=== PATIENT | female | born 1940 | race African-American/Black ===

== ENCOUNTER 2017-02-21 12:04 | Observation (INO) | payer MEDICARE ==
[2017-02-21] MEDS ORDERED: Ondansetron HCl/PF 4 MG/2 ML Vial ONE (12:48)
[2017-02-21 13:13] LABS: #Basophils 0.1 thou/uL (0.0-0.2); #Eosinphils 0.2 thou/uL (0.0-0.7); #Lymphocytes 1.2 thou/uL (1.20-3.40); #Monocytes 0.7 thou/uL (0.11-0.59); #Neutrophils 8.1 thou/uL (1.40-6.50); %Basophils 0.6 % (0.0-1.0); %Eosinophils 1.5 % (0.0-10.0); %Lymphocytes 11.7 % (21.0-51.0); %Monocytes 6.3 % (0.0-10.0); Hematocrit 31.7 % (36.0-47.0); Red Blood Cell (RBC) Count 3.39 mill/uL (4.20-5.40); White Blood Cell (WBC) Count 10.2 thou/uL (4.8-10.8)
--- NOTE | 2017-02-21 13:22 | RAD ---
PORTABLE CHEST 1 VIEW: Date: 02/21/17 Time: 1230 hours HISTORY: Nausea, vomiting, hypertension. FINDINGS/IMPRESSION: Comparison made with exam of 12/05/16. The heart size is enlarged. The aorta is tortuous. There is mild prominence of the pulmonary vascula rity. No lobar consolidation, pneumothorax, or pleural effusions are seen. POS: [facility]
[2017-02-21 13:55] LABS: ALT (SGPT) 9 U/L (8-55); AST (SGOT) 16 U/L (5-34); Alkaline Phosphatase 83 U/L (40-150); Anion Gap 12 mmol/L (10-20); BUN (Urea Nitrogen) 52 mg/dL (9.8-20.1); Bilirubin, Total 0.3 mg/dL (0.2-1.2); CK (CPK) 86 U/L (29-168); Calc. Creatinine Clearance 0 mL/min (70-130); Calcium 9.8 mg/dL (7.8-10.44); Carbon Dioxide 26 mmol/L (23-31); Chloride 105 mmol/L (98-107); Estimated GFR-MDRD 27; Globulin 3.8 g/dL (2.4-3.5); Lipase 18 U/L (8-78); Protein, Total 7.7 g/dL (6.0-8.3)
[2017-02-21 13:56] LABS: Troponin I 0.026 ng/mL (< 0.028)
[2017-02-21] MEDS ORDERED: Acetaminophen 500 MG TAB ONE (14:13)
[2017-02-21 14:18] LABS: Bilirubin Negative (Negative); Blood, Urine Negative (Negative); Glucose, Urine (Dipstick) Negative (Negative); Ketone, Urine Negative (Negative); Nitrite Negative (Negative); Protein, Urine (Dipstick) Trace mg/dL (Neg-Trace); Urobilinogen 0.2 mg/dL (0.2-1.0)
[2017-02-21] MEDS ORDERED: Promethazine HCl 25 MG/ML VIAL ONE (14:37)
--- NOTE | 2017-02-21 15:22 | CT ---
CT OF THE ABDOMEN AND PELVIS WITHOUT IV CONTRAST: Date: 02/21/17 INDICATION: History of abdominal pain. COMPARISON: Noncontrast CT of the abdomen and pelvis dated 10/14/16 and 04/17/14. FINDINGS: ABDOMEN: There are prominent mitral annular calcifications. There are prominent coronary artery calcification s. There are calcified lymph nodes within the right hilar region. There are calcified granulomas wit hin the liver and spleen. No focal hepatic lesion is evident. The spleen is normal in size. Unopacified adrenal glands are unr emarkable. The right kidney is surgically absent. There is a lobulated contour to the left kidney. T here are renovascular calcifications seen within the sinus. There is a 3.7 cm hypodensity seen withi n the left mid kidney which is stable. There are some eccentric calcifications seen along the superi or margin of the hypodense lesion which is stable to the comparison of 2016, but new to the comparis on of 2013. No definite obstructive urolith is present. The bladder is unremarkable. There are prominent vascular calcifications involving the abdominopelvic vasculature. PELVIS: There is a mild amount of retained stool within the colon. There are scattered diverticula involving the colon. The appendix is not definitely visualized. There is no free fluid evident. There is scattered degenerative and osteoarthritic change. There is severe osteoarthrosis involving the right hip. There is diffuse osteopenia. IMPRESSION: 1. No definite CT explanation for patient's abdominal pain. 2. Complex hypodense lesion involving the left kidney is similar to the prior examination. There is eccentric nodular calcification seen along the superior margin of the lesion. A follow-up renal ult rasound may be helpful to further evaluate this abnormality. This lesion is relatively stable to the comparison dated 10/24/16; however, the calcifications are new from the comparison in 2013. 3. Other chronic findings as above. POS: [facility]
--- NOTE | 2017-02-21 16:23 | CT ---
CT HEAD WITHOUT CONTRAST: 02/21/17 COMPARISON: 03/17/16 HISTORY: Left lower quadrant pain with nausea and vomiting, head pain. TECHNIQUE: Serial axial CT imaging at 5 mm intervals from vertex through skull base without contrast. FINDINGS: There is stable expansion of the sella turcica. Imaged paranasal sinuses and mastoid air cells appea r well aerated. No displaced calvarial fracture. There is no intracranial hemorrhage, midline shift or mass effect. There is mild diffuse cerebral volume loss. There is periventricular hypodensity sug gesting a stable degree of small vessel disease. IMPRESSION: Stable head CT as detailed above. No intracranial hemorrhage seen. POS: [facility]
[2017-02-21] MEDS ORDERED: Dextrose 5% in Water 1,000 ML IV PRN (16:33)
[2017-02-21] MEDS ORDERED: Dextrose 50% Abboject 50 ML SYRINGE SLOW IVP PRN (16:33)
[2017-02-21] MEDS ORDERED: Ondansetron HCl/PF 4 MG/2 ML Vial IVP PRN (16:33)
[2017-02-21] MEDS ORDERED: Ondansetron ODT 4 MG TAB PO PRN (16:33)
[2017-02-21] MEDS ORDERED: HumaLOG 300 UNITS/3 ML VIAL SC PRN (16:40)
[2017-02-21] MEDS ORDERED: Acetaminophen 325 MG TAB PO SCH (16:45)
[2017-02-21 16:54] VITALS: BMI 30.4
[2017-02-21] MEDS ORDERED: hydrALAZINE 20 MG/ML VIAL SLOW IVP SCH (17:00)
[2017-02-21] MEDS ORDERED: Metoclopramide HCl 10 MG/2 ML VIAL IVP SCH (17:00)
[2017-02-21] MEDS ORDERED: hydrALAZINE 20 MG/ML VIAL SLOW IVP PRN (17:01)
[2017-02-21] MEDS ORDERED: Labetalol HCl 100 MG/20 ML VIAL SLOW IVP PRN (17:02)
[2017-02-21] MEDS ORDERED: Acetaminophen 325 MG TAB PO PRN (17:02)
[2017-02-21] MEDS: hydrALAZINE 25 MG TAB PO SCH (20:51)
[2017-02-21] MEDS: Gabapentin 100 MG CAP PO SCH (20:52)
[2017-02-21] MEDS: cloNIDine 0.1 MG TAB PO SCH (20:52)
[2017-02-21] MEDS: Heparin 5,000 UNITS/ML VIAL SC SCH (20:55)
[2017-02-21] MEDS ORDERED: ADMIXTURE FEE SC SCH (21:00)
[2017-02-21] MEDS ORDERED: Escitalopram Oxalate 20 mg Tablet PO SCH (21:00)
[2017-02-21] MEDS ORDERED: Ezetimibe 10 MG TAB PO SCH (21:00)
[2017-02-21] MEDS ORDERED: Heparin 5,000 UNITS/ML VIAL SC SCH (21:00)
[2017-02-21] MEDS ORDERED: cloNIDine 0.1 MG TAB PO SCH (21:00)
[2017-02-21] MEDS ORDERED: INSULIN DETEMIR SC SCH (21:00)
--- NOTE | 2017-02-22 00:43 | HP-2 ---
DATE OF ADMISSION: 02/21/2017 CODE STATUS: FULL. PRIMARY CARE PHYSICIAN: Dr. Salazar in [place]. ATTENDING: Monalisa Lyman M.D. RESIDENT: Marilynn Sexton MD CHIEF COMPLAINT: Headache and abdominal pain. HISTORY OF PRESENT ILLNESS: This is a 76-year-old female with past medical history of diabetes, hyp ertension, chronic kidney disease stage 4, anemia of chronic disease, coronary artery disease, conge stive heart failure with preserved ejection fraction, who presents with lower abdominal pain started this morning. She has associated nausea and vomiting x2 episodes. The pain is constant, not relie neris by anything. She also reports a simultaneous headache in the front part of her head, she descri bes as throbbing. She did not feel very well this morning, so she did not take any of her medicatio ns. She has checked her blood pressure and it was her around 200 systolic. She called her son and he ended up calling EMS to come pick her up. She denies any fevers, chills, chest pain, shortness o f breath, palpitations, or vision changes. In the ER, she was given Zofran, Phenergan, and Tylenol. PAST MEDICAL HISTORY: Diabetes, hypertension, chronic kidney disease stage 4, anemia of chronic dis ease, coronary artery disease, congestive heart failure with preserved ejection fraction, right-side d renal cell carcinoma in 1994. PAST SURGICAL HISTORY: Right nephrectomy in 1994. ALLERGIES: No known drug allergies. MEDICATIONS: 1. Aspirin 81 mg. 2. Bumex 1 mg daily. 3. Coreg 25 mg b.i.d. 4. Lexapro 20 mg p.o. at bedtime. 5. Zetia 10 mg p.o. daily. 6. Ferrous sulfate 325 mg daily. 7. Gabapentin 100 mg t.i.d. 8. Lantus 13 units subcu b.i.d. 9. MiraLax 17 grams p.o. daily. 10. Potassium chloride 20 mEq p.o. daily. 11. Clonidine 0.1 mg p.o. b.i.d. 12. Hydralazine 100 mg p.o. t.i.d. 13. Ultram p.r.n. FAMILY HISTORY: None. SOCIAL HISTORY: Denies tobacco, alcohol, or drug use. Lives alone, has home health assistance. REVIEW OF SYSTEMS: A twelve point review of systems was conducted and was negative except what was mentioned in the HPI. PHYSICAL EXAMINATION: VITAL SIGNS: Blood pressure 213/85, pulse 77, respiratory rate 16, temperature 98.2, pulse ox 98% o n room air. GENERAL: Alert, oriented x3, no acute distress, obese, appropriately interactive. EYES: Pupils equal, round, reactive to light. Extraocular muscles are intact. Conjunctivae are wi thin normal limits. Left eye exotropia. ENT: Nasal mucosa and oropharynx within normal limits. NECK: Supple, no lymphadenopathy, no thyromegaly. CARDIOVASCULAR: Regular rate and rhythm, 3/6 systolic ejection murmur. Radial pulses 2+, pedal pul ses 2+. RESPIRATORY: Normal effort, no retractions, clear to auscultation bilaterally. SKIN: Warm, dry, no cyanosis. ABDOMEN: Soft, tender to palpation in the lower quadrants, some lower abdominal bruising. Normoact gilbert bowel sounds. EXTREMITIES: Trace edema in the bilateral ankles. No cyanosis. MUSCULOSKELETAL: Structure and tone within normal limits, 5/5 muscle strength. Full range of motio n. NEUROLOGIC: No focal deficits. Sensation is within normal limits. PSYCHIATRIC: Appropriate. LABORATORY DATA: WBC 10.2, hemoglobin 10.2, hematocrit 31.7, platelets 178. Sodium 139, potassium 4.4, chloride 105, CO2 26, BUN 52, creatinine 2.17, GFR 27, glucose 145, calcium 9.8, total protein 7.7, albumin 3.9, total bilirubin 0.3, AST 16, ALT 9, alkaline phosphatase 83. FOBT negative. CK 8 6, CK-MB 2.2, troponin 0.026. Lipase 18. Urinalysis negative. EKG showed old or anterior infarct. Chest x-ray showed mild prominence of pulmonary vascularity. No lobar consolidation, pneumothorax , or pleural effusion is seen. OTHER IMAGING: Abdominal pelvis CT showed complex hypodense lesion involving the left kidney that i s stable from prior CT. ASSESSMENT AND PLAN: This 76-year-old female who presents with: 1. Hypertensive urgency. We will give IV hydralazine. We will restart home medications. We will a lso give labetalol and hydralazine as needed to keep systolic blood pressure below 180. The patient has associated headache. We will give Tylenol and Reglan. We will monitor on telemetry. 2. Nausea and vomiting secondary to pain. We will give Zofran and Reglan p.r.n. 3. Chronic kidney disease, stage 4, stable. Monitor with monico GROVES. 4. Diabetes type 2, on insulin. We will give Levemir 13 units b.i.d., sliding scale insulin, consi stent carbohydrate diet, Accu-Cheks a.c. and at bedtime. 5. Anemia of chronic disease, stable. We will monitor. 6. History of coronary artery disease. Continue aspirin. 7. Heart failure with preserved ejection fraction. No signs of exacerbation. We will continue vikki e medications. 8. Aortic stenosis. Consider repeat echo versus outpatient echo. The patient is asymptomatic. 9. Venous thromboembolism prophylaxis, heparin b.i.d. DISPOSITION: Observation on telemetry. Symptomatic medications will be provided. History and physical exam, as well as management, discussed with Dr. Lyman.
[2017-02-22 05:44] LABS: #Eosinphils 0.1 thou/uL (0.0-0.7); #Lymphocytes 1.6 thou/uL (1.20-3.40); #Monocytes 0.9 thou/uL (0.11-0.59); #Neutrophils 4.7 thou/uL (1.40-6.50); %Basophils 0.5 % (0.0-1.0); %Eosinophils 1.6 % (0.0-10.0); %Lymphocytes 21.1 % (21.0-51.0); %Monocytes 12.7 % (0.0-10.0); Hematocrit 25.9 % (36.0-47.0); Mean Platelet Volume 8.1 fL (7.4-10.4); Red Blood Cell (RBC) Count 2.77 mill/uL (4.20-5.40); White Blood Cell (WBC) Count 7.4 thou/uL (4.8-10.8)
[2017-02-22 06:03] LABS: Anion Gap 11 mmol/L (10-20); BUN (Urea Nitrogen) 55 mg/dL (9.8-20.1); Calc. Creatinine Clearance 26 mL/min (70-130); Calcium 9.3 mg/dL (7.8-10.44); Carbon Dioxide 28 mmol/L (23-31); Chloride 108 mmol/L (98-107); Estimated GFR-MDRD 24
--- NOTE | 2017-02-22 07:23 | PDOC.FM ---
- Subjective Subjective: The patient reports that her headache has resolved after her blood pressure came down. She has not had any further episodes of nausea and vomiting. She also reports that she has not tried to eat anything all day yesterday. She will try to eat breakfast this AM. She denies any CP, SOB, headache. - Objective MAR Reviewed: Yes Vital Signs & Weight: Vital Signs (12 hours) Temp Pulse Resp BP Pulse Ox 02/22/17 04:30 99.0 F 68 16 148/65 H 93 L 02/21/17 23:16 99.2 F 74 18 138/65 94 L 02/21/17 20:51 71 02/21/17 20:00 98.6 F 71 18 Weight Weight 83.552 kg I&O: 02/21/17 02/22/17 02/23/17 06:59 06:59 06:59 Intake Total 20 Output Total 700 Balance -680 Result Diagrams: 02/22/17 04:53 02/22/17 04:53 <Marilynn Sexton - Last Filed: 02/22/17 07:52> - Objective Vital Signs & Weight: Vital Signs (12 hours) Temp Pulse Resp BP Pulse Ox 02/22/17 08:38 99.1 F 68 16 02/22/17 07:28 99.1 F 68 16 155/66 H 94 L 02/22/17 04:30 99.0 F 68 16 148/65 H 93 L 02/21/17 23:16 99.2 F 74 18 138/65 94 L Weight Weight 83.552 kg I&O: 02/21/17 02/22/17 02/23/17 06:59 06:59 06:59 Intake Total 20 Output Total 700 Balance -680 Result Diagrams: 02/22/17 04:53 02/22/17 04:53 <Nani Pastor - Last Filed: 02/22/17 10:48> Phys Exam - Physical Examination Constitutional: NAD HEENT: moist MMs, oral pharynx no lesions Left eye exotropia Respiratory: no wheezing, no rales, no rhonchi, clear to auscultation bilateral Cardiovascular: RRR, no rub 3/6 systolic murmur loudest over right 2nd intercostal space Gastrointestinal: soft, non-tender, no distention, positive bowel sounds bruising in lower abdomen with subcutaneous nodules Musculoskeletal: no edema, pulses present Neurological: non-focal, moves all 4 limbs Psychiatric: normal affect, A&O x 3 Skin: no rash, cap refill <2 seconds <Marilynn Sexton - Last Filed: 02/22/17 07:52> Dx/Plan (1) Hypertensive urgency Code(s): I16.0 - HYPERTENSIVE URGENCY Status: Acute Plan: Presented in hypertensive urgency with SBP>200 on presentation. She did not take her blood pressure medication yesterday AM as a result of her nausea and vomiting and she ended up developing hypertensive urgency. She received 10mg IV hydralazine along with her home medications, which brought her BP down to SBP 130s-140s. This also resolved her headache. She showed no signs of end-organ damage. -continue home medications -Hydralazine and labetalol prn for SBP > 180 -Tylenol prn headache -Likely d/c today if pt can tolerate PO (2) DM2 (diabetes mellitus, type 2) Status: Chronic Qualifiers: Diabetes mellitus complication status: with unspecified complications Diabetes mellitus terminal clerk insulin use: with jail use Qualified Code(s) : E11.8 - Type 2 diabetes mellitus with unspecified complications; Z79.4 - long term care administrator (current) use of insulin Plan: Pt is controlled on lantus at home. -Levemir 13U BID -CC diet -Accuchecks ACHS -Will monitor (3) CKD (chronic kidney disease), stage IV Code(s): N18.4 - CHRONIC KIDNEY DISEASE, STAGE 4 (SEVERE) Status: Chronic Plan: Pt has stage 4 CKD and has a h/o renal cell ca s/o R nephrectomy in 1994 -Cr and GFR at baseline -Will continue to monitor (4) Anemia in chronic kidney disease Code(s): N18.9 - CHRONIC KIDNEY DISEASE, UNSPECIFIED; D63.1 - ANEMIA IN CHRONIC KIDNEY DISEASE Status: Chronic Qualifiers: Chronic kidney disease stage: stage 4 (severe) Qualified Code(s): N18.4 - Chronic kidney disease, stage 4 (severe); D63.1 - Anemia in chronic kidney disease Plan: Pt has anemia 2/2 chronic kidney disease The drop in hemoglobin today is likely dilutional 2/2 fluids in the ED -continue home iron -She will likely benefit from EPO supplementation in the future (5) Heart failure with preserved ejection fraction Code(s): I50.30 - UNSPECIFIED DIASTOLIC (CONGESTIVE) HEART FAILURE Status: Acute Plan: Last EF 65-70% with diastolic dysfunction Patient showing no signs of an exacerbation. -Continue home meds (6) Moderate aortic stenosis Code(s): I35.0 - NONRHEUMATIC AORTIC (VALVE) STENOSIS Status: Chronic Plan: Patient has aortic stenosis that has been monitored with an echo -Will recommend outpatient follow-up <Marilynn Sexton - Last Filed: 02/22/17 07:52> Attending Addendum - Attending Addendum I personally evaluated the patient and discussed the management with Dr. Sexton. I agree with the History, Examination, Assessment and Plan documented above with any addition or exceptions noted below. The patient notes that she is feeling better. She was able to eat breakfast and keep food down. Pt with CKD4. Discussed starting a clonidine patch instead of bid clonidine as it seems that the medication is not lasting through the night and she wakes with a severe headache and elevated bp each morning. Likely discharge this afternoon. <Nani Pastor - Last Filed: 02/22/17 10:48>
[2017-02-22] MEDS ORDERED: Ferrous Sulfate 325 MG TAB PO SCH (08:00)
[2017-02-22] MEDS ORDERED: Carvedilol 25 MG TAB PO SCH (08:00)
[2017-02-22] MEDS: Gabapentin 100 MG CAP PO SCH (08:37)
[2017-02-22] MEDS: hydrALAZINE 25 MG TAB PO SCH (08:37)
[2017-02-22] MEDS: cloNIDine 0.1 MG TAB PO SCH (08:37)
[2017-02-22] MEDS: Heparin 5,000 UNITS/ML VIAL SC SCH (08:38)
[2017-02-22] MEDS ORDERED: INSULIN DETEMIR SC SCH (09:00)
[2017-02-22] MEDS ORDERED: Aspirin 81 mg Enteric Coated Tablet PO SCH (09:00)
[2017-02-22] MEDS ORDERED: Polyethylene Glycol 3350 17 GM Packet PO SCH (09:00)
[2017-02-22] MEDS ORDERED: Bumetanide 1 MG TAB PO SCH (09:00)
[2017-02-22] MEDS ORDERED: ADMIXTURE FEE SC SCH (09:00)
[2017-02-22] MEDS ORDERED: FLU VACC TS2017-18 (>65YR) 0.5 ML SYRINGE IM ONE (09:00)
[2017-02-22] MEDS ORDERED: Potassium Chloride 20 MEQ TAB PO SCH (09:00)
[2017-02-22] MEDS ORDERED: cloNIDine 0.1mg/24 Hour PATCH TD SCH (11:15)
[2017-02-22 11:35] VITALS: BP 134/63; TEMP 98
--- NOTE | 2017-02-22 15:49 | DIS-2 ---
DATE OF ADMISSION: 02/21/2017 DATE OF DISCHARGE: 02/22/2017 RESIDENT: Marilynn Sexton MD ADMITTING ATTENDING: Monalisa Lyman M.D. DISCHARGE ATTENDING: Nani Pastor M.D. CONSULTATIONS: None. PROCEDURES: None. PRIMARY DIAGNOSES: 1. Hypertensive urgency. 2. Headaches. 3. Nausea and vomiting. SECONDARY DIAGNOSES: 1. Chronic kidney disease stage 4. 2. Anemia of chronic disease. 3. Coronary artery disease. 4. Heart failure with preserved ejection fraction. 5. Aortic stenosis. 6. Diabetes type 2. DISCHARGE MEDICATIONS: 1. Aspirin 81 mg p.o. daily. 2. Bumex 1 mg p.o. daily. 3. Carvedilol 25 mg p.o. b.i.d. with meals. 4. Lexapro 20 mg p.o. at bedtime. 5. Zetia 10 mg p.o. at bedtime. 6. Ferrous sulfate 325 mg p.o. q.a.m. with meals. 7. Gabapentin 100 mg p.o. t.i.d. 8. MiraLax 17 grams p.o. daily. 9. Potassium chloride 20 mEq p.o. daily. 10. Clonidine 0.1 mg patch transdermal every 7 days. 11. Hydralazine 100 mg p.o. t.i.d. 12. Lantus 13 units subcu b.i.d. 13. Tramadol 50 mg p.o. q.6 h. p.r.n. pain. DISCONTINUED MEDICATIONS: Clonidine 0.1 mg p.o. b.i.d. Please discontinue this medication at the e nd of the day on 02/24/2017. HISTORY OF PRESENT ILLNESS/HOSPITAL COURSE: This is a 76-year-old female who presented to the [facility] complaining of headache, nausea, and vomiting, was found to have systolic blood pressures in the 210s. She reported that she woke up with a headache and did not feel well, so she did not take her blood pressure medicine that morning. She also did not eat at all on that day. She received 2 mg IV hydralazine and her blood pressure came down to the 150s systolic and she reports at that time, h er headache resolved. She also received all of her normal daily blood pressure medicines which help ed her blood pressures remain within a more reasonable range. The patient reports that her nausea a nd vomiting improved as well at this point. The patient had a chest x-ray that was done that showed no acute cardiopulmonary process. She had an abdominal pelvis CT done that showed a complex hypode nse lesion involving the left kidney similar to previous examination, but no CT of explanation for h er abdominal pain. She also had a brain CT done that showed a stable head CT, no intracranial hemor rhage seen. On the morning of 02/22/2017, the patient was able to eat breakfast without difficulty and had no abdominal pain. Her headache had completely resolved. Her blood pressures were within r easonable range in the 130s to 150s systolic and that was before the patient received her morning bl ood pressure medicine. The patient was on further questioning reported that she often woke up with headaches in the morning and when home health will come check her blood pressure that it would often be high in the mornings. On review of her medication list, most of her blood pressure medicines ar e more short acting and therefore did not last her through the night, so I switched her to the cloni dine patch instead of tablets so that it would last her throughout the night as well in hopes that t his would decrease her elevated blood pressures in the morning and headaches as well. The patient d id have anemia while she was here, her hemoglobin initially was 10.2 and then her second level was 8 .2. These were both within her normal range that she has been on previous admissions. 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 The patient was asymptomatic f rom an anemia standpoint. Therefore, this was recommended to be followed up from an outpatient [facility]. DISPOSITION: Stable. DISCHARGE INSTRUCTIONS: 1. Location: Home. 2. Activity: No restrictions. Diet: Diabetic and heart healthy. Follow up with Dr. Salazar in [place] within 1-2 weeks to discuss a change in blood pressure gray johnson
[2017-03-01] MEDS ORDERED: cloNIDine 0.1mg/24 Hour PATCH TD SCH (09:00)
== END 2017-02-22 13:37 | disposition home or self-care (01) ==
LOC: ERS 12:04 → 2SW 16:29
PROVIDERS: ADMIT Student in an Organized Health Care Education/Training Program; ATTEND Student in an Organized Health Care Education/Training Program
DX: I16.0 Hypertensive urgency (principal); I13.0 Hypertensive heart and chronic kidney disease with heart failure and stage 1 through stage 4 chronic kidney disease, or unspecified chronic kidney disease; E11.22 Type 2 diabetes mellitus with diabetic chronic kidney disease; N18.4 Chronic kidney disease, stage 4 (severe); I50.30 Unspecified diastolic (congestive) heart failure; D63.1 Anemia in chronic kidney disease; I25.10 Atherosclerotic heart disease of native coronary artery without angina pectoris; I35.0 Nonrheumatic aortic (valve) stenosis; N28.89 Other specified disorders of kidney and ureter; R11.2 Nausea with vomiting, unspecified; Z79.4 Long term (current) use of insulin; Z79.82 Long term (current) use of aspirin; Z79.899 Other long term (current) drug therapy; Z85.528 Personal history of other malignant neoplasm of kidney
CPT/HCPCS: 51701; 70450; 71010; 74176; 80048; 80053; 81003; 82271; 82550; 82553; 82962 ×2; 83690; 84484; 85025 ×2; 93005; 96361; 96365; 96375 ×2; 99285; G0008; G0378; Q2036; 36415; 36416; 90471; 90682; A4353; J0360; J1644; J1815; J2405; J2550; J2765

== ENCOUNTER 2017-04-10 08:20 | Observation (INO) | payer MEDICARE ==
[2017-04-10 09:33] LABS: #Eosinphils 0.1 thou/uL (0.0-0.7); #Neutrophils 7.5 thou/uL (1.40-6.50); %Basophils 0.4 % (0.0-1.0); %Eosinophils 0.9 % (0.0-10.0); %Lymphocytes 10.5 % (21.0-51.0); %Monocytes 10.4 % (0.0-10.0); Hematocrit 25.5 % (36.0-47.0); Mean Platelet Volume 8.1 fL (7.4-10.4); Red Blood Cell (RBC) Count 2.63 mill/uL (4.20-5.40); White Blood Cell (WBC) Count 9.6 thou/uL (4.8-10.8)
--- NOTE | 2017-04-10 09:51 | RAD ---
PORTABLE CHEST: Date: 04/10/17 HISTORY: Dyspnea. COMPARISON: 02/21/17. FINDINGS: Cardiomegaly. Mild vascular engorgement. Some hazy infiltrate or edema in the right mid lung is noted . Evidence of tiny effusions. IMPRESSION: Cardiomegaly with mild vascular congestion. Hazy alveolar infiltrate or edema in the right mid lung i s noted. Evidence of small effusions. POS: [facility]
[2017-04-10 09:57] LABS: ALT (SGPT) 7 U/L (8-55); AST (SGOT) 16 U/L (5-34); Alkaline Phosphatase 54 U/L (40-150); Anion Gap 11 mmol/L (10-20); BUN (Urea Nitrogen) 48 mg/dL (9.8-20.1); Bilirubin, Total 0.4 mg/dL (0.2-1.2); Calc. Creatinine Clearance 0 mL/min (70-130); Calcium 9.3 mg/dL (7.8-10.44); Carbon Dioxide 27 mmol/L (23-31); Chloride 106 mmol/L (98-107); Estimated GFR-MDRD 26; Globulin 3.6 g/dL (2.4-3.5); Lipase 8 U/L (8-78); Magnesium 2.1 mg/dL (1.6-2.6)
[2017-04-10] MEDS ORDERED: Acetaminophen 500 MG TAB ONE (11:34)
[2017-04-10 12:30] VITALS: BMI 24.5
[2017-04-10 12:35] LABS: Bilirubin Negative (Negative); Blood, Urine Negative (Negative); Glucose, Urine (Dipstick) Negative (Negative); Ketone, Urine Negative (Negative); Nitrite Negative (Negative); Protein, Urine (Dipstick) 30 mg/dL (Neg-Trace)
[2017-04-10 12:38] LABS: Hyaline Casts/LPF 0-3 HYALINE CAST LPF (0-3 Hyaline); Squamous Epithelial 0-3 HPF (0-3); WBC/HPF 0-3 HPF (0-3)
[2017-04-10 12:51] LABS: Bacteria/HPF Rare-Few HPF (None Seen)
[2017-04-10 13:19] LABS: Troponin I 0.035 ng/mL (< 0.028)
[2017-04-10 16:30] LABS: Troponin I 0.036 ng/mL (< 0.028)
[2017-04-10] MEDS ORDERED: Ondansetron HCl/PF 4 MG/2 ML Vial IVP PRN ×2 (17:29→18:07)
[2017-04-10] MEDS ORDERED: Acetaminophen 500 MG TAB PO PRN (18:07)
[2017-04-10] MEDS ORDERED: Benzonatate 100 MG CAP PO PRN (18:07)
[2017-04-10] MEDS ORDERED: cloNIDine 0.1 MG TAB PO PRN (18:07)
[2017-04-10] MEDS ORDERED: Dextrose 5% in Water 1,000 ML IV PRN (18:07)
[2017-04-10] MEDS ORDERED: HumaLOG 300 UNITS/3 ML VIAL SC PRN ×2 (18:07)
[2017-04-10] MEDS ORDERED: Dextrose 50% Abboject 50 ML SYRINGE SLOW IVP PRN (18:07)
[2017-04-10] MEDS ORDERED: hydrALAZINE 20 MG/ML VIAL SLOW IVP PRN (18:07)
[2017-04-10] MEDS ORDERED: Ondansetron ODT 4 MG TAB PO PRN (18:07)
[2017-04-10] MEDS ORDERED: Furosemide 40 MG/4 ML VIAL SLOW IVP SCH (18:45)
[2017-04-10] MEDS ORDERED: Carvedilol 25 MG TAB PO SCH (19:30)
[2017-04-10] MEDS: hydrALAZINE 25 MG TAB PO SCH (20:38)
[2017-04-10] MEDS: cloNIDine 0.3 MG TAB PO SCH (20:39)
[2017-04-10] MEDS: Gabapentin 100 MG CAP PO SCH (20:39)
[2017-04-10] MEDS: Methocarbamol 500 MG TAB PO SCH (20:40)
[2017-04-10] MEDS: Insulin Detemir 100 UNITS/ML 13 UNITS in Pre-Filled Syringe 1 EACH SC SCH (20:42)
[2017-04-10] MEDS ORDERED: Famotidine 20 MG TAB PO SCH (21:00)
[2017-04-10] MEDS ORDERED: INSULIN GLARGINE HUM REC ANLOG 13 UNIT SQ SCH (21:00)
[2017-04-10] MEDS ORDERED: Ezetimibe 10 MG TAB PO SCH (21:00)
--- NOTE | 2017-04-11 00:56 | HP ---
DATE OF ADMISSION: 04/10/2017 PRIMARY CARE PHYSICIAN: Dr. Dheeraj Salazar. CHIEF COMPLAINT: Headache and abdominal pain. HISTORY OF PRESENT ILLNESS: This is a 76-year-old -[place] female who presents to [facility] complaining of headache with associated abdominal pain and nausea. The patie nt admits to some general malaise, mild sore throat and cough. 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 The patient denied any specific trauma, injury or rece nt dental procedures. The patient states she is slated for an upcoming dental exam with probable too th filling on 04/12/2017. The patient denied any specific diarrhea, but does state that she takes Mi raLax on a regular basis. The patient denied any dysuria, hematuria, melena or recent travel history . The patient denied any prominent chest pain, recent trauma, injury or recent vaccinations. The pa guillaume initially rated her abdominal pain, 7/10 in the emergency room, relieved with rest and Zofran. The patient denies any change to her chronic medication regimen and states she has been compliant wi th her prescriptions. In the emergency room, the patient underwent general evaluation including ches t imaging showing mild edema. The patient received aspirin 324 mg and 1 gram of Tylenol and transfer red to the observation unit for evaluation. PAST MEDICAL HISTORY: 1. Diabetes mellitus, type 2. 2. Hypertension. 3. Chronic kidney disease, stage 4. 4. Anemia of chronic kidney disease. 5. Coronary artery disease. 6. Diastolic congestive heart failure with ejection fraction of 60%. Aortic valve sclerosis. 7. History of right-sided renal cell carcinoma in . 8. Depression. PAST SURGICAL HISTORY: 1. Status post right nephrectomy. 2. Status post appendectomy. CURRENT MEDICATIONS: 1. Enteric coated aspirin 81 mg 1 tab p.o. daily. 2. Bumex 1 mg p.o. daily. 3. Coreg 25 mg p.o. b.i.d. 4. Clonidine 0.3 mg p.o. b.i.d. 5. Zetia 10 mg p.o. at bedtime. 6. Feosol 325 mg daily. 7. Gabapentin 100 mg p.o. t.i.d. 8. Hydralazine 100 mg p.o. t.i.d. 9. Glargine insulin 13 units subcutaneously b.i.d. 10. Robaxin 500 mg p.o. b.i.d. 11. MiraLax 17 grams p.o. daily. 12. Potassium chloride 20 mEq p.o. daily. ALLERGIES: No known drug allergies. FAMILY HISTORY: Positive for coronary artery disease in her brothers. SOCIAL HISTORY: The patient lives independently in [place], [place]. No current alcohol, tobacco or illicit drug use. 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 REVIEW OF SYSTEMS: The following complete review of systems was negative, unless otherwise mentioned in the HPI or below: Constitutional: Weight loss or gain, ability to conduct usual activities. Skin: Rash, itching. Eyes: Double vision, pain. ENT/Mouth: Nose bleeding, neck stiffness, pain, tenderness. Cardiovascular: Palpitations, dyspnea on exertion, orthopnea. Respiratory: Shortness of breath, wheezing, cough, hemoptysis, fever or night sweats. Gastrointestinal: Poor appetite, abdominal pain, heartburn, nausea, vomiting, constipation, or diarr hea. Genitourinary: Urgency, frequency, dysuria, nocturia. Musculoskeletal: Pain, swelling. Neurologic/Psychiatric: Anxiety, depression. Allergy/Immunologic: Skin rash, bleeding tendency. PHYSICAL EXAMINATION: VITAL SIGNS: On admission, blood pressure 172/74, pulse 64, respiratory rate 20, temperature 98.5 de grees Fahrenheit, O2 saturation 96% on room air. GENERAL APPEARANCE: This is a 76-year-old -[place] female, alert and oriented x3, pleasant, conversant, in no acute distress. HEENT: Pupils are equal, round, and reactive to light and accommodation. Left eye with disconjugate gaze laterally. No conjunctival injection. Nares patent. OP is clear. Teeth in fair repair. NECK: Supple, no cervical adenopathy, no thyromegaly, no carotid bruits, no JVD appreciated. Cervic al spine with full active and passive range of motion. No meningeal signs appreciated on neck exam. CHEST: Diminished breath sounds in the bases bilaterally. CARDIOVASCULAR: S1, S2 with a 2/6 systolic ejection murmur, loudest in the left upper sternal border . ABDOMEN: Obese, soft, nontender, nondistended. Bowel sounds are positive in all four quadrants. Th ere is no hepatosplenomegaly, no abdominal bruits, no rebound or guarding appreciated. EXTREMITIES: Warm and dry with fair turgor. Minimal edema to the lower extremities bilaterally. No asymmetric edema appreciated. Pulses palpable distally at the dorsalis pedis, posterior tibial, and popliteal arteries bilaterally. Capillary refill less than 2 seconds. NEUROLOGIC: Cranial nerves II-XII are grossly intact. No focal or lateralizing signs appreciated. PERTINENT LABORATORY AND X-RAY FINDINGS: Sodium 139, potassium 4.8, chloride is 106, CO2 of 27, BUN 48, creatinine 2.18, estimated GFR 26, glucose 153, calcium 9.3, magnesium 2.1. LFTs within normal l imits. Troponin I ranged between 0.035-0.040. BNP 1918, previously noted 566 on 12/06/2016, lipase 8. CBC showed a white blood cell count of 9.6, hemoglobin 7.8, hematocrit 26, platelet count 200 wit h 78% neutrophils. Urinalysis positive for protein. Portable chest x-ray dated 04/10/2017 showed ca rdiomegaly with mild vascular prominence. EKG dated 04/10/2017 by my interpretation shows sinus mech anism with heart rates in the 60s. Attenuated R waves noted in the precordial leads. Normal axis. No acute ST-T wave changes appreciated. ASSESSMENT AND PLAN: 1. Abdominal pain, etiology unclear. No current evidence to suggest an acute surgical condition. L ikely related to history of constipation. We will continue serial assessments and supportive measure s. 2. Headache. Suspect tension headache. Tylenol 1000 mg p.o. q.6 hours p.r.n. Also suspect compone nt of labile blood pressure. 3. Diastolic dysfunction with ejection fraction of 65%. Appears compensated. We will treat with on e dose of Lasix 40 mg IV. Resume Bumex 1 mg p.o. daily. Continue to monitor daily weight and I's an d O's. 4. Aortic valve stenosis, moderate. We will continue symptomatic and supportive measures. Resume h ome regimen to include Coreg 25 mg p.o. b.i.d. 5. Diabetes mellitus, type 2, insulin requiring. Resume glargine 13 units subcutaneously b.i.d. In sulin sliding scale for reflexive coverage. ADA diet. 6. Prophylaxis. Sequential compression devices while in bed. Pepcid 20 mg p.o. b.i.d. 7. Code status is FULL. Surrogate medical decision maker is patient's son.
[2017-04-11] MEDS ORDERED: Furosemide 40 MG/4 ML VIAL SLOW IVP SCH (06:00)
[2017-04-11 06:23] LABS: Anion Gap 11 mmol/L (10-20); BUN (Urea Nitrogen) 49 mg/dL (9.8-20.1); Calc. Creatinine Clearance 27 mL/min (70-130); Calcium 9.1 mg/dL (7.8-10.44); Carbon Dioxide 27 mmol/L (23-31); Chloride 108 mmol/L (98-107); Estimated GFR-MDRD 24
[2017-04-11 06:24] LABS: Band 5 % (5-11); Hematocrit 23.1 % (36.0-47.0); Mean Platelet Volume 7.9 fL (7.4-10.4); Neutrophil 78 % (42-75); Red Blood Cell (RBC) Count 2.42 mill/uL (4.20-5.40); White Blood Cell (WBC) Count 7.3 thou/uL (4.8-10.8)
[2017-04-11] MEDS: Methocarbamol 500 MG TAB PO SCH (07:53)
[2017-04-11] MEDS: hydrALAZINE 25 MG TAB PO SCH (07:53)
[2017-04-11] MEDS: cloNIDine 0.3 MG TAB PO SCH (07:54)
[2017-04-11] MEDS: Gabapentin 100 MG CAP PO SCH (07:54)
[2017-04-11] MEDS ORDERED: Ferrous Sulfate 325 MG TAB PO SCH (08:00)
[2017-04-11] MEDS ORDERED: Potassium Chloride 20 MEQ TAB PO SCH (08:00)
[2017-04-11] MEDS ORDERED: Carvedilol 25 MG TAB PO SCH (08:00)
[2017-04-11] MEDS ORDERED: Aspirin 81 mg Enteric Coated Tablet PO SCH (09:00)
[2017-04-11] MEDS ORDERED: Polyethylene Glycol 3350 17 GM Packet PO SCH (09:00)
[2017-04-11] MEDS ORDERED: Bumetanide 1 MG TAB PO SCH (09:00)
[2017-04-11] MEDS: Insulin Detemir 100 UNITS/ML 13 UNITS in Pre-Filled Syringe 1 EACH SC SCH (10:18)
[2017-04-11 11:15] VITALS: BP 135/61; TEMP 98.9
--- NOTE | 2017-04-11 12:26 | DIS ---
DATE OF ADMISSION: 04/10/2017 DATE OF DISCHARGE: 04/11/2017 DISCHARGE DIAGNOSES: 1. Abdominal pain, etiology unclear, resolved. 2. Headache, suspect tension versus cervical spine osteoarthritis. 3. Diastolic dysfunction with ejection fraction of 65%, stable. 4. Question of viral syndrome. 5. Aortic valve stenosis, moderate. 6. Diabetes mellitus type 2, insulin requiring. 7. Chronic kidney disease stage 4. 8. Elevated troponin I, chronic, no evidence of acute coronary syndrome. HOSPITAL COURSE: The patient was placed in observation status after initially presenting with conste llation of symptoms including abdominal pain, headache and mild cough. The patient was treated sympt omatically and supportively, given one dose of IV Lasix as well as Tylenol. Metabolic survey was ess entially unrevealing with stable renal function showing chronic kidney disease stage 4. The patient with chronically elevated troponin I dating back to 2013 without evidence of acute coronary syndrome. The patient also with longstanding diastolic dysfunction with overall preserved ejection fraction o f 65%. Overall, the patient remained clinically stable for the hospital course with telemetry monito ring showing sinus mechanism without evidence of acute arrhythmia or dysrhythmia. The patient is sta ble and ready for discharge on 04/11/2017. DISCHARGE MEDICATIONS: 1. Enteric-coated aspirin 81 mg 1 tab p.o. daily. 2. Bumex 1 mg 1 tab p.o. daily. 3. Coreg 25 mg p.o. b.i.d. 4. Clonidine 0.3 mg p.o. b.i.d. 5. Zetia 10 mg p.o. at bedtime. 6. Ferrous sulfate 325 mg p.o. daily. 7. Gabapentin 100 mg p.o. t.i.d. 8. Hydralazine 100 mg p.o. t.i.d. 9. Glargine insulin 13 units subcutaneously b.i.d. 10. Robaxin 500 mg p.o. b.i.d. p.r.n. 11. MiraLax 17 grams p.o. daily. 12. Potassium chloride 20 mEq one tab p.o. daily. FOLLOWUP: Patient will follow up with her primary care provider, Dr. Dheeraj Salazar within 7 days of di juan josé. CONDITION ON DISCHARGE: Stable. ACTIVITY: Ad jordan. DIET: Heart healthy and ADA. CODE STATUS: FULL. DISPOSITION: Home, 04/11/2017.
--- NOTE | 2017-04-11 13:27 | EKG ---
Test Reason : SOB Blood Pressure : / mmHG Vent. Rate : 060 BPM Atrial Rate : 060 BPM P-R Int : 198 ms QRS Dur : 108 ms QT Int : 474 ms P-R-T Axes : 042 000 070 degrees QTc Int : 474 ms Normal sinus rhythm Possible Left atrial enlargement Septal infarct , age undetermined Abnormal ECG Confirmed by BE REYES ([id number]), editor & co founder CAILIN BEAR ([id number]) on 04/11/2017 1:26:57 PM Referred By: Confirmed By:BE REYES
== END 2017-04-11 12:32 | disposition home or self-care (01) ==
LOC: ERS 08:20 → 2SW 10:45
PROVIDERS: ADMIT Family Medicine; ATTEND Family Medicine
DX: R10.9 Unspecified abdominal pain (principal); R51 Headache; I35.0 Nonrheumatic aortic (valve) stenosis; E11.22 Type 2 diabetes mellitus with diabetic chronic kidney disease; I13.0 Hypertensive heart and chronic kidney disease with heart failure and stage 1 through stage 4 chronic kidney disease, or unspecified chronic kidney disease; N18.4 Chronic kidney disease, stage 4 (severe); I50.30 Unspecified diastolic (congestive) heart failure; R79.89 Other specified abnormal findings of blood chemistry; D63.1 Anemia in chronic kidney disease; I25.10 Atherosclerotic heart disease of native coronary artery without angina pectoris; F32.9 Major depressive disorder, single episode, unspecified; Z79.4 Long term (current) use of insulin; Z79.82 Long term (current) use of aspirin; Z79.899 Other long term (current) drug therapy; Z90.5 Acquired absence of kidney; Z90.49 Acquired absence of other specified parts of digestive tract; Z85.528 Personal history of other malignant neoplasm of kidney
CPT/HCPCS: 71010; 80048; 80053; 82553; 82962 ×2; 83690; 83735; 83880; 84484 ×2; 85007; 85025; 85027; 93005; 94760; 96374; 96375; 99285; G0378; 36415; 36416; 81003; 81015; J1815; J1940; J2405; Q0162

== ENCOUNTER 2017-07-08 13:46 | Inpatient (IN) | payer MEDICARE ==
[2017-07-08 14:28] LABS: #Eosinphils 0.1 thou/uL (0.0-0.7); #Lymphocytes 1.4 thou/uL (1.20-3.40); #Monocytes 0.6 thou/uL (0.11-0.59); #Neutrophils 8.1 thou/uL (1.40-6.50); %Basophils 0.2 % (0.0-1.0); %Eosinophils 1.2 % (0.0-10.0); %Lymphocytes 13.4 % (21.0-51.0); %Monocytes 6.3 % (0.0-10.0); Hemoglobin 7.8 g/dL (12.0-16.0); Mean Corpuscular HGB CONC 30.9 g/dL (32.0-36.0); Mean Corpuscular Hemoglobin 28.6 pg (27.0-31.0); Mean Corpuscular Volume 92.4 fl (81.0-99.0); Mean Platelet Volume 7.7 fL (7.4-10.4); Platelet Count 222 thou/uL (130-400); RBC Distribution Width 14.6 % (11.5-14.5); Red Blood Cell (RBC) Count 2.74 mill/uL (4.20-5.40); White Blood Cell (WBC) Count 10.3 thou/uL (4.8-10.8)
[2017-07-08 14:36] LABS: INR-International Normal Ratio 1.2; PTT 34.7 SEC (22.9-36.1); Prothrombin Time 15.2 SEC (12.0-14.7)
[2017-07-08] MEDS ORDERED: Nitroglycerin 2% Ointment 1 INCH/1 GM Packet ONE (14:44)
[2017-07-08 14:52] LABS: ALT (SGPT) Less than 7 U/L (8-55); AST (SGOT) 17 U/L (5-34); Albumin 3.6 g/dL (3.4-4.8); Alkaline Phosphatase 73 U/L (40-150); Anion Gap 15 mmol/L (10-20); BUN (Urea Nitrogen) 61 mg/dL (9.8-20.1); Bilirubin, Total 0.2 mg/dL (0.2-1.2); CK (CPK) 80 U/L (29-168); Calc. Creatinine Clearance 0 mL/min (70-130); Calcium 9.4 mg/dL (7.8-10.44); Carbon Dioxide 23 mmol/L (23-31); Chloride 107 mmol/L (98-107); Estimated GFR-MDRD 27; Globulin 3.6 g/dL (2.4-3.5); Glucose 118 mg/dL (83-110); Lipase 21 U/L (8-78); Potassium 4.7 mmol/L (3.5-5.1); Protein, Total 7.2 g/dL (6.0-8.3); Sodium 140 mmol/L (136-145)
[2017-07-08 14:56] LABS: CKMB 3.1 ng/mL (0-6.6); Troponin I 0.051 ng/mL (< 0.028)
[2017-07-08] MEDS ORDERED: Morphine 4 MG/ML VIAL ONE (15:07)
--- NOTE | 2017-07-08 15:41 | RAD ---
PORTABLE CHEST: Date: 07/08/17 PROVIDED CLINICAL HISTORY: Chest pain. FINDINGS: Comparison with 04/10/17. Cardiac silhouette appears enlarged. Pulmonary vasculature appears prominent. No focal consolidation, pleural fluid, or pneumothorax evident. Vascular calcification involves the aortic arch. IMPRESSION: Cardiomegaly and findings suggesting congestive failure. POS: [facility]
[2017-07-08] MEDS ORDERED: Furosemide 40 MG/4 ML VIAL ONE (16:09)
[2017-07-08] MEDS ORDERED: Nitroglycerin 0.4 MG TAB (25 Tab Bottle) ONE (16:09)
[2017-07-08] MEDS ORDERED: hydrALAZINE 20 MG/ML VIAL ONE (17:07)
[2017-07-08 17:30] LABS: Bilirubin Negative (Negative); Blood, Urine Negative (Negative); Clarity CLEAR (Clear); Glucose, Urine (Dipstick) Negative (Negative); Leukocyte Negative (Negative); Nitrite Negative (Negative); Protein, Urine (Dipstick) Trace mg/dL (Neg-Trace); Specific Gravity, Urine 1.014 (1.002-1.036); Urobilinogen 0.2 mg/dL (0.2-1.0); pH, Urine 5.5 (5.0-9.0)
[2017-07-08 18:08] LABS: Troponin I 0.063 ng/mL (< 0.028)
[2017-07-08 18:39] VITALS: BMI 29.9
[2017-07-08] MEDS ORDERED: Dextrose 5% in Water 1,000 ML IV PRN (18:40)
[2017-07-08] MEDS ORDERED: Dextrose 50% Abboject 50 ML SYRINGE SLOW IVP PRN ×2 (18:40)
[2017-07-08 20:39] LABS: Troponin I 0.065 ng/mL (< 0.028)
[2017-07-08] MEDS: Pantoprazole 40 MG VIAL IVP SCH (21:51)
[2017-07-08] MEDS: Gabapentin 100 MG CAP PO SCH (21:51)
[2017-07-08] MEDS: Sodium Chloride 0.9% 1,000 ML IV SCH (21:52)
--- NOTE | 2017-07-08 21:56 | HP ---
PRIMARY CARE PHYSICIAN: KEISHA Cr HISTORY OF PRESENT ILLNESS: The patient is a very pleasant 76-year-old female who was transferred fr om an outside hospital for nausea and anemia. The patient is unable to provide an accurate history; however, the patient states that she has been doing well for the past few days; however, this morning when she woke up, she got very, very nauseated; however, she did not throw up. The patient also sta shakira that she has been having dark stools for the past few days. The patient states that she normally does not take ibuprofen or Advil; however, this morning because she was just not feeling well, she t ook 2 Advil. The patient denies any chest discomfort or chest pain or any shortness of breath on exe rtion. 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 The patient denies any fevers or chills, denies any diarrhea. The patient did go to the outside hospital and was found to have a hemoglobin of 4. Upon repeating i t and it was about 7. Hemoglobin here was about 7.8. The patient was hemodynamically stable. PAST MEDICAL HISTORY: 1. Diabetes, type 2. 2. Hypertension. 3. Chronic kidney disease, stage 4. 4. Anemia of chronic disease. 5. Coronary artery disease. 6. Diastolic heart failure with EF of 60% with aortic valve sclerosis. 7. History of right-sided renal cell carcinoma in . 8. Depression. PAST SURGICAL HISTORY: Status post right nephrectomy, status post appendectomy. CURRENT MEDICATIONS: The patient currently does not have medications. This is from the previous rec ords. She normally takes an aspirin a day. She takes Bumex 1 mg daily, Coreg 25 mg b.i.d., clonidin e 0.3 mg p.o. b.i.d., Zetia 10 mg p.o. at bedtime, Feosol 325 daily, gabapentin 100 mg p.o. t.i.d., h ydralazine 100 mg p.o. t.i.d., insulin Lantus 13 units b.i.d., MiraLax 17 grams daily, potassium chlo ride 20 mEq daily, and Robaxin 500 mg p.o. b.i.d. ALLERGIES: She has no known drug allergies. FAMILY HISTORY: Positive for coronary artery disease in her brothers. SOCIAL HISTORY: The patient denies any alcohol use, drugs or smoking history. 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 REVIEW OF SYSTEMS: The following complete review of systems was negative, unless otherwise mentioned in the HPI or below: Constitutional: Weight loss or gain, sense of well-being, ability to conduct usual activities, exerc ise tolerance. Skin/Breast: Rash, itching, changes in hair growth or loss, nail changes, breast lumps, tenderness, swelling, nipple discharge. Eyes: Vision, double vision, tearing, blind spots, pain. ENT/Mouth: Headaches (location, time of onset, duration, precipitating factors), vertigo, lightheade dness, injury. Vision, double vision, tearing, blind spots, pain, nose bleeding, colds, obstruction, discharge, dental difficulties, gingival bleeding, dentures, neck stiffness, pain, tenderness, masses in thyroid or other areas. Cardiovascular: Precordial pain, substernal distress, palpitations, syncope, dyspnea on exertion, or thopnea, nocturnal paroxysmal dyspnea, edema, cyanosis, hypertension, heart murmurs, varicosities, ph lebitis, claudication. Respiratory: Pain, shortness of breath, wheezing, stridor, cough, hemoptysis, fever or night sweats. Gastrointestinal: Poor appetite, dysphagia, indigestion, abdominal pain, heartburn, eructation, naus ea, vomiting, hematemesis, jaundice, constipation, or diarrhea, abnormal stools (shaunna-colored, tarry, bloody, greasy, foul smelling), flatulence, hemorrhoids, recent changes in bowel habits. Genitourinary: Urgency, frequency, dysuria, nocturia, hematuria, polyuria, oliguria, unusual (or manjinder nge in) color of urine, stones, hesitancy, change in size of stream, dribbling, acute retention or in continence, libido, potency. Musculoskeletal: Pain, swelling, redness or heat of muscles or joints, limitation, of motion, muscul ar weakness, atrophy, cramps. Neurologic/Psychiatric: Convulsions, paralyses, tremor, incoordination, paresthesias, difficulties w ith memory of speech, sensory or motor disturbances, or muscular coordination (ataxia, tremor), emoti onal problems, anxiety, depression, previous psychiatric care, unusual perceptions, hallucinations. Allergy/Immunologic: Skin rash, anemia, bleeding tendency, polydipsia, polyuria, intolerance to heat or cold. Currently everything is negative except for the ones mentioned in the HPI. PHYSICAL EXAMINATION: VITAL SIGNS: The patient was afebrile at 98.6, heart rate of 80 with blood pressure of 190/95. GENERAL: She is awake, alert, oriented x3, does not appear to be in any distress. HEENT: She does have some deviation of her left eye, which according to her is not new. It is chron ic. NECK: Supple. No lymphadenopathy noted. CHEST: Breath sounds are clear bilaterally. No rhonchi or wheezes noted. CARDIOVASCULAR: S1, S2 present. She does have a 2/6 systolic ejection murmur, loudest in the left u pper sternal border. ABDOMEN: Obese. Bowel sounds are present x2. She does have some tenderness in her epigastric area and right upper and left upper quadrant on deep palpation. EXTREMITIES: Warm. No edema noted. LABORATORY DATA: As following: The patient's WBC is 10.3, hemoglobin of 7.8, hematocrit 25.3, her p latelets are 222. Chemistry: BUN of 61, creatinine of 2.12, which is at her baseline, glucose of 11 8. She does have mild elevated troponins, which are around the same baseline at 0.051-0.063. ProBNP is elevated at 1057.9. ASSESSMENT AND PLAN: The patient is a very pleasant 76-year-old female, who was transferred from the outside hospital for anemia. 1. Acute on chronic anemia. Upon reviewing the patient's records, it seems that she was 10.2 in Jan of last year and in March she was 7.8 and currently she is 7.8 also. We did check a fecal oc cult stool in the ER, which was positive for blood. The patient also does have epigastric and right upper quadrant and left upper quadrant tenderness upon palpation. We will start the patient on Cece nix b.i.d. We will consult Gastroenterology. Currently, at this moment, she does not require blood transfusions. She is not tachycardic and she is hemodynamically stable as for now. 2. Diastolic heart failure. Currently, she is very hypertensive. We will continue her home medicat ions and give p.r.n. 3. Hypertensive urgency. The patient's blood pressure has systolic in the 180s to 190s. We will st art the patient on home medications and also give p.r.n. 4. Chronic kidney disease at baseline. 5. Deep venous thrombosis prophylaxis. We will put the patient on sequential compression devices si nce she does have anemia and possible upper gastrointestinal bleed.
[2017-07-08] MEDS: Acetaminophen 325 MG TAB PO PRN (22:20)
[2017-07-09] MEDS: hydrALAZINE 20 MG/ML VIAL SLOW IVP PRN ×4 (01:49→23:22)
[2017-07-09 05:43] LABS: #Eosinphils 0.2 thou/uL (0.0-0.7); #Lymphocytes 1.4 thou/uL (1.20-3.40); #Monocytes 0.9 thou/uL (0.11-0.59); #Neutrophils 5.1 thou/uL (1.40-6.50); %Basophils 0.2 % (0.0-1.0); %Eosinophils 2.3 % (0.0-10.0); %Monocytes 12.5 % (0.0-10.0); %Neutrophils 67.1 % (42.0-75.0); Hemoglobin 7.6 g/dL (12.0-16.0); Mean Corpuscular HGB CONC 31.8 g/dL (32.0-36.0); Mean Corpuscular Hemoglobin 29.5 pg (27.0-31.0); Mean Corpuscular Volume 92.7 fl (81.0-99.0); Mean Platelet Volume 8.3 fL (7.4-10.4); Platelet Count 214 thou/uL (130-400); RBC Distribution Width 14.7 % (11.5-14.5); Red Blood Cell (RBC) Count 2.58 mill/uL (4.20-5.40); White Blood Cell (WBC) Count 7.5 thou/uL (4.8-10.8)
[2017-07-09 05:52] LABS: ALT (SGPT) Less than 7 U/L (8-55); AST (SGOT) 16 U/L (5-34); Albumin 3.4 g/dL (3.4-4.8); Alkaline Phosphatase 69 U/L (40-150); Anion Gap 16 mmol/L (10-20); BUN (Urea Nitrogen) 54 mg/dL (9.8-20.1); Bilirubin, Total 0.2 mg/dL (0.2-1.2); Calc. Creatinine Clearance 26 mL/min (70-130); Calcium 9.1 mg/dL (7.8-10.44); Carbon Dioxide 22 mmol/L (23-31); Chloride 107 mmol/L (98-107); Estimated GFR-MDRD 25; Globulin 3.3 g/dL (2.4-3.5); Glucose 284 mg/dL (83-110); Potassium 4.7 mmol/L (3.5-5.1); Protein, Total 6.7 g/dL (6.0-8.3); Sodium 140 mmol/L (136-145)
[2017-07-09] MEDS: Gabapentin 100 MG CAP PO SCH ×3 (09:56→20:49)
[2017-07-09] MEDS: Pantoprazole 40 MG VIAL IVP SCH ×2 (09:56→20:49)
[2017-07-09] MEDS: Carvedilol 25 MG TAB PO SCH ×2 (09:56→16:40)
[2017-07-09] MEDS ORDERED: Labetalol HCl 100 MG/20 ML VIAL ONE (14:24)
--- NOTE | 2017-07-09 15:09 | PDOC.PN ---
- Subjective Encounter Start Date: 07/09/17 Encounter Start Time: 15:00 Subjective: f/u for GI bleed and acute/chronic anemia. No PRBC's given. -: GI consulted and awaiting recommendations. Tx with Protonix 40mg BID -: No recurrent hematemesis or melena. - Objective Resuscitation Status: Resuscitation Status FULL:Full Resuscitation MAR Reviewed: Yes Vital Signs & Weight: Vital Signs (12 hours) Temp Pulse Resp BP BP Pulse Ox 07/09/17 12:30 88 185/81 H 07/09/17 11:50 94 212/98 H 07/09/17 07:35 98.7 F 94 18 177/79 H 93 L 07/09/17 03:59 97.7 F 88 16 144/82 H 94 L Weight Weight 180 lb 4.8 oz I&O: 07/08/17 07/09/17 07/10/17 05:59 06:59 06:59 Intake Total Balance Result Diagrams: 07/09/17 04:31 07/09/17 04:31 Additional Labs: Accuchecks 07/09/17 07/09/17 07/08/17 10:53 05:45 20:13 POC Glucose 225 H 281 H 192 H Radiology Reviewed by me: Yes (EGD - pending) EKG Reviewed by me: Yes Phys Exam - Physical Examination Constitutional: NAD HEENT: PERRLA, oral pharynx no lesions Neck: no JVD, supple Respiratory: no wheezing, clear to auscultation bilateral Cardiovascular: RRR Gastrointestinal: soft, non-tender, no distention, positive bowel sounds Musculoskeletal: no edema, pulses present Neurological: normal sensation, moves all 4 limbs Psychiatric: A&O x 3 Skin: normal turgor, cap refill <2 seconds Dx/Plan (1) GI bleed Code(s): K92.2 - GASTROINTESTINAL HEMORRHAGE, UNSPECIFIED Status: Suspected Comment: EGD pending 07/09/17, Protonix 40mg IV q12h (2) Acute blood loss anemia Code(s): D62 - ACUTE POSTHEMORRHAGIC ANEMIA Status: Acute Comment: Acute/ subacute anemia, serial H/H, see #1 (3) Normocytic anemia Code(s): D64.9 - ANEMIA, UNSPECIFIED Status: Chronic Comment: see above (4) CKD (chronic kidney disease), stage IV Code(s): N18.4 - CHRONIC KIDNEY DISEASE, STAGE 4 (SEVERE) Status: Chronic Comment: Avoid nephrotoxic meds and contrast media (5) DM2 (diabetes mellitus, type 2) Status: Chronic Qualifiers: Diabetes mellitus complication status: with unspecified complications 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 - Plan Stable overall -: Serial H/H monitoring -: EGD pending -: Continue Protonix 40mg IV q12h -: Continue IVF 50ml/h * Hold ASA * AM lab: BMP, CBC
[2017-07-09] MEDS ORDERED: Propofol 200 MG/20 ML VIAL ONE (17:08)
--- NOTE | 2017-07-09 17:22 | CON ---
DATE OF CONSULTATION: 07/09/2017 REFERRING PHYSICIAN: Charley Butterfield MD REASON FOR CONSULTATION: Anemia, nausea, and also history of some passing tarry stool. HISTORY OF PRESENT ILLNESS: Nazia Funes is a very pleasant 76-year-old female mike sferred from . The patient denies any abdominal pain. However, she was feeling sick to her sto mach couple of days ago and she also had some dark stool. The patient had no abdominal pain. The calos galaviz was hospitalized here sometime in summer when she had an episode of coffee-ground vomit ing. She was seen by Dr. Randall Zhang at that time. EGD was negative as per Dr. Zhang's operative report. She supposed to go back and see him in the office, and she is really not sure if she returne d to his office. The patient denies any chronic dyspepsia. She has had no positive peptic ulcer. D enies abdominal pain, nausea, dyspepsia, and indigestion. No history of odynophagia or dysphagia. S he did take some couple of Advil yesterday because she was not feeling well and she felt sick to her stomach. The patient was in the ER and was found to have anemia. The hemoglobin was [address] [facility], but today here it galina to 7.8. The patient denies any dizziness or syncope. Denies any chest pain or any exertional dyspnea, etc. The patient does have constipation off and on and her son tells me she takes MiraLax every now and then and also takes some Dulcolax off and on. She denies a ny taking Pepto-Bismol recently. She tells me the stool was dark and almost tarry recently. No rele vant history. ALLERGIES: None. MEDICAL ILLNESSES: 1. Type 2 diabetes mellitus. 2. Hypertension. 3. Chronic kidney disease. 4. Anemia of chronic diseases. 5. Coronary artery disease. 6. Diastolic heart failure, nonischemic. 7. Aortic stenosis. 8. Depression. 9. History of right nephrectomy for kidney cancer in 1989. SURGERIES: 1. Appendectomy. 2. Right nephrectomy. SOCIAL HISTORY: The patient also does not smoke or drink alcohol. FAMILY HISTORY: Heart disease in her brothers. No family history of cancer or stroke, etc. MEDICATIONS: Reviewed. This includes Bumex, Coreg, clonidine. She is also on Feosol, gabapentin, h ydralazine, insulin, Lantus, MiraLax, potassium chloride, and Robaxin. REVIEW OF SYSTEMS: Constitutional: No fever, no night sweats. Her energy level is good. No histor y of weight loss. Respiratory: No history of chronic cough, hemoptysis, dyspnea. Cardiovascular: Denies any history of exertional dyspnea. No orthopnea or PND. No chest pain. No palpitation. Gas trointestinal: She has had had nausea, but today she actually feels better although she has seen rena e tarry stool. She has constipation off and on and takes laxatives. Genitourinary: No dysuria, hem aturia or frequency of urination. Musculoskeletal: She has some back pain, arthralgias. Neuropsych iatric: History of depression. PHYSICAL EXAMINATION: GENERAL: Patient is heavyset, appears very comfortable. She is awake, alert, oriented to time and p lace and person. VITAL SIGNS: Stable, afebrile. Pulse is 94, blood pressure 177/79. HEENT: Conjunctivae clear. NECK: Supple. No adenitis or thyromegaly noted. CARDIOVASCULAR: First and second heart sounds. She has a loud systolic murmur over aortic area and sternal border. LUNGS: Clear to auscultation. ABDOMEN: Soft to palpate. Abdomen is nondistended. Abdomen is nontender. There is no organomegaly or masses. EXTREMITIES: Reveal no edema. CENTRAL NERVOUS SYSTEM: Grossly within normal limits. LABORATORY DATA: CBC: WBC 7500, hemoglobin 7.6, hematocrit 23.9, MCV 92.7, platelet count 214,000, polymorphs 67, lymphocytes 18, monocytes 12. Serum chemistries show sodium 140, potassium 4.7, chlor ashly 107, bicarbonate 22, BUN is 54, creatinine 2.31, glucose 284, calcium 9.1, bilirubin 0.2, AST 16, ALT 7, alkaline phosphatase 69, albumin 3.4. CLINICAL IMPRESSION: 1. A 76-year-old female with anemia, which appears more chronic in nature. She giv es history of some tarry stools off and on. She had an EGD by Dr. Randall Zhang in 09/2016 with an e pisode of coffee-ground emesis. As per the operative report, there was no pathology seen. She did h ave a colonoscopy, but she really does not remember where it was done on how long ago it was done. 2. Chronic kidney disease with elevation of BUN and creatinine. 3. Hypertension. 4. Coronary artery disease. 5. Nonischemic cardiomyopathy with low ejection fraction. 6. Diabetes mellitus. Recommendation EGD later on today. I will make further recommendation for EG D.
[2017-07-09] MEDS: Sodium Chloride 0.9% 1,000 ML IV SCH (18:36)
[2017-07-09] MEDS: Acetaminophen 325 MG TAB PO PRN (20:48)
[2017-07-09] MEDS: Ondansetron HCl/PF 4 MG/2 ML Vial SLOW IVP PRN (20:49)
[2017-07-09] MEDS: cloNIDine 0.3 MG TAB PO SCH (20:49)
[2017-07-09] MEDS: Methocarbamol 500 MG TAB PO SCH (20:49)
[2017-07-09] MEDS: hydrALAZINE 25 MG TAB PO SCH (20:51)
[2017-07-09] MEDS ORDERED: INSULIN GLARGINE HUM REC ANLOG 13 UNIT SQ SCH (21:00)
--- NOTE | 2017-07-09 22:00 | OP ---
DATE OF PROCEDURE: 07/09/2017 PROCEDURE: Esophagogastroduodenoscopy and biopsy. PREOPERATIVE DIAGNOSES: Abdominal pain, history of tarry stool and also nausea. POSTOPERATIVE DIAGNOSES: 1. Small hiatus hernia. 2. Gastric ulcer x2 over the gastric antrum, nonbleeding. 3. Duodenitis with melanotic appearing bulb on the descending duodenum. PROCEDURE IN DETAIL: The patient was placed on her left lateral position and was given sedation by A nesthesia Department. A Pentax video gastroscope under direct vision was passed down the oropharynx, passed the GE junction, into the stomach and subsequently the descending duodenum. The esophageal m ucosa appeared normal. The GE junction, no pathology seen. She has a small hiatus hernia. Retrofle xion failed to show any lesion in the fundus or cardia. The gastric body, no pathology seen. The ga stric antrum shows 2 ulcerations. The ulcers measured approximately maybe about 8-9 mm. They are no nbleeding. The duodenal bulb showed duodenitis and also pigmented mucosa suggestive of . The d escending duodenum, same findings are seen. Biopsy of the gastric antrum and gastric body. The stom ach was decompressed and the scope removed. RECOMMENDATIONS: 1. Protonix 40 once a day. 2. Avoid NSAID medications. 3. Await gastric biopsy. When the biopsy comes back, will treat accordingly.
[2017-07-09] MEDS: Insulin Detemir 100 UNITS/ML 13 UNITS in Pre-Filled Syringe 1 EACH SC SCH (22:21)
[2017-07-09] MEDS ORDERED: HYDROcodone/Acetaminophen 5/325 mg Tablet PO SCH (23:15)
[2017-07-09] MEDS: HumaLOG 300 UNITS/3 ML VIAL SC PRN (23:19)
[2017-07-10 05:48] LABS: #Eosinphils 0.1 thou/uL (0.0-0.7); #Monocytes 0.9 thou/uL (0.11-0.59); #Neutrophils 6.1 thou/uL (1.40-6.50); %Basophils 0.2 % (0.0-1.0); %Eosinophils 1.4 % (0.0-10.0); %Lymphocytes 12.1 % (21.0-51.0); %Monocytes 11.1 % (0.0-10.0); %Neutrophils 75.3 % (42.0-75.0); Hemoglobin 7.1 g/dL (12.0-16.0); Mean Corpuscular HGB CONC 31.3 g/dL (32.0-36.0); Mean Corpuscular Hemoglobin 29.2 pg (27.0-31.0); Mean Corpuscular Volume 93.2 fl (81.0-99.0); Mean Platelet Volume 7.8 fL (7.4-10.4); Platelet Count 200 thou/uL (130-400); RBC Distribution Width 14.9 % (11.5-14.5); Red Blood Cell (RBC) Count 2.43 mill/uL (4.20-5.40); White Blood Cell (WBC) Count 8.1 thou/uL (4.8-10.8)
[2017-07-10 06:05] LABS: Anion Gap 11 mmol/L (10-20); BUN (Urea Nitrogen) 42 mg/dL (9.8-20.1); Calc. Creatinine Clearance 30 mL/min (70-130); Calcium 8.9 mg/dL (7.8-10.44); Carbon Dioxide 25 mmol/L (23-31); Chloride 111 mmol/L (98-107); Estimated GFR-MDRD 28; Glucose 244 mg/dL (83-110); Potassium 4.4 mmol/L (3.5-5.1); Sodium 143 mmol/L (136-145)
[2017-07-10] MEDS: Insulin Detemir 100 UNITS/ML 13 UNITS in Pre-Filled Syringe 1 EACH SC SCH ×2 (08:50→21:03)
[2017-07-10] MEDS: HumaLOG 300 UNITS/3 ML VIAL SC PRN ×4 (08:51→21:05)
[2017-07-10] MEDS: Carvedilol 25 MG TAB PO SCH ×2 (08:57→17:09)
[2017-07-10] MEDS: Methocarbamol 500 MG TAB PO SCH ×2 (08:58→21:03)
[2017-07-10] MEDS: Ferrous Sulfate 325 MG TAB PO SCH (08:58)
[2017-07-10] MEDS: hydrALAZINE 25 MG TAB PO SCH ×3 (08:58→21:00)
[2017-07-10] MEDS: cloNIDine 0.3 MG TAB PO SCH ×2 (08:58→21:04)
[2017-07-10] MEDS: Gabapentin 100 MG CAP PO SCH ×3 (08:58→21:00)
[2017-07-10] MEDS: Pantoprazole 40 MG VIAL IVP SCH (08:59)
--- NOTE | 2017-07-10 09:28 | PDOC.PN ---
- Subjective Encounter Start Date: 07/10/17 Encounter Start Time: 09:27 Subjective: no pain, nausea - Objective Resuscitation Status: Resuscitation Status FULL:Full Resuscitation MAR Reviewed: Yes Vital Signs & Weight: Vital Signs (12 hours) Temp Pulse Resp BP BP Pulse Ox 07/10/17 08:58 78 07/10/17 08:54 98.7 F 78 16 146/66 H 97 07/10/17 04:25 98.6 F 90 18 135/59 L 98 07/09/17 23:45 98.7 F 88 22 H 168/70 H 95 07/09/17 23:22 90 190/82 H 07/09/17 22:05 178/82 H Weight Weight 180 lb 4.8 oz I&O: 07/09/17 07/10/17 07/11/17 06:59 06:59 06:59 Intake Total 1182 Balance 1182 Result Diagrams: 07/10/17 04:47 07/10/17 04:47 Additional Labs: Accuchecks 07/10/17 07/09/17 07/09/17 06:06 22:22 16:16 POC Glucose 253 H 233 H 191 H 07/09/17 10:53 POC Glucose 225 H Phys Exam - Physical Examination Neck: no JVD Respiratory: clear to auscultation bilateral Cardiovascular: RRR 2/6 sys murmur Gastrointestinal: soft, non-tender, no distention, positive bowel sounds Musculoskeletal: no edema, pulses present Dx/Plan (1) Gastric ulcer Code(s): K25.9 - GASTRIC ULCER, UNSP ACUTE OR CHRONIC, W/O HEMOR OR PERF Status: Acute Qualifiers: Gastric ulcer chronicity: acute Gastric ulcer complication status: with hemorrhage Qualified Code(s): K25.0 - Acute gastric ulcer with hemorrhage (2) Acute blood loss anemia Code(s): D62 - ACUTE POSTHEMORRHAGIC ANEMIA Status: Acute Comment: Acute/ subacute anemia, serial H/H, see #1 (3) GI bleed Code(s): K92.2 - GASTROINTESTINAL HEMORRHAGE, UNSPECIFIED Status: Suspected Qualifiers: GI bleed type/associated pathology: gastric ulcer Qualified Code(s): K25.4 - Chronic or unspecified gastric ulcer with hemorrhage Comment: EGD pending 07/09/17, Protonix 40mg IV q12h (4) CKD (chronic kidney disease), stage IV Code(s): N18.4 - CHRONIC KIDNEY DISEASE, STAGE 4 (SEVERE) Status: Chronic Comment: Avoid nephrotoxic meds and contrast media (5) DM2 (diabetes mellitus, type 2) Status: Chronic Qualifiers: Diabetes mellitus complication status: with kidney complications Diabetes mellitus complication detail: with chronic kidney disease 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 use Chronic kidney disease stage: stage 4 (severe) Qualified Code(s): E11.22 - Type 2 diabetes mellitus with diabetic chronic kidney disease; N18.4 - Chronic kidney disease, stage 4 (severe); N18.4 - Chronic kidney disease, stage 4 (severe); N18.4 - Chronic kidney disease, stage 4 (severe); N18.4 - Chronic kidney disease, stage 4 (severe); Z79.4 - skilled nursing (current) use of insulin; Z79.4 - skilled nursing (current) use of insulin; Z79.4 - skilled nursing (current) use of insulin; Z79.4 - skilled nursing (current) use of insulin Comment: Resume Levemir 13u sc q12h, ISS, ADA (6) Hypertension Code(s): I10 - ESSENTIAL (PRIMARY) HYPERTENSION Status: Chronic Qualifiers: Hypertension type: essential hypertension Qualified Code(s): I10 - Essential (primary) hypertension Comment: Continue Coreg, Clonidine, Hydralazine, hold Bumex and Lisinopril. (7) Moderate aortic stenosis Code(s): I35.0 - NONRHEUMATIC AORTIC (VALVE) STENOSIS Status: Chronic - Plan cont protonix 40 bid, path pending -: avoid NSAIDS -: monitor H&H, Hg 7.1 this AM -: cont accu/ss/ etc -: cont antihypertensives * .
[2017-07-10] MEDS: Sodium Chloride 0.9% 1,000 ML IV SCH (10:30)
[2017-07-10] MEDS ORDERED: Sodium Chloride 0.9% 10 ML ONE (13:00)
--- NOTE | 2017-07-10 17:56 | PRG ---
DATE OF SERVICE: 07/10/2017 SUBJECTIVE: The patient is feeling well. She is having no nausea or vomiting. She has not had a paige wel movement today. OBJECTIVE: VITAL SIGNS: Temperature is 97.9, pulse 74, respiratory rate 18, blood pressure 178/81. CHEST: Clear. CARDIOVASCULAR: Regular rate and rhythm. ABDOMEN: Soft, nontender, without organomegaly or masses. LABORATORY DATA: Shows hemoglobin 7.1, hematocrit 22.6, platelet count of 200. Chemistries signific ant for chloride 111, BUN 42, creatinine 2.06. Pathology pending. ASSESSMENT: 1. Gastric ulcers. 2. Anemia - acute blood loss plus anemia of chronic disease. 3. Diabetes mellitus. RECOMMENDATIONS: 1. Continue Protonix 40 mg daily. 2. Monitor H&H as an outpatient. 3. Stable from GI standpoint for discharge in a.m. if hemoglobin remains stable.
[2017-07-10] MEDS ORDERED: Polyethylene Glycol 3350 17 GM Packet PO PRN (20:40)
[2017-07-10] MEDS ORDERED: Polyethylene Glycol 3350 17 GM Packet PO SCH (20:45)
[2017-07-11 05:45] LABS: #Eosinphils 0.3 thou/uL (0.0-0.7); #Lymphocytes 1.2 thou/uL (1.20-3.40); #Monocytes 0.8 thou/uL (0.11-0.59); #Neutrophils 4.1 thou/uL (1.40-6.50); %Basophils 0.2 % (0.0-1.0); %Eosinophils 4.1 % (0.0-10.0); %Monocytes 13.1 % (0.0-10.0); %Neutrophils 63.6 % (42.0-75.0); Hemoglobin 6.6 g/dL (12.0-16.0); Mean Corpuscular HGB CONC 30.2 g/dL (32.0-36.0); Mean Corpuscular Hemoglobin 28.6 pg (27.0-31.0); Mean Corpuscular Volume 94.6 fl (81.0-99.0); Mean Platelet Volume 7.6 fL (7.4-10.4); Platelet Count 171 thou/uL (130-400); RBC Distribution Width 14.7 % (11.5-14.5); Red Blood Cell (RBC) Count 2.32 mill/uL (4.20-5.40); White Blood Cell (WBC) Count 6.4 thou/uL (4.8-10.8)
[2017-07-11 05:54] LABS: Anion Gap 11 mmol/L (10-20); BUN (Urea Nitrogen) 46 mg/dL (9.8-20.1); Calc. Creatinine Clearance 25 mL/min (70-130); Calcium 8.6 mg/dL (7.8-10.44); Carbon Dioxide 26 mmol/L (23-31); Chloride 110 mmol/L (98-107); Estimated GFR-MDRD 24; Glucose 177 mg/dL (83-110); Potassium 4.5 mmol/L (3.5-5.1); Sodium 142 mmol/L (136-145)
[2017-07-11] MEDS: Sodium Chloride 0.9% 1,000 ML IV SCH (06:12)
--- NOTE | 2017-07-11 08:09 | PDOC.PN ---
- Subjective Encounter Start Date: 07/11/17 Encounter Start Time: 08:07 Subjective: no melena - Objective Resuscitation Status: Resuscitation Status FULL:Full Resuscitation MAR Reviewed: Yes Vital Signs & Weight: Vital Signs (12 hours) Temp Pulse Resp BP BP Pulse Ox 07/11/17 06:09 97.9 F 66 16 150/68 H 97 07/11/17 04:10 98.0 F 66 18 124/60 96 07/11/17 00:11 98.0 F 65 18 120/58 L 96 07/10/17 21:04 150/68 H 07/10/17 21:00 74 150/68 H Weight Weight 180 lb 4.8 oz I&O: 07/10/17 07/11/17 07/12/17 06:59 06:59 06:59 Intake Total 1182 2302 Balance 1182 2302 Result Diagrams: 07/11/17 05:01 07/11/17 05:01 Additional Labs: Accuchecks 07/11/17 07/10/17 07/10/17 06:13 20:57 16:45 POC Glucose 149 H 276 H 161 H 07/10/17 11:10 POC Glucose 188 H Phys Exam - Physical Examination Neck: no JVD Respiratory: clear to auscultation bilateral Cardiovascular: RRR 3/6 sys murmur Gastrointestinal: soft, non-tender, positive bowel sounds Musculoskeletal: edema present Dx/Plan (1) Gastric ulcer Code(s): K25.9 - GASTRIC ULCER, UNSP ACUTE OR CHRONIC, W/O HEMOR OR PERF Status: Acute Qualifiers: Gastric ulcer chronicity: acute Gastric ulcer complication status: with hemorrhage Qualified Code(s): K25.0 - Acute gastric ulcer with hemorrhage (2) Acute blood loss anemia Code(s): D62 - ACUTE POSTHEMORRHAGIC ANEMIA Status: Acute Comment: Acute/ subacute anemia, serial H/H, see #1 (3) GI bleed Code(s): K92.2 - GASTROINTESTINAL HEMORRHAGE, UNSPECIFIED Status: Suspected Qualifiers: GI bleed type/associated pathology: gastric ulcer Qualified Code(s): K25.4 - Chronic or unspecified gastric ulcer with hemorrhage Comment: EGD pending 07/09/17, Protonix 40mg IV q12h (4) CKD (chronic kidney disease), stage IV Code(s): N18.4 - CHRONIC KIDNEY DISEASE, STAGE 4 (SEVERE) Status: Chronic Comment: Avoid nephrotoxic meds and contrast media (5) DM2 (diabetes mellitus, type 2) Status: Chronic Qualifiers: Diabetes mellitus complication status: with kidney complications Diabetes mellitus complication detail: with chronic kidney disease Diabetes mellitus mcc insulin 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: 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 Chronic kidney disease stage: stage 4 (severe) Qualified Code(s): E11.22 - Type 2 diabetes mellitus with diabetic chronic kidney disease; N18.4 - Chronic kidney disease, stage 4 (severe); N18.4 - Chronic kidney disease, stage 4 (severe); N18.4 - Chronic kidney disease, stage 4 (severe); N18.4 - Chronic kidney disease, stage 4 (severe); Z79.4 - [facility] (current) use of insulin; Z79.4 - [facility] (current) use of insulin; Z79.4 - [facility] (current) use of insulin; Z79.4 - [facility] (current) use of insulin Comment: Resume Levemir 13u sc q12h, ISS, ADA (6) Hypertension Code(s): I10 - ESSENTIAL (PRIMARY) HYPERTENSION Status: Chronic Qualifiers: Hypertension type: essential hypertension Qualified Code(s): I10 - Essential (primary) hypertension Comment: Continue Coreg, Clonidine, Hydralazine, hold Bumex and Lisinopril. (7) Moderate aortic stenosis Code(s): I35.0 - NONRHEUMATIC AORTIC (VALVE) STENOSIS Status: Chronic - Plan transfuse 1 unit prbc. cont qam cbc -: cont protonix q12h -: cont accu/ss/etc -: cont coreg, hydralazine * .
[2017-07-11] MEDS: Methocarbamol 500 MG TAB PO SCH ×2 (09:32→20:40)
[2017-07-11] MEDS: Ferrous Sulfate 325 MG TAB PO SCH (09:32)
[2017-07-11] MEDS: Insulin Detemir 100 UNITS/ML 13 UNITS in Pre-Filled Syringe 1 EACH SC SCH ×2 (09:32→20:42)
[2017-07-11] MEDS: cloNIDine 0.3 MG TAB PO SCH ×2 (09:32→20:39)
[2017-07-11] MEDS: Carvedilol 25 MG TAB PO SCH ×2 (09:32→17:36)
[2017-07-11] MEDS: Gabapentin 100 MG CAP PO SCH ×3 (09:32→20:42)
[2017-07-11] MEDS: hydrALAZINE 25 MG TAB PO SCH ×3 (09:40→20:40)
[2017-07-11] MEDS: HumaLOG 300 UNITS/3 ML VIAL SC PRN ×2 (12:31→20:47)
[2017-07-11] MEDS: Acetaminophen 325 MG TAB PO PRN (20:53)
[2017-07-12] MEDS: Acetaminophen 325 MG TAB PO PRN ×4 (03:20→20:38)
[2017-07-12 05:53] LABS: #Eosinphils 0.3 thou/uL (0.0-0.7); #Lymphocytes 1.1 thou/uL (1.20-3.40); #Monocytes 0.7 thou/uL (0.11-0.59); #Neutrophils 4.2 thou/uL (1.40-6.50); %Basophils 0.4 % (0.0-1.0); %Eosinophils 4.9 % (0.0-10.0); %Lymphocytes 17.3 % (21.0-51.0); %Monocytes 11.5 % (0.0-10.0); %Neutrophils 65.9 % (42.0-75.0); Hemoglobin 7.7 g/dL (12.0-16.0); Mean Corpuscular HGB CONC 31.3 g/dL (32.0-36.0); Mean Corpuscular Hemoglobin 29.7 pg (27.0-31.0); Mean Platelet Volume 8.3 fL (7.4-10.4); Platelet Count 177 thou/uL (130-400); RBC Distribution Width 14.7 % (11.5-14.5); Red Blood Cell (RBC) Count 2.58 mill/uL (4.20-5.40); White Blood Cell (WBC) Count 6.4 thou/uL (4.8-10.8)
[2017-07-12] MEDS: Ondansetron HCl/PF 4 MG/2 ML Vial SLOW IVP PRN (08:08)
[2017-07-12] MEDS: Gabapentin 100 MG CAP PO SCH ×3 (09:11→20:34)
[2017-07-12] MEDS: hydrALAZINE 25 MG TAB PO SCH ×3 (09:11→20:32)
[2017-07-12] MEDS: cloNIDine 0.3 MG TAB PO SCH ×2 (09:11→20:32)
[2017-07-12] MEDS: Carvedilol 25 MG TAB PO SCH ×2 (09:11→16:20)
[2017-07-12] MEDS: Ferrous Sulfate 325 MG TAB PO SCH (09:11)
[2017-07-12] MEDS: Methocarbamol 500 MG TAB PO SCH ×2 (09:11→20:34)
[2017-07-12] MEDS: Insulin Detemir 100 UNITS/ML 13 UNITS in Pre-Filled Syringe 1 EACH SC SCH ×2 (09:12→20:39)
--- NOTE | 2017-07-12 10:10 | PDOC.PN ---
- Subjective Encounter Start Date: 07/12/17 Encounter Start Time: 10:08 Subjective: minimal nausea - Objective Resuscitation Status: Resuscitation Status FULL:Full Resuscitation MAR Reviewed: Yes Vital Signs & Weight: Vital Signs (12 hours) Temp Pulse Resp BP BP Pulse Ox 07/12/17 09:11 66 150/68 H 07/12/17 07:47 97.8 F 66 20 07/12/17 07:17 97.8 F 66 20 137/63 97 07/12/17 03:22 98.2 F 61 18 145/65 H 07/12/17 00:05 18 Weight Weight 180 lb 4.8 oz I&O: 07/11/17 07/12/17 07/13/17 06:59 06:59 06:59 Intake Total 2 2044 Balance 2301 2044 Result Diagrams: 07/12/17 05:33 07/11/17 05:01 Additional Labs: Accuchecks 07/12/17 07/12/17 07/12/17 06:43 06:25 06:05 POC Glucose 61 L 58 L* 49 L* 07/11/17 07/11/17 07/11/17 20:48 17:31 12:18 POC Glucose 191 H 121 H 185 H Phys Exam - Physical Examination Neck: no JVD Respiratory: clear to auscultation bilateral Cardiovascular: RRR, no significant murmur Gastrointestinal: soft, non-tender, positive bowel sounds Musculoskeletal: edema present Dx/Plan (1) Gastric ulcer Code(s): K25.9 - GASTRIC ULCER, UNSP ACUTE OR CHRONIC, W/O HEMOR OR PERF Status: Acute Qualifiers: Gastric ulcer chronicity: acute Gastric ulcer complication status: with hemorrhage Qualified Code(s): K25.0 - Acute gastric ulcer with hemorrhage (2) Acute blood loss anemia Code(s): D62 - ACUTE POSTHEMORRHAGIC ANEMIA Status: Acute Comment: Acute/ subacute anemia, serial H/H, see #1 (3) GI bleed Code(s): K92.2 - GASTROINTESTINAL HEMORRHAGE, UNSPECIFIED Status: Suspected Qualifiers: GI bleed type/associated pathology: gastric ulcer Qualified Code(s): K25.4 - Chronic or unspecified gastric ulcer with hemorrhage Comment: EGD pending 07/09/17, Protonix 40mg IV q12h (4) CKD (chronic kidney disease), stage IV Code(s): N18.4 - CHRONIC KIDNEY DISEASE, STAGE 4 (SEVERE) Status: Chronic Comment: Avoid nephrotoxic meds and contrast media (5) DM2 (diabetes mellitus, type 2) Status: Chronic Qualifiers: 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 use: with correction use Diabetes mellitus complication status: with kidney complications Diabetes mellitus complication detail: with chronic kidney disease Chronic kidney disease stage : stage 4 (severe) Qualified Code(s): E11.22 - Type 2 diabetes mellitus with diabetic chronic kidney disease; N18.4 - Chronic kidney disease, stage 4 (severe ); N18.4 - Chronic kidney disease, stage 4 (severe); N18.4 - Chronic kidney disease, stage 4 (severe); N18.4 - Chronic kidney disease, stage 4 (severe); Z79.4 - custodial (current) use of insulin; Z79.4 - bed bug exterminator (current) use of insulin; Z79.4 - bed bug exterminator (current) use of insulin; Z79.4 - custodial (current ) use of insulin Comment: Resume Levemir 13u sc q12h, ISS, ADA (6) Hypertension Code(s): I10 - ESSENTIAL (PRIMARY) HYPERTENSION Status: Chronic Qualifiers: Hypertension type: essential hypertension Qualified Code(s): I10 - Essential (primary) hypertension Comment: Continue Coreg, Clonidine, Hydralazine, hold Bumex and Lisinopril. (7) Moderate aortic stenosis Code(s): I35.0 - NONRHEUMATIC AORTIC (VALVE) STENOSIS Status: Chronic - Plan cont po protonix, monitor H&H, -: cont accu/ss/ home meds -: NO NSAIDS * .
--- NOTE | 2017-07-12 13:13 | PRG ---
DATE OF SERVICE: 07/12/2017 SUBJECTIVE: The patient is doing well. She is having no bleeding, no bowel movements. She did have an episode of nausea this morning, but no vomiting. OBJECTIVE: VITAL SIGNS: Temperature 97.8, pulse 66, respiratory rate 20, and blood pressure 150/68. CHEST: Clear. CARDIOVASCULAR: Regular rate and rhythm. ABDOMEN: Soft, nontender. No organomegaly or masses. LABORATORY DATA: Shows hemoglobin yesterday of 6.6 after 1 unit of blood and increased to 7.7. ASSESSMENT: 1. Gastric ulcer - stable. 2. Anemia secondary to gastrointestinal blood loss - patient probably drifted down from original ble eding episode. 3. Diabetes mellitus. 4. Hypertension. RECOMMENDATIONS: 1. Begin iron. 2. Continue p.o. Protonix. 3. No NSAIDs. 4. Stable from GI standpoint. 5. We will sign off.
[2017-07-13] MEDS: Acetaminophen 325 MG TAB PO PRN ×2 (00:49→08:26)
[2017-07-13 05:51] LABS: #Eosinphils 0.2 thou/uL (0.0-0.7); #Lymphocytes 0.9 thou/uL (1.20-3.40); #Monocytes 0.8 thou/uL (0.11-0.59); #Neutrophils 4.7 thou/uL (1.40-6.50); %Basophils 0.3 % (0.0-1.0); %Eosinophils 3.2 % (0.0-10.0); %Monocytes 12.2 % (0.0-10.0); %Neutrophils 71.2 % (42.0-75.0); Hemoglobin 7.5 g/dL (12.0-16.0); Mean Corpuscular HGB CONC 30.3 g/dL (32.0-36.0); Mean Corpuscular Hemoglobin 28.2 pg (27.0-31.0); Mean Corpuscular Volume 93.3 fl (81.0-99.0); Mean Platelet Volume 7.9 fL (7.4-10.4); Platelet Count 178 thou/uL (130-400); RBC Distribution Width 14.7 % (11.5-14.5); Red Blood Cell (RBC) Count 2.64 mill/uL (4.20-5.40); White Blood Cell (WBC) Count 6.6 thou/uL (4.8-10.8)
[2017-07-13 08:05] VITALS: BP 159/70; TEMP 98.5
[2017-07-13] MEDS: Ferrous Sulfate 325 MG TAB PO SCH (08:27)
[2017-07-13] MEDS: Carvedilol 25 MG TAB PO SCH (08:27)
[2017-07-13] MEDS: Gabapentin 100 MG CAP PO SCH (08:28)
[2017-07-13] MEDS: cloNIDine 0.3 MG TAB PO SCH (08:30)
[2017-07-13] MEDS: Insulin Detemir 100 UNITS/ML 13 UNITS in Pre-Filled Syringe 1 EACH SC SCH (08:31)
[2017-07-13] MEDS: hydrALAZINE 25 MG TAB PO SCH (08:31)
[2017-07-13] MEDS: Methocarbamol 500 MG TAB PO SCH (08:31)
--- NOTE | 2017-07-13 09:51 | DIS ---
TRANSFER OF CARE NOTE DATE OF ADMISSION: 07/08/2017 DATE OF DISCHARGE: 07/13/2017 DISPOSITION: Discharged home. PRIMARY CARE PROVIDER: KEISHA Cr ICT HELP DESK OFFICER: Dr. Des Salazar FINAL DIAGNOSES: 1. Gastrointestinal hemorrhage. 2. Gastric ulcers. 3. Coronary artery disease. 4. Aortic stenosis. 5. Hypertension. 6. Chronic kidney disease stage 4. DISCHARGE MEDICATIONS: Protonix 40 mg p.o. b.i.d., ferrous sulfate 325 mg p.o. b.i.d., Coreg 25 mg p .o. b.i.d., Neurontin 100 mg p.o. t.i.d., Lantus 13 units subcu twice a day, potassium chloride 20 mE q a day, clonidine 0.3 mg twice a day, hydralazine 100 mg t.i.d., aspirin 81 mg a day, Bumex 1 mg a d ay, Zetia 10 mg a day. ALLERGIES: No known drug allergies. PENDING AT THE TIME OF DISCHARGE: Nothing. CODE STATUS: Full. HOSPITAL COURSE: The patient admitted to the [facility] through [facility] with nausea, history of dark stools. She has chronic kidney disease was using Advil. She was found to have a hemoglobin of 4 at an outside hospital, repeated was 7. She was transferred her e. She was seen in consultation by Dr. Alex Hirsch on 07/09/2017. She underwent esophagogas troduodenoscopy with biopsy. She had 2 gastric ulcers and duodenitis, was placed on IV Protonix, pires bsequently transitioned to oral Protonix. Biopsy revealed no evidence of H. pylori. She has been mo nitored. She received 1 unit of packed cells during her hospital stay, her hemoglobin is stable curr ently 7.7 yesterday, 7.5 today. She has been ruled stable for discharge per GI. She is being discharged on her usual home medicines plus D, Protonix twice a day, iron sulfate twice a day. She has been advised to not take any NSAIDs, Motrin, Advil, etc. Creatinine at the time of d ischarge was 2.41, BUN 46. FOLLOW-UP: She is to follow up with Jessie Bowers in 7 days. Follow up with Dr. Salazar per his recomme ndations. CONSULTATIONS: GI, Dr. Alex Hirsch. PROCEDURES: Esophagogastroduodenoscopy with biopsy. At the time of discharge I have examined the patient. She is hemodynamically stable. Her abdomen is soft. Cardiorespiratory exam is unremarkable.
--- NOTE | 2017-07-15 12:36 | EKG ---
Test Reason : CP, ANEMIA Blood Pressure : / mmHG Vent. Rate : 081 BPM Atrial Rate : 081 BPM P-R Int : 214 ms QRS Dur : 100 ms QT Int : 406 ms P-R-T Axes : 048 -27 094 degrees QTc Int : 471 ms Poor data quality, interpretation may be adversely affected Sinus rhythm with 1st degree A-V block Possible Left atrial enlargement Septal infarct , age undetermined Abnormal ECG Confirmed by OSBALDO SHAY, YAZ ([id number]), photo editor CAILIN BEAR ([id number]) on 07/15/2017 12:36:03 PM Referred By: Confirmed By:YAZ ROBLERO MD
== END 2017-07-13 11:44 | disposition home or self-care (01) | DRG 378 ==
LOC: ERS 13:46 → 2NO 18:15 → 3SE 07-10 12:05
PROVIDERS: ADMIT Internal Medicine; ATTEND Internal Medicine
PROC: 0DB68ZX Excision of Stomach, Via Natural or Artificial Opening Endoscopic, Diagnostic (ICD-10-PCS; 2017-07-09)
PROC: 30233N1 Transfusion of Nonautologous Red Blood Cells into Peripheral Vein, Percutaneous Approach (ICD-10-PCS; principal; 2017-07-11)
DX: K25.0 Acute gastric ulcer with hemorrhage (principal); D62 Acute posthemorrhagic anemia; N18.4 Chronic kidney disease, stage 4 (severe); I42.9 Cardiomyopathy, unspecified; E11.22 Type 2 diabetes mellitus with diabetic chronic kidney disease; I13.0 Hypertensive heart and chronic kidney disease with heart failure and stage 1 through stage 4 chronic kidney disease, or unspecified chronic kidney disease; I50.32 Chronic diastolic (congestive) heart failure; D63.1 Anemia in chronic kidney disease; I35.0 Nonrheumatic aortic (valve) stenosis; R01.1 Cardiac murmur, unspecified; Z85.528 Personal history of other malignant neoplasm of kidney; I16.0 Hypertensive urgency; I25.10 Atherosclerotic heart disease of native coronary artery without angina pectoris; K44.9 Diaphragmatic hernia without obstruction or gangrene; K29.80 Duodenitis without bleeding; K59.00 Constipation, unspecified; Z79.4 Long term (current) use of insulin
CPT/HCPCS: 36415; 36416; 36430; 71045; 80048; 80053; 81003; 82274; 82553; 83690; 83880; 84484; 85025; 85610; 85730; 86850; 86900; 86901; 88305; 88312; 93005; 96374; 96375; A4216; C9113; G8978-GP-CJ; G8979-GP-CJ; G8980-GP-CJ; J0360; J1815; J1940; J2270; J2405; J2704; P9016

== ENCOUNTER 2017-12-22 19:47 | Inpatient (IN) | payer MEDICARE ==
[2017-12-22] MEDS ORDERED: Sodium Chloride 0.9% 1,000 ML IV SCH (22:32)
[2017-12-22 22:39] VITALS: BMI 30.9
[2017-12-23] MEDS ORDERED: Ondansetron HCl/PF 4 MG/2 ML Vial IVP PRN (02:42)
[2017-12-23] MEDS ORDERED: Sodium Chloride 0.9% 1,000 ML IV SCH (02:45)
[2017-12-23] MEDS ORDERED: Polyethylene Glycol 3350 17 GM Packet PO PRN (02:47)
[2017-12-23] MEDS ORDERED: Dextrose 5% in Water 1,000 ML IV PRN (02:48)
[2017-12-23] MEDS ORDERED: Dextrose 50% Abboject 50 ML SYRINGE SLOW IVP PRN (02:48)
--- NOTE | 2017-12-23 03:34 | PDOC.EVN ---
Event Note - Event Note Event Note: h&p [id number]
--- NOTE | 2017-12-23 04:42 | HP ---
PRIMARY CARE PHYSICIAN: KEISHA Cr CHIEF COMPLAINT: Left lower quadrant abdominal pain. HISTORY OF PRESENT ILLNESS: A 77-year-old female with a known history of renal cell carcinoma, status post right-sided nephrectomy and subsequent chronic kidney disease, stage 4; chronic anemia; coronary artery disease; hypertension; diabetes who presents with an 8-day history of left lower quadrant abdominal pain. She describes it as a crampy episodic pain that has been progressing over the last week. She presented today because it was suddenly worse, was initially seen in an outside hospital and subsequently transferred to our facility from [place]. Patient also notes that she has been experiencing new intermittent constipation over the last 2 weeks and has required use of laxative twice each week to have a bowel movement that is typically black when she does have a bowel movement with the laxative. REVIEW OF SYSTEMS: As per HPI. Constitutional: Denies any significant weight loss or gain. Denies any fevers, endorses occasional feeling of chills. HEENT : No new headaches, lightheadedness, dizziness, or vision change. Cardiovascular: Denies any chest pain, chest pressure, left-sided arm numbness or tingling. Denies palpitations. Respiratory: Denies any shortness of breath , dyspnea with exertion, cough, congestion, or recent upper respiratory infection. Gastrointestinal: Denies any change in her appetite. Denies nausea or vomiting. Abdominal pain and constipation issues as above. Musculoskeletal: Denies any new myalgias or arthralgias. Genitourinary: Denies any change in her urinary frequency, color or quantity, odor or output volume. Remainder of the review of systems otherwise negative. PAST MEDICAL HISTORY: As per the HPI, includes: 1. Renal cell carcinoma, status post right-sided nephrectomy in the . 2. Type 2 diabetes. 3. Hypertension. 4. Anemia of chronic disease. 5. Coronary artery disease. 6. Prior history of diastolic heart failure with an EF of 60%. 7. Moderate aortic stenosis with a valvular area of 1.2 in 2016. PAST SURGICAL HISTORY: Status post appendectomy. HOME MEDICATIONS: Per the EMR, the patient's home list includes hydralazine 100 mg p.o. t.i.d., clonidine 0.3 mg p.o. b.i.d., potassium chloride 20 mEq p.o. daily, polyethylene glycol 3350 17 grams p.o. daily p.r.n., pantoprazole 40 mg p.o. b.i.d., methocarbamol 500 mg p.o. b.i.d., insulin glargine 10 units subcutaneously b.i.d., gabapentin 100 mg p.o. t.i.d., ferrous sulfate 325 mg p.o. daily, Zetia 10 mg p.o. at bedtime, carvedilol 25 mg p.o. b.i.d., bumetanide 2 mg p.o. daily, aspirin 81 mg p.o. daily. ALLERGIES: No known drug allergies. FAMILY HISTORY: Significant for coronary artery disease in her brothers. SOCIAL HISTORY: Patient is currently retired and lives with her nephew. No tobacco, alcohol, or illicit drug use. Indicates she wishes to be a FULL CODE at this point in time. PHYSICAL EXAMINATION: VITAL SIGNS: Temperature of 97.8, pulse of 64, respirations 16, satting 96% on room air, blood pressure 138/63. GENERAL: The patient is awake, alert, appropriate, in no acute distress, lying in the hospital bed, appears to be a reasonable historian. HEENT: She has a chronically adducted left eye, which is unchanged for the patient. Normocephalic, atraumatic, slightly dry mucous membranes. CARDIOVASCULAR: S1, S2. Prominent systolic ejection murmur heard best over the left precordium, radiates up to the carotids. EXTREMITIES: Pulses 2+ bilateral upper extremities. No pitting pedal edema. RESPIRATORY: Reasonable air movement. No conversational dyspnea. No wheezes, rales, or rhonchi. Grossly clear to auscultation bilaterally. ABDOMEN: Positive bowel sounds, soft, slightly tender to palpation over the left lower quadrant. Of note, there are also areas of ecchymoses of bilateral lower quadrants, which patient indicates the area on the left, which is tender to palpation. The area of ecchymoses on the right lower quadrant when palpated , it is nontender. MUSCULOSKELETAL: Moving all 4 extremities. Able to self-reposition in the bed independently. LABORATORY DATA AND IMAGING: None are available from our facility at this point in time. Abnormalities notable for creatinine of 3.1 at the outside facility in [place] includes WBC of 11.0, hemoglobin 7.2, hematocrit 23.6, platelets 203,000. Sodium 133, potassium 3.3, chloride 99, bicarbonate 26, BUN 80, creatinine 3.1, glucose 156, amylase of 107. UA significant for small leukoesterase. CK of 109. ASSESSMENT AND PLAN: This is a 77-year-old female presenting with left lower quadrant pain and acute kidney injury. 1. Left lower quadrant pain for the last 8 days, unclear etiology. The patient does have an area of ecchymoses in this area. CT of the abdomen obtained at an outside facility, was grossly unrevealing. We will go ahead and obtain ultrasound of the kidneys as well. Question of why the patient has ecchymoses specifically in that area, it is not completely clear. We will continue to monitor. 2. Acute kidney injury on chronic renal disease. Appreciate nephrology consultation. Ultrasound of the kidney. Urinalysis including urine electrolytes as well. The patient will be cautiously hydrated with repeat BMP in the morning. 3. Anemia with black stools. Concern for the possibility of occult gastrointestinal bleed. We will check fecal occult. Appreciate gastroenterology consultation 4. History of diastolic heart failure and cardiovascular disease along with valvular disease. Cautious hydration, IV fluids, normal saline of 100 mL an hour for only a liter. Close monitoring of the patient's respiratory status. Also, hold the patient's home Bumex and potassium. Close monitoring of the patient's renal function. Ultimately, we will likely need resumption of this regimen prior to discharge. 5. Hypertension. Continue the patient's home regimen otherwise. 6. Diabetes. Continue the patient's home Lantus. The patient will be placed on a diabetic diet with close Accu-Cheks to monitor the patient's glucose levels. Sliding scale insulin if needed. Could have variation from the patient 's usual Accu-Chek values due to the acute kidney injury as noted above. 7. Diet: Cardiac, diabetic, renal. 8. Activity: As tolerated. 9. Deep vein thrombosis prophylaxis with sequentials. While there is concern for occult gastrointestinal bleed, we will hold on any pharmacological deep venous thrombosis prophylaxis. MTDD
[2017-12-23 05:09] LABS: #Eosinphils 0.2 thou/uL (0.0-0.7); #Monocytes 0.7 thou/uL (0.11-0.59); #Neutrophils 5.1 thou/uL (1.40-6.50); %Basophils 0.1 % (0.0-1.0); %Eosinophils 2.5 % (0.0-10.0); %Lymphocytes 14.8 % (21.0-51.0); %Monocytes 9.7 % (0.0-10.0); Hemoglobin 7.3 g/dL (12.0-16.0); Mean Corpuscular HGB CONC 33.1 g/dL (32.0-36.0); Mean Corpuscular Hemoglobin 29.1 pg (27.0-31.0); Mean Corpuscular Volume 87.9 fL (78.0-98.0); Mean Platelet Volume 8.2 fL (7.4-10.4); Platelet Count 175 thou/uL (130-400); RBC Distribution Width 13.3 % (11.5-14.5); Red Blood Cell (RBC) Count 2.49 mill/uL (4.20-5.40); White Blood Cell (WBC) Count 6.9 thou/uL (4.8-10.8)
[2017-12-23 05:21] LABS: Albumin 3.1 g/dL (3.4-4.8); Anion Gap 16 mmol/L (10-20); BUN (Urea Nitrogen) 78 mg/dL (9.8-20.1); BUN/Creatinine Ratio 26.26; Calc. Creatinine Clearance 21 mL/min (70-130); Calcium 8.7 mg/dL (7.8-10.44); Carbon Dioxide 22 mmol/L (23-31); Chloride 106 mmol/L (98-107); Estimated GFR-MDRD 18; Glucose 289 mg/dL (83-110); Phosphorus 3.6 mg/dL (2.3-4.7); Potassium 3.6 mmol/L (3.5-5.1); Sodium 140 mmol/L (136-145)
[2017-12-23 06:08] LABS: Creatinine, Urine 46.94 mg/dL (47-110)
[2017-12-23] MEDS: cloNIDine 0.3 MG TAB PO SCH ×2 (08:00→21:02)
[2017-12-23] MEDS: Methocarbamol 500 MG TAB PO SCH ×2 (08:00→20:59)
[2017-12-23] MEDS: hydrALAZINE 25 MG TAB PO SCH ×3 (08:00→20:59)
[2017-12-23] MEDS: Aspirin 81 mg Enteric Coated Tablet PO SCH (08:01)
[2017-12-23] MEDS: Carvedilol 25 MG TAB PO SCH ×2 (08:01→17:16)
[2017-12-23] MEDS: Gabapentin 100 MG CAP PO SCH ×3 (08:01→20:59)
[2017-12-23] MEDS ORDERED: Non-Formulary Item 1 EACH (Insulin Glargine,Hum.Rec.Anlog [Lantus Solostar] 10 UNIT) SQ SCH (09:00)
[2017-12-23] MEDS ORDERED: Insulin Glargine 10 UNITS in Pre-Filled Syringe 1 EACH SC SCH (09:00)
[2017-12-23] MEDS ORDERED: Famotidine 20 MG TAB PO SCH (09:00)
[2017-12-23] MEDS ORDERED: Ferrous Sulfate 325 MG TAB PO SCH (09:00)
--- NOTE | 2017-12-23 10:13 | ULT ---
RENAL ULTRASOUND: HISTORY: Concern for left renal mass. FINDINGS: The patient has a solitary left kidney. She had a right nephrectomy several years. The left kidney measures 12.1 cm. No hydronephrosis was seen. There is a 3.6 cm cyst arising from t he left kidney. The urinary bladder is unremarkable with a volume of 336 cc. IMPRESSION: Left renal cyst. POS: NADIYA
[2017-12-23] MEDS ORDERED: Pantoprazole 40 MG VIAL IVP SCH (10:15)
[2017-12-23 10:56] LABS: #Eosinphils 0.2 thou/uL (0.0-0.7); #Lymphocytes 0.9 thou/uL (1.20-3.40); #Monocytes 0.6 thou/uL (0.11-0.59); #Neutrophils 4.7 thou/uL (1.40-6.50); %Basophils 0.4 % (0.0-1.0); %Eosinophils 2.5 % (0.0-10.0); %Monocytes 9.5 % (0.0-10.0); %Neutrophils 73.5 % (42.0-75.0); Hemoglobin 7.4 g/dL (12.0-16.0); Mean Corpuscular HGB CONC 33.2 g/dL (32.0-36.0); Mean Corpuscular Hemoglobin 29.3 pg (27.0-31.0); Mean Corpuscular Volume 88.1 fL (78.0-98.0); Mean Platelet Volume 7.3 fL (7.4-10.4); Platelet Count 173 thou/uL (130-400); RBC Distribution Width 13.3 % (11.5-14.5); Red Blood Cell (RBC) Count 2.53 mill/uL (4.20-5.40); White Blood Cell (WBC) Count 6.4 thou/uL (4.8-10.8)
[2017-12-23] MEDS: Dextrose 5 % And 0.9 % NaCl 1,000 ML IV SCH ×2 (11:35→21:23)
--- NOTE | 2017-12-23 11:51 | PDOC.EVN ---
Event Note - Event Note Event Note: Record reviewed. Patient examined. She reports she is feeling better with the pain medications. Scheduled for EDG/Colonscopy tomorrow. Has a small ecchymosis in the LLQ, but TTP above that area. She doesn't know where the bruise came from. Hgb stable.
--- NOTE | 2017-12-23 17:14 | CON ---
DATE OF CONSULTATION: 12/23/2017 GI CONSULT HISTORY OF PRESENT ILLNESS: I have been asked to see Ms. Funes with regard to black stools and anemia . Ms. Funes reportedly went to an outside facility in [place] for left lower quadrant abdominal pa in. The hospitalist note reports that her CAT scan was normal. Apparently, this pain has been cramp y at times and worse over the last week. The CAT scan report or films are not available to me. She has intermittently had some constipation and has had to take some laxatives. She also complains of b lack stools, but it has been this way for 3 months. She has no epigastric pain, nausea, vomiting, we ight loss, fever or chills. She has no diarrhea or hematochezia. Here, her hemoglobin was 7.3 on ad mission, it was 7.5 on discharge on 07/13/2017. Her white count was 6.9 and platelet count was 175,0 00. INR is 1.2. BUN and creatinine are 78 and 2.97. Baseline BUNs have been about 40-50 in the pas t, but as high as 70. Her creatinine is about at baseline. She has no complaints presently, but wan ts to eat. She was here in 06/2017 and had an EGD with some bland ulcers. Biopsy showed no malignancy or H. pyl rama. These were over the gastric antrum and nonbleeding, about 8-9 mm in size. The patient is uncle ar if she is taking PPI. She denies taking NSAIDs. PAST MEDICAL HISTORY: Renal cell carcinoma with right-sided nephrectomy in the , type 2 diabete s, hypertension, anemia of chronic disease, coronary artery disease, prior history of diastolic heart failure with ejection fraction of 60%, moderate aortic stenosis 2015. PAST SURGICAL HISTORY: Previous appendectomy, previous right nephrectomy, previous EGD as noted anaid howard. HOME MEDICATIONS: Hydralazine, clonidine, potassium, polyethylene glycol, Protonix 40 mg p.o. b.i.d. , methocarbamol, insulin, gabapentin, iron daily, Zetia, carvedilol, bumetanide and aspirin 81 mg. ALLERGIES: None known. FAMILY HISTORY: Coronary artery disease in brother. SOCIAL HISTORY: The patient is retired, lives with her nephew. She has a primary physician, Dr. Chris johnston in [place]. HOSPITAL MEDICATIONS: Ecotrin, Coreg, Catapres, Zetia, Neurontin, glucagon, Apresoline, insulin 10 u nits b.i.d. sliding scale, Zofran, Pepcid, MiraLax and iron. PHYSICAL EXAMINATION: GENERAL: She is resting. She is sitting up on the side of the bed putting some bands in her hair. She is in no distress. She has got a wandering left eye. She is alert and oriented to person, place and time. Very pleasant. She denies pain. States she has had some cramps in her left lower belly. VITAL SIGNS: Temperature is 97.9, pulse is 80, blood pressure is 150/65. NECK: Supple. LUNGS: Clear. HEART: Regular rate and rhythm without clicks or murmurs. ABDOMEN: Soft and nontender. She has some vague ecchymosis in the skin on the left side. She has n o masses here. No rebound or guarding. EXTREMITIES: Revealed no clubbing, cyanosis or edema. LABORATORY STUDIES: Albumin is 3.1. Liver tests were not checked. IMAGING: Here, renal ultrasound showed a left renal cyst. Echo on 07/15 had an EF of 60%-65%, mild MR, mild AI, moderate aortic stenosis, valve area 1.15, mild TR. Microbiology, stool Hemoccult posit gilbert. ASSESSMENT: Black stools, heme positive. Hemoglobin of 7.3 with an MCV of 87. Her hemoglobin is al ways around 7 at this hospital. It is unclear if it had increased since the visit in the spring with her primary physician and the patient is not aware of that. She shows no signs of acute gastrointes tinal hemorrhage. She reports she has been on b.i.d. PPIs, which would make upper her gastrointestin al hemorrhage unlikely. Her stool is likely dark secondary to iron supplementation. Her anemia is l ikely related to her chronic renal insufficiency. She is Hemoccult positive and note she had a colon oscopy a long time ago. CAT scan apparently shows no signs or causes for her left lower quadrant elidia n. RECOMMENDATIONS: 1. Iron studies. 2. Stop iron. 3. Protonix IV q.12 and stop H2 ryan. 4. Transfuse per primary service if necessary. We will let them decide. 5. EGD and colonoscopy tomorrow.
[2017-12-23] MEDS ORDERED: GoLYTELY 4,000 ml Bottle PO SCH (18:00)
[2017-12-23] MEDS: HumaLOG 300 UNITS/3 ML VIAL SC PRN (18:07)
[2017-12-23 19:08] LABS: #Eosinphils 0.2 thou/uL (0.0-0.7); #Lymphocytes 1.1 thou/uL (1.20-3.40); #Monocytes 0.6 thou/uL (0.11-0.59); #Neutrophils 3.8 thou/uL (1.40-6.50); %Basophils 0.6 % (0.0-1.0); %Eosinophils 3.4 % (0.0-10.0); %Lymphocytes 19.1 % (21.0-51.0); %Monocytes 9.9 % (0.0-10.0); %Neutrophils 66.9 % (42.0-75.0); Mean Corpuscular HGB CONC 32.3 g/dL (32.0-36.0); Mean Corpuscular Hemoglobin 28.7 pg (27.0-31.0); Mean Corpuscular Volume 88.9 fL (78.0-98.0); Mean Platelet Volume 7.7 fL (7.4-10.4); Platelet Count 189 thou/uL (130-400); RBC Distribution Width 13.4 % (11.5-14.5); White Blood Cell (WBC) Count 5.6 thou/uL (4.8-10.8)
--- NOTE | 2017-12-23 19:32 | CON ---
DATE OF CONSULTATION: 12/23/2017 CONSULTING PHYSICIAN: Dr. Duggan. REASON FOR CONSULTATION: Acute kidney injury. REASON FOR ADMISSION: Left lower quadrant abdominal pain. HISTORY OF PRESENT ILLNESS: This is a 77-year-old -[place] female with history of renal cell carcinoma, CKD, anemia, came to the hospital with lower abdominal pain, no fevers or chills. No nausea, vomiting, diarrhea reported. The patient is having a rash in the lower abdomen and c/o constipation. She was found to have elevated Creatinine and nephrology consulted for further evaluation. She has a h/o of solitary kidney. PAST MEDICAL HISTORY: Positive for renal cell carcinoma, type 2 diabetes, hypertension, anemia, coronary artery disease stage 3, heart failure, and aortic stenosis. PAST SURGICAL HISTORY: Appendectomy and right nephrectomy. HOME MEDICATIONS: Hydralazine, clonidine, potassium, polyethylene glycol, pantoprazole, metoprolol, Lantus, gabapentin, ferrous sulfate. ALLERGIES: No known drug allergies. SOCIAL HISTORY: No smoking, alcohol or illicit drug abuse. FAMILY HISTORY: No history of kidney disease. REVIEW OF SYSTEMS: The following complete review of systems was negative, unless otherwise mentioned in the HPI or below: Constitutional: Weight loss or gain, ability to conduct usual activities. Skin: Rash, itching. Eyes: Double vision, pain. ENT/Mouth: Nose bleeding, neck stiffness, pain, tenderness. Cardiovascular: Palpitations, dyspnea on exertion, orthopnea. Respiratory: Shortness of breath, wheezing, cough, hemoptysis, fever or night sweats. Gastrointestinal: Poor appetite, abdominal pain, heartburn, nausea, vomiting, constipation, or diarrhea. Genitourinary: Urgency, frequency, dysuria, nocturia. Musculoskeletal: Pain, swelling. Neurologic/Psychiatric: Anxiety, depression. Allergy/Immunologic: Skin rash, bleeding tendency. PHYSICAL EXAMINATION: GENERAL: This is a well-built female in no apparent distress. VITAL SIGNS: Temperature 97.8, pulse 80, respiratory rate 18, and blood pressure 150/65. HEENT: Head is atraumatic, normocephalic. Oral mucosa is moist. NECK: Supple, no masses. CARDIOVASCULAR: S1 and S2 heard. Rate and rhythm regular. RESPIRATORY: Clear. GASTROINTESTINAL: Abdomen is soft. MUSCULOSKELETAL: 1+ edema. DERMATOLOGIC: No skin rash. NEUROLOGIC: Alert and awake. PSYCHIATRIC: Mood and affect normal. LABORATORY AND X-RAY FINDINGS: Renal ultrasound to rule out left renal cyst and a solitary left kidney. Hemoglobin 7.3, potassium 3.6, BUN is 70, creatinine is 2.9. ASSESSMENT AND PLAN: 1. Acute kidney injury on chronic kidney stage IV. Renal function is close to her baseline. Her baseline is around 2.3 to 2.1. 2. No acute indication for dialysis. Agree with hydration and monitor renal function. 3. Anemia. We would recommend transfusions since the patient with symptomatic complaints of fatigue and tiredness and shortness of breath. 4. Edema, controlled. 5. Hypertension, stable. 6. Mild proteinuria. 7. Hypertension. Titrate medication. 8. Continue hydration, avoid nephrotoxins. We will follow. Thank you for the consult. EZEKIEL
[2017-12-23] MEDS: Pantoprazole 40 MG VIAL IVP SCH (20:58)
[2017-12-23] MEDS: Ezetimibe 10 MG TAB PO SCH (20:59)
[2017-12-24 04:47] LABS: Anion Gap 13 mmol/L (10-20); BUN (Urea Nitrogen) 50 mg/dL (9.8-20.1); BUN/Creatinine Ratio 23.26; Calc. Creatinine Clearance 29 mL/min (70-130); Calcium 8.4 mg/dL (7.8-10.44); Carbon Dioxide 24 mmol/L (23-31); Chloride 109 mmol/L (98-107); Estimated GFR-MDRD 27; Glucose 184 mg/dL (83-110); Phosphorus 1.9 mg/dL (2.3-4.7); Potassium 3.4 mmol/L (3.5-5.1); Sodium 143 mmol/L (136-145)
[2017-12-24] MEDS ORDERED: Ondansetron HCl/PF 4 MG/2 ML Vial IVP PRN (08:10)
[2017-12-24] MEDS ORDERED: Promethazine HCl 25 MG/ML VIAL IM PRN (08:10)
[2017-12-24] MEDS ORDERED: Promethazine HCl 25 MG/ML VIAL SLOW IVP PRN (08:10)
[2017-12-24] MEDS: Carvedilol 25 MG TAB PO SCH ×2 (10:59→17:06)
[2017-12-24] MEDS: Methocarbamol 500 MG TAB PO SCH (11:04)
[2017-12-24] MEDS: Aspirin 81 mg Enteric Coated Tablet PO SCH (11:04)
[2017-12-24] MEDS: cloNIDine 0.3 MG TAB PO SCH ×2 (11:04→22:01)
[2017-12-24] MEDS: hydrALAZINE 25 MG TAB PO SCH ×3 (11:04→22:00)
[2017-12-24] MEDS: Dextrose 5 % And 0.9 % NaCl 1,000 ML IV SCH ×2 (11:05→22:14)
[2017-12-24] MEDS: Gabapentin 100 MG CAP PO SCH ×3 (11:05→22:00)
[2017-12-24] MEDS: Pantoprazole 40 MG VIAL IVP SCH (11:17)
--- NOTE | 2017-12-24 11:56 | PDOC.PN ---
- Subjective Encounter Start Date: 12/24/17 Encounter Start Time: 11:54 Still reporting sharp left-sided abdominal pain. Denies nausea. Ok with getting blood. - Objective Resuscitation Status: Resuscitation Status FULL:Full Resuscitation Vital Signs & Weight: Vital Signs (12 hours) Temp Pulse Resp BP Pulse Ox 12/24/17 07:58 99.0 F 74 18 154/65 H 96 12/24/17 07:20 98.3 F 71 18 12/24/17 04:00 98.3 F 71 18 140/65 97 Weight Weight 187 lb 4.8 oz I&O: 12/23/17 12/24/17 12/25/17 06:59 06:59 06:59 Intake Total 734 4680 Output Total 1200 Balance 734 3480 Result Diagrams: 12/23/17 19:02 12/24/17 03:57 Additional Labs: Accuchecks 12/23/17 12/23/17 12/23/17 21:00 16:43 11:06 POC Glucose 118 H 232 H 162 H 12/23/17 05:53 POC Glucose 250 H Phys Exam - Physical Examination Constitutional: NAD Respiratory: no wheezing, no rales, no rhonchi, clear to auscultation bilateral Cardiovascular: RRR, no significant murmur, no rub Gastrointestinal: soft, no distention, positive bowel sounds Minimal if any TTP Musculoskeletal: no edema Minimal TTP over the thoracic spine. No apparent anatomic malalignment. Psychiatric: normal affect Dx/Plan (1) Abdominal pain Code(s): R10.9 - UNSPECIFIED ABDOMINAL PAIN Status: Acute Comment: Unclear etiology. Negative CT abdomen. Colonoscopy with polyps, but no source of pain. US of kidneys with cyst. No skin lesions and no evidence of radiculopathy. (2) Colon polyp Code(s): K63.5 - POLYP OF COLON Status: Acute Comment: Removed on colonoscopy. (3) CKD (chronic kidney disease), stage IV Code(s): N18.4 - CHRONIC KIDNEY DISEASE, STAGE 4 (SEVERE) Status: Chronic Comment: Avoid nephrotoxic meds and contrast media (4) DM2 (diabetes mellitus, type 2) Status: Chronic Qualifiers: Diabetes mellitus superintendent marine oil terminal insulin use: 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 Diabetes mellitus complication status: with kidney complications Diabetes mellitus complication detail: with chronic kidney disease Chronic kidney disease stage : stage 4 (severe) Qualified Code(s): E11.22 - Type 2 diabetes mellitus with diabetic chronic kidney disease; N18.4 - Chronic kidney disease, stage 4 (severe ); N18.4 - Chronic kidney disease, stage 4 (severe); N18.4 - Chronic kidney disease, stage 4 (severe); N18.4 - Chronic kidney disease, stage 4 (severe); Z79.4 - terminal carman (current) use of insulin; Z79.4 - terminal carman (current) use of insulin; Z79.4 - terminal carman (current) use of insulin; Z79.4 - terminal carman (current ) use of insulin Comment: ISS, ADA. Fair control (5) Hypertension Code(s): I10 - ESSENTIAL (PRIMARY) HYPERTENSION Status: Chronic Qualifiers: Hypertension type: essential hypertension Qualified Code(s): I10 - Essential (primary) hypertension Comment: Continue Coreg, Clonidine, Hydralazine (6) Normocytic anemia Code(s): D64.9 - ANEMIA, UNSPECIFIED Status: Chronic Comment: Transfusion recommended by Neprhology. She is ok with getting blood. Will order the transfusion. - Plan * Transfuse. Continue PPI. L-spine x-rays to look for radicular source. If negative, treat symptomatically.
--- NOTE | 2017-12-24 12:31 | PRG ---
DATE OF SERVICE: 12/24/2017 SUBJECTIVE: Patient was seen and examined at bedside and overnight events noted. Patient denies any shortness of breath or chest pain or palpitation. No history of nausea or vomitin g or diarrhea or fever or chills or cramps. OBJECTIVE: GENERAL: This is a well-built female, in no apparent distress. VITAL SIGNS: Temperature 99.0, pulse 74, respiratory rate 18, blood pressure 154/65. HEENT: Atraumatic, normocephalic. Oral mucosa is moist. NECK: Supple. CARDIOVASCULAR: S1 and S2 heard. Rate and rhythm regular. RESPIRATORY: Clear to auscultation. GASTROINTESTINAL: Abdomen is soft. MUSCULOSKELETAL: No tenderness. No edema. DERMATOLOGIC: No skin rash. NEUROLOGIC: Alert and awake and oriented x3. No focal neurologic deficits. Moving all the extremit ies. PSYCHIATRIC: Mood and affect normal. LABORATORY DATA: Potassium is 3.4, BUN 50, creatinine is 2.1. ASSESSMENT AND PLAN: 1. Acute kidney injury on chronic kidney stage IV. Renal function getting better. 2. Solitary kidney 3. Hypertension, stable. 4. Edema, controlled. 5. We will continue to monitor. Continue hydration as tolerated.
[2017-12-24] MEDS: HumaLOG 300 UNITS/3 ML VIAL SC PRN (13:05)
--- NOTE | 2017-12-24 14:05 | RAD ---
THORACIC SPINE 3 VIEWS: HISTORY: Abdominal pain. Radicular pain and back pain. FINDINGS: Thoracic vertebrae maintain height and alignment. No lytic or blastic process. No compression defor mity seen. Mild to moderate degenerative changes are noted with osteophytes present. IMPRESSION: No acute abnormality identified. POS: NADIYA
[2017-12-24] MEDS: Acetaminophen 325 MG TAB PO PRN ×2 (15:16→22:11)
[2017-12-24] MEDS ORDERED: PROPOFOL 200 MG/20 ML VIAL ONE (15:27)
--- NOTE | 2017-12-24 16:23 | PDOC.EVN ---
Event Note - Event Note Event Note: Re-examined patient twice this afternoon. She is still fairly sleepy from the endoscopy this morning. She is still receiving the blood now. Still complains of pain in the Left abdomen. She is not sure why she is on the gabapentin or the robaxin. Thinks it was because she had a headache. I will hold the Robaxin and increase the gabapentin.
--- NOTE | 2017-12-24 17:01 | OP ---
PREPROCEDURE DIAGNOSES: Anemia with heme positive stool, likely component of chronic disease and iron deficiency. POSTPROCEDURE DIAGNOSES: 1. Normal esophagogastroduodenoscopy with no stigmata of bleeding. 2. Colonoscopy notable for large internal hemorrhoids, which could account for heme positive stool, but were not actively bleeding nor shows signs of stigmata of acute bleeding. 3. Diverticulosis coli. 4. A 1 cm polyp at 50 cm removed by snare polypectomy. RECOMMENDATIONS: 1. Change PPI to p.o. 2. Advance diet. 3. Iron supplementation. ANESTHESIA: TIVA. PROCEDURE IN DETAIL: After the patient was informed of the risks, benefits, possible complications of endoscopy including perforation, bleeding, reaction to medication and aspiration, informed consent was obtained. The patient brought to the endoscopy suite where she was sedated in a gradual fashion. Once she was comfortable, a bite block was placed in the incisor orifice. The endoscope was then advanced through the esophagus, stomach, and second and third portion of duodenum and slowly removed. There was good visualization of mucosa. The esophagus, stomach, and duodenum were normal with no signs of AV malformations, ulcers, erosions or gastritis, duodenum, bulb, first and second portions appeared normal. The scope was retroflexed and there were no lesions seen. The scope was then removed. The patient tolerated the procedure well with no complications. The patient was turned in the room and rectal exam was performed. The endoscope was advanced in the anal canal through the colon to the cecum which was identified by the ileocecal valve and appendiceal orifice. There was no active bleeding. There were some diverticula scattered throughout the colon. No large internal hemorrhoids. There were nonbleeding, but could account for heme positive stool at times. There was a polyp seen in the way and it was difficult to locate. We have to relook at the colon 3 times, the procedure time was about an hour and a half to find this polyp was 1 cm and about 50 cm proximal descending colon junction, descending and sigmoid colon. This was removed by snare polypectomy and submitted to Pathology. The scope was removed. The patient tolerated the procedure well with no complications. EZEKIEL
[2017-12-24] MEDS: Ezetimibe 10 MG TAB PO SCH (22:00)
[2017-12-25 05:22] LABS: Anion Gap 12 mmol/L (10-20); BUN (Urea Nitrogen) 32 mg/dL (9.8-20.1); BUN/Creatinine Ratio 16.49; Calc. Creatinine Clearance 32 mL/min (70-130); Calcium 8.7 mg/dL (7.8-10.44); Carbon Dioxide 24 mmol/L (23-31); Chloride 113 mmol/L (98-107); Estimated GFR-MDRD 30; Glucose 338 mg/dL (83-110); Phosphorus 2.3 mg/dL (2.3-4.7); Potassium 3.6 mmol/L (3.5-5.1); Sodium 145 mmol/L (136-145)
[2017-12-25] MEDS: HumaLOG 300 UNITS/3 ML VIAL SC PRN ×2 (06:08→11:43)
[2017-12-25] MEDS: Gabapentin 100 MG CAP PO SCH ×4 (08:24→20:49)
[2017-12-25] MEDS: hydrALAZINE 25 MG TAB PO SCH ×3 (08:24→20:51)
[2017-12-25] MEDS: Carvedilol 25 MG TAB PO SCH ×2 (08:24→16:36)
[2017-12-25] MEDS: cloNIDine 0.3 MG TAB PO SCH ×2 (08:24→20:49)
[2017-12-25] MEDS: Aspirin 81 mg Enteric Coated Tablet PO SCH (08:25)
[2017-12-25 09:26] LABS: #Eosinphils 0.2 thou/uL (0.0-0.7); #Lymphocytes 0.9 thou/uL (1.20-3.40); #Monocytes 0.7 thou/uL (0.11-0.59); #Neutrophils 7.2 thou/uL (1.40-6.50); %Basophils 0.2 % (0.0-1.0); %Eosinophils 2.8 % (0.0-10.0); %Lymphocytes 9.9 % (21.0-51.0); %Monocytes 7.6 % (0.0-10.0); %Neutrophils 79.5 % (42.0-75.0); Hemoglobin 7.8 g/dL (12.0-16.0); Mean Corpuscular HGB CONC 31.5 g/dL (32.0-36.0); Mean Corpuscular Hemoglobin 28.7 pg (27.0-31.0); Mean Corpuscular Volume 91.1 fL (78.0-98.0); Mean Platelet Volume 8.8 fL (7.4-10.4); Platelet Count 174 thou/uL (130-400); RBC Distribution Width 13.8 % (11.5-14.5); White Blood Cell (WBC) Count 9.1 thou/uL (4.8-10.8)
--- NOTE | 2017-12-25 10:36 | PDOC.PN ---
- Subjective Encounter Start Date: 12/25/17 Encounter Start Time: 10:35 Feeling better. Left abdominal pain is better. She now indicates that the reason she is on the Robaxin and Neurontin is the abdominal pain. The same pain that she has had at the time of this admission. - Objective Resuscitation Status: Resuscitation Status FULL:Full Resuscitation Vital Signs & Weight: Vital Signs (12 hours) Temp Pulse Resp BP BP Pulse Ox 12/25/17 08:24 77 169/66 H 12/25/17 08:00 98.4 F 77 16 12/25/17 07:18 98.4 F 77 18 169/66 H 94 L 12/25/17 04:00 98.3 F 76 20 175/75 H 95 Weight Weight 187 lb 4.8 oz Most Recent Monitor Data Heart Rate from ECG 80 I&O: 12/24/17 12/25/17 12/26/17 06:59 06:59 06:59 Intake Total 4680 150 Output Total 1200 Balance 3480 150 Result Diagrams: 12/25/17 04:06 12/25/17 04:06 Additional Labs: Accuchecks 12/25/17 12/24/17 12/24/17 05:55 22:07 15:44 POC Glucose 306 H 260 H 126 H 12/24/17 11:50 POC Glucose 192 H Phys Exam - Physical Examination Constitutional: NAD Much more awake and alert today. Respiratory: no wheezing, no rales, no rhonchi Cardiovascular: RRR II/ murmur over entire precordium. More on left sternal border. Gastrointestinal: soft, non-tender, no distention, positive bowel sounds Musculoskeletal: no edema Dx/Plan (1) Abdominal pain Code(s): R10.9 - UNSPECIFIED ABDOMINAL PAIN Status: Acute Comment: Resolved. It is apparently chronic and not acute as she had initially indicated. It is better now. May be from the blood or the increased dose of neurontin this morning. (2) Colon polyp Code(s): K63.5 - POLYP OF COLON Status: Acute Comment: Removed on colonoscopy. (3) CKD (chronic kidney disease), stage IV Code(s): N18.4 - CHRONIC KIDNEY DISEASE, STAGE 4 (SEVERE) Status: Chronic Comment: Avoid nephrotoxic meds and contrast media (4) DM2 (diabetes mellitus, type 2) Status: Chronic Qualifiers: Diabetes mellitus computer terminal operator insulin use: with computer terminal operator use Diabetes mellitus complication status: with kidney complications Diabetes mellitus complication detail: with chronic kidney disease Chronic kidney disease stage : stage 4 (severe) Qualified Code(s): E11.22 - Type 2 diabetes mellitus with diabetic chronic kidney disease; N18.4 - Chronic kidney disease, stage 4 (severe ); N18.4 - Chronic kidney disease, stage 4 (severe); N18.4 - Chronic kidney disease, stage 4 (severe); N18.4 - Chronic kidney disease, stage 4 (severe); Z79.4 - USP (current) use of insulin; Z79.4 - joint terminal attack controller (current) use of insulin; Z79.4 - joint terminal attack controller (current) use of insulin; Z79.4 - USP (current ) use of insulin Comment: ISS, ADA. Fair control (5) Hypertension Code(s): I10 - ESSENTIAL (PRIMARY) HYPERTENSION Status: Chronic Qualifiers: Hypertension type: essential hypertension Qualified Code(s): I10 - Essential (primary) hypertension Comment: Continue Coreg, Clonidine, Hydralazine (6) Normocytic anemia Code(s): D64.9 - ANEMIA, UNSPECIFIED Status: Chronic Comment: Transfusion recommended by Neprhology. Had transfusion and Hgb actually dropped. Will give an additional unit today. Had endoscopy with only non-bleeding polyps found. (7) Acute on chronic renal failure Code(s): N17.9 - ACUTE KIDNEY FAILURE, UNSPECIFIED; N18.9 - CHRONIC KIDNEY DISEASE, UNSPECIFIED Status: Acute Comment: Creatinine continues to improve. - Plan * Give an additional unit today. Anticipate discharge in am if hgb responds appropriately..
--- NOTE | 2017-12-25 12:30 | PRG ---
DATE OF SERVICE: 12/25/2017 SUBJECTIVE: A 77-year-old female being seen for acute kidney injury. The patient denies any nausea, vomiting, or chest pain. PHYSICAL EXAMINATION: GENERAL: Patient is awake, alert. VITAL SIGNS: Afebrile, pulse 77, breathing 16, blood pressure 157/77. OBJECTIVE: See above. Awake, alert, in no acute distress. GENERAL APPEARANCE AND MENTAL STATUS: Fair. HEAD/NECK: Normocephalic. Atraumatic. EYES: EOMI. No deformity. EARS: Clear. No ulcers. NOSE: Intact. No lesions. MOUTH: Clear. No discharge. THROAT: Clear. No exudate. LUNGS: Clear. No crackles. CARDIAC: S1, S2. No rub. ABDOMEN: Benign. BS+. GENITALIA/RECTUM: Lewis absent. BACK/EXTREMITIES: Edema 0+ Ulcer- NEUROLOGICAL: Alert and motor intact. SKIN: Rash- Bruise- LYMPHATICS: Edema- Ulcer- LABORATORY: Hemoglobin 10.8, creatinine 1.9. ASSESSMENT AND RECOMMENDATIONS: 1. Acute kidney injury with chronic kidney disease stage 3, stable. 2. Hypertension, stable. 3. Anemia, stable. 4. Medication based on glomerular filtration rate are appropriate. No indication for dialysis.
[2017-12-25] MEDS: Dextrose 5 % And 0.9 % NaCl 1,000 ML IV SCH (14:02)
--- NOTE | 2017-12-25 18:39 | PRG ---
DATE OF SERVICE: 12/25/2017 SUBJECTIVE: Ms. Funes has had no overt bleeding. She has some chronic left lower quadrant abdominal pain. She ate well today. OBJECTIVE: VITAL SIGNS: Pulse 77, blood pressure 176/74, temperature 98.5. GENERAL: She is in no acute distress. She is awake and alert. LUNGS: Clear to auscultation bilaterally. HEART: Regular rate and rhythm without murmur. ABDOMEN: Soft, nontender, nondistended. Bowel sounds are present. EXTREMITIES: No lower extremity edema. LABORATORY DATA: Hemoglobin is stable at 7.8. Creatinine 1.94. IMPRESSION: Anemia related to iron deficiency and also likely a combination of chronic disease and c hronic kidney disease. She has a low TIBC consistent with this. Upper and lower endoscopy yesterday did reveal a colon polyp which was removed. RECOMMENDATIONS: 1. Follow up in GI clinic in a month to recheck hemoglobin evaluate for the evidence of gastrointest inal bleeding. 2. Await histopathology. 3. Anticipate discharge home tomorrow. I will sign off for now. Please call if GI can be of assist marysol.
[2017-12-25] MEDS: Ezetimibe 10 MG TAB PO SCH (20:50)
[2017-12-25] MEDS: Acetaminophen 325 MG TAB PO PRN (20:51)
[2017-12-26 05:15] LABS: #Eosinphils 0.2 thou/uL (0.0-0.7); #Lymphocytes 1.1 thou/uL (1.20-3.40); #Monocytes 0.9 thou/uL (0.11-0.59); #Neutrophils 7.3 thou/uL (1.40-6.50); %Basophils 0.2 % (0.0-1.0); %Eosinophils 2.3 % (0.0-10.0); %Lymphocytes 11.8 % (21.0-51.0); %Neutrophils 76.6 % (42.0-75.0); Hemoglobin 8.6 g/dL (12.0-16.0); Mean Corpuscular HGB CONC 32.4 g/dL (32.0-36.0); Mean Corpuscular Hemoglobin 29.4 pg (27.0-31.0); Mean Corpuscular Volume 90.7 fL (78.0-98.0); Mean Platelet Volume 8.1 fL (7.4-10.4); Platelet Count 160 thou/uL (130-400); RBC Distribution Width 13.7 % (11.5-14.5); Red Blood Cell (RBC) Count 2.92 mill/uL (4.20-5.40); White Blood Cell (WBC) Count 9.5 thou/uL (4.8-10.8)
[2017-12-26 05:37] LABS: Anion Gap 9 mmol/L (10-20); BUN (Urea Nitrogen) 24 mg/dL (9.8-20.1); BUN/Creatinine Ratio 12.63; Calc. Creatinine Clearance 33 mL/min (70-130); Calcium 8.6 mg/dL (7.8-10.44); Carbon Dioxide 26 mmol/L (23-31); Chloride 113 mmol/L (98-107); Estimated GFR-MDRD 31; Glucose 239 mg/dL (83-110); Phosphorus 1.8 mg/dL (2.3-4.7); Potassium 3.3 mmol/L (3.5-5.1); Sodium 145 mmol/L (136-145)
[2017-12-26] MEDS ORDERED: Sodium Chloride 0.9% 1,000 ML IV SCH (06:15)
[2017-12-26] MEDS: Dextrose 5 % And 0.9 % NaCl 1,000 ML IV SCH (06:17)
[2017-12-26 07:51] VITALS: TEMP 98.8
[2017-12-26] MEDS: hydrALAZINE 25 MG TAB PO SCH (07:53)
[2017-12-26] MEDS: Aspirin 81 mg Enteric Coated Tablet PO SCH (07:53)
[2017-12-26] MEDS: cloNIDine 0.3 MG TAB PO SCH (07:53)
[2017-12-26] MEDS: Gabapentin 100 MG CAP PO SCH ×2 (07:53)
[2017-12-26] MEDS: Acetaminophen 325 MG TAB PO PRN (08:21)
[2017-12-26] MEDS: Carvedilol 25 MG TAB PO SCH (08:22)
[2017-12-26 10:19] VITALS: BP 148/75
--- NOTE | 2017-12-26 10:40 | PRG ---
DATE OF SERVICE: 12/26/2017 SUBJECTIVE: This is a 77-year-old female being seen for acute kidney injury. The patient denies any nausea, vomiting, or chest pain. PHYSICAL EXAMINATION: GENERAL: Patient is awake, alert. VITAL SIGNS: Afebrile, pulse 72, breathing 16, blood pressure 148/75. HEAD/NECK: Normocephalic. Atraumatic. EYES: EOMI. No deformity. EARS: Clear. No ulcers. NOSE: Intact. No lesions. MOUTH: Clear. No discharge. THROAT: Clear. No exudate. LUNGS: Clear. No crackles. CARDIAC: S1, S2. No rub. ABDOMEN: Benign. BS+. GENITALIA/RECTUM: Lewis absent. BACK/EXTREMITIES: Edema 0+ Ulcer- NEUROLOGICAL: Alert and motor intact. SKIN: Rash- Bruise- LYMPHATICS: Edema- Ulcer- LABORATORY DATA: Show hemoglobin 8.6 and creatinine 1.9. ASSESSMENT AND RECOMMENDATIONS: 1. Acute kidney injury, stable. 2. Hypertension, stable. 3. Anemia, stable. 4. Hypokalemia. Recommend high potassium diet. No indication for dialysis at this time.
--- NOTE | 2017-12-26 23:27 | DIS ---
DATE OF ADMISSION: 12/23/2017 DATE OF DISCHARGE: 12/26/2017 DISCHARGE DIAGNOSES: 1. Left lower quadrant abdominal pain. 2. Colon polyps. 3. Chronic kidney disease, stage 4. 4. Anemia. 5. Diabetes mellitus. 6. Hypertension. 7. Acute on chronic renal failure. HISTORY: This patient is a 77-year-old female, who initially presented to the emergency department in [place]. The patient was subsequently transferred to this facility. The patient initially presented reporting left-sided abdominal pain. She had a CT scan performed in [place] that was unremarkable. She described it as episodic in nature and crampy in character and progressing over about a week. It had gotten suddenly worse on the day she presented. The patient also reported that she did experience some constipation and had been requiring some laxatives. Her creatinine at that time was 3.1. White count was 11 and hemoglobin was 7.2. HOSPITAL COURSE: The patient was admitted with left lower abdominal pain, acute on chronic renal insufficiency, hypertension, diabetes. The patient had some history of diastolic dysfunction and had been on diuresis previously. That was held and the patient was somewhat hydrated. She was seen in consultation by GI, as the patient had subsequently reported some dark stools, and in light of her anemia, there was concern for the possibility of gastrointestinal bleed. GI did take the patient for endoscopy. She had 2 colonic polyps that were noted and were removed and sent for pathologic evaluation. Those results were pending at the time of discharge. Nephrology saw the patient and recommended the patient receive transfusion given they felt that she was likely symptomatic. She did receive a unit of blood without a substantial increase in her hemoglobin, therefore a second unit was administered. A renal ultrasound was also obtained. The patient's solitary left kidney was unremarkable with the exception of a small renal cyst. The patient's pain persisted and she had x-rays of her thoracic spine to rule out a compression or a potential source of radiculopathy; this was unremarkable. Following the patient's colonoscopy, the patient was continuing to have her discomfort, but remained a little bit lethargic. She had Robaxin listed as a regular medication for her, and she likely had received it that morning as well. This was held and she received an extra dose of 100 mg of Neurontin the following morning. At that time, the patient reported that her pain was substantially better, though it was unclear as to what might have improved her pain, but she reported that it was essentially gone. She received her second unit of blood that day, and then on the day of discharge, the patient reported that she did not feel well, but it was primarily related to the fact that she had not slept well overnight. She stated that her room was too cold and she was miserable as a result of that. Ultimately, however, she reported that her abdominal pain was improved and her vital signs were stable. Her hemoglobin was 8.6 and her creatinine had improved to 1.9. She was felt to be stable for discharge. Day of discharge: T 98.8 P 72 R 16 SaO2 98% RA, BP 148/75 Gen: Awake and alert, no distress Heart: II/ holosystolic murmur over upper precordium Lungs: CTAB Abd: Soft, NT/ND, NABS Ext: No edema. BUN 24, Creat 1.9. Hgb 8.6 DISPOSITION: The patient is discharged to home. She is to continue with a diabetic diet. She is strongly encouraged to follow up with Dr. Dheeraj Salazar within the next week. She understands that her pathology is still pending from the colon polyps and that Dr. Salazar should pursue getting these reports. The patient's son was here at the time of the patient's discharge and all this was explained to him in detail as well. The patient is to be on a renal, diabetic diet. Her activity level is as tolerated. She will be on Neurontin 100 mg t.i.d., Zetia 10 mg at bedtime, hydralazine 100 mg t.i.d., Coreg 25 mg b.i.d., aspirin 81 mg every day, Bumex 2 mg every day, potassium 20 mEq p.o. daily, clonidine 0.3 mg b.i.d., Protonix 40 mg every day, ferrous sulfate 325 every day , polyethylene glycol 17 grams p.o. daily, Lantus SoloSTAR 10 units subcutaneously b.i.d. She is not to take the Robaxin. I should note that it was clarified with the patient's home caregiver that she was not taking the Robaxin regularly prior to the time of her admission. The patient should return to the emergency department should she have any problems prior to her followup with Dr. Salazar. EZEKIEL
== END 2017-12-26 10:57 | disposition home or self-care (01) | DRG 683 ==
LOC: ERS 19:47 → 2SW 22:11 → OBSVTOIN 12-24 18:24 → T4-A 12-24 20:21
PROVIDERS: ADMIT Internal Medicine; ATTEND Internal Medicine
PROC: 0DJ08ZZ Inspection of Upper Intestinal Tract, Via Natural or Artificial Opening Endoscopic (ICD-10-PCS; principal; 2017-12-24)
PROC: 0DBM8ZZ Excision of Descending Colon, Via Natural or Artificial Opening Endoscopic (ICD-10-PCS; 2017-12-24)
PROC: 0DBN8ZZ Excision of Sigmoid Colon, Via Natural or Artificial Opening Endoscopic (ICD-10-PCS; 2017-12-24)
DX: N17.9 Acute kidney failure, unspecified (principal); I13.0 Hypertensive heart and chronic kidney disease with heart failure and stage 1 through stage 4 chronic kidney disease, or unspecified chronic kidney disease; I50.30 Unspecified diastolic (congestive) heart failure; N18.4 Chronic kidney disease, stage 4 (severe); E11.22 Type 2 diabetes mellitus with diabetic chronic kidney disease; D63.1 Anemia in chronic kidney disease; D50.9 Iron deficiency anemia, unspecified; K63.5 Polyp of colon; E87.6 Hypokalemia; K64.8 Other hemorrhoids
CPT/HCPCS: 36415; 36416; 36430; 72072; 76770; 80069; 82274; 82570; 82607; 82728; 82746; 83550; 84300; 85025; 86850; 86900; 86901; 88305; 99285; A4216; C9113; J2704; P9016

== ENCOUNTER 2018-01-01 15:53 | Emergency (ER) | payer MEDICARE ==
[2018-01-01] MEDS ORDERED: diphenhydrAMINE 50 MG/ML VIAL ONE (16:47)
[2018-01-01] MEDS ORDERED: Metoclopramide HCl 10 MG/2 ML VIAL ONE (16:47)
[2018-01-01 17:24] LABS: Bilirubin Negative (Negative); Blood, Urine Negative (Negative); Clarity CLEAR (Clear); Glucose, Urine (Dipstick) Negative (Negative); Leukocyte Negative (Negative); Nitrite Negative (Negative); Protein, Urine (Dipstick) Negative (Neg-Trace); Specific Gravity, Urine 1.006 (1.002-1.036)
--- NOTE | 2018-01-01 17:24 | RAD ---
RADIOGRAPH CHEST 1 VIEW: HISTORY: A 77-year-old female with altered mental status. FINDINGS: There is cardiomegaly. There is no evidence of air space density, pulmonary edema, or pneumothorax. T he lateral costophrenic angles are sharp. IMPRESSION: 1) No acute pulmonary findings. 2) Cardiomegaly without congestive heart failure. jaspreet [] POS: [facility]
[2018-01-01 17:38] LABS: #Eosinphils 0.1 thou/uL (0.0-0.7); #Lymphocytes 1.2 thou/uL (1.20-3.40); #Neutrophils 8.3 thou/uL (1.40-6.50); %Basophils 0.1 % (0.0-1.0); %Eosinophils 0.6 % (0.0-10.0); %Lymphocytes 11.6 % (21.0-51.0); %Monocytes 9.1 % (0.0-10.0); %Neutrophils 78.5 % (42.0-75.0); Hemoglobin 10.1 g/dL (12.0-16.0); Mean Corpuscular HGB CONC 31.7 g/dL (32.0-36.0); Mean Corpuscular Volume 91.6 fL (78.0-98.0); Mean Platelet Volume 8.2 fL (7.4-10.4); Platelet Count 213 thou/uL (130-400); RBC Distribution Width 13.7 % (11.5-14.5); Red Blood Cell (RBC) Count 3.48 mill/uL (4.20-5.40); White Blood Cell (WBC) Count 10.6 thou/uL (4.8-10.8)
[2018-01-01 17:58] LABS: ALT (SGPT) 11 U/L (8-55); AST (SGOT) 23 U/L (5-34); Albumin 3.7 g/dL (3.4-4.8); Alkaline Phosphatase 90 U/L (40-150); Anion Gap 20 mmol/L (10-20); BUN (Urea Nitrogen) 40 mg/dL (9.8-20.1); Bilirubin, Total 0.4 mg/dL (0.2-1.2); CK (CPK) 126 U/L (29-168); Calc. Creatinine Clearance 0 mL/min (70-130); Calcium 9.1 mg/dL (7.8-10.44); Carbon Dioxide 24 mmol/L (23-31); Chloride 101 mmol/L (98-107); Estimated GFR-MDRD 24; Globulin 4.3 g/dL (2.4-3.5); Glucose 102 mg/dL (83-110); Lipase 15 U/L (8-78); Potassium 3.2 mmol/L (3.5-5.1); Sodium 142 mmol/L (136-145)
[2018-01-01 18:03] LABS: CKMB 4.4 ng/mL (0-6.6); Troponin I 0.086 ng/mL (< 0.028)
--- NOTE | 2018-01-01 18:22 | CT ---
CT BRAIN NONCONTRAST: 01/01/2018 5:54 p.m. HISTORY: A 77-year-old female with headache. FINDINGS: There is no midline shift or any other mass effect. There is no evidence of acute intracranial hemor rhage, large cortical infarct, obstructive hydrocephalus, or extraaxial fluid collection. The calvar ium is intact. There is diffuse parenchymal volume loss. There are low attenuation areas in the whi te matter. These are nonspecific, but in a patient of this age, they are probably chronic ischemic w lor matter changes due to microvascular atherosclerosis. Incidentally, there is a partially empty s chris turcica. There is no interval change overall, compared to 02/21/2017. IMPRESSION: 1) No acute intracranial findings. 2) Involutional changes and chronic ischemic white matter changes. jn [] POS: [facility]
== END 2018-01-01 18:53 | disposition home or self-care (01) ==
LOC: ERS 15:53
DX: R51 Headache (principal); I13.0 Hypertensive heart and chronic kidney disease with heart failure and stage 1 through stage 4 chronic kidney disease, or unspecified chronic kidney disease; E11.22 Type 2 diabetes mellitus with diabetic chronic kidney disease; N18.9 Chronic kidney disease, unspecified; Z79.4 Long term (current) use of insulin; Z79.899 Other long term (current) drug therapy; Z79.82 Long term (current) use of aspirin
CPT/HCPCS: 36415; 51701; 70450; 71045; 80053; 81003; 82553; 83605; 83690; 83880; 84484; 85025; 87040; 93005; 96374; 96375; A4353; J1200; J2765

== ENCOUNTER 2018-03-30 20:35 | Inpatient (IN) | payer MEDICARE ==
[2018-03-30 21:12] LABS: #Eosinphils 0.1 thou/uL (0.0-0.7); #Monocytes 0.7 thou/uL (0.11-0.59); %Basophils 0.1 % (0.0-1.0); %Eosinophils 0.8 % (0.0-10.0); %Lymphocytes 7.4 % (21.0-51.0); %Monocytes 4.7 % (0.0-10.0); %Neutrophils 87.1 % (42.0-75.0); Hemoglobin 8.6 g/dL (12.0-16.0); Mean Corpuscular HGB CONC 32.5 g/dL (32.0-36.0); Mean Corpuscular Hemoglobin 29.6 pg (27.0-31.0); Mean Corpuscular Volume 90.9 fL (78.0-98.0); Mean Platelet Volume 8.9 fL (7.4-10.4); Platelet Count 249 thou/uL (130-400); RBC Distribution Width 12.9 % (11.5-14.5); Red Blood Cell (RBC) Count 2.91 mill/uL (4.20-5.40); White Blood Cell (WBC) Count 13.7 thou/uL (4.8-10.8)
[2018-03-30 21:17] LABS: INR-International Normal Ratio 1.1; Prothrombin Time 13.9 SEC (12.0-14.7)
[2018-03-30 21:18] LABS: PTT 37.1 SEC (22.9-36.1)
[2018-03-30 21:40] LABS: ALT (SGPT) Less than 7 U/L (8-55); AST (SGOT) 17 U/L (5-34); Albumin 3.7 g/dL (3.4-4.8); Alkaline Phosphatase 76 U/L (40-150); Anion Gap 19 mmol/L (10-20); BUN (Urea Nitrogen) 113 mg/dL (9.8-20.1); Bilirubin, Total 0.3 mg/dL (0.2-1.2); CK (CPK) 118 U/L (29-168); Calc. Creatinine Clearance 0 mL/min (70-130); Calcium 9.1 mg/dL (7.8-10.44); Carbon Dioxide 23 mmol/L (23-31); Chloride 102 mmol/L (98-107); Estimated GFR-MDRD 13; Globulin 4.4 g/dL (2.4-3.5); Glucose 177 mg/dL (83-110); Protein, Total 8.1 g/dL (6.0-8.3); Sodium 139 mmol/L (136-145)
[2018-03-30 21:43] LABS: CKMB 2.9 ng/mL (0-6.6); Troponin I 0.026 ng/mL (< 0.028)
--- NOTE | 2018-03-30 22:05 | RAD ---
SINGLE VIEW OF THE CHEST: 03/30/18 COMPARISON: 01/01/18 HISTORY: Nausea and vomiting. Weakness. FINDINGS: Single view of the chest shows an enlarged but stable cardiomediastinal silhouette with atherosclerot ic calcifications in the aorta. There is no evidence of normal sized cardiomediastinal silhouette. T here is no evidence of consolidation, mass, or pleural effusion. IMPRESSION: Cardiomegaly without evidence of acute cardiopulmonary disease. POS: [facility]
[2018-03-30] MEDS ORDERED: Ondansetron PF 4 MG/2 ML Vial ONE (22:14)
[2018-03-31] MEDS ORDERED: Senokot S 8.6-50 MG TAB PO PRN (00:23)
[2018-03-31] MEDS ORDERED: Bisacodyl 5 MG TAB PO PRN (00:23)
[2018-03-31] MEDS ORDERED: Ondansetron ODT 4 MG TAB PO PRN (00:23)
[2018-03-31] MEDS ORDERED: Acetaminophen 650 MG Suppository PR PRN (00:23)
[2018-03-31] MEDS ORDERED: Guaifenesin DM 100-10/5 ML UDCUP PO PRN (00:23)
[2018-03-31] MEDS ORDERED: Calcium Carbonate 500 MG ChewTAB PO PRN (00:23)
[2018-03-31] MEDS ORDERED: Ondansetron PF 4 MG/2 ML Vial IVP PRN (00:23)
[2018-03-31] MEDS ORDERED: HumaLOG 300 UNITS/3 ML VIAL SC PRN (00:23)
[2018-03-31] MEDS ORDERED: Dextrose 5% in Water 1,000 ML IV PRN (00:23)
[2018-03-31] MEDS ORDERED: Dextrose 50% Abboject 50 ML SYRINGE SLOW IVP PRN (00:23)
[2018-03-31 02:17] LABS: #Lymphocytes 0.9 thou/uL (1.20-3.40); #Monocytes 0.5 thou/uL (0.11-0.59); #Neutrophils 11.3 thou/uL (1.40-6.50); %Basophils 0.3 % (0.0-1.0); %Eosinophils 0.2 % (0.0-10.0); %Lymphocytes 6.6 % (21.0-51.0); %Monocytes 4.2 % (0.0-10.0); %Neutrophils 88.7 % (42.0-75.0); Hemoglobin 7.9 g/dL (12.0-16.0); Mean Corpuscular HGB CONC 32.2 g/dL (32.0-36.0); Mean Corpuscular Hemoglobin 29.6 pg (27.0-31.0); Mean Platelet Volume 8.8 fL (7.4-10.4); Platelet Count 239 thou/uL (130-400); Red Blood Cell (RBC) Count 2.65 mill/uL (4.20-5.40); White Blood Cell (WBC) Count 12.8 thou/uL (4.8-10.8)
[2018-03-31 02:30] VITALS: BMI 28.7
[2018-03-31 02:30] LABS: Iron 17 ug/dL (50-170); Iron Binding Capacity, Total 200 mcg/dL (265-497)
[2018-03-31 02:35] LABS: Albumin 3.4 g/dL (3.4-4.8); Anion Gap 16 mmol/L (10-20); BUN (Urea Nitrogen) 111 mg/dL (9.8-20.1); BUN/Creatinine Ratio 31.18; Calc. Creatinine Clearance 16 mL/min (70-130); Calcium 8.9 mg/dL (7.8-10.44); Carbon Dioxide 25 mmol/L (23-31); Chloride 105 mmol/L (98-107); Estimated GFR-MDRD 15; Glucose 185 mg/dL (83-110); Potassium 4.8 mmol/L (3.5-5.1); Sodium 141 mmol/L (136-145)
[2018-03-31 03:10] LABS: #Lymphocytes 1.1 thou/uL (1.20-3.40); #Monocytes 0.6 thou/uL (0.11-0.59); #Neutrophils 10.6 thou/uL (1.40-6.50); %Basophils 0.4 % (0.0-1.0); %Eosinophils 0.2 % (0.0-10.0); %Lymphocytes 8.7 % (21.0-51.0); %Monocytes 4.5 % (0.0-10.0); %Neutrophils 86.3 % (42.0-75.0); Hemoglobin 7.4 g/dL (12.0-16.0); Mean Corpuscular HGB CONC 33.3 g/dL (32.0-36.0); Mean Corpuscular Hemoglobin 29.7 pg (27.0-31.0); Mean Platelet Volume 8.4 fL (7.4-10.4); Platelet Count 221 thou/uL (130-400); RBC Distribution Width 12.7 % (11.5-14.5); White Blood Cell (WBC) Count 12.3 thou/uL (4.8-10.8)
[2018-03-31 03:33] LABS: Troponin I 0.042 ng/mL (< 0.028)
[2018-03-31] MEDS: Sodium Chloride 0.9% 1,000 ML IV SCH ×3 (03:41→21:54)
[2018-03-31 05:08] LABS: Folate (Folic Acid) 9.9 ng/mL (7.0-31.4)
[2018-03-31] MEDS: Gabapentin 100 MG CAP PO SCH ×3 (08:23→21:24)
[2018-03-31] MEDS: Ferrous Sulfate 325 MG TAB PO SCH (08:23)
[2018-03-31] MEDS: hydrALAZINE 25 MG TAB PO SCH ×3 (08:23→21:23)
[2018-03-31] MEDS: cloNIDine 0.3 MG TAB PO SCH ×2 (08:23→21:24)
[2018-03-31] MEDS: Carvedilol 25 MG TAB PO SCH ×2 (08:23→17:39)
[2018-03-31] MEDS: Aspirin 81 mg Enteric Coated Tablet PO SCH ×2 (08:23→08:46)
[2018-03-31] MEDS: Famotidine/PF 20 mg/2ml Vial SLOW IVP SCH (08:24)
[2018-03-31] MEDS: Famotidine 20 MG TAB PO SCH (08:24)
[2018-03-31] MEDS: Heparin 5,000 UNITS/ML VIAL SC SCH ×2 (08:24→21:28)
--- NOTE | 2018-03-31 08:35 | HP ---
CHIEF COMPLAINT: Nausea and vomiting. HISTORY OF PRESENT ILLNESS: This is a 77-year-old female with past medical history of renal cell carcinoma, status post right-sided nephrectomy in the ; type 2 diabetes; hypertension; anemia of chronic disease; coronary artery disease; diastolic heart failure with ejection fraction of 60%; moderate aortic stenosis with valvular area of 1.2, presenting with nausea and vomiting, which occurred on the day of admission. Per the patient, she was not feeling too well, and she made some greens and some cornbread and she ate some of it. The patient stated that she did not eat as much, but she started feeling very nauseous and then she became very sick and she started to vomit. The patient stated that she vomited x3, nonbilious, nonbloody, and she called EMS for help. Per EMS report, the patient was found in her bed vomiting, not responding as well. The patient looked very fatigued and tired. The patient was having intermittent syncope and was bradycardic, and the patient had generalized weakness. At this point, the patient admits to nausea and vomiting, but denies fever, chills, headaches, dizziness, chest pain, palpitation, abdominal pain, hematuria, dysuria, melena, hematochezia. Of note, the patient was recently seen in the hospital facility for a chief complaint of left lower quadrant abdominal pain. During that time, the patient reported that she had subsequent dark stools and was worried for GI bleed. During that visit, the patient underwent endoscopy and was found to have 2 colonic polyps that were noted and were removed and sent for pathologic evaluation. REVIEW OF SYSTEMS: Positive for nausea and vomiting. Otherwise as documented in the HPI, all systems were reviewed and are negative. PAST MEDICAL HISTORY: 1. Renal cell carcinoma, status post right-sided nephrectomy in the . 2. Type 2 diabetes. 3. Hypertension. 4. Anemia of chronic disease. 5. Coronary artery disease. 6. Diastolic heart failure. 7. Moderate aortic stenosis with valvular area of 1.2. PAST SURGICAL HISTORY: Appendectomy. FAMILY HISTORY: Significant for coronary artery disease. SOCIAL HISTORY: The patient lives at home with nephew. No tobacco use. No illicit drug use. No alcohol use. The patient is full code. ALLERGIES: NO KNOWN DRUG ALLERGIES. HOME MEDICATIONS: The patient takes; 1. Hydroxyzine 100 mg. 2. Clonidine 0.3 mg. 3. Potassium chloride 20 mEq. 4. Polyethylene glycol 17 g. 5. Pantoprazole 40 mg. 6. Methocarbamol 500 mg. 7. Insuline glargine 10 units. 8. Gabapentin 100 mg p.o. t.i.d. 9. Ferrous sulfate 325 mg. 10. Zetia 10 mg. 11. Carvedilol 25 mg. 12. Bumetanide 2 mg. 13. Aspirin 81 mg. PHYSICAL EXAMINATION: VITAL SIGNS: The patient's blood pressure was 170/89, pulse of 77, respiratory rate of 16, O2 saturation of 100. GENERAL: The patient is lying in bed, does not appear to be in any acute distress. The patient is able to speak in full sentences. HEENT: Normocephalic and atraumatic. The patient has bilateral cataracts. Left eye lateral gaze abnormality. NECK: Trachea is midline. No JVD. Full range of motion. Supple. LUNGS: Clear to auscultation bilaterally. No wheezing, no rhonchi appreciated. CARDIAC: Positive S1 and S2. Regular rate and rhythm. No murmurs, no gallops, no rubs appreciated. ABDOMEN: Soft, nontender, and nondistended. Obese abdomen. Positive bowel sounds in all quadrants. No palpable masses appreciated. EXTREMITIES: The patient has 5/5 upper extremity strength and 5/5 lower extremity strength. Good pulses in upper and lower extremities bilaterally. NEUROLOGIC: Cranial nerves 2 through 12 grossly intact. No neurologic deficits noted. PSYCHIATRIC: The patient is alert, oriented x3. Not in acute distress. The patient has normal affect. SKIN: Warm, dry, and intact. LABORATORY DATA: WBC is 13.7, hemoglobin is 8.6, hematocrit is 26.4, platelet count is 249, neutrophils are 87.1%. PT is 13.9. INR is 1.1. PTT is 37.1. Sodium is 139, potassium is 5.0, chloride is 102, carbon dioxide of 23, anion gap of 19, BUN is 113, creatinine is 3.90, glucose is 117, AST is 17, ALT is less than 7. Creatine kinase is 118. IMAGING: Chest x-ray showed no acute cardiopulmonary process. ASSESSMENT AND PLAN: This is a 77-year-old female, being admitted for: 1. Nausea and vomiting, likely due to gastritis. At this point, the patient stated that she had some greens and some cornbread, and after eating the food, she started having this nausea and vomiting. At this point, we are going to treat the patient supportively. We will give the patient IV hydration, and we will monitor the patient closely. We will continue to give the patient p.r.n. medication for pain and fevers, and we will also give the patient empiric antibiotics, and we will continue to monitor the patient closely. 2. Acute on chronic kidney disease, most likely due to dehydration. At this point, we have consulted Nephology. We will follow up with Nephology's recommendation. We will give the patient gentle hydration. We will follow up on morning labs. We will discontinue all nephrotoxic drugs, and we will renally dose every medication. 3. Diabetes mellitus, type 2, uncontrolled at this time. We are going to start the patient on insulin sliding scale. We will follow up on insulin sliding scale, and we will try and control the patient's blood glucose between 140 and 180. We will adjust the patient's insulin scale and eventually start the patient on Lantus and NovoLog in the hospital. 4. Hypertension. We will continue to monitor the patient's blood pressure closely, and we will give the patient blood pressure medications accordingly. 5. Deep venous thrombosis and gastrointestinal prophylaxis. Job ID: [id number]
[2018-03-31] MEDS ORDERED: Polyethylene Glycol 3350 17 GM Packet PO PRN (09:18)
--- NOTE | 2018-03-31 09:18 | PDOC.PN ---
- Subjective Encounter Start Date: 03/31/18 Encounter Start Time: 07:10 -: old records requested/rev Patient seen and examined. No new complaints. No overnight events - Objective Resuscitation Status - Order Detail: 03/31/18 00:23 Resuscitation Status Routine Resuscitation Status: FULL: Full Resuscitation MAR Reviewed: Yes Vital Signs & Weight: Vital Signs (12 hours) Temp Pulse Resp BP Pulse Ox 03/31/18 08:43 98.9 F 83 18 131/60 94 L 03/31/18 04:52 98.5 F 83 20 169/70 H 95 03/31/18 03:07 82 150/67 H 03/31/18 02:43 95 03/31/18 02:32 95 03/31/18 02:21 98.9 F 80 20 203/83 H 95 Weight Weight 172 lb 11.2 oz I&O: 03/30/18 03/31/18 04/01/18 06:59 06:59 06:59 Intake Total 209 Output Total 800 Balance -591 Result Diagrams: 03/31/18 03:01 03/31/18 01:39 Additional Labs: Accuchecks 03/31/18 03/30/18 05:39 21:31 POC Glucose 189 H 186 H EKG Reviewed by me: Yes (nsr) Phys Exam - Physical Examination Constitutional: NAD HEENT: PERRLA, moist MMs, sclera anicteric Neck: no JVD, supple Respiratory: no wheezing, no rales, no rhonchi Cardiovascular: RRR, no rub SM+ Gastrointestinal: soft, non-tender, no distention, positive bowel sounds Musculoskeletal: no edema, pulses present Neurological: non-focal, normal sensation, moves all 4 limbs Lymphatic: no nodes Psychiatric: normal affect, A&O x 3 Skin: no rash, normal turgor Dx/Plan (1) Acute worsening of stage 3 chronic kidney disease Code(s): N18.3 - CHRONIC KIDNEY DISEASE, STAGE 3 (MODERATE) Status: Acute (2) Nausea & vomiting Code(s): R11.2 - NAUSEA WITH VOMITING, UNSPECIFIED Status: Acute (3) Anemia in chronic kidney disease Code(s): N18.9 - CHRONIC KIDNEY DISEASE, UNSPECIFIED; D63.1 - ANEMIA IN CHRONIC KIDNEY DISEASE Status: Chronic Qualifiers: (4) Chronic stage c diastolic heart failure Code(s): I50.32 - CHRONIC DIASTOLIC (CONGESTIVE) HEART FAILURE Status: Chronic (5) DM2 (diabetes mellitus, type 2) Status: Chronic Qualifiers: Comment: (6) Dyslipidemia Code(s): E78.5 - HYPERLIPIDEMIA, UNSPECIFIED Status: Chronic (7) Hypertension Code(s): I10 - ESSENTIAL (PRIMARY) HYPERTENSION Status: Chronic Qualifiers: Comment: (8) Moderate aortic stenosis Code(s): I35.0 - NONRHEUMATIC AORTIC (VALVE) STENOSIS Status: Chronic - Plan cont current plan of care, plan discussed w/ family, PT/OT * medication reviewed as below * symptomatic treatment * continue gentle IVF * start PT * monitor renal function * repeat labs tomorrow * discussed with son. * home medication reconciled * cardiology and nephrology has been consulted Review of Systems - Review of Systems Constitutional: negative: fever, chills, sweats, weakness, malaise, other Eyes: negative: Pain, Vision Change, Conjunctivae Inflammation, Eyelid Inflammation, Redness, Other ENT: negative: Ear Pain, Ear Discharge, Nose Pain, Nose Discharge, Nose Congestion, Mouth Pain, Mouth Swelling, Throat Pain, Throat Swelling, Other Respiratory: negative: Cough, Dry, Shortness of Breath, Hemoptysis, SOB with Excertion, Pleuritic Pain, Sputum, Wheezing Cardiovascular: negative: chest pain, palpitations, orthopnea, paroxysmal nocturnal dyspnea, edema, light headedness, other Gastrointestinal: Nausea, Vomiting. negative: Abdominal Pain, Diarrhea, Constipation, Melena, Hematochezia, Other Genitourinary: negative: Dysuria, Frequency, Incontinence, Hematuria, Retention , Other Musculoskeletal: negative: Neck Pain, Shoulder Pain, Arm Pain, Back Pain, Hand Pain, Leg Pain, Foot Pain, Other Skin: negative: Rash, Lesions, Anselmo, Bruising, Other - Medications/Allergies Allergies/Adverse Reactions: Allergies Allergy/AdvReac Type Severity Reaction Status Date / Time No Known Allergies Allergy Verified 07/09/17 00:35 Medications: Current Medications Acetaminophen (Tylenol) 650 mg PO Q4H PRN PRN Reason: Headache/Fever/Mild Pain (1-3) Acetaminophen (Tylenol) 650 mg TN Q4H PRN PRN Reason: Headache/Fever/Mild Pain (1-3) Aspirin (Ecotrin) 81 mg PO DAILY [facility] Last Admin: 03/31/18 08:46 Dose: Not Given Bisacodyl (Dulcolax) 10 mg PO DAILYPRN PRN PRN Reason: Constipation Calcium Carbonate (Tums) 1,000 mg PO Q4H PRN PRN Reason: Heartburn or Indigestion Carvedilol (Coreg) 25 mg PO BID-[facility] Last Admin: 03/31/18 08:23 Dose: 25 mg Clonidine (Catapres) 0.3 mg PO BID [facility] Last Admin: 03/31/18 08:23 Dose: 0.3 mg Dextrose/Water (Dextrose 50%) 25 gm SLOW IVP PRN PRN PRN Reason: Hypoglycemia Ezetimibe (Zetia) 10 mg PO [facility] Famotidine (Pepcid) 20 mg SLOW IVP QAM [facility] Last Admin: 03/31/18 08:24 Dose: Not Given Famotidine (Pepcid) 20 mg PO QAM [facility] Last Admin: 03/31/18 08:24 Dose: 20 mg Ferrous Sulfate (Feosol) 325 mg PO DAILY [facility] Last Admin: 03/31/18 08:23 Dose: 325 mg Gabapentin (Neurontin) 100 mg PO TID [facility] Last Admin: 03/31/18 08:23 Dose: 100 mg Glucagon (Glucagon) 1 mg IM PRN PRN PRN Reason: Hypoglycemia Guaifenesin/Dextromethorphan (Robitussin Dm) 15 ml PO Q4H PRN PRN Reason: Cough Heparin Sodium (Porcine) (Heparin) 5,000 units SC BID [facility] Last Admin: 03/31/18 08:24 Dose: 5,000 units Hydralazine HCl (Apresoline) 100 mg PO TID [facility] Last Admin: 03/31/18 08:23 Dose: 100 mg Sodium Chloride (Normal Saline 0.9%) 1,000 mls @ 80 mls/hr IV .[id number] [facility] Last Admin: 03/31/18 03:41 Dose: 1,000 mls Dextrose/Water (D5w) 1,000 mls @ 0 mls/hr IV .Q0M PRN PRN Reason: Hypoglycemia Insulin Human Lispro (Humalog) 0 units SC .MILD SLIDING SCALE PRN PRN Reason: Mild Correctional Scale Insulin Human Lispro (Humalog) 0 units SC .BEDTIME SLIDING SC PRN PRN Reason: Bedtime Correctional Scale Ondansetron HCl (Zofran Odt) 4 mg PO Q6H PRN PRN Reason: Nausea/Vomiting Ondansetron HCl (Zofran) 4 mg IVP Q6H PRN PRN Reason: Nausea/Vomiting Senna/Docusate Sodium (Senokot S) 2 tab PO BIDPRN PRN PRN Reason: Constipation Sodium Chloride (Flush - Normal Saline) 10 ml IVF Q12HR PRN PRN Reason: Saline Flush Sodium Chloride (Flush - Normal Saline) 10 ml IVF PRN PRN PRN Reason: Saline Flush Zolpidem Tartrate (Ambien) 5 mg PO HSPRN PRN PRN Reason: Insomnia
[2018-03-31] MEDS ORDERED: Folic Acid 1 MG TAB PO SCH (11:30)
[2018-03-31] MEDS ORDERED: Cyanocobalamin (Vitamin B-12) 1,000 MCG TAB PO SCH (11:30)
[2018-03-31] MEDS: HumaLOG 300 UNITS/3 ML VIAL SC PRN ×2 (12:14→17:39)
[2018-03-31] MEDS: Nystatin 500,000 UNITS/5 ML UDCUP SSP SCH (21:23)
[2018-03-31] MEDS: Ezetimibe 10 MG TAB PO SCH (21:23)
[2018-03-31] MEDS: Acetaminophen 325 MG TAB PO PRN (21:25)
[2018-04-01] MEDS: Acetaminophen 325 MG TAB PO PRN (06:11)
[2018-04-01 07:28] LABS: Iron Binding Capacity, Total 166 mcg/dL (265-497)
[2018-04-01 07:29] LABS: Iron 25 ug/dL (50-170)
[2018-04-01 07:41] LABS: #Basophils 0.1 thou/uL (0.0-0.2); #Eosinphils 0.2 thou/uL (0.0-0.7); #Lymphocytes 1.1 thou/uL (1.20-3.40); #Monocytes 0.8 thou/uL (0.11-0.59); #Neutrophils 4.2 thou/uL (1.40-6.50); %Basophils 0.8 % (0.0-1.0); %Eosinophils 3.4 % (0.0-10.0); %Lymphocytes 17.8 % (21.0-51.0); %Monocytes 12.3 % (0.0-10.0); %Neutrophils 65.7 % (42.0-75.0); Hemoglobin 6.9 g/dL (12.0-16.0); Mean Corpuscular HGB CONC 32.3 g/dL (32.0-36.0); Mean Corpuscular Hemoglobin 29.7 pg (27.0-31.0); Mean Platelet Volume 8.6 fL (7.4-10.4); Platelet Count 212 thou/uL (130-400); RBC Distribution Width 12.9 % (11.5-14.5); Red Blood Cell (RBC) Count 2.33 mill/uL (4.20-5.40); White Blood Cell (WBC) Count 6.4 thou/uL (4.8-10.8)
[2018-04-01 08:46] LABS: Anion Gap 14 mmol/L (10-20); BUN (Urea Nitrogen) 95 mg/dL (9.8-20.1); BUN/Creatinine Ratio 30.94; Calc. Creatinine Clearance 19 mL/min (70-130); Calcium 8.4 mg/dL (7.8-10.44); Carbon Dioxide 24 mmol/L (23-31); Chloride 110 mmol/L (98-107); Estimated GFR-MDRD 18; Glucose 164 mg/dL (83-110); Iron 24 ug/dL (50-170); Iron Binding Capacity, Total 173 mcg/dL (265-497); Phosphorus 3.7 mg/dL (2.3-4.7); Phosphorus 3.9 mg/dL (2.3-4.7); Potassium 4.6 mmol/L (3.5-5.1); Sodium 143 mmol/L (136-145)
--- NOTE | 2018-04-01 09:17 | PDOC.PN ---
- Subjective Encounter Start Date: 04/01/18 Encounter Start Time: 07:20 Patient seen and examined. No new complaints. No overnight events - Objective Resuscitation Status - Order Detail: 03/31/18 00:23 Resuscitation Status Routine Resuscitation Status: FULL: Full Resuscitation MAR Reviewed: Yes Vital Signs & Weight: Vital Signs (12 hours) Temp Pulse Resp BP BP Pulse Ox 04/01/18 07:51 98.4 F 77 16 134/63 92 L 04/01/18 04:00 98.5 F 69 14 130/60 93 L 03/31/18 21:23 77 123/57 L 03/31/18 21:21 99.7 F H 77 16 123/57 L 96 Weight Weight 176 lb 3 oz I&O: 03/31/18 04/01/18 04/02/18 06:59 06:59 06:59 Intake Total 209 1000 Output Total 800 1605 Balance -591 -475 Result Diagrams: 04/01/18 05:56 04/01/18 05:56 Additional Labs: Accuchecks 03/31/18 03/31/18 03/31/18 20:30 16:41 10:50 POC Glucose 160 H 216 H 287 H EKG Reviewed by me: Yes (nsr) Phys Exam - Physical Examination Constitutional: NAD HEENT: PERRLA, moist MMs, sclera anicteric puffiness of eyelid Neck: no JVD, supple Respiratory: no wheezing, no rales, no rhonchi Cardiovascular: RRR, no significant murmur, no rub Gastrointestinal: soft, non-tender, no distention, positive bowel sounds Musculoskeletal: no edema, pulses present Neurological: non-focal, normal sensation Lymphatic: no nodes Psychiatric: normal affect, A&O x 3 Skin: no rash, normal turgor Dx/Plan (1) Acute worsening of stage 3 chronic kidney disease Code(s): N18.3 - CHRONIC KIDNEY DISEASE, STAGE 3 (MODERATE) Status: Acute (2) Nausea & vomiting Code(s): R11.2 - NAUSEA WITH VOMITING, UNSPECIFIED Status: Resolved (3) Chronic stage c diastolic heart failure Code(s): I50.32 - CHRONIC DIASTOLIC (CONGESTIVE) HEART FAILURE Status: Chronic (4) DM2 (diabetes mellitus, type 2) Status: Chronic Qualifiers: Comment: (5) Dyslipidemia Code(s): E78.5 - HYPERLIPIDEMIA, UNSPECIFIED Status: Chronic (6) Hypertension Code(s): I10 - ESSENTIAL (PRIMARY) HYPERTENSION Status: Chronic Qualifiers: Comment: (7) Moderate aortic stenosis Code(s): I35.0 - NONRHEUMATIC AORTIC (VALVE) STENOSIS Status: Chronic (8) Anemia of renal disease Code(s): N18.9 - CHRONIC KIDNEY DISEASE, UNSPECIFIED; D63.1 - ANEMIA IN CHRONIC KIDNEY DISEASE Status: Chronic - Plan cont current plan of care, PT/OT * today transfuse 1 unit prbc for her low Hb * medication reviewed as below * symptomatic treatment * continue PT * repeat labs tomorrow * dc IVF * pt does not want rehab or snu on discharge. Review of Systems - Review of Systems Eyes: negative: Pain, Vision Change, Conjunctivae Inflammation, Eyelid Inflammation, Redness, Other ENT: negative: Ear Pain, Ear Discharge, Nose Pain, Nose Discharge, Nose Congestion, Mouth Pain, Mouth Swelling, Throat Pain, Throat Swelling, Other Respiratory: negative: Cough, Dry, Shortness of Breath, Hemoptysis, SOB with Excertion, Pleuritic Pain, Sputum, Wheezing Cardiovascular: negative: chest pain, palpitations, orthopnea, paroxysmal nocturnal dyspnea, edema, light headedness, other Gastrointestinal: negative: Nausea, Vomiting, Abdominal Pain, Diarrhea, Constipation, Melena, Hematochezia, Other Genitourinary: negative: Dysuria, Frequency, Incontinence, Hematuria, Retention , Other Musculoskeletal: negative: Neck Pain, Shoulder Pain, Arm Pain, Back Pain, Hand Pain, Leg Pain, Foot Pain, Other Skin: negative: Rash, Lesions, Anselmo, Bruising, Other - Medications/Allergies Allergies/Adverse Reactions: Allergies Allergy/AdvReac Type Severity Reaction Status Date / Time No Known Allergies Allergy Verified 07/09/17 00:35 Medications: Current Medications Acetaminophen (Tylenol) 650 mg PO Q4H PRN PRN Reason: Headache/Fever/Mild Pain (1-3) Last Admin: 04/01/18 06:11 Dose: 650 mg Acetaminophen (Tylenol) 650 mg DE Q4H PRN PRN Reason: Headache/Fever/Mild Pain (1-3) Aspirin (Ecotrin) 81 mg PO DAILY [facility] Last Admin: 03/31/18 08:46 Dose: Not Given Bisacodyl (Dulcolax) 10 mg PO DAILYPRN PRN PRN Reason: Constipation Calcium Carbonate (Tums) 1,000 mg PO Q4H PRN PRN Reason: Heartburn or Indigestion Carvedilol (Coreg) 25 mg PO BID[facility] Last Admin: 03/31/18 17:39 Dose: 25 mg Clonidine (Catapres) 0.3 mg PO BID [facility] Last Admin: 03/31/18 21:24 Dose: 0.3 mg Cyanocobalamin (Vitamin B-12) 1,000 mcg PO DAILY [facility] Dextrose/Water (Dextrose 50%) 25 gm SLOW IVP PRN PRN PRN Reason: Hypoglycemia Ezetimibe (Zetia) 10 mg PO HS [facility] Last Admin: 03/31/18 21:23 Dose: 10 mg Famotidine (Pepcid) 20 [facility]OW [facility] [place] Admin: 03/31/18 08:24 Dose: Not Given Famotidine (Pepcid) 20 mg PO QAM [facility] Last Admin: 03/31/18 08:24 Dose: 20 mg Ferrous Sulfate (Feosol) 325 mg PO DAILY [facility] Last Admin: 03/31/18 08:23 Dose: 325 mg Folic Acid (Folvite) 1 mg PO DAILY [facility] Gabapentin (Neurontin) 100 mg PO TID [facility] Last Admin: 03/31/18 21:24 Dose: 100 mg Glucagon (Glucagon) 1 mg IM PRN PRN PRN Reason: Hypoglycemia Guaifenesin/Dextromethorphan (Robitussin Dm) 15 ml PO Q4H PRN PRN Reason: Cough Heparin Sodium (Porcine) (Heparin) 5,000 units SC BID [facility] Last Admin: 03/31/18 21:28 Dose: 5,000 units Hydralazine HCl (Apresoline) 100 mg PO TID [facility] Last Admin: 03/31/18 21:23 Dose: 100 mg Dextrose/Water (D5w) 1,000 mls @ 0 mls/hr IV .Q0M PRN PRN Reason: Hypoglycemia Insulin Human Lispro (Humalog) 0 units SC .MILD SLIDING SCALE PRN PRN Reason: Mild Correctional Scale Last Admin: 03/31/18 17:39 Dose: 3 units Insulin Human Lispro (Humalog) 0 units SC .BEDTIME SLIDING SC PRN PRN Reason: Bedtime Correctional Scale Nystatin (Mycostatin) 500,000 units SSP QID [facility] Last Admin: 03/31/18 21:23 Dose: 500,000 units Ondansetron HCl (Zofran Odt) 4 mg PO Q6H PRN PRN Reason: Nausea/Vomiting Ondansetron HCl (Zofran) 4 mg IVP Q6H PRN PRN Reason: Nausea/Vomiting Pantoprazole Sodium (Protonix) 40 mg PO BID [facility] Last Admin: 03/31/18 21:25 Dose: 40 mg Polyethylene Glycol (Miralax) 17 gm PO DAILY PRN PRN Reason: Constipation Senna/Docusate Sodium (Senokot S) 2 tab PO BIDPRN PRN PRN Reason: Constipation Sodium Chloride (Flush - Normal Saline) 10 ml IVF Q12HR PRN PRN Reason: Saline Flush Sodium Chloride (Flush - Normal Saline) 10 ml IVF PRN PRN PRN Reason: Saline Flush Zolpidem Tartrate (Ambien) 5 mg PO HSPRN PRN PRN Reason: Insomnia
[2018-04-01] MEDS: Famotidine 20 MG TAB PO SCH (09:33)
[2018-04-01] MEDS: hydrALAZINE 25 MG TAB PO SCH ×3 (09:33→20:47)
[2018-04-01] MEDS: Cyanocobalamin (Vitamin B-12) 1,000 MCG TAB PO SCH (09:33)
[2018-04-01] MEDS: cloNIDine 0.3 MG TAB PO SCH ×2 (09:33→20:48)
[2018-04-01] MEDS: Carvedilol 25 MG TAB PO SCH ×2 (09:33→17:05)
[2018-04-01] MEDS: Gabapentin 100 MG CAP PO SCH ×3 (09:33→20:48)
[2018-04-01] MEDS: Ferrous Sulfate 325 MG TAB PO SCH (09:33)
[2018-04-01] MEDS: Folic Acid 1 MG TAB PO SCH (09:34)
[2018-04-01] MEDS: Aspirin 81 mg Enteric Coated Tablet PO SCH (09:34)
[2018-04-01] MEDS: Heparin 5,000 UNITS/ML VIAL SC SCH ×2 (09:34→20:50)
[2018-04-01] MEDS: Famotidine/PF 20 mg/2ml Vial SLOW IVP SCH (09:34)
[2018-04-01] MEDS: Nystatin 500,000 UNITS/5 ML UDCUP SSP SCH ×4 (09:35→20:48)
[2018-04-01] MEDS: HumaLOG 300 UNITS/3 ML VIAL SC PRN (11:24)
[2018-04-01] MEDS: Zolpidem Tartrate 5 MG TAB PO PRN (20:47)
[2018-04-01] MEDS: Ezetimibe 10 MG TAB PO SCH (20:48)
--- NOTE | 2018-04-02 07:48 | CON ---
DATE OF CONSULTATION: 03/31/2018 TYPE OF CONSULTATION: Nephrology CONSULTING PHYSICIAN: Dr. Ngo. REASON FOR CONSULTATION: Acute kidney injury. REASON FOR ADMISSION: Nausea and vomiting. HISTORY OF PRESENT ILLNESS: This is a 77-year-old female with a history of solitary kidney, chronic kidney disease, nephrectomy, hypertension, and diabetes, who came to the hospital with nausea and vomiting, was found to have elevated creatinine. Nephrology was consulted. The patient is feeling better. Creatinine was getting better after hydration. PAST MEDICAL HISTORY: Positive for solitary kidney, renal cell carcinoma, CKD stage 4, type 2 diabetes, hypertension, anemia, coronary artery disease, and CHF. PAST SURGICAL HISTORY: Appendectomy and nephrectomy. HOME MEDICATIONS: 1. Hydroxyzine. 2. Clonidine. 3. Potassium. 4. Pantoprazole. 5. Methocarbamol. 6. Glargine. 7. Gabapentin. 8. Ferrous sulfate. 9. Zetia. 10. Carvedilol. 11. Bumetanide. 12. Aspirin. ALLERGIES: NO KNOWN DRUG ALLERGIES. SOCIAL HISTORY: No smoking, alcohol, or illicit drug use. FAMILY HISTORY: No history of any kidney disease. REVIEW OF SYSTEMS: CONSTITUTIONAL: Negative for weight loss or gain, ability to conduct usual activities. SKIN: Negative for rash, itching. EYES: Negative for double vision, pain. ENT/MOUTH: Negative for nose bleeding, neck stiffness, pain, tenderness. CARDIOVASCULAR: Negative for palpitations, dyspnea on exertion, orthopnea. RESPIRATORY: Negative for shortness of breath, wheezing, cough, hemoptysis, fever or night sweats. GASTROINTESTINAL: Negative for poor appetite, abdominal pain, heartburn, nausea, vomiting, constipation, or diarrhea. GENITOURINARY: Negative for urgency, frequency, dysuria, nocturia. MUSCULOSKELETAL: Negative for pain, swelling. NEUROLOGIC/PSYCHIATRIC: Negative for anxiety, depression. ALLERGY/IMMUNOLOGIC: Negative for skin rash, bleeding tendency. PHYSICAL EXAMINATION: GENERAL: Reveals a well-built female, in no apparent distress. VITAL SIGNS: Temperature 98.3, pulse 85, respirations , and blood pressure 122/89. HEENT: Atraumatic and normocephalic. Oral mucosa is moist. NECK: Supple. CARDIOVASCULAR: S1 and S2. Heart rate and rhythm are regular. RESPIRATORY: Clear. GASTROINTESTINAL: Abdomen is soft. MUSCULOSKELETAL: 1+ edema. DERMATOLOGIC: No skin rash. NEUROLOGIC: Alert and awake. PSYCHIATRIC: Mood and affect normal. LABORATORY DATA: Hemoglobin is 7.4, potassium is 4.8, BUN is 111, and creatinine is 3.5. ASSESSMENT AND PLAN: 1. Acute kidney injury on chronic kidney disease, stage 4. Renal function is better. No acute indication for dialysis. 2. Edema, controlled. 3. Hypertension. 4. Anemia, we will monitor. 5. Transfuse. 6. Check iron studies consider Epogen. We will follow. The patient was advised to have outpatient followup. Job ID: [id number]
--- NOTE | 2018-04-02 07:49 | PRG ---
DATE OF SERVICE: 04/01/2018 SUBJECTIVE: Patient was seen and examined at bedside and overnight events noted. Patient denies any shortness of breath or chest pain or palpitation. No history of nausea or vomiting or diarrhea or fever or chills or cramps. OBJECTIVE: GENERAL: This is a well-built female, in no apparent distress. VITAL SIGNS: Temperature 98.4. Respiratory rate 77. Respiratory rate 16. Blood pressure 134/63. HEENT: Atraumatic, normocephalic. Oral mucosa is moist NECK: Supple. CARDIOVASCULAR: S1, S2 heard. Rate and rhythm regular. RESPIRATORY: Clear to auscultation. GASTROINTESTINAL: Abdomen is soft. MUSCULOSKELETAL: No tenderness. No edema. DERMATOLOGIC: No skin rash. NEUROLOGIC: Alert and awake and oriented X3. No focal neurologic deficits. Moving all the extremities. PSYCHIATRIC: Mood and affect normal. LABORATORY DATA: Potassium is 4.6, BUN is 95, creatinine is 3.07. ASSESSMENT AND PLAN: 1. Acute kidney injury on chronic kidney disease, stage 4. We will monitor. Renal function seems to be better or okay with stopping IV fluids. 2. Edema, controlled and stable. 3. Nephrectomy and solitary kidney, will need close monitoring. 4. The patient to have close outpatient followup, avoid nephrotoxins. No acute indications for dialysis. We will follow. Job ID: [id number]
--- NOTE | 2018-04-02 07:50 | CON ---
DATE OF CONSULTATION: HISTORY OF PRESENT ILLNESS: Nazia Funes is a very pleasant 77-year-old black female, who has been evaluated by Dr. Wren in the past. In June 2016, she was admitted with diastolic heart failure. She was again treated by Dr. Wren in November 2016, when she was admitted with left chest pain. Pain seemed to be reproduced with arm movement. She underwent Cardiolite testing, which revealed normal left ventricular function, no evidence of reversible ischemia. She had previously been seen to have aortic stenosis, that was moderate in severity during the hospitalization in June. She was returned to the office for repeat echocardiogram and consideration for cardiac catheterization, if she continued to have the chest discomfort; however, she never did come in for followup. She was admitted in November 2017, with left-sided abdominal pain. She underwent endoscopy and was found to have 2 colonic polyps, that were removed. She now is admitted with episode of intense nausea and vomiting at home, as well as some mild epigastric pain. When paramedics arrived, she had a very long pause; however, this is somewhat unclear exactly when the electrodes were attached. She then had documented pauses of 4.1 seconds. She also apparently had syncopal episode during this time. She denied any chest discomfort or shortness of breath. PAST MEDICAL HISTORY: 1. Moderate aortic stenosis. 2. Hypertension. 3. Diabetes. 4. Chronic kidney disease stage 4. 5. History of diastolic dysfunction. 6. Anemia of chronic disease. 7. Renal cell carcinoma of the right kidney. PAST SURGICAL HISTORY: Right nephrectomy. SOCIAL HISTORY: She does not smoke or drink. FAMILY HISTORY: Negative for coronary artery disease. MEDICATIONS: 1. Aspirin 81 daily. 2. Bumex 2 mg daily. 3. Carvedilol 25 mg b.i.d. 4. Clonidine 0.3 b.i.d. 5. Colchicine 0.6 b.i.d. 6. Zetia 10 mg at bedtime. 7. Ferrous sulfate 325 daily. 8. Neurontin 100 mg t.i.d. 9. Hydralazine 100 mg t.i.d. 10. Insulin. 11. Lisinopril 2.5 daily. 12. Protonix 40 b.i.d. 13. Potassium 20 mEq daily. 14. MiraLAX. ALLERGIES: NONE. REVIEW OF SYSTEMS: Twelve-point review of systems is otherwise unremarkable. PHYSICAL EXAMINATION: VITAL SIGNS: Blood pressure 134/63, pulse 77, sinus rhythm on the monitor. HEENT: PERRL. NECK: Supple. CHEST: Clear. CARDIAC: S1 and S2 are normal without any S3 or S4. There is a 2-3/6 systolic murmur in the right upper sternal border. ABDOMEN: Obese. Normal bowel sounds. Nontender. EXTREMITIES: Revealed no clubbing, cyanosis, or edema. NEUROLOGICAL: Grossly intact. SKIN: Warm and dry. LABORATORY DATA: EKG reveals normal sinus rhythm with evidence for septal infarction. EKG is incorrectly interpreted as atrial flutter. On the monitor, she is in a normal sinus rhythm with a first-degree AV block without significant pauses. Hemoglobin 6.9, hematocrit 21.4, white count 6400, platelets 212,000. INR 1.1. Sodium 143, potassium 4.6, chloride 110, carbon dioxide 24, BUN 95, creatinine 3.07. Creatinine was 3.90 on the day of admission. IMPRESSION: 1. Severe sinus pauses during the time when she is having intense nausea and vomiting. This hopefully could represent an extreme vasovagal episode associated with syncope. She has not had any further episodes of bradycardia since admission. 2. Incorrect interpretation by the EKG computer of atrial flutter, this is really normal sinus rhythm. 3. Nausea and vomiting. 4. Moderate aortic stenosis. 5. Diabetes mellitus. 6. Hypertension. 7. Chronic kidney disease, status post right nephrectomy for renal cell carcinoma. PLAN: The patient will continue to be monitored. Echocardiogram will be performed to reassess the severity of her aortic stenosis. Consideration may be given to pacemaker; however, if she has not had any further episodes of significant bradycardia and this probably represented a vasovagal episode. Job ID: [id number]
[2018-04-02 08:42] LABS: #Eosinphils 0.2 thou/uL (0.0-0.7); #Lymphocytes 1.2 thou/uL (1.20-3.40); #Monocytes 0.9 thou/uL (0.11-0.59); #Neutrophils 7.3 thou/uL (1.40-6.50); %Eosinophils 2.1 % (0.0-10.0); %Lymphocytes 12.4 % (21.0-51.0); %Monocytes 9.1 % (0.0-10.0); %Neutrophils 76.4 % (42.0-75.0); Hemoglobin 8.3 g/dL (12.0-16.0); Mean Corpuscular HGB CONC 32.5 g/dL (32.0-36.0); Mean Corpuscular Hemoglobin 30.3 pg (27.0-31.0); Mean Corpuscular Volume 93.3 fL (78.0-98.0); Mean Platelet Volume 8.4 fL (7.4-10.4); Platelet Count 242 thou/uL (130-400); RBC Distribution Width 12.8 % (11.5-14.5); Red Blood Cell (RBC) Count 2.73 mill/uL (4.20-5.40); White Blood Cell (WBC) Count 9.5 thou/uL (4.8-10.8)
[2018-04-02 09:10] LABS: Anion Gap 13 mmol/L (10-20); BUN (Urea Nitrogen) 79 mg/dL (9.8-20.1); Calc. Creatinine Clearance 20 mL/min (70-130); Calcium 9.4 mg/dL (7.8-10.44); Carbon Dioxide 24 mmol/L (23-31); Chloride 109 mmol/L (98-107); Estimated GFR-MDRD 19; Glucose 174 mg/dL (83-110); Potassium 4.3 mmol/L (3.5-5.1); Sodium 142 mmol/L (136-145)
[2018-04-02] MEDS: Nystatin 500,000 UNITS/5 ML UDCUP SSP SCH ×4 (09:13→21:28)
[2018-04-02] MEDS: Cyanocobalamin (Vitamin B-12) 1,000 MCG TAB PO SCH (09:14)
[2018-04-02] MEDS: Heparin 5,000 UNITS/ML VIAL SC SCH ×2 (09:14→21:29)
[2018-04-02] MEDS: HumaLOG 300 UNITS/3 ML VIAL SC PRN ×2 (09:14→12:13)
[2018-04-02] MEDS: hydrALAZINE 25 MG TAB PO SCH ×3 (09:15→21:27)
[2018-04-02] MEDS: cloNIDine 0.3 MG TAB PO SCH ×2 (09:15→21:27)
[2018-04-02] MEDS: Gabapentin 100 MG CAP PO SCH ×3 (09:15→21:27)
[2018-04-02] MEDS: Acetaminophen 325 MG TAB PO PRN ×2 (09:15→21:31)
[2018-04-02] MEDS: Folic Acid 1 MG TAB PO SCH (09:16)
[2018-04-02] MEDS: Ferrous Sulfate 325 MG TAB PO SCH (09:16)
[2018-04-02] MEDS: Carvedilol 25 MG TAB PO SCH ×2 (09:16→17:50)
[2018-04-02] MEDS: Aspirin 81 mg Enteric Coated Tablet PO SCH (09:16)
--- NOTE | 2018-04-02 11:15 | PDOC.PN ---
- Subjective Encounter Start Date: 04/02/18 Encounter Start Time: 08:40 -: old records requested/rev Patient seen and examined. No new complaints. No overnight events - Objective Resuscitation Status - Order Detail: 03/31/18 00:23 Resuscitation Status Routine Resuscitation Status: FULL: Full Resuscitation MAR Reviewed: Yes Vital Signs & Weight: Vital Signs (12 hours) Temp Pulse Pulse Resp BP BP BP 04/02/18 09:37 73 166/71 H 04/02/18 09:15 75 189/77 H 04/02/18 08:00 99.7 F H 75 16 04/02/18 04:59 04/02/18 04:00 99.8 F H 75 20 154/66 H BP Pulse Ox 04/02/18 09:37 04/02/18 09:15 04/02/18 08:00 189/77 H 94 L 04/02/18 04:59 96 04/02/18 04:00 96 Weight Weight 177 lb I&O: 04/01/18 04/02/18 04/03/18 06:59 06:59 06:59 Intake Total 1000 240 Output Total 1605 600 Balance -605 -360 Result Diagrams: 04/02/18 08:00 04/02/18 08:00 Additional Labs: Accuchecks 04/02/18 04/01/18 04/01/18 05:39 21:02 16:51 POC Glucose 199 H 232 H 196 H 04/01/18 04/01/18 11:00 05:38 POC Glucose 262 H 184 H EKG Reviewed by me: Yes (nsr) Phys Exam - Physical Examination Constitutional: NAD HEENT: PERRLA, moist MMs, sclera anicteric Neck: no JVD, supple Respiratory: no wheezing, no rales, no rhonchi Cardiovascular: RRR, no significant murmur, no rub Gastrointestinal: soft, non-tender, no distention, positive bowel sounds Musculoskeletal: no edema, pulses present Neurological: non-focal, normal sensation Lymphatic: no nodes Psychiatric: normal affect, A&O x 3 Skin: no rash, normal turgor Dx/Plan (1) Acute worsening of stage 3 chronic kidney disease Code(s): N18.3 - CHRONIC KIDNEY DISEASE, STAGE 3 (MODERATE) Status: Acute (2) Nausea & vomiting Code(s): R11.2 - NAUSEA WITH VOMITING, UNSPECIFIED Status: Resolved (3) Chronic stage c diastolic heart failure Code(s): I50.32 - CHRONIC DIASTOLIC (CONGESTIVE) HEART FAILURE Status: Chronic (4) DM2 (diabetes mellitus, type 2) Status: Chronic Qualifiers: Comment: (5) Dyslipidemia Code(s): E78.5 - HYPERLIPIDEMIA, UNSPECIFIED Status: Chronic (6) Hypertension Code(s): I10 - ESSENTIAL (PRIMARY) HYPERTENSION Status: Chronic Qualifiers: Comment: (7) Moderate aortic stenosis Code(s): I35.0 - NONRHEUMATIC AORTIC (VALVE) STENOSIS Status: Chronic (8) Anemia of renal disease Code(s): N18.9 - CHRONIC KIDNEY DISEASE, UNSPECIFIED; D63.1 - ANEMIA IN CHRONIC KIDNEY DISEASE Status: Chronic - Plan cont current plan of care, plan discussed w/ family, social media analyst * pt and family request snu placement * medication reviewed as below * symptomatic treatment * restart bumex * discussed with son * discussed with nephrology . Review of Systems - Review of Systems ENT: negative: Ear Pain, Ear Discharge, Nose Pain, Nose Discharge, Nose Congestion, Mouth Pain, Mouth Swelling, Throat Pain, Throat Swelling, Other Respiratory: negative: Cough, Dry, Shortness of Breath, Hemoptysis, SOB with Excertion, Pleuritic Pain, Sputum, Wheezing Cardiovascular: negative: chest pain, palpitations, orthopnea, paroxysmal nocturnal dyspnea, edema, light headedness, other Gastrointestinal: negative: Nausea, Vomiting, Abdominal Pain, Diarrhea, Constipation, Melena, Hematochezia, Other Genitourinary: negative: Dysuria, Frequency, Incontinence, Hematuria, Retention , Other Musculoskeletal: negative: Neck Pain, Shoulder Pain, Arm Pain, Back Pain, Hand Pain, Leg Pain, Foot Pain, Other Skin: negative: Rash, Lesions, Anselmo, Bruising, Other - Medications/Allergies Allergies/Adverse Reactions: Allergies Allergy/AdvReac Type Severity Reaction Status Date / Time No Known Allergies Allergy Verified 07/09/17 00:35 Medications: Current Medications Acetaminophen (Tylenol) 650 mg PO Q4H PRN PRN Reason: Headache/Fever/Mild Pain (1-3) Last Admin: 04/02/18 09:15 Dose: 650 mg Aspirin (Ecotrin) 81 mg PO DAILY [facility] Last Admin: 12/03/18 09:16 Dose: 81 mg Bisacodyl (Dulcolax) 10 mg PO DAILYPRN PRN PRN Reason: Constipation Calcium Carbonate (Tums) 1,000 mg PO Q4H PRN PRN Reason: Heartburn or Indigestion Carvedilol (Coreg) 25 mg PO BID-[facility] Last Admin: 04/02/18 09:16 Dose: 25 mg Clonidine (Catapres) 0.3 mg PO BID [facility] Last Admin: 04/02/18 09:15 Dose: 0.3 mg Cyanocobalamin (Vitamin B-12) 1,000 mcg PO DAILY [facility] Last Admin: 04/02/18 09:14 Dose: 1,000 mcg Dextrose/Water (Dextrose 50%) 25 gm SLOW IVP PRN PRN PRN Reason: Hypoglycemia Ezetimibe (Zetia) 10 mg PO HS [facility] Last Admin: 04/01/18 20:48 Dose: 10 mg Ferrous Sulfate (Feosol) 325 mg PO DAILY [facility] Last Admin: 04/02/18 09:16 Dose: 325 mg Folic Acid (Folvite) 1 mg PO DAILY [facility] Last Admin: 04/02/18 09:16 Dose: 1 mg Gabapentin (Neurontin) 100 mg PO TID [facility] Last Admin: 04/02/18 09:15 Dose: 100 mg Glucagon (Glucagon) 1 mg IM PRN PRN PRN Reason: Hypoglycemia Guaifenesin/Dextromethorphan (Robitussin Dm) 15 ml PO Q4H PRN PRN Reason: Cough Heparin Sodium (Porcine) (Heparin) 5,000 units SC BID [facility] Last Admin: 04/02/18 09:14 Dose: 5,000 units Hydralazine HCl (Apresoline) 100 mg PO TID [facility] Last Admin: 04/02/18 09:15 Dose: 100 mg Dextrose/Water (D5w) 1,000 mls @ 0 mls/hr IV .Q0M PRN PRN Reason: Hypoglycemia Insulin Human Lispro (Humalog) 0 units SC .MILD SLIDING SCALE PRN PRN Reason: Mild Correctional Scale Last Admin: 04/02/18 09:14 Dose: 2 units Insulin Human Lispro (Humalog) 0 units SC .BEDTIME SLIDING SC PRN PRN Reason: Bedtime Correctional Scale Nystatin (Mycostatin) 500,000 units SSP QID [facility] Last Admin: 04/02/18 09:13 Dose: 500,000 units Ondansetron HCl (Zofran Odt) 4 mg PO Q6H PRN PRN Reason: Nausea/Vomiting Ondansetron HCl (Zofran) 4 mg IVP Q6H PRN PRN Reason: Nausea/Vomiting Pantoprazole Sodium (Protonix) 40 mg PO DAILY [facility] Last Admin: 04/02/18 09:15 Dose: 40 mg Polyethylene Glycol (Miralax) 17 gm PO DAILY PRN PRN Reason: Constipation Senna/Docusate Sodium (Senokot S) 2 tab PO BIDPRN PRN PRN Reason: Constipation Sodium Chloride (Flush - Normal Saline) 10 ml IVF Q12HR PRN PRN Reason: Saline Flush Last Admin: 04/02/18 09:13 Dose: 10 ml Sodium Chloride (Flush - Normal Saline) 10 ml IVF PRN PRN PRN Reason: Saline Flush Zolpidem Tartrate (Ambien) 5 mg PO HSPRN PRN PRN Reason: Insomnia Last Admin: 04/01/18 20:47 Dose: 5 mg
[2018-04-02] MEDS ORDERED: Bumetanide 1 MG TAB PO SCH (12:00)
--- NOTE | 2018-04-02 12:20 | PRG ---
DATE OF SERVICE: SUBJECTIVE: Patient was seen and examined at bedside and overnight events noted. Patient denies any shortness of breath or chest pain or palpitation. No history of nausea or vomiting or diarrhea or fever or chills or cramps. OBJECTIVE: GENERAL: This is a well-built female, in no apparent distress. VITAL SIGNS: Temperature 99.7 Blood pressure 166/71. HEENT: Atraumatic, normocephalic. Oral mucosa is moist NECK: Supple. CARDIOVASCULAR: S1, S2 heard. Rate and rhythm regular. RESPIRATORY: Clear to auscultation. GASTROINTESTINAL: Abdomen is soft. MUSCULOSKELETAL: No tenderness. No edema. DERMATOLOGIC: No skin rash. NEUROLOGIC: Alert and awake and oriented X3. No focal neurologic deficits. Moving all the extremities. PSYCHIATRIC: Mood and affect normal. LABORATORY DATA: Potassium 4.3, BUN 79, and creatinine is 2.9. ASSESSMENT AND PLAN: 1. Acute kidney injury on chronic kidney disease, stage 4. 2. Edema. 3. History of nephrectomy as well as solitary kidney. 4. Hypertension . Job ID: [id number]
--- NOTE | 2018-04-02 17:24 | PDOC.CTH ---
Cardiology Progress Note - Subjective No new issues. No new complaints. Her nausea and vomiting have resolved. - Objective Vital Signs Temp Pulse Pulse Resp BP BP BP 04/02/18 15:38 70 182/76 H 04/02/18 15:35 99.3 F 67 20 182/76 H 04/02/18 12:10 99.4 F 70 18 163/72 H 04/02/18 09:37 73 166/71 H 04/02/18 09:15 75 189/77 H 04/02/18 08:00 99.7 F H 75 16 189/77 H Pulse Ox 04/02/18 15:38 04/02/18 15:35 94 L 04/02/18 12:10 04/02/18 09:37 04/02/18 09:15 04/02/18 08:00 94 L Weight 177 lb 04/01/18 04/02/18 04/03/18 06:59 06:59 06:59 Intake Total 1000 240 Output Total 1605 600 Balance -605 -360 - Physical Examination General/Neuro: NAD Neck: no JVD present Lungs: CTA, unlabored respirations Heart: RRR Abdomen: NT/ND Extremities: other: (no edema) - Telemetry Telemetry Rhythm: NSR - Labs Result Diagrams: 04/02/18 08:00 04/02/18 08:00 Troponin/CKMB CK-MB (CK-2) 2.9 ng/mL (0-6.6) 03/30/18 21:05 Troponin I 0.042 ng/mL (< 0.028) H 03/31/18 03:01 - Assessment/Plan 1. Sinus pause in the setting of severe nausea and vomiting. Likely vasovagal. 2. Nausea and vomiting. Improved. 3. Moderate , echo pending PLAN: - No plan for PPM, likely vasovagal in nature. - Pending results of echo for severity of .
[2018-04-02] MEDS: Ezetimibe 10 MG TAB PO SCH (21:27)
[2018-04-03] MEDS: Ferrous Sulfate 325 MG TAB PO SCH (09:03)
[2018-04-03] MEDS: Aspirin 81 mg Enteric Coated Tablet PO SCH (09:03)
[2018-04-03] MEDS: Carvedilol 25 MG TAB PO SCH ×2 (09:03→16:15)
[2018-04-03] MEDS: Cyanocobalamin (Vitamin B-12) 1,000 MCG TAB PO SCH (09:03)
[2018-04-03] MEDS: Folic Acid 1 MG TAB PO SCH (09:04)
[2018-04-03] MEDS: hydrALAZINE 25 MG TAB PO SCH ×3 (09:04→21:32)
[2018-04-03] MEDS: Gabapentin 100 MG CAP PO SCH ×3 (09:04→21:32)
[2018-04-03] MEDS: Nystatin 500,000 UNITS/5 ML UDCUP SSP SCH ×4 (09:04→21:33)
[2018-04-03] MEDS: Heparin 5,000 UNITS/ML VIAL SC SCH ×2 (09:04→21:32)
[2018-04-03 10:30] LABS: Hemoglobin 8.7 g/dL (12.0-16.0)
[2018-04-03 10:55] LABS: Anion Gap 12 mmol/L (10-20); BUN (Urea Nitrogen) 67 mg/dL (9.8-20.1); Calc. Creatinine Clearance 22 mL/min (70-130); Calcium 9.6 mg/dL (7.8-10.44); Carbon Dioxide 26 mmol/L (23-31); Chloride 107 mmol/L (98-107); Estimated GFR-MDRD 21; Glucose 260 mg/dL (83-110); Potassium 3.9 mmol/L (3.5-5.1); Sodium 141 mmol/L (136-145)
--- NOTE | 2018-04-03 11:31 | PDOC.PN ---
- Subjective Encounter Start Date: 04/03/18 Encounter Start Time: 07:40 Patient seen and examined. No new complaints. No overnight events - Objective Resuscitation Status - Order Detail: 03/31/18 00:23 Resuscitation Status Routine Resuscitation Status: FULL: Full Resuscitation MAR Reviewed: Yes Vital Signs & Weight: Vital Signs (12 hours) Temp Pulse Resp BP Pulse Ox 04/03/18 08:59 98.7 F 79 18 153/66 H 95 04/03/18 04:00 99.5 F 66 18 163/68 H 93 L 04/03/18 00:00 99.2 F 72 18 164/74 H 93 L Weight Weight 177 lb I&O: 04/02/18 04/03/18 04/04/18 06:59 06:59 06:59 Intake Total 240 960 Output Total 600 1550 Balance -360 -590 Result Diagrams: 04/03/18 10:17 04/03/18 10:17 Additional Labs: Accuchecks 04/03/18 04/03/18 04/02/18 10:47 05:28 20:23 POC Glucose 283 H 183 H 177 H 04/02/18 04/02/18 17:11 11:18 POC Glucose 141 H 174 H EKG Reviewed by me: Yes (nsr) Phys Exam - Physical Examination Constitutional: NAD HEENT: PERRLA, moist MMs, sclera anicteric Neck: no JVD, supple Respiratory: no wheezing, no rales, no rhonchi Cardiovascular: RRR, no significant murmur, no rub Gastrointestinal: soft, non-tender, no distention, positive bowel sounds Musculoskeletal: no edema, pulses present Neurological: non-focal, normal sensation Lymphatic: no nodes Psychiatric: normal affect Skin: no rash, normal turgor Dx/Plan (1) Acute worsening of stage 3 chronic kidney disease Code(s): N18.3 - CHRONIC KIDNEY DISEASE, STAGE 3 (MODERATE) Status: Acute (2) Nausea & vomiting Code(s): R11.2 - NAUSEA WITH VOMITING, UNSPECIFIED Status: Resolved (3) Chronic stage c diastolic heart failure Code(s): I50.32 - CHRONIC DIASTOLIC (CONGESTIVE) HEART FAILURE Status: Chronic (4) DM2 (diabetes mellitus, type 2) Status: Chronic Qualifiers: Comment: (5) Dyslipidemia Code(s): E78.5 - HYPERLIPIDEMIA, UNSPECIFIED Status: Chronic (6) Hypertension Code(s): I10 - ESSENTIAL (PRIMARY) HYPERTENSION Status: Chronic Qualifiers: Comment: (7) Moderate aortic stenosis Code(s): I35.0 - NONRHEUMATIC AORTIC (VALVE) STENOSIS Status: Chronic (8) Anemia of renal disease Code(s): N18.9 - CHRONIC KIDNEY DISEASE, UNSPECIFIED; D63.1 - ANEMIA IN CHRONIC KIDNEY DISEASE Status: Chronic - Plan cont current plan of care * medication reviewed as below * symptomatic treatment * dc tele * transfer to medical. * await snu placement Review of Systems - Review of Systems ENT: negative: Ear Pain, Ear Discharge, Nose Pain, Nose Discharge, Nose Congestion, Mouth Pain, Mouth Swelling, Throat Pain, Throat Swelling, Other Respiratory: negative: Cough, Dry, Shortness of Breath, Hemoptysis, SOB with Excertion, Pleuritic Pain, Sputum, Wheezing Cardiovascular: negative: chest pain, palpitations, orthopnea, paroxysmal nocturnal dyspnea, edema, light headedness, other Gastrointestinal: negative: Nausea, Vomiting, Abdominal Pain, Diarrhea, Constipation, Melena, Hematochezia, Other Genitourinary: negative: Dysuria, Frequency, Incontinence, Hematuria, Retention , Other Musculoskeletal: negative: Neck Pain, Shoulder Pain, Arm Pain, Back Pain, Hand Pain, Leg Pain, Foot Pain, Other - Medications/Allergies Allergies/Adverse Reactions: Allergies Allergy/AdvReac Type Severity Reaction Status Date / Time No Known Allergies Allergy Verified 07/09/17 00:35 Medications: Current Medications Acetaminophen (Tylenol) 650 mg PO Q4H PRN PRN Reason: Headache/Fever/Mild Pain (1-3) Last Admin: 04/02/18 21:31 Dose: 650 mg Aspirin (Ecotrin) 81 mg PO DAILY [facility] Last Admin: 04/03/18 09:03 Dose: 81 mg Bisacodyl (Dulcolax) 10 mg PO DAILYPRN PRN PRN Reason: Constipation Last Admin: 04/02/18 18:02 Dose: 10 mg Calcium Carbonate (Tums) 1,000 mg PO Q4H PRN PRN Reason: Heartburn or Indigestion Carvedilol (Coreg) 25 mg PO BID[facility] Last Admin: 04/03/18 09:03 Dose: 25 mg Clonidine (Catapres) 0.3 mg PO BID [facility] Last Admin: 12/03/18 21:27 Dose: 0.3 mg Cyanocobalamin (Vitamin B-12) 1,000 mcg PO DAILY [facility] Last Admin: 04/03/18 09:03 Dose: 1,000 mcg Dextrose/Water (Dextrose 50%) 25 gm SLOW IVP PRN PRN PRN Reason: Hypoglycemia Ezetimibe (Zetia) 10 mg PO HS [facility] Last Admin: 04/02/18 21:27 Dose: 10 mg Ferrous Sulfate (Feosol) 325 mg PO DAILY [facility] Last Admin: 04/03/18 09:03 Dose: 325 mg Folic Acid (Folvite) 1 mg PO DAILY [facility] Last Admin: 04/03/18 09:04 Dose: 1 mg Gabapentin (Neurontin) 100 mg PO TID [facility] Last Admin: 04/03/18 09:04 Dose: 100 mg Glucagon (Glucagon) 1 mg IM PRN PRN PRN Reason: Hypoglycemia Guaifenesin/Dextromethorphan (Robitussin Dm) 15 ml PO Q4H PRN PRN Reason: Cough Heparin Sodium (Porcine) (Heparin) 5,000 units SC BID [facility] Last Admin: 04/03/18 09:04 Dose: 5,000 units Hydralazine HCl (Apresoline) 100 mg PO TID [facility] Last Admin: 04/03/18 09:04 Dose: 100 mg Dextrose/Water (D5w) 1,000 mls @ 0 mls/hr IV .Q0M PRN PRN Reason: Hypoglycemia Insulin Human Lispro (Humalog) 0 units SC .MILD SLIDING SCALE PRN PRN Reason: Mild Correctional Scale Last Admin: 04/02/18 12:13 Dose: 2 units Insulin Human Lispro (Humalog) 0 units SC .BEDTIME SLIDING SC PRN PRN Reason: Bedtime Correctional Scale Nystatin (Mycostatin) 500,000 units SSP QID [facility] Last Admin: 04/03/18 09:04 Dose: 500,000 units Ondansetron HCl (Zofran Odt) 4 mg PO Q6H PRN PRN Reason: Nausea/Vomiting Ondansetron HCl (Zofran) 4 mg IVP Q6H PRN PRN Reason: Nausea/Vomiting Pantoprazole Sodium (Protonix) 40 mg PO DAILY [facility] Last Admin: 04/03/18 09:04 Dose: 40 mg Polyethylene Glycol (Miralax) 17 gm PO DAILY PRN PRN Reason: Constipation Senna/Docusate Sodium (Senokot S) 2 tab PO BIDPRN PRN PRN Reason: Constipation Sodium Chloride (Flush - Normal Saline) 10 ml IVF Q12HR PRN PRN Reason: Saline Flush Last Admin: 04/02/18 09:13 Dose: 10 ml Sodium Chloride (Flush - Normal Saline) 10 ml IVF PRN PRN PRN Reason: Saline Flush Zolpidem Tartrate (Ambien) 5 mg PO HSPRN PRN PRN Reason: Insomnia Last Admin: 04/01/18 20:47 Dose: 5 mg
[2018-04-03] MEDS: cloNIDine 0.3 MG TAB PO SCH ×2 (11:32→21:32)
--- NOTE | 2018-04-03 17:46 | PDOC.CTH ---
Cardiology Progress Note - Subjective She is doing well. No new episodes of syncope. - Objective Vital Signs Temp Pulse Pulse Pulse Resp BP BP 04/03/18 16:13 98.3 F 68 16 04/03/18 14:58 65 152/70 H 04/03/18 11:30 98.6 F 73 18 04/03/18 11:20 73 144/64 H 04/03/18 08:59 98.7 F 79 18 BP Pulse Ox 04/03/18 16:13 172/74 H 95 04/03/18 14:58 04/03/18 11:30 144/64 H 97 04/03/18 11:20 04/03/18 08:59 153/66 H 95 Weight 177 lb 04/02/18 04/03/18 04/04/18 06:59 06:59 06:59 Intake Total 240 960 Output Total 600 1550 Balance -360 -590 - Physical Examination General/Neuro: alert & oriented x3, NAD Neck: no JVD present Lungs: CTA, unlabored respirations Heart: RRR Abdomen: NT/ND Extremities: + edema B (trace) - Telemetry Telemetry Rhythm: NSR - Labs Result Diagrams: 04/03/18 10:17 04/03/18 10:17 Troponin/CKMB CK-MB (CK-2) 2.9 ng/mL (0-6.6) 03/30/18 21:05 Troponin I 0.042 ng/mL (< 0.028) H 03/31/18 03:01 - Assessment/Plan 1. Syncope 2. Sinus pause. 3. Severe 4. Stage 4 CKD. PLAN: - We discussed with her about her valve situation and about this likely being the cause of her syncope and high degree AV block. She would need AVR and a LHC prior to this. She tells me she would like me to discuss with her son about this. - She has severe mitral annular calcification and a calcified aortic valve. She may need a PPM in the near future. - Will discuss with son about options moving forward. - LHC would be high risk given her anemia and her renal dysfunction, she has had nephrectomy in the past.
[2018-04-03] MEDS: HumaLOG 300 UNITS/3 ML VIAL SC PRN (17:56)
[2018-04-03] MEDS: Ezetimibe 10 MG TAB PO SCH (21:32)
[2018-04-04] MEDS: cloNIDine 0.3 MG TAB PO SCH ×2 (08:42→21:49)
[2018-04-04] MEDS: Folic Acid 1 MG TAB PO SCH (08:43)
[2018-04-04] MEDS: Heparin 5,000 UNITS/ML VIAL SC SCH ×2 (08:43→20:43)
[2018-04-04] MEDS: Carvedilol 25 MG TAB PO SCH ×2 (08:43→16:12)
[2018-04-04] MEDS: Ferrous Sulfate 325 MG TAB PO SCH (08:43)
[2018-04-04] MEDS: Gabapentin 100 MG CAP PO SCH ×3 (08:43→20:42)
[2018-04-04] MEDS: Aspirin 81 mg Enteric Coated Tablet PO SCH (08:43)
[2018-04-04] MEDS: hydrALAZINE 25 MG TAB PO SCH ×3 (08:43→20:42)
[2018-04-04] MEDS: Cyanocobalamin (Vitamin B-12) 1,000 MCG TAB PO SCH (08:43)
[2018-04-04] MEDS: Acetaminophen 325 MG TAB PO PRN ×2 (08:47→20:46)
[2018-04-04] MEDS: Nystatin 500,000 UNITS/5 ML UDCUP SSP SCH ×4 (08:47→20:43)
--- NOTE | 2018-04-04 09:41 | PDOC.PN ---
- Subjective Encounter Start Date: 04/04/18 Encounter Start Time: 07:40 Patient seen and examined. No new complaints. No overnight events - Objective Resuscitation Status - Order Detail: 03/31/18 00:23 Resuscitation Status Routine Resuscitation Status: FULL: Full Resuscitation MAR Reviewed: Yes Vital Signs & Weight: Vital Signs (12 hours) Temp Pulse Resp BP BP Pulse Ox 04/04/18 08:43 70 04/04/18 08:42 183/79 H 04/04/18 08:00 98.1 F 70 18 183/79 H 95 04/04/18 04:00 99.6 F 66 18 148/66 H 92 L 04/03/18 23:44 66 146/65 H Weight Weight 167 lb 12.8 oz I&O: 04/03/18 04/04/18 04/05/18 06:59 06:59 06:59 Intake Total 960 1140 Output Total 1550 500 Balance -590 640 Result Diagrams: 04/03/18 10:17 04/03/18 10:17 Additional Labs: Accuchecks 04/04/18 04/03/18 04/03/18 05:45 20:46 17:00 POC Glucose 173 H 196 H 298 H 04/03/18 10:47 POC Glucose 283 H Radiology Reviewed by me: Yes (echo report noted) EKG Reviewed by me: Yes (nsr) Phys Exam - Physical Examination Constitutional: NAD HEENT: PERRLA, moist MMs, sclera anicteric Neck: no JVD, supple Respiratory: no wheezing, no rales, no rhonchi Cardiovascular: RRR, no rub SM+ at aortic area Gastrointestinal: soft, non-tender, no distention, positive bowel sounds Musculoskeletal: no edema, pulses present Neurological: non-focal, normal sensation Lymphatic: no nodes Psychiatric: normal affect, A&O x 3 Skin: no rash, normal turgor Dx/Plan (1) Acute worsening of stage 3 chronic kidney disease Code(s): N18.3 - CHRONIC KIDNEY DISEASE, STAGE 3 (MODERATE) Status: Acute Comment: now baseline ckd-3 (2) Nausea & vomiting Code(s): R11.2 - NAUSEA WITH VOMITING, UNSPECIFIED Status: Resolved (3) Chronic stage c diastolic heart failure Code(s): I50.32 - CHRONIC DIASTOLIC (CONGESTIVE) HEART FAILURE Status: Chronic (4) DM2 (diabetes mellitus, type 2) Status: Chronic Qualifiers: Comment: (5) Dyslipidemia Code(s): E78.5 - HYPERLIPIDEMIA, UNSPECIFIED Status: Chronic (6) Hypertension Code(s): I10 - ESSENTIAL (PRIMARY) HYPERTENSION Status: Chronic Qualifiers: Comment: (7) Moderate aortic stenosis Code(s): I35.0 - NONRHEUMATIC AORTIC (VALVE) STENOSIS Status: Chronic (8) Anemia of renal disease Code(s): N18.9 - CHRONIC KIDNEY DISEASE, UNSPECIFIED; D63.1 - ANEMIA IN CHRONIC KIDNEY DISEASE Status: Chronic - Plan cont current plan of care, plan discussed w/ family, PT/OT, social sciences chair * medication reviewed as below * symptomatic treatment * pt will need outpt follow up with cardiology for further treatment for aortic stenosis * continue PT * await placement. Review of Systems - Review of Systems ENT: negative: Ear Pain, Ear Discharge, Nose Pain, Nose Discharge, Nose Congestion, Mouth Pain, Mouth Swelling, Throat Pain, Throat Swelling, Other Respiratory: negative: Cough, Dry, Shortness of Breath, Hemoptysis, SOB with Excertion, Pleuritic Pain, Sputum, Wheezing Cardiovascular: negative: chest pain, palpitations, orthopnea, paroxysmal nocturnal dyspnea, edema, light headedness, other Gastrointestinal: negative: Nausea, Vomiting, Abdominal Pain, Diarrhea, Constipation, Melena, Hematochezia, Other Genitourinary: negative: Dysuria, Frequency, Incontinence, Hematuria, Retention , Other Musculoskeletal: negative: Neck Pain, Shoulder Pain, Arm Pain, Back Pain, Hand Pain, Leg Pain, Foot Pain, Other - Medications/Allergies Allergies/Adverse Reactions: Allergies Allergy/AdvReac Type Severity Reaction Status Date / Time No Known Allergies Allergy Verified 07/09/17 00:35 Medications: Current Medications Acetaminophen (Tylenol) 650 mg PO Q4H PRN PRN Reason: Headache/Fever/Mild Pain (1-3) Last Admin: 04/04/18 08:47 Dose: 650 mg Aspirin (Ecotrin) 81 mg PO DAILY [facility] Last Admin: 04/04/18 08:43 Dose: 81 mg Bisacodyl (Dulcolax) 10 mg PO DAILYPRN PRN PRN Reason: Constipation Last Admin: 04/02/18 18:02 Dose: 10 mg Calcium Carbonate (Tums) 1,000 mg PO Q4H PRN PRN Reason: Heartburn or Indigestion Carvedilol (Coreg) 25 mg PO BID-[facility] Last Admin: 04/04/18 08:43 Dose: 25 mg Clonidine (Catapres) 0.3 mg PO BID [facility] Last Admin: 04/04/18 08:42 Dose: 0.3 mg Cyanocobalamin (Vitamin B-12) 1,000 mcg PO DAILY [facility] Last Admin: 04/04/18 08:43 Dose: 1,000 mcg Dextrose/Water (Dextrose 50%) 25 gm SLOW IVP PRN PRN PRN Reason: Hypoglycemia Ezetimibe (Zetia) 10 mg PO HS [facility] Last Admin: 04/03/18 21:32 Dose: 10 mg Ferrous Sulfate (Feosol) 325 mg PO DAILY [facility] Last Admin: 04/04/18 08:43 Dose: 325 mg Folic Acid (Folvite) 1 mg PO DAILY [facility] Last Admin: 04/04/18 08:43 Dose: 1 mg Gabapentin (Neurontin) 100 mg PO TID [facility] Last Admin: 04/04/18 08:43 Dose: 100 mg Glucagon (Glucagon) 1 mg IM PRN PRN PRN Reason: Hypoglycemia Guaifenesin/Dextromethorphan (Robitussin Dm) 15 ml PO Q4H PRN PRN Reason: Cough Heparin Sodium (Porcine) (Heparin) 5,000 units SC BID [facility] Last Admin: 04/04/18 08:43 Dose: 5,000 units Hydralazine HCl (Apresoline) 100 mg PO TID [facility] Last Admin: 04/04/18 08:43 Dose: 100 mg Dextrose/Water (D5w) 1,000 mls @ 0 mls/hr IV .Q0M PRN PRN Reason: Hypoglycemia Insulin Human Lispro (Humalog) 0 units SC .MILD SLIDING SCALE PRN PRN Reason: Mild Correctional Scale Last Admin: 04/03/18 17:56 Dose: 4 units Insulin Human Lispro (Humalog) 0 units SC .BEDTIME SLIDING SC PRN PRN Reason: Bedtime Correctional Scale Nystatin (Mycostatin) 500,000 units SSP QID [facility] Last Admin: 04/04/18 08:47 Dose: 500,000 units Ondansetron HCl (Zofran Odt) 4 mg PO Q6H PRN PRN Reason: Nausea/Vomiting Ondansetron HCl (Zofran) 4 mg IVP Q6H PRN PRN Reason: Nausea/Vomiting Pantoprazole Sodium (Protonix) 40 mg PO DAILY [facility] Last Admin: 04/04/18 08:43 Dose: 40 mg Polyethylene Glycol (Miralax) 17 gm PO DAILY PRN PRN Reason: Constipation Senna/Docusate Sodium (Senokot S) 2 tab PO BIDPRN PRN PRN Reason: Constipation Sodium Chloride (Flush - Normal Saline) 10 ml IVF Q12HR PRN PRN Reason: Saline Flush Last Admin: 04/02/18 09:13 Dose: 10 ml Sodium Chloride (Flush - Normal Saline) 10 ml IVF PRN PRN PRN Reason: Saline Flush Zolpidem Tartrate (Ambien) 5 mg PO HSPRN PRN PRN Reason: Insomnia Last Admin: 04/01/18 20:47 Dose: 5 mg
[2018-04-04] MEDS: HumaLOG 300 UNITS/3 ML VIAL SC PRN ×2 (12:34→16:18)
--- NOTE | 2018-04-04 17:23 | PRG ---
DATE OF SERVICE: 04/03/2018 SUBJECTIVE: A 77-year-old female, being seen for chronic kidney disease. The patient denies any nausea, vomiting, or chest pain. OBJECTIVE: GENERAL: Patient is awake, alert. VITAL SIGNS: breathing 16, and blood pressure . GENERAL APPEARANCE AND MENTAL STATUS: Fair. HEAD/NECK: Normocephalic. Atraumatic. EYES: EOMI. No deformity. EARS: Clear. No ulcers. NOSE: Intact. No lesions. MOUTH: Clear. No discharge. THROAT: Clear. No exudate. LUNGS: Clear. No crackles. CARDIAC: S1, S2. No rub. ABDOMEN: Benign. Bowel sounds positive. GENITALIA/RECTUM: Lewis absent. BACK/EXTREMITIES: Edema 0+. NEUROLOGICAL: Alert and motor intact. SKIN: LYMPHATICS: LABORATORY DATA: and creatinine 2.69. ASSESSMENT AND PLAN: 1. Acute kidney injury with chronic kidney disease. 2. Hypertension, stable. 3. Anemia, stable. 4. Medications based on glomerular filtration rate are appropriate. Job ID: [id number]
--- NOTE | 2018-04-04 18:15 | PRG ---
DATE OF SERVICE: 04/04/2018 SUBJECTIVE: A 77-year-old being seen for acute kidney injury. The patient denies any nausea, vomiting, or chest pain. OBJECTIVE: GENERAL: The patient is awake and alert. VITAL SIGNS: Afebrile, pulse 75, breathing 16, and blood pressure was 148/86. GENERAL APPEARANCE AND MENTAL STATUS: Fair. HEAD/NECK: Normocephalic. Atraumatic. EYES: EOMI. No deformity. EARS: Clear. No ulcers. NOSE: Intact. No lesions. MOUTH: Clear. No discharge. THROAT: Clear. No exudate. LUNGS: Clear. No crackles. CARDIAC: S1, S2. No rub. ABDOMEN: Benign. Bowel sounds positive. GENITALIA/RECTUM: Lewis absent. BACK/EXTREMITIES: Edema 0+. NEUROLOGICAL: Alert and motor intact. LABORATORY DATA: Labs show hemoglobin 8.7 1. Hypertension, stable. 2. Anemia, stable. 3. Medications based on glomerular filtration rate are appropriate. We will follow in the morning. Job ID: [id number]
--- NOTE | 2018-04-04 18:33 | PDOC.CTH ---
Cardiology Progress Note - Subjective No new issue.s no more syncope. No chest pain, tightness, pressure or SOB. - Objective Vital Signs Temp Pulse Pulse Resp BP BP BP 04/04/18 16:12 62 133/71 04/04/18 16:00 98.4 F 62 18 152/68 H 04/04/18 15:02 62 152/71 H 04/04/18 12:00 98.9 F 62 16 148/74 H 04/04/18 11:42 97.5 F L 63 17 04/04/18 11:00 04/04/18 08:43 70 04/04/18 08:42 183/79 H 04/04/18 08:00 98.1 F 70 18 BP Pulse Ox 04/04/18 16:12 04/04/18 16:00 96 04/04/18 15:02 04/04/18 12:00 96 04/04/18 11:42 152/67 H 94 L 04/04/18 11:00 94 L 04/04/18 08:43 04/04/18 08:42 04/04/18 08:00 183/79 H 95 Weight 167 lb 12.8 oz 04/03/18 04/04/18 04/05/18 06:59 06:59 06:59 Intake Total 960 1140 Output Total 1550 500 Balance -590 640 - Physical Examination General/Neuro: NAD Neck: no JVD present Lungs: CTA, unlabored respirations Heart: RRR Abdomen: NT/ND Extremities: other: (no edema) - Labs Result Diagrams: 04/03/18 10:17 04/03/18 10:17 Troponin/CKMB CK-MB (CK-2) 2.9 ng/mL (0-6.6) 03/30/18 21:05 Troponin I 0.042 ng/mL (< 0.028) H 03/31/18 03:01 - Assessment/Plan 1. Syncope 2. Sinus pause. 3. Severe 4. Stage 4 CKD. 5. Anemia 6. Severe MAC PLAN: - We had another conversation about her valve. She did not really comprehend yesterday as she was not aware of her heart issue today. I again told her about her valve and voiced she may need a LHC that involved contrast and this would be hard with her anemia and her renal dysfunction and she tells me she is not interested in any interventions that risks her kidneys in any way. Her risk of contrast induced nephropathy is high due to elevated creatinine but this would be the only way to work up for valve replacement either with TAVR or SAVR. I tried to talk to son twice already with no success. Left voice mail on one number, other number had no voice mail set up. - No plan for intervention at this time. - May begin discharge planning. If she decides to follow up will continue to discuss as outpatient. Hopefully will see her back in 1 month.
[2018-04-04] MEDS: Ezetimibe 10 MG TAB PO SCH (20:42)
[2018-04-04] MEDS: Zolpidem Tartrate 5 MG TAB PO PRN (20:46)
[2018-04-05] MEDS: HumaLOG 300 UNITS/3 ML VIAL SC PRN ×3 (05:51→16:33)
[2018-04-05] MEDS: Nystatin 500,000 UNITS/5 ML UDCUP SSP SCH ×4 (09:17→20:37)
[2018-04-05] MEDS: hydrALAZINE 25 MG TAB PO SCH ×3 (09:17→20:37)
[2018-04-05] MEDS: Aspirin 81 mg Enteric Coated Tablet PO SCH (09:17)
[2018-04-05] MEDS: Folic Acid 1 MG TAB PO SCH (09:17)
[2018-04-05] MEDS: Gabapentin 100 MG CAP PO SCH ×3 (09:17→20:39)
[2018-04-05] MEDS: Carvedilol 25 MG TAB PO SCH ×2 (09:18→16:33)
[2018-04-05] MEDS: Ferrous Sulfate 325 MG TAB PO SCH (09:18)
[2018-04-05] MEDS: Cyanocobalamin (Vitamin B-12) 1,000 MCG TAB PO SCH (09:18)
[2018-04-05] MEDS: cloNIDine 0.3 MG TAB PO SCH ×2 (09:18→20:36)
[2018-04-05] MEDS: Heparin 5,000 UNITS/ML VIAL SC SCH ×2 (09:19→20:38)
[2018-04-05] MEDS: Acetaminophen 325 MG TAB PO PRN ×2 (09:28→20:37)
[2018-04-05 09:46] LABS: Hemoglobin 9.1 g/dL (12.0-16.0)
[2018-04-05 10:16] LABS: Anion Gap 11 mmol/L (10-20); BUN (Urea Nitrogen) 51 mg/dL (9.8-20.1); Calc. Creatinine Clearance 23 mL/min (70-130); Calcium 9.6 mg/dL (7.8-10.44); Carbon Dioxide 27 mmol/L (23-31); Chloride 106 mmol/L (98-107); Estimated GFR-MDRD 23; Glucose 274 mg/dL (83-110); Potassium 4.4 mmol/L (3.5-5.1); Sodium 140 mmol/L (136-145)
--- NOTE | 2018-04-05 10:19 | PDOC.PN ---
- Subjective Encounter Start Date: 04/05/18 Encounter Start Time: 09:45 Patient seen and examined. No new complaints. No overnight events - Objective Resuscitation Status - Order Detail: 03/31/18 00:23 Resuscitation Status Routine Resuscitation Status: FULL: Full Resuscitation MAR Reviewed: Yes Vital Signs & Weight: Vital Signs (12 hours) Temp Pulse Resp BP BP BP Pulse Ox 04/05/18 09:18 143/67 H 04/05/18 09:17 73 143/67 H 04/05/18 08:39 98.3 F 73 16 143/67 H 100 04/05/18 04:00 98.1 F 68 18 169/74 H 98 Weight Weight 167 lb 12.8 oz I&O: 04/04/18 04/05/18 04/06/18 06:59 06:59 06:59 Intake Total 1140 1720 Output Total 500 Balance 640 1720 Result Diagrams: 04/05/18 09:37 04/05/18 09:37 Additional Labs: Accuchecks 04/05/18 04/04/18 04/04/18 05:47 20:56 16:18 POC Glucose 301 H 258 H 216 H 04/04/18 12:29 POC Glucose 309 H Phys Exam - Physical Examination Constitutional: NAD HEENT: PERRLA, moist MMs, sclera anicteric Neck: no JVD, supple Respiratory: no wheezing, no rales, no rhonchi Cardiovascular: RRR, no rub SM+ Gastrointestinal: soft, non-tender, no distention, positive bowel sounds Musculoskeletal: no edema, pulses present Neurological: non-focal, normal sensation Psychiatric: normal affect, A&O x 3 Skin: no rash, normal turgor Dx/Plan (1) Acute worsening of stage 3 chronic kidney disease Code(s): N18.3 - CHRONIC KIDNEY DISEASE, STAGE 3 (MODERATE) Status: Acute Comment: now baseline ckd-3 (2) Nausea & vomiting Code(s): R11.2 - NAUSEA WITH VOMITING, UNSPECIFIED Status: Resolved (3) Chronic stage c diastolic heart failure Code(s): I50.32 - CHRONIC DIASTOLIC (CONGESTIVE) HEART FAILURE Status: Chronic (4) DM2 (diabetes mellitus, type 2) Status: Chronic Qualifiers: Comment: (5) Dyslipidemia Code(s): E78.5 - HYPERLIPIDEMIA, UNSPECIFIED Status: Chronic (6) Hypertension Code(s): I10 - ESSENTIAL (PRIMARY) HYPERTENSION Status: Chronic Qualifiers: Comment: (7) Moderate aortic stenosis Code(s): I35.0 - NONRHEUMATIC AORTIC (VALVE) STENOSIS Status: Chronic (8) Anemia of renal disease Code(s): N18.9 - CHRONIC KIDNEY DISEASE, UNSPECIFIED; D63.1 - ANEMIA IN CHRONIC KIDNEY DISEASE Status: Chronic - Plan cont current plan of care, certified social workers in health care * medication reviewed as below * symptomatic treatment * await placement * overall stable. Review of Systems - Review of Systems ENT: negative: Ear Pain, Ear Discharge, Nose Pain, Nose Discharge, Nose Congestion, Mouth Pain, Mouth Swelling, Throat Pain, Throat Swelling, Other Respiratory: negative: Cough, Dry, Shortness of Breath, Hemoptysis, SOB with Excertion, Pleuritic Pain, Sputum, Wheezing Cardiovascular: negative: chest pain, palpitations, orthopnea, paroxysmal nocturnal dyspnea, edema, light headedness, other Gastrointestinal: negative: Nausea, Vomiting, Abdominal Pain, Diarrhea, Constipation, Melena, Hematochezia, Other Genitourinary: negative: Dysuria, Frequency, Incontinence, Hematuria, Retention , Other Musculoskeletal: negative: Neck Pain, Shoulder Pain, Arm Pain, Back Pain, Hand Pain, Leg Pain, Foot Pain, Other - Medications/Allergies Allergies/Adverse Reactions: Allergies Allergy/AdvReac Type Severity Reaction Status Date / Time No Known Allergies Allergy Verified 07/09/17 00:35 Medications: Current Medications Acetaminophen (Tylenol) 650 mg PO Q4H PRN PRN Reason: Headache/Fever/Mild Pain (1-3) Last Admin: 04/05/18 09:28 Dose: 650 mg Aspirin (Ecotrin) 81 mg PO DAILY [facility] Last Admin: 04/05/18 09:17 Dose: 81 mg Bisacodyl (Dulcolax) 10 mg PO DAILYPRN PRN PRN Reason: Constipation Last Admin: 04/02/18 18:02 Dose: 10 mg Calcium Carbonate (Tums) 1,000 mg PO Q4H PRN PRN Reason: Heartburn or Indigestion Carvedilol (Coreg) 25 mg PO BID-[facility] Last Admin: 04/05/18 09:18 Dose: 25 mg Clonidine (Catapres) 0.3 mg PO BID [facility] Last Admin: 04/05/18 09:18 Dose: 0.3 mg Cyanocobalamin (Vitamin B-12) 1,000 mcg PO DAILY [facility] Last Admin: 04/05/18 09:18 Dose: 1,000 mcg Dextrose/Water (Dextrose 50%) 25 gm SLOW IVP PRN PRN PRN Reason: Hypoglycemia Ezetimibe (Zetia) 10 mg PO HS [facility] Last Admin: 04/04/18 20:42 Dose: 10 mg Ferrous Sulfate (Feosol) 325 mg PO DAILY [facility] Last Admin: 04/05/18 09:18 Dose: 325 mg Folic Acid (Folvite) 1 mg PO DAILY [facility] Last Admin: 04/05/18 09:17 Dose: 1 mg Gabapentin (Neurontin) 100 mg PO TID [facility] Last Admin: 04/05/18 09:17 Dose: 100 mg Glucagon (Glucagon) 1 mg IM PRN PRN PRN Reason: Hypoglycemia Guaifenesin/Dextromethorphan (Robitussin Dm) 15 ml PO Q4H PRN PRN Reason: Cough Heparin Sodium (Porcine) (Heparin) 5,000 units SC BID [facility] Last Admin: 04/05/18 09:19 Dose: 5,000 units Hydralazine HCl (Apresoline) 100 mg PO TID [facility] Last Admin: 04/05/18 09:17 Dose: 100 mg Dextrose/Water (D5w) 1,000 mls @ 0 mls/hr IV .Q0M PRN PRN Reason: Hypoglycemia Insulin Human Lispro (Humalog) 0 units SC .MILD SLIDING SCALE PRN PRN Reason: Mild Correctional Scale Last Admin: 04/05/18 05:51 Dose: 5 units Insulin Human Lispro (Humalog) 0 units SC .BEDTIME SLIDING SC PRN PRN Reason: Bedtime Correctional Scale Last Admin: 04/04/18 21:50 Dose: 2 unit Nystatin (Mycostatin) 500,000 units SSP QID [facility] Last Admin: 04/05/18 09:17 Dose: 500,000 units Ondansetron HCl (Zofran Odt) 4 mg PO Q6H PRN PRN Reason: Nausea/Vomiting Ondansetron HCl (Zofran) 4 mg IVP Q6H PRN PRN Reason: Nausea/Vomiting Pantoprazole Sodium (Protonix) 40 mg PO DAILY [facility] Last Admin: 04/05/18 09:18 Dose: 40 mg Polyethylene Glycol (Miralax) 17 gm PO DAILY PRN PRN Reason: Constipation Senna/Docusate Sodium (Senokot S) 2 tab PO BIDPRN PRN PRN Reason: Constipation Sodium Chloride (Flush - Normal Saline) 10 ml IVF Q12HR PRN PRN Reason: Saline Flush Last Admin: 04/02/18 09:13 Dose: 10 ml Sodium Chloride (Flush - Normal Saline) 10 ml IVF PRN PRN PRN Reason: Saline Flush Zolpidem Tartrate (Ambien) 5 mg PO HSPRN PRN PRN Reason: Insomnia Last Admin: 04/04/18 20:46 Dose: 5 mg
--- NOTE | 2018-04-05 12:23 | PRG ---
DATE OF SERVICE: 04/05/2018 SUBJECTIVE: A 77-year-old female, being seen for CKD. The patient denies any nausea, vomiting, or chest pain. OBJECTIVE: GENERAL: The patient is awake and alert. VITAL SIGNS: Afebrile, pulse 72, breathing 16, and blood pressure was 143/67. GENERAL APPEARANCE AND MENTAL STATUS: Fair. HEAD/NECK: Normocephalic. Atraumatic. EYES: EOMI. No deformity. EARS: Clear. No ulcers. NOSE: Intact. No lesions. MOUTH: Clear. No discharge. THROAT: Clear. No exudate. LUNGS: Clear. No crackles. CARDIAC: S1, S2. No rub. ABDOMEN: Benign. Bowel sounds positive. GENITALIA/RECTUM: Lewis absent. BACK/EXTREMITIES: Edema 0+. NEUROLOGICAL: Alert and motor intact. LABORATORY DATA: Reviewed. ASSESSMENT AND PLAN: 1. Chronic kidney disease with acute kidney injury . 2. Hypertension, stable. 3. Anemia, stable. 4. Acute kidney injury is improved; no indication for dialysis. Job ID: [id number]
[2018-04-05] MEDS: Ezetimibe 10 MG TAB PO SCH (20:39)
[2018-04-06] MEDS: Acetaminophen 325 MG TAB PO PRN (05:22)
[2018-04-06] MEDS: HumaLOG 300 UNITS/3 ML VIAL SC PRN ×2 (05:59→12:28)
[2018-04-06] MEDS: Carvedilol 25 MG TAB PO SCH (09:04)
[2018-04-06] MEDS: Nystatin 500,000 UNITS/5 ML UDCUP SSP SCH ×2 (09:04→12:25)
[2018-04-06] MEDS: Folic Acid 1 MG TAB PO SCH (09:05)
[2018-04-06] MEDS: hydrALAZINE 25 MG TAB PO SCH (09:05)
[2018-04-06] MEDS: Aspirin 81 mg Enteric Coated Tablet PO SCH (09:05)
[2018-04-06] MEDS: Ferrous Sulfate 325 MG TAB PO SCH (09:06)
[2018-04-06] MEDS: cloNIDine 0.3 MG TAB PO SCH (09:07)
[2018-04-06] MEDS: Cyanocobalamin (Vitamin B-12) 1,000 MCG TAB PO SCH (09:07)
[2018-04-06] MEDS: Gabapentin 100 MG CAP PO SCH (09:07)
[2018-04-06] MEDS: Heparin 5,000 UNITS/ML VIAL SC SCH (09:08)
--- NOTE | 2018-04-06 11:05 | PDOC.PN ---
- Subjective Encounter Start Date: 04/06/18 Encounter Start Time: 10:15 Patient seen and examined. No new complaints. No overnight events - Objective Resuscitation Status - Order Detail: 03/31/18 00:23 Resuscitation Status Routine Resuscitation Status: FULL: Full Resuscitation MAR Reviewed: Yes Vital Signs & Weight: Vital Signs (12 hours) Temp Pulse Resp BP BP Pulse Ox 04/06/18 09:07 150/94 H 04/06/18 09:05 60 150/94 H 04/06/18 08:00 98.6 F 60 16 150/94 H 96 Weight Weight 167 lb 12.8 oz I&O: 04/05/18 04/06/18 04/07/18 06:59 06:59 06:59 Intake Total 1720 1200 240 Balance 1720 1200 240 Result Diagrams: 04/05/18 09:37 04/05/18 09:37 Additional Labs: Accuchecks 04/06/18 04/05/18 04/05/18 05:02 21:08 16:32 POC Glucose 178 H 125 H 264 H 04/05/18 11:12 POC Glucose 260 H Phys Exam - Physical Examination Constitutional: NAD HEENT: PERRLA, moist MMs, sclera anicteric, oral pharynx no lesions Neck: no JVD, supple Respiratory: no wheezing, no rales, no rhonchi Cardiovascular: RRR, no rub SM+ Gastrointestinal: soft, non-tender, no distention, positive bowel sounds Musculoskeletal: no edema, pulses present Neurological: non-focal, normal sensation Lymphatic: no nodes Psychiatric: normal affect Skin: no rash, normal turgor Dx/Plan (1) Acute worsening of stage 3 chronic kidney disease Code(s): N18.3 - CHRONIC KIDNEY DISEASE, STAGE 3 (MODERATE) Status: Acute Comment: now baseline ckd-3 (2) Nausea & vomiting Code(s): R11.2 - NAUSEA WITH VOMITING, UNSPECIFIED Status: Resolved (3) Chronic stage c diastolic heart failure Code(s): I50.32 - CHRONIC DIASTOLIC (CONGESTIVE) HEART FAILURE Status: Chronic (4) DM2 (diabetes mellitus, type 2) Status: Chronic Qualifiers: Comment: (5) Dyslipidemia Code(s): E78.5 - HYPERLIPIDEMIA, UNSPECIFIED Status: Chronic (6) Hypertension Code(s): I10 - ESSENTIAL (PRIMARY) HYPERTENSION Status: Chronic Qualifiers: Comment: (7) Moderate aortic stenosis Code(s): I35.0 - NONRHEUMATIC AORTIC (VALVE) STENOSIS Status: Chronic (8) Anemia of renal disease Code(s): N18.9 - CHRONIC KIDNEY DISEASE, UNSPECIFIED; D63.1 - ANEMIA IN CHRONIC KIDNEY DISEASE Status: Chronic - Plan cont current plan of care, PT/OT, director social service * medication reviewed as below * symptomatic treatment * see my discharge volodymyr. Review of Systems - Review of Systems ENT: negative: Ear Pain, Ear Discharge, Nose Pain, Nose Discharge, Nose Congestion, Mouth Pain, Mouth Swelling, Throat Pain, Throat Swelling, Other Respiratory: negative: Cough, Dry, Shortness of Breath, Hemoptysis, SOB with Excertion, Pleuritic Pain, Sputum, Wheezing Cardiovascular: negative: chest pain, palpitations, orthopnea, paroxysmal nocturnal dyspnea, edema, light headedness, other Gastrointestinal: negative: Nausea, Vomiting, Abdominal Pain, Diarrhea, Constipation, Melena, Hematochezia, Other Genitourinary: negative: Dysuria, Frequency, Incontinence, Hematuria, Retention , Other Musculoskeletal: negative: Neck Pain, Shoulder Pain, Arm Pain, Back Pain, Hand Pain, Leg Pain, Foot Pain, Other - Medications/Allergies Allergies/Adverse Reactions: Allergies Allergy/AdvReac Type Severity Reaction Status Date / Time No Known Allergies Allergy Verified 07/09/17 00:35 Medications: Current Medications Acetaminophen (Tylenol) 650 mg PO Q4H PRN PRN Reason: Headache/Fever/Mild Pain (1-3) Last Admin: 04/06/18 05:22 Dose: 650 mg Aspirin (Ecotrin) 81 mg PO DAILY [facility] Last Admin: 04/06/18 09:05 Dose: 81 mg Bisacodyl (Dulcolax) 10 mg PO DAILYPRN PRN PRN Reason: Constipation Last Admin: 04/02/18 18:02 Dose: 10 mg Calcium Carbonate (Tums) 1,000 mg PO Q4H PRN PRN Reason: Heartburn or Indigestion Carvedilol (Coreg) 25 mg PO BID-[facility] Last Admin: 04/06/18 09:04 Dose: 25 mg Clonidine (Catapres) 0.3 mg PO BID [facility] Last Admin: 04/06/18 09:07 Dose: 0.3 mg Cyanocobalamin (Vitamin B-12) 1,000 mcg PO DAILY [facility] Last Admin: 04/06/18 09:07 Dose: 1,000 mcg Dextrose/Water (Dextrose 50%) 25 gm SLOW IVP PRN PRN PRN Reason: Hypoglycemia Ezetimibe (Zetia) 10 mg PO HS [facility] Last Admin: 04/05/18 20:39 Dose: 10 mg Ferrous Sulfate (Feosol) 325 mg PO DAILY [facility] Last Admin: 04/06/18 09:06 Dose: 325 mg Folic Acid (Folvite) 1 mg PO DAILY [facility] Last Admin: 04/06/18 09:05 Dose: 1 mg Gabapentin (Neurontin) 100 mg PO TID [facility] Last Admin: 04/06/18 09:07 Dose: 100 mg Glucagon (Glucagon) 1 mg IM PRN PRN PRN Reason: Hypoglycemia Guaifenesin/Dextromethorphan (Robitussin Dm) 15 ml PO Q4H PRN PRN Reason: Cough Heparin Sodium (Porcine) (Heparin) 5,000 units SC BID [facility] Last Admin: 04/06/18 09:08 Dose: 5,000 units Hydralazine HCl (Apresoline) 100 mg PO TID [facility] Last Admin: 04/06/18 09:05 Dose: 100 mg Dextrose/Water (D5w) 1,000 mls @ 0 mls/hr IV .Q0M PRN PRN Reason: Hypoglycemia Insulin Human Lispro (Humalog) 0 units SC .MILD SLIDING SCALE PRN PRN Reason: Mild Correctional Scale Last Admin: 04/06/18 05:59 Dose: 2 units Insulin Human Lispro (Humalog) 0 units SC .BEDTIME SLIDING SC PRN PRN Reason: Bedtime Correctional Scale Last Admin: 04/04/18 21:50 Dose: 2 unit Nystatin (Mycostatin) 500,000 units SSP QID [facility] Last Admin: 04/06/18 09:04 Dose: 500,000 units Ondansetron HCl (Zofran Odt) 4 mg PO Q6H PRN PRN Reason: Nausea/Vomiting Ondansetron HCl (Zofran) 4 mg IVP Q6H PRN PRN Reason: Nausea/Vomiting Pantoprazole Sodium (Protonix) 40 mg PO DAILY [facility] Last Admin: 04/06/18 09:05 Dose: 40 mg Polyethylene Glycol (Miralax) 17 gm PO DAILY PRN PRN Reason: Constipation Senna/Docusate Sodium (Senokot S) 2 tab PO BIDPRN PRN PRN Reason: Constipation Sodium Chloride (Flush - Normal Saline) 10 ml IVF Q12HR PRN PRN Reason: Saline Flush Last Admin: 04/02/18 09:13 Dose: 10 ml Sodium Chloride (Flush - Normal Saline) 10 ml IVF PRN PRN PRN Reason: Saline Flush Zolpidem Tartrate (Ambien) 5 mg PO HSPRN PRN PRN Reason: Insomnia Last Admin: 04/04/18 20:46 Dose: 5 mg
--- NOTE | 2018-04-06 11:40 | DIS ---
DATE OF ADMISSION: 03/31/2018 DATE OF DISCHARGE: 04/06/2018 PRIMARY CARE PHYSICIAN: Dr. Dheeraj Salazar. DISCHARGE DISPOSITION: [facility]. PRIMARY DISCHARGE DIAGNOSES: 1. Acute on chronic kidney failure. 2. Baseline chronic kidney disease, stage 3. 3. Nausea and vomiting on admission, resolved. SECONDARY DISCHARGE DIAGNOSES: 1. Anemia of renal disease. 2. Chronic diastolic heart failure, stage C. 3. Diabetes type 2. 4. Dyslipidemia. 5. History of unilateral nephrectomy. 6. Hypertension. 7. Ckwfyskr-zj-fuifiq aortic stenosis. 8. Severe mitral annular calcification. PRIMARY PROCEDURE/OPERATION: None. RADIOLOGIST INVESTIGATION: Chest x-ray on admission showed cardiomegaly without any acute process. Echocardiography during this admission showed EF 60% to 65%. Diastolic dysfunction. LVH. Right pulmonary hypertension. Heavily calcified aortic wall. Severe aortic wall stenosis. Mitral annular calcification. LABORATORY DATA: Significant labs: WBC 9.5, hemoglobin 9.1, and platelets 242. INR 1.1. Sodium 140, potassium 4.4, BUN 51, creatinine 2.44, glucose 274, calcium 9.6. PTH 342.3, iron 25, TIBC 166, ferritin 79. Albumin 3.0. Troponin 0.042. B12 of 449 and folic acid 9.90. Phosphorus 5.0. DISCHARGE MEDICATIONS: 1. Bumex 2 mg daily. 2. Clonidine 0.3 mg p.o. b.i.d. 3. Zetia 10 mg p.o. daily. 4. Ferrous sulfate 325 mg p.o. daily. 5. Neurontin 100 mg p.o. t.i.d. 6. Glargine insulin 10 units subcu b.i.d. 7. Lisinopril 2.5 mg p.o. daily. 8. MiraLax 17 g p.o. daily. 9. Aspirin 81 mg daily. 10. Coreg 25 mg p.o. b.i.d. 11. Vitamin B12 of 1000 mcg p.o. daily. 12. Folic acid 1 mg daily. 13. Hydralazine 100 mg t.i.d. 14. Protonix 40 mg p.o. daily. CONTRAINDICATION: None. CODE STATUS: Full code. INPATIENT GAUGER CHIEF DELIVERY: 1. Nephrology, Dr. Renae, was following while in hospital. 2. Dr. Wren was following while in hospital. TEST RESULTS PENDING ON DISCHARGE: None. ALLERGIES: NO KNOWN DRUG ALLERGIES. DISCHARGE PLAN: Posthospital, the patient will follow up with primary care physician in one week. HOSPITAL COURSE: A 77-year-old female with above-mentioned medical problem, who was admitted by Dr. Rah Ngo on March 31, 2018. Please see his H and P for further details. The patient was brought to ER for increasing weakness. She was having nausea and vomiting. She was found with acute on chronic kidney failure. This patient also had elevated troponin. She was not having any chest pain. She was admitted to Telemetry floor. She has underlying jvdkyuje-go-uutvyn aortic stenosis. She had an episode of one pause on Telemetry floor and Cardiology was consulted. Nephrology was consulted. Her renal function was slightly improved with baseline level with IV fluid while in hospital. We monitored on Telemetry floor for few days and that improved, and at that point, we transferred her to medical floor. This patient has underlying severe aortic stenosis and severe mitral annular calcification, and she will need risk stratification, but because of her worsening renal failure, the patient is not a good candidate for cardiac catheterization and the patient also decided herself not to pursue any more aggressive intervention. If she changes her mind, then she can follow up with Dr. Wren, on an outpatient basis for further evaluation. The patient was feeling weak and that is why, the patient was requiring placement and with the help of leather case finisher, we arranged [facility]. While in the hospital, the patient was given 1 unit of blood transfusion for her low hemoglobin. During entire hospital course, we were communicating with family member and updating about the patient's treatment plan and care. The patient's family member were interested in [facility] her physical deconditioning. The patient is seen and examined at bedside today. She is up to her normal level. She is on room air. She does not have any acute distress. PHYSICAL EXAMINATION: VITAL SIGNS: Currently, temperature 98.6, pulse 60, respiratory rate 16, saturation 96% on room air, and blood pressure 150/94. Weight 167 pounds. GENERAL: The patient is currently alert and awake, in no obvious acute distress. HEENT: Head; normocephalic and atraumatic. Eyes; pupils round, reactive to light. Extraocular muscle intact. ENT; oropharynx within normal limits. Moist mucous membranes. NECK: Supple. No JVD. No thyromegaly. No carotid bruit. LUNGS: Clear to auscultation without any rhonchi or rales. CARDIAC: S1 and S2 regular. Systolic murmur present at aortic area. No gallop. No rub. ABDOMEN: Soft. Bowel sounds present. Nontender and nondistended. No organomegaly. No mass. No suprapubic tenderness. BACK: Unremarkable. No CVA tenderness. EXTREMITIES: Upper extremities; passive movement of all joints are normal. Lower extremities; no edema. Good distal pulsation. REVIEW OF SYSTEMS: Review of systems was reviewed with her, negative. Paper work for discharge done and discharge medication reconciliation done. TOTAL TIME SPENT: On discharge day, 32 minutes. Job ID: [id number]
--- NOTE | 2018-04-06 11:57 | PRG ---
DATE OF SERVICE: 04/06/2018 SUBJECTIVE: A 77-year-old female, being seen for acute kidney injury. The patient denies any nausea, vomiting, or chest pain. OBJECTIVE: GENERAL: The patient is awake and alert. VITAL SIGNS: Afebrile, pulse 60, breathing 16, blood pressure 150/94. GENERAL APPEARANCE AND MENTAL STATUS: Fair. HEAD/NECK: Normocephalic. Atraumatic. EYES: EOMI. No deformity. EARS: Clear. No ulcers. NOSE: Intact. No lesions. MOUTH: Clear. No discharge. THROAT: Clear. No exudate. LUNGS: Clear. No crackles. CARDIAC: S1, S2. No rub. ABDOMEN: Benign. Bowel sounds positive. GENITALIA/RECTUM: Lewis absent. BACK/EXTREMITIES: Edema 0+. NEUROLOGICAL: Alert and motor intact. SKIN: LYMPHATICS: LABORATORY DATA: Hemoglobin was 9.1 and creatinine 2.4. ASSESSMENT AND PLAN: 1. Stage 4 chronic kidney disease, stable. 2. Hypertension, stable. 3. Anemia, stable. 4. Medications based on GFR are appropriate. 5. I will reorder labs today. Job ID: [id number]
[2018-04-06 13:04] VITALS: BP 132/52; TEMP 99.3
--- NOTE | 2018-04-07 14:28 | EKG ---
Test Reason : Blood Pressure : / mmHG Vent. Rate : 077 BPM Atrial Rate : 308 BPM P-R Int : 000 ms QRS Dur : 108 ms QT Int : 430 ms P-R-T Axes : 054 -01 077 degrees QTc Int : 486 ms Atrial flutter with 4:1 A-V conduction Septal infarct , age undetermined Abnormal ECG Confirmed by CLEMENCIA GALAN D.O. ([id number]), business editor CHARIS GIPSON ([id number]) on 04/07/2018 2:28:09 PM Referred By: Confirmed By:CLEMENCIA GALAN D.O.
== END 2018-04-06 12:56 | DRG 683 ==
LOC: ERS 20:35 → 2NO 03-31 01:32 → T4-B 04-04 12:07
PROVIDERS: ADMIT Internal Medicine; ATTEND Internal Medicine
PROC: 30233N1 Transfusion of Nonautologous Red Blood Cells into Peripheral Vein, Percutaneous Approach (ICD-10-PCS; principal; 2018-04-01)
DX: N17.9 Acute kidney failure, unspecified (principal); I50.32 Chronic diastolic (congestive) heart failure; I13.0 Hypertensive heart and chronic kidney disease with heart failure and stage 1 through stage 4 chronic kidney disease, or unspecified chronic kidney disease; I25.10 Atherosclerotic heart disease of native coronary artery without angina pectoris; I35.0 Nonrheumatic aortic (valve) stenosis; K29.70 Gastritis, unspecified, without bleeding; E86.0 Dehydration; E11.65 Type 2 diabetes mellitus with hyperglycemia; E11.22 Type 2 diabetes mellitus with diabetic chronic kidney disease; N18.3 Chronic kidney disease, stage 3 (moderate); D63.1 Anemia in chronic kidney disease; Z79.82 Long term (current) use of aspirin; Z79.4 Long term (current) use of insulin; Z85.528 Personal history of other malignant neoplasm of kidney; Z90.5 Acquired absence of kidney; Z82.49 Family history of ischemic heart disease and other diseases of the circulatory system
CPT/HCPCS: 36415; 36416; 36430; 71045; 80048; 80053; 80069; 82553; 82607; 82728; 82746; 83540; 83550; 83605; 83970; 84100; 84484; 85014; 85018; 85025; 85610; 85730; 86850; 86900; 86901; 93005; 93306; 94760; 96361; 96374; G8978-GP-CK; G8979-GP-CI; G8987-GO-CK; G8988-GO-CI; J1644; J2405; P9016; S0028

== ENCOUNTER 2018-04-11 12:57 | Emergency (ER) | payer MEDICARE ==
[2018-04-11] MEDS ORDERED: diphenhydrAMINE 50 MG/ML VIAL ONE (13:27)
[2018-04-11] MEDS ORDERED: Metoclopramide HCl 10 MG/2 ML VIAL ONE (13:27)
--- NOTE | 2018-04-11 14:04 | CT ---
CT HEAD WITHOUT CONTRAST: Date: 04-11-18 Comparison: 01-01-18 History: Headache. Technique: Axial CT imaging is obtained at 5 mm interval from vertex through skull base without contr ast. FINDINGS: There is expansion of the sella turcica, a stable finding when compared to studies dating back to suggesting an empty sella. The imaged paranasal sinuses/mastoid air cells appear grossly unremarkable. There is no displaced emily varial fracture. No intracranial hemorrhage, midline shift, mass effect, or ventricular enlargement. Periventricular and deep white matter hypodensity noted, evidence of stable small vessel disease. IMPRESSION: Chronic findings as detailed above. No intracranial hemorrhage or displaced calvarial fracture. POS: [facility]
== END 2018-04-11 15:54 | disposition home or self-care (01) ==
LOC: ERS 12:57
DX: R51 Headache (principal); I12.9 Hypertensive chronic kidney disease with stage 1 through stage 4 chronic kidney disease, or unspecified chronic kidney disease; E11.22 Type 2 diabetes mellitus with diabetic chronic kidney disease; N18.3 Chronic kidney disease, stage 3 (moderate); D63.1 Anemia in chronic kidney disease; Z79.4 Long term (current) use of insulin; Z79.899 Other long term (current) drug therapy; Z79.82 Long term (current) use of aspirin
CPT/HCPCS: 70450; 96365; 96375; J1200; J2765

== ENCOUNTER 2018-04-14 09:46 | Observation (INO) | payer MEDICARE ==
[2018-04-14 10:26] LABS: #Eosinphils 0.1 thou/uL (0.0-0.7); #Lymphocytes 0.9 thou/uL (1.20-3.40); #Monocytes 0.6 thou/uL (0.11-0.59); #Neutrophils 5.5 thou/uL (1.40-6.50); %Eosinophils 1.9 % (0.0-10.0); %Lymphocytes 12.9 % (21.0-51.0); %Monocytes 8.7 % (0.0-10.0); %Neutrophils 76.4 % (42.0-75.0); Hemoglobin 8.2 g/dL (12.0-16.0); Mean Corpuscular HGB CONC 31.7 g/dL (32.0-36.0); Mean Corpuscular Hemoglobin 29.3 pg (27.0-31.0); Mean Corpuscular Volume 92.7 fL (78.0-98.0); Platelet Count 262 thou/uL (130-400); RBC Distribution Width 12.9 % (11.5-14.5); Red Blood Cell (RBC) Count 2.78 mill/uL (4.20-5.40); White Blood Cell (WBC) Count 7.2 thou/uL (4.8-10.8)
--- NOTE | 2018-04-14 10:32 | CT ---
CT OF THE BRAIN WITHOUT CONTRAST: Date: 04/14/18 COMPARISON: 04/11/18. HISTORY: Headache that is throbbing in the front part of the head, associated with nausea. Seizure. TECHNIQUE: Multiple contiguous axial images were obtained in a CT of the brain without contrast. FINDINGS: There are scattered hypodensities in the subcortical and periventricular white matter, likely seconda ry to small vessel ischemic disease. Basal ganglia calcifications are seen. There is no evidence of h ydrocephalus, intracranial hemorrhage, or extra-axial fluid collection. The calvarium and overlying soft tissues are unremarkable. The visualized paranasal sinuses and masto id air cells are well aerated. IMPRESSION: No evidence of acute intracranial abnormality. POS: [facility]
[2018-04-14 10:44] LABS: ALT (SGPT) Less than 7 U/L (8-55); AST (SGOT) 15 U/L (5-34); Albumin 3.3 g/dL (3.4-4.8); Alkaline Phosphatase 66 U/L (40-150); Anion Gap 14 mmol/L (10-20); BUN (Urea Nitrogen) 70 mg/dL (9.8-20.1); Bilirubin, Total 0.3 mg/dL (0.2-1.2); Calc. Creatinine Clearance 0 mL/min (70-130); Calcium 9.2 mg/dL (7.8-10.44); Carbon Dioxide 26 mmol/L (23-31); Chloride 106 mmol/L (98-107); Estimated GFR-MDRD 18; Globulin 3.8 g/dL (2.4-3.5); Glucose 153 mg/dL (83-110); Potassium 4.2 mmol/L (3.5-5.1); Protein, Total 7.1 g/dL (6.0-8.3); Sodium 142 mmol/L (136-145)
--- NOTE | 2018-04-14 10:45 | RAD ---
SINGLE VIEW CHEST: Date: 04/14/18 COMPARISON: 03/30/18. HISTORY: Altered mental status. Headache and intermittent nausea. FINDINGS: Single view of the chest shows an enlarged but stable cardiomediastinal silhouette. There is no evide nce of consolidation, mass, or pleural effusion. Degenerative changes are seen in the spine. Surgical clips are seen in the upper abdomen. IMPRESSION: Stable cardiomegaly. POS: [facility]
[2018-04-14] MEDS ORDERED: levETIRAcetam 500 MG/100 ML PREMIX BAG ONE (11:07)
[2018-04-14] MEDS ORDERED: levETIRAcetam In NaCl (Iso-Os) 1,000 MG in Premix Bag 1 BAG IVPB SCH (11:15)
[2018-04-14 11:27] LABS: Bilirubin Negative (Negative); Blood, Urine Negative (Negative); Clarity CLEAR (Clear); Glucose, Urine (Dipstick) Negative (Negative); Leukocyte Small (Negative); Nitrite Negative (Negative); Protein, Urine (Dipstick) Negative (Neg-Trace); Specific Gravity, Urine 1.008 (1.002-1.036); pH, Urine 6.5 (5.0-9.0)
[2018-04-14 11:31] LABS: Bacteria/HPF None Seen HPF (None Seen); Hyaline Casts/LPF 0-3 HYALINE CAST LPF (0-3 Hyaline); Pathc Cast-AUWi Flag 0.43 (0-2.49); RBC/HPF 0-3 HPF (0-3); Squamous Epithelial 0-3 HPF (0-3)
[2018-04-14 11:31] LABS: CKMB 2.3 ng/mL (0-6.6)
[2018-04-14] MEDS ORDERED: Eucerin (Mineral Oil/Petrolatum,White) 30 gm Jar TOP PRN (13:07)
[2018-04-14] MEDS ORDERED: Ondansetron PF 4 MG/2 ML Vial IVP PRN (13:07)
[2018-04-14] MEDS ORDERED: Dextrose 50% Abboject 50 ML SYRINGE SLOW IVP PRN (13:07)
[2018-04-14] MEDS ORDERED: Polyethylene Glycol 3350 17 GM Packet PO PRN (13:07)
[2018-04-14] MEDS ORDERED: Nitroglycerin 0.4 MG TAB (25 Tab Bottle) SL PRN (13:07)
[2018-04-14] MEDS ORDERED: Bisacodyl 5 MG TAB PO PRN (13:07)
[2018-04-14] MEDS ORDERED: Senokot S 8.6-50 MG TAB PO PRN (13:07)
[2018-04-14] MEDS ORDERED: Loperamide HCl 2 MG CAP PO PRN (13:07)
[2018-04-14] MEDS ORDERED: Zolpidem Tartrate 5 MG TAB PO PRN (13:07)
[2018-04-14] MEDS ORDERED: Sodium Chloride 0.65% Nasal 44 ML BOT EA NARE PRN (13:07)
[2018-04-14] MEDS ORDERED: Dextrose 5% in Water 1,000 ML IV PRN (13:07)
[2018-04-14] MEDS ORDERED: Calcium Carbonate 500 MG ChewTAB PO PRN (13:07)
[2018-04-14] MEDS ORDERED: Artificial Tears 18 DROP/0.9 ML EA EYE PRN (13:07)
[2018-04-14] MEDS ORDERED: Lorazepam 2 MG/ML VIAL SLOW IVP PRN (13:07)
[2018-04-14] MEDS ORDERED: Bisacodyl 10 MG SUPP PR PRN (13:07)
[2018-04-14 13:47] LABS: Troponin I 0.048 ng/mL (< 0.028)
--- NOTE | 2018-04-14 14:14 | HP ---
PRIMARY CARE PHYSICIAN: Dr Mascorro REASON FOR ADMISSION: Sent from [facility] for seizure. HISTORY OF PRESENT ILLNESS: A 77-year-old female, who has multiple medical problems including chronic diastolic heart failure stage C, hypertension, dyslipidemia, gastroesophageal reflux disease, chronic kidney disease stage 4, anemia of renal disease as well as moderate to severe aortic stenosis, who was recently admitted in our hospital on March 31, 2018, at that time, the patient presented with nausea and vomiting and she had elevated creatinine. She was having generalized weakness and during that admission, echocardiography showed pulmonary hypertension and moderate to severe aortic stenosis. The patient was discharged to senior living on April 06, 2018. She required emergency room visit a couple of days ago for headache and today she was sent from senior living to emergency room again for possible seizure. The patient is currently in the postictal phase hence she is not able to provide any history. As per report, the patient was complaining of headache and subsequently, she had seizure-like activity including up rolling of eyeballs with tonic clonic activity of upper and lower extremities and subsequently, the patient was in postictal phase. In the emergency room, CT brain is negative. Chest x-ray is unremarkable. Her creatinine is baseline. Her prolactin is elevated and her troponin is chronically elevated. The patient is being admitted to Stroke floor for further evaluation. The patient does not have any previous history of seizure. She does not have any focal motor symptoms. In the emergency room, currently, the patient is arousable, but she is drowsy and lethargic. REVIEW OF SYSTEMS: All review of system tried to review with the patient, but unable to review because the patient is in postictal phase. ALLERGY: No known drug allergy. PAST MEDICAL HISTORY: Chronic kidney disease stage 4, hypertension, diabetes type 2, anemia of chronic disease, coronary artery disease, chronic diastolic congestive heart failure, qoicqsvv-bm-mygroc aortic stenosis, history of right-sided renal cell carcinoma. PAST SURGICAL HISTORY: Appendicectomy, cholecystectomy, and nephrectomy. PAST PSYCHIATRIC HISTORY: Anxiety and depression. SOCIAL HISTORY: [facility]. No history of tobacco, alcohol, or illicit drug abuse. FAMILY HISTORY: Positive for coronary artery disease in her brother, but no family history of cancer or stroke. CURRENT HOME MEDICATIONS: The patient was [facility] to [facility] on the following medications; 1. Bumex 2 mg daily. 2. Clonidine 0.3 mg p.o. b.i.d. 3. Zetia 10 mg p.o. at bedtime. 4. Ferrous sulfate 325 mg p.o. daily. 5. Gabapentin 100 mg t.i.d. 6. Lantus insulin 10 units subcu b.i.d. 7. Lisinopril 2.5 mg daily. 8. MiraLAX 17 g p.o. daily. 9. Aspirin 81 mg p.o. daily. 10. Coreg 25 mg p.o. b.i.d. 11. Vitamin B12 of 1000 mcg p.o. daily. 12. Folic acid 1 mg daily. 13. Hydralazine 100 mg t.i.d. 14. Protonix 40 mg p.o. daily. EMERGENCY ROOM COURSE: The patient is given Keppra 1000 mg. PHYSICAL EXAMINATION: VITAL SIGNS: On arrival, blood pressure 142/60, pulse 60, respiratory rate 18, temperature 98.4, saturation 95% on room air. Weight 81.7 kg. GENERAL: The patient is currently arousable, but is lethargic in postictal phase. HEAD: Normocephalic, atraumatic. Eyes; pupils round, reactive to light. Extraocular muscle intact. ENT: Oropharynx within normal limit. The patient does have laceration of the tongue. NECK: Supple. No JVD. No thyromegaly. No carotid bruit. LUNGS: Clear to auscultation without any rhonchi or rales. CARDIAC: S1, S2 regular. Systolic murmur present at the aortic area. No gallop. No rub. ABDOMEN: Soft. Bowel sounds present. Nontender. Nondistended. No organomegaly. No mass. No suprapubic tenderness. BACK: Unremarkable. No CVA tenderness. EXTREMITIES: Upper extremities; passive movement of all joints are normal. Lower extremities; trace lower extremity edema. NEUROLOGIC: Nonfocal examination. SKIN: No skin rash. HEMATOLOGICAL SYSTEM: No lymphadenopathy. NEUROLOGIC: Grossly nonfocal examination. Currently, the patient is postictal phase so detailed neurological examination is not possible. SIGNIFICANT LABORATORY DATA: EKG showing first-degree AV block, nonspecific ST- T changes. CT brain, based on my review, no acute intracranial process. Chest x- ray, stable cardiomegaly. CBC; WBC 7.2, hemoglobin 8.2, platelet 262. Sodium 142, potassium 4.2, chloride 106, carbon dioxide 26, anion gap 15, BUN 70, creatinine 2.97, glucose 153, calcium 9.2. Next, LFT; AST 15, ALT 7, alkaline phosphatase 66, albumin 3.3, prolactin 43.20, CK-MB 2.3, troponin 0.043. Urinalysis, leukocyte esterase, trace. ASSESSMENT AND PLAN: 1. New onset of seizure, etiology uncertain. CT of brain is negative. The patient has a renal dysfunction, so we will obtain an MRI of brain without contrast. Neurology will be consulted. Based on renal dose, we will continue Keppra 500 mg p.o. b.i.d. empirically. We will monitor on telemetry floor. Another possibility and differential diagnosis is syncope/stroke/cardiac arrhythmia, needs to be excluded and that is why we are going to do an MRI of brain and monitor on telemetry floor. 2. Postictal encephalopathy. We will monitor on Stroke floor and observe 24 hours. 3. Anemia of renal disease. We will continue ferrous sulfate 325 mg p.o. daily. 4. Chronic diastolic heart failure, stage C, currently euvolemic. We will hold Bumex for now because of a slightly elevated creatinine. 5. Aortic stenosis with hypertensive heart disease. The patient is not a good candidate for any kind of intervention because of renal insufficiency and patient also declines any surgical intervention in recent past. 6. Diabetic neuropathy. Continue gabapentin 100 mg three times daily. 7. Diabetes type 2. Continue insulin as per sliding scale protocol and continue Lantus 10 units subcu b.i.d. 8. Hypertension. Continue Coreg 25 mg b.i.d., hydralazine 100 mg t.i.d. Monitor vitals while in the hospital. Continue clonidine 0.3 mg b.i.d. 9. Gastroesophageal reflux disease. Continue Protonix 40 mg p.o. daily. 10. Physical deconditioning, chronic. The patient will continue to get PT/OT at senior living and while in the hospital if needed. 11. Dyslipidemia. Continue Zetia 10 mg p.o. at bedtime and add Lipitor 10 mg p.o. at bedtime. CONTRAINDICATIONS: None. CODE STATUS: Full code. The patient's son is surrogate decision maker. DISPOSITION PLAN: Based on clinical course, we are expecting the patient's stay in hospital 24 hours. Plan of care discussed with the patient's family member at bedside. Job ID: [id number] MTDD
[2018-04-14] MEDS: Gabapentin 100 MG CAP PO SCH ×2 (14:59→20:54)
[2018-04-14] MEDS: hydrALAZINE 25 MG TAB PO SCH ×2 (15:20→20:54)
[2018-04-14 16:47] LABS: Troponin I 0.047 ng/mL (< 0.028)
[2018-04-14] MEDS ORDERED: Benzocaine (Dental) 20% 10 gm Tube TOP PRN (17:08)
[2018-04-14] MEDS: Carvedilol 25 MG TAB PO SCH (18:14)
[2018-04-14] MEDS: cloNIDine 0.3 MG TAB PO SCH (20:53)
[2018-04-14] MEDS: Acetaminophen 325 MG TAB PO PRN (20:53)
[2018-04-14] MEDS: Ezetimibe 10 MG TAB PO SCH (20:54)
[2018-04-14] MEDS: Insulin Glargine 10 UNITS in Pre-Filled Syringe 1 EACH SC SCH (20:54)
--- NOTE | 2018-04-14 23:16 | CON ---
DATE OF CONSULTATION: 04/14/2018 TYPE OF CONSULTATION: Neurology REASON FOR REFERRAL: Seizures. HISTORY OF PRESENT ILLNESS: This is a 77-year-old female, who was at a [facility] and was sent from the [facility] today regarding seizure. She had complained of a headache and then she had an episode of her eyes rolling up with tonic-clonic activity of the upper and lower extremities and she was lethargic afterwards. The patient is currently complaining that her tongue hurts more on the right side. PAST MEDICAL HISTORY: Her chronic medical problems include chronic kidney disease, hypertension, diabetes, anemia, coronary artery disease, congestive heart failure, jrbhxswf-ul-rjtkiq aortic stenosis, and history of right-sided renal carcinoma. PAST SURGICAL HISTORY: She has had a nephrectomy, cholecystectomy, and appendectomy. SOCIAL HISTORY: She has been living at a [facility]. Tobacco; none. Alcohol; none. FAMILY HISTORY: Positive for coronary artery disease in a brother. REVIEW OF SYSTEMS: A 15-point review of systems is negative except for the seizure and she is currently complaining of tongue pain on the right, and she states that she has a history of arthritis. PHYSICAL EXAMINATION: GENERAL: She is awake and alert. VITAL SIGNS: Pulse is 62, temperature 97.8, respiratory rate 16, and blood pressure 151/69. HEENT: Negative except there is a prominent bite kiesha on the right side of the tongue and it is red and looks recent. LUNGS: Clear. HEART: No murmurs heard. ABDOMEN: Nondistended. EXTREMITIES: No clubbing, cyanosis, or edema. SKIN: No rashes. JOINTS: No swelling. NEUROLOGICAL: She is awake, alert, and oriented x3, except she states that the year is 2015 rather than 2017. Cranial nerves 2 through 12 tested normally. The right side of the tongue appears to be bitten as previously noted. Motor; 5/5 strength in the arms and legs with no atrophy or fasciculations. DTRs are 2+. Toes are downgoing. Sensation is normal. Coordination is normal. DIAGNOSTIC DATA: She had a CAT scan of the brain without contrast on 04/14/2018, it showed some chronic small vessel disease. LABORATORY DATA: Other labs showed a sodium of 142, potassium 4.2, BUN is 70, creatinine is elevated at 2.97, glucose 153, AST 15, ALT is less than 7. Prolactin was elevated at 43.20, normal is 5.18 to 26.53. It looks like the patient was given one dose of Keppra 500 mg in the ER. IMPRESSION: Seizure disorder and she does have a bite on the right side of her mouth. PLAN: I recommend that she be started on Dilantin. I will not pick the Keppra because of her renal problems. Also, if she has not had one recently, we will get a MRI of the brain without contrast and also ordered EEG. Risk and benefit of medication discussed with the patient, advised not to drive, she does not drive anyway, also other seizure precautions, avoid tub baths unattended, avoid unprotected heights, and avoid dangerous machinery. Also, she should follow up with Neurology after she gets out. Also, check on followup Dilantin levels, liver profiles, and CBCs. Job ID: [id number]
[2018-04-15] MEDS: Diabetic Tussin 200 MG/10 ML UDCUP PO PRN (03:32)
[2018-04-15 05:11] LABS: #Eosinphils 0.2 thou/uL (0.0-0.7); #Lymphocytes 1.4 thou/uL (1.20-3.40); #Monocytes 0.7 thou/uL (0.11-0.59); #Neutrophils 4.6 thou/uL (1.40-6.50); %Eosinophils 2.5 % (0.0-10.0); %Lymphocytes 20.1 % (21.0-51.0); %Monocytes 10.4 % (0.0-10.0); Albumin 3.2 g/dL (3.4-4.8); Anion Gap 12 mmol/L (10-20); BUN (Urea Nitrogen) 70 mg/dL (9.8-20.1); BUN/Creatinine Ratio 24.65; Calc. Creatinine Clearance 21 mL/min (70-130); Calcium 8.9 mg/dL (7.8-10.44); Carbon Dioxide 29 mmol/L (23-31); Chloride 104 mmol/L (98-107); Estimated GFR-MDRD 19; Glucose 95 mg/dL (83-110); Hemoglobin 8.1 g/dL (12.0-16.0); Magnesium 2.1 mg/dL (1.6-2.6); Mean Corpuscular HGB CONC 31.8 g/dL (32.0-36.0); Mean Corpuscular Hemoglobin 29.4 pg (27.0-31.0); Mean Corpuscular Volume 92.4 fL (78.0-98.0); Mean Platelet Volume 7.6 fL (7.4-10.4); Platelet Count 241 thou/uL (130-400); Potassium 3.8 mmol/L (3.5-5.1); RBC Distribution Width 12.9 % (11.5-14.5); Red Blood Cell (RBC) Count 2.77 mill/uL (4.20-5.40); Sodium 141 mmol/L (136-145); White Blood Cell (WBC) Count 6.8 thou/uL (4.8-10.8)
[2018-04-15] MEDS: Fosphenytoin Sodium 100 MG in Sodium Chloride 0.9% 50 ML IVPB SCH ×2 (06:15→14:07)
[2018-04-15] MEDS: hydrALAZINE 25 MG TAB PO SCH ×3 (08:43→21:21)
[2018-04-15] MEDS: Ferrous Sulfate 325 MG TAB PO SCH (08:43)
[2018-04-15] MEDS: cloNIDine 0.3 MG TAB PO SCH ×2 (08:43→21:21)
[2018-04-15] MEDS: Folic Acid 1 MG TAB PO SCH (08:43)
[2018-04-15] MEDS: Carvedilol 25 MG TAB PO SCH ×2 (08:44→17:11)
[2018-04-15] MEDS: Cyanocobalamin (Vitamin B-12) 1,000 MCG TAB PO SCH (08:44)
[2018-04-15] MEDS: Lisinopril 2.5 MG TAB PO SCH (08:44)
[2018-04-15] MEDS: Aspirin 81 mg Enteric Coated Tablet PO SCH (08:45)
[2018-04-15] MEDS: Gabapentin 100 MG CAP PO SCH ×3 (08:45→21:21)
[2018-04-15] MEDS ORDERED: Insulin Glargine 10 UNITS in Pre-Filled Syringe 1 EACH SC SCH (09:00)
--- NOTE | 2018-04-15 10:28 | PDOC.PN ---
- Subjective Encounter Start Date: 04/15/18 Encounter Start Time: 07:20 -: old records requested/rev Patient seen and examined. No new complaints. No overnight events - Objective Resuscitation Status - Order Detail: 04/14/18 13:03 Resuscitation Status Routine Resuscitation Status: FULL: Full Resuscitation MAR Reviewed: Yes Vital Signs & Weight: Vital Signs (12 hours) Temp Pulse Resp BP Pulse Ox 04/15/18 08:44 65 04/15/18 08:43 65 04/15/18 07:58 98.6 F 65 16 129/58 L 96 04/15/18 03:09 99.5 F 63 20 127/58 L 98 04/14/18 23:20 99.1 F 66 20 123/55 L 94 L Weight Weight 174 lb I&O: 04/14/18 04/15/18 04/16/18 06:59 06:59 06:59 Intake Total 1000 Balance 1000 Result Diagrams: 04/15/18 04:53 04/15/18 04:53 Additional Labs: Accuchecks 04/15/18 04/14/18 05:37 18:34 POC Glucose 91 117 H EKG Reviewed by me: Yes (nsr) Phys Exam - Physical Examination Constitutional: NAD HEENT: PERRLA, moist MMs, sclera anicteric Neck: no JVD, supple Respiratory: no wheezing, no rales, no rhonchi Cardiovascular: RRR, no rub SM+ at aortic area Gastrointestinal: soft, non-tender, no distention, positive bowel sounds Musculoskeletal: no edema, pulses present Neurological: non-focal, normal sensation Lymphatic: no nodes Psychiatric: normal affect, A&O x 3 Skin: no rash, normal turgor Dx/Plan (1) Seizure Code(s): R56.9 - UNSPECIFIED CONVULSIONS Status: Acute (2) Anemia of renal disease Code(s): N18.9 - CHRONIC KIDNEY DISEASE, UNSPECIFIED; D63.1 - ANEMIA IN CHRONIC KIDNEY DISEASE Status: Chronic (3) Chronic stage c diastolic heart failure Code(s): I50.32 - CHRONIC DIASTOLIC (CONGESTIVE) HEART FAILURE Status: Chronic (4) DM2 (diabetes mellitus, type 2) Status: Chronic Qualifiers: Comment: (5) Dyslipidemia Code(s): E78.5 - HYPERLIPIDEMIA, UNSPECIFIED Status: Chronic (6) H/O unilateral nephrectomy Code(s): Z90.5 - ACQUIRED ABSENCE OF KIDNEY Status: Chronic (7) Hypertension Code(s): I10 - ESSENTIAL (PRIMARY) HYPERTENSION Status: Chronic Qualifiers: Comment: (8) Moderate aortic stenosis Code(s): I35.0 - NONRHEUMATIC AORTIC (VALVE) STENOSIS Status: Chronic - Plan cont current plan of care, plan discussed w/ family * today await MRI and EEG * will monitor * discussed with son * medication reviewed as below * symptomatic treatment * neurology following * on discharge dilantin vs keppra. Review of Systems - Review of Systems Eyes: negative: Pain, Vision Change, Conjunctivae Inflammation, Eyelid Inflammation, Redness, Other ENT: negative: Ear Pain, Ear Discharge, Nose Pain, Nose Discharge, Nose Congestion, Mouth Pain, Mouth Swelling, Throat Pain, Throat Swelling, Other Respiratory: negative: Cough, Dry, Shortness of Breath, Hemoptysis, SOB with Excertion, Pleuritic Pain, Sputum, Wheezing Cardiovascular: negative: chest pain, palpitations, orthopnea, paroxysmal nocturnal dyspnea, edema, light headedness, other Gastrointestinal: negative: Nausea, Vomiting, Abdominal Pain, Diarrhea, Constipation, Melena, Hematochezia, Other Genitourinary: negative: Dysuria, Frequency, Incontinence, Hematuria, Retention , Other Musculoskeletal: negative: Neck Pain, Shoulder Pain, Arm Pain, Back Pain, Hand Pain, Leg Pain, Foot Pain, Other Skin: negative: Rash, Lesions, Anselmo, Bruising, Other Neurological: negative: Weakness, Numbness, Incoordination, Change in Speech, Confusion, Seizures, Other - Medications/Allergies Allergies/Adverse Reactions: Allergies Allergy/AdvReac Type Severity Reaction Status Date / Time No Known Allergies Allergy Verified 04/14/18 15:15 Medications: Current Medications Acetaminophen (Tylenol) 650 mg PO Q4H PRN PRN Reason: Headache/Fever/Mild Pain (1-3) Last Admin: 04/14/18 20:53 Dose: 650 mg Hydrocodone Bitart/Acetaminophen ([place] 5/325) 1 tab PO Q4H PRN PRN Reason: Moderate Pain (4-6) Artificial Tears (Tears Naturale) 2 drop EA EYE PRN PRN PRN Reason: Dry Eyes Aspirin (Ecotrin) 81 mg PO DAILY [facility] Last Admin: 04/15/18 08:45 Dose: 81 mg Benzocaine (Orajel 20%) 0 gm TOP DAILYPRN PRN PRN Reason: Mouth Irritation Bisacodyl (Dulcolax) 10 mg [place] DAILYPRN PRN PRN Reason: Constipation Bisacodyl (Dulcolax) 10 mg PO DAILYPRN PRN PRN Reason: Constipation Calcium Carbonate (Tums) 1,000 mg PO Q4H PRN PRN Reason: Heartburn or Indigestion Carvedilol (Coreg) 25 mg PO BID-[facility] Last Admin: 04/15/18 08:44 Dose: 25 mg Clonidine (Catapres) 0.1 mg PO Q4H PRN PRN Reason: SBP Greater Than 180 Clonidine (Catapres) 0.3 mg PO BID [facility] Last Admin: 04/15/18 08:43 Dose: 0.3 mg Cyanocobalamin (Vitamin B-12) 1,000 mcg PO DAILY [facility] Last Admin: 04/15/18 08:44 Dose: 1,000 mcg Dextrose/Water (Dextrose 50%) 25 gm SLOW IVP PRN PRN PRN Reason: Hypoglycemia Ezetimibe (Zetia) 10 mg PO HS [facility] Last Admin: 04/14/18 20:54 Dose: 10 mg Ferrous Sulfate (Feosol) 325 mg PO DAILY [facility] Last Admin: 04/15/18 08:43 Dose: 325 mg Folic Acid (Folvite) 1 mg PO DAILY [facility] Last Admin: 04/15/18 08:43 Dose: 1 mg Gabapentin (Neurontin) 100 mg PO TID [facility] Last Admin: 04/15/18 08:45 Dose: 100 mg Glucagon (Glucagon) 1 mg IM PRN PRN PRN Reason: Hypoglycemia Guaifenesin (Robitussin Sf) 200 mg PO Q4H PRN PRN Reason: Cough Last Admin: 04/15/18 03:32 Dose: 200 mg Hydralazine HCl (Apresoline) 10 mg SLOW IVP Q4H PRN PRN Reason: SBP > 180 and HR < 70 Hydralazine HCl (Apresoline) 100 mg PO TID [facility] Last Admin: 04/15/18 08:43 Dose: 100 mg Insulin Glargine 10 units/ (Miscellaneous Medication) 0.1 mls @ 0 mls/hr [facility] Last Admin: 12/15/18 20:54 Dose: 0.1 mls Insulin Glargine 10 units/ (Miscellaneous Medication) 0.1 mls @ 0 mls/hr SC QAM [facility] Last Admin: 04/15/18 08:49 Dose: 0.1 mls Dextrose/Water (D5w) 1,000 mls @ 0 mls/hr IV .Q0M PRN PRN Reason: Hypoglycemia Fosphenytoin Sodium 100 mg/ (Sodium Chloride) 52 mls @ 100 mls/hr IVPB Q8HR [facility] Last Admin: 04/15/18 06:15 Dose: 52 mls Insulin Human Lispro (Humalog) 0 units SC .MODERATE SLIDING SC PRN PRN Reason: Moderate Correctional Scale Insulin Human Lispro (Humalog) 0 units SC .BEDTIME SLIDING SC PRN PRN Reason: Bedtime Correctional Scale Lisinopril (Zestril) 2.5 mg PO DAILY [facility] Last Admin: 04/15/18 08:44 Dose: 2.5 mg Loperamide HCl (Imodium) 2 mg PO PRN PRN PRN Reason: Diarrhea/Loose Stools Loratadine (Claritin) 10 mg PO DAILYPRN PRN PRN Reason: Sinus Symptoms Lorazepam (Ativan) 1 mg SLOW IVP Q15MIN PRN PRN Reason: Seizures Mineral Oil/White Petrolatum (Eucerin Cream) 0 gm TOP BIDPRN PRN PRN Reason: Dry Skin Nitroglycerin (Nitrostat) 0.4 mg SL Q5MIN PRN PRN Reason: Chest Pain Ondansetron HCl (Zofran Odt) 4 mg PO Q6H PRN PRN Reason: Nausea/Vomiting Ondansetron HCl (Zofran) 4 mg IVP Q6H PRN PRN Reason: Nausea/Vomiting Pantoprazole Sodium (Protonix) 40 mg PO DAILY [facility] Last Admin: 04/15/18 08:44 Dose: 40 mg Polyethylene Glycol (Miralax) 17 gm PO DAILY PRN PRN Reason: Constipation Senna/Docusate Sodium (Senokot S) 2 tab PO BID PRN PRN Reason: Constipation Sodium Chloride ([place] Nasal [place] 0.65%) 0 ml EA NARE QIDPRN PRN PRN Reason: Nasal Congestion Zolpidem Tartrate (Ambien) 5 mg PO HSPRN PRN PRN Reason: Insomnia
--- NOTE | 2018-04-15 11:45 | MRI ---
MRI OF THE BRAIN WITHOUT CONTRAST: COMPARISON: None. History Severe frontal headaches for 4-5 days. Possible seizure. TECHNIQUE: Multiplanar, multisequence MR images were obtained of the brain without contrast. FINDINGS: There are a few scattered foci of high FLAIR signal in the subcortical and periventricular white nathan er, likely secondary to small-vessel ischemic disease. No restricted diffusion is seen to suggest an acute infarction. Thin cuts through the temporal lobe show a symmetric appearance of the hippocampi . There is no evidence of hydrocephalus, intracranial hemorrhage, or extraaxial fluid collection. The expected flow voids are present. The corpus callosum and craniocervical junction are unremarkable. The patient has a partially empty sella turcica. The calvarium and overlying soft tissues are unremarkable. The visualized paranasal sinuses and mast oid air cells are well aerated. IMPRESSION: No evidence of acute intracranial abnormality. POS: [facility]
[2018-04-15] MEDS: HumaLOG 300 UNITS/3 ML VIAL SC PRN (12:43)
--- NOTE | 2018-04-15 15:31 | PRG ---
DATE OF SERVICE: 04/15/2018 NEUROLOGY FOLLOWUP NOTE. SUBJECTIVE: Followup for seizure. The patient is now awake and alert and has just finished lunch. She says she feels well. She is quite talkative and pleasant and cooperative. She does note that she has pain from her bitten tongue on the right side of her tongue, but she is still able to eat. She has been getting the fosphenytoin IV. OBJECTIVE: VITAL SIGNS: On exam, temperature 98.1, pulse is 70, respiratory rate 18, O2 saturation is 96% on room air, and blood pressure 126/70. NEUROLOGICAL: She is awake and alert. 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 Pupils are 2 mm and reactive bilaterally. The patient states that she has had that eye deviation for many years. Motor, 5/5 strength in the arms and legs. DTRs 2+. Toes downgoing. Sensation normal. LUNGS: Clear. She is noted to be coughing. ABDOMEN: Benign. EXTREMITIES: No clubbing, cyanosis, or edema. DIAGNOSTIC DATA: She just came back from MRI of the brain. It shows that there is some chronic small vessel disease, but no acute infarctions. LABORATORY DATA: Her labs showed on 04/15/2018, she had a BUN of 70, creatinine 2.84, giving a calculated GFR of 19, which is very low. Her serum albumin is low at 3.2 and Dilantin level was 6.8 today and that is on Cerebyx, which is fosphenytoin 100 mg IV q.8 hours. IMPRESSION: Seizure disorder, unknown what is caused the seizure, possibly from small vessel disease, consider possibly a cardiac event. However, she has not had any complaints. Note that she did have an elevated prolactin level when she came in on 04/14/2018 and that level was 43.2, so that consistent with seizure as is her bitten tongue. Her calculated corrected Dilantin level today based on her low albumin and her renal problem shows that her Dilantin level is therapeutic at 15.8. IMPRESSION: Seizure disorder. PLAN: Discussed with the patient. I will switch her Cerebyx IV to oral Dilantin 300 mg extended release, one of those at bedtime. Also, I note that an EEG is pending for tomorrow and seizure precautions are discussed with her, and her test results and seizure are discussed with her. She is advised to seizure precautions, should not stay by herself, avoid tub baths and unprotected heights and dangerous machinery. She should not drive due to the seizure. Risk and benefit of Dilantin discussed with her. In the morning, we will get a followup Dilantin level, albumin level, BUN, and creatinine. Job ID: [id number]
[2018-04-15] MEDS: Ezetimibe 10 MG TAB PO SCH (21:21)
[2018-04-15] MEDS: Insulin Glargine 10 UNITS in Pre-Filled Syringe 1 EACH SC SCH (21:22)
[2018-04-15] MEDS: HYDROcodone/Acetaminophen 5/325 mg Tablet PO PRN (21:25)
[2018-04-16] MEDS: HYDROcodone/Acetaminophen 5/325 mg Tablet PO PRN ×3 (05:06→20:15)
[2018-04-16 06:50] LABS: Anion Gap 13 mmol/L (10-20); BUN (Urea Nitrogen) 73 mg/dL (9.8-20.1); Calc. Creatinine Clearance 19 mL/min (70-130); Calcium 8.9 mg/dL (7.8-10.44); Carbon Dioxide 28 mmol/L (23-31); Chloride 103 mmol/L (98-107); Dilantin 8.2 ug/mL (10.0-20.0); Estimated GFR-MDRD 18; Potassium 3.7 mmol/L (3.5-5.1); Sodium 140 mmol/L (136-145)
[2018-04-16 07:16] LABS: Glucose 37 mg/dL (83-110)
[2018-04-16] MEDS: Acetaminophen 325 MG TAB PO PRN (08:39)
[2018-04-16] MEDS: Lisinopril 2.5 MG TAB PO SCH (08:39)
[2018-04-16] MEDS: Folic Acid 1 MG TAB PO SCH (08:40)
[2018-04-16] MEDS: Gabapentin 100 MG CAP PO SCH ×3 (08:40→20:15)
[2018-04-16] MEDS: cloNIDine 0.3 MG TAB PO SCH ×2 (08:40→20:15)
[2018-04-16] MEDS: hydrALAZINE 25 MG TAB PO SCH ×3 (08:42→20:16)
[2018-04-16] MEDS: Cyanocobalamin (Vitamin B-12) 1,000 MCG TAB PO SCH (08:43)
[2018-04-16] MEDS: Carvedilol 25 MG TAB PO SCH ×2 (08:43→18:22)
[2018-04-16] MEDS: Ferrous Sulfate 325 MG TAB PO SCH (08:44)
[2018-04-16] MEDS: Aspirin 81 mg Enteric Coated Tablet PO SCH (08:44)
[2018-04-16] MEDS: HumaLOG 300 UNITS/3 ML VIAL SC PRN (10:55)
--- NOTE | 2018-04-16 11:42 | DIS ---
DATE OF ADMISSION: 04/14/2018 DATE OF DISCHARGE: 04/16/2018 PRIMARY CARE PHYSICIAN: Dr. Amilcar Mascorro. DISCHARGE DISPOSITION: [facility] Home. PRIMARY DISCHARGE DIAGNOSES: 1. New onset seizure. 2. Hypoglycemia associated with insulin use. SECONDARY DISCHARGE DIAGNOSES: Ugfzgnpi-[id number] aortic stenosis, hypertension, history of unilateral nephrectomy, dyslipidemia, diabetes type 2, chronic diastolic heart failure stage C, anemia of renal disease, CKD stage 4, and physical deconditioning. PRIMARY PROCEDURE/OPERATION: EEG radiological investigation; MRI brain showed no acute intracranial process; CT brain negative for any acute intracranial process; chest x-ray was normal. LABORATORY DATA: Significant labs; WBC 6.8, hemoglobin 8.1, and platelet 241. Sodium 140, potassium 3.7, BUN 73, creatinine 3.07, calcium 8.9, albumin 3.3. Urinalysis unremarkable. DISCHARGE MEDICATIONS: 1. Bumex 2 mg daily. 2. Clonidine 0.3 mg b.i.d. 3. Zetia 10 mg p.o. daily. 4. Ferrous sulfate 325 mg p.o. daily. 5. Gabapentin 100 mg t.i.d. 6. Lisinopril 2.5 mg p.o. daily. 7. MiraLAX 17 mg p.o. daily. 8. Aspirin 81 mg daily. 9. Coreg 25 mg p.o. b.i.d. 10. Vitamin B12 of 1000 mcg p.o. daily. 11. Folic acid 1 mg daily. 12. Humalog insulin as per sliding scale. 13. Hydralazine 100 mg t.i.d. 14. Lantus 5 units subcu daily. 15. Protonix 40 mg p.o. daily. 16. Dilantin 300 mg p.o. at bedtime. CONTRAINDICATION: None. CODE STATUS: Full code. INPATIENT OFFICE MACHINE PUNCH OPERATOR: Dr. Florinda Pettit, neurologist, was following while in hospital. TEST RESULTS PENDING ON DISCHARGE: None. ALLERGIES: NO KNOWN DRUG ALLERGIES. DISCHARGE PLAN: Posthospital, the patient will follow up with Dr. Mascorro at senior living. HOSPITAL COURSE: A 77-year-old female, who was admitted by me. Please see my HPI for further details. This patient is at senior living, where she had generalized tonic-clonic seizure, which was witnessed and the patient had tongue bite. She was sent to emergency room. She was in postictal phase. Her prolactin was elevated. Initial CT brain was negative for any acute intracranial process. She was admitted to Stroke floor. We did neuro check while in hospital. She did not have any focal neurological deficit. We did MRI brain that was negative for an acute process. Neurology saw this patient while in hospital and they recommended to start Dilantin therapy. The patient did not have any further seizure while in the hospital. She had EEG, but official report is pending. The patient is seen and examined at bedside today. Plan of care discussed with the patient's son at bedside. REVIEW OF SYSTEMS: All review of systems reviewed with her and negative. PHYSICAL EXAMINATION: VITAL SIGNS: Currently; temperature 98.5, pulse 69, blood pressure 127/59, saturation 98% on room air. Weight 174 pounds. GENERAL: The patient is currently alert, awake. No obvious acute distress. HEENT: Head; normocephalic, atraumatic. Eyes; pupils round, reactive to light. Extraocular muscles are intact. ENT; oropharynx within normal limits. Moist mucous membranes. No oral lesion. No pharyngeal erythema. No exudate. NECK: Supple. No JVD. No thyromegaly. No carotid bruit. CARDIAC: S1, S2 regular without any murmur. ABDOMEN: Soft and benign without any tenderness. EXTREMITIES: No edema. NEUROLOGIC: Nonfocal examination. Overall, the patient is medically stable for discharge today. Paper work for discharge done and discharge medication reconciliation done. This patient is at high risk for recurrent admission. Job ID: [id number]
[2018-04-16] MEDS: Ondansetron ODT 4 MG TAB PO PRN (12:52)
[2018-04-16] MEDS ORDERED: Sodium Chloride 0.9% 500 ML IVPB SCH (15:30)
[2018-04-16 16:56] VITALS: BMI 28.9
[2018-04-16] MEDS: Ezetimibe 10 MG TAB PO SCH (20:14)
[2018-04-16] MEDS ORDERED: Insulin Glargine 5 UNITS in Pre-Filled Syringe 1 EACH SC SCH (21:00)
[2018-04-17] MEDS: Acetaminophen 325 MG TAB PO PRN ×3 (00:40→14:27)
[2018-04-17] MEDS: Ferrous Sulfate 325 MG TAB PO SCH (08:11)
[2018-04-17] MEDS: Ondansetron ODT 4 MG TAB PO PRN (08:11)
[2018-04-17] MEDS: Carvedilol 25 MG TAB PO SCH ×2 (08:11→16:41)
[2018-04-17] MEDS: Aspirin 81 mg Enteric Coated Tablet PO SCH (08:11)
[2018-04-17] MEDS: Cyanocobalamin (Vitamin B-12) 1,000 MCG TAB PO SCH (08:12)
[2018-04-17] MEDS: Gabapentin 100 MG CAP PO SCH ×3 (08:12→20:56)
[2018-04-17] MEDS: hydrALAZINE 25 MG TAB PO SCH ×3 (08:12→20:56)
[2018-04-17] MEDS: Folic Acid 1 MG TAB PO SCH (08:20)
--- NOTE | 2018-04-17 08:51 | EEG ---
Referring Physician: Jessica HERCULES EEG # [id number] TEST TYPE: ROUTINE PORTABLE INPATIENT REPORT: AN EEG USING THE INTERNATIONAL TEN-TWENTY SYSTEM OF ELECTRODE PLACEMENT WAS PERFORMED. The waking background is a medium amplitude alpha frequency. The patient remained awake throughout the study. Photic stimulation was unremarkable. No epileptiform features were present. IMPRESSION: THIS IS A NORMAL AWAKE EEG. Telephone Order Clerk Room Service: [email or web address] Curriculum Consultant: [email or web address] FALCON
[2018-04-17] MEDS ORDERED: Simethicone Chewable 80 MG TAB PO PRN (09:18)
[2018-04-17] MEDS: HumaLOG 300 UNITS/3 ML VIAL SC PRN ×2 (10:37→21:23)
--- NOTE | 2018-04-17 10:48 | PDOC.PN ---
- Subjective Encounter Start Date: 04/17/18 Encounter Start Time: 07:15 Patient seen and examined. No new complaints. No overnight events - Objective Resuscitation Status - Order Detail: 04/14/18 13:03 Resuscitation Status Routine Resuscitation Status: FULL: Full Resuscitation MAR Reviewed: Yes Vital Signs & Weight: Vital Signs (12 hours) Temp Pulse Resp BP BP Pulse Ox 04/17/18 08:12 82 153/66 H 04/17/18 08:00 98.9 F 81 16 153/66 H 94 L 04/17/18 04:00 98.4 F 83 18 151/67 H 95 04/17/18 00:00 98.4 F 80 20 147/64 H 93 L Weight Weight 178 lb I&O: 04/16/18 04/17/18 04/18/18 06:59 06:59 06:59 Intake Total 1300 3160 Balance 1300 3160 Result Diagrams: 04/15/18 04:53 04/16/18 05:05 Additional Labs: Accuchecks 04/17/18 04/16/18 04/16/18 05:36 20:16 16:46 POC Glucose 125 H 97 99 04/16/18 10:45 POC Glucose 336 H EKG Reviewed by me: Yes (nsr) Phys Exam - Physical Examination Constitutional: NAD HEENT: PERRLA, moist MMs, sclera anicteric Neck: no JVD, supple Respiratory: no wheezing, no rales, no rhonchi Cardiovascular: RRR, no rub SM+ Gastrointestinal: soft, non-tender, no distention, positive bowel sounds Musculoskeletal: no edema, pulses present Neurological: non-focal, normal sensation Lymphatic: no nodes Psychiatric: normal affect, A&O x 3 Skin: no rash, normal turgor Dx/Plan (1) Seizure Code(s): R56.9 - UNSPECIFIED CONVULSIONS Status: Acute (2) Anemia of renal disease Code(s): N18.9 - CHRONIC KIDNEY DISEASE, UNSPECIFIED; D63.1 - ANEMIA IN CHRONIC KIDNEY DISEASE Status: Chronic (3) Chronic stage c diastolic heart failure Code(s): I50.32 - CHRONIC DIASTOLIC (CONGESTIVE) HEART FAILURE Status: Chronic (4) DM2 (diabetes mellitus, type 2) Status: Chronic Qualifiers: Comment: (5) Dyslipidemia Code(s): E78.5 - HYPERLIPIDEMIA, UNSPECIFIED Status: Chronic (6) H/O unilateral nephrectomy Code(s): Z90.5 - ACQUIRED ABSENCE OF KIDNEY Status: Chronic (7) Hypertension Code(s): I10 - ESSENTIAL (PRIMARY) HYPERTENSION Status: Chronic Qualifiers: Comment: (8) Moderate aortic stenosis Code(s): I35.0 - NONRHEUMATIC AORTIC (VALVE) STENOSIS Status: Chronic - Plan cont current plan of care * medication reviewed as below * symptomatic treatment * once insurance approves, will consider discharge * discussed with son * add simethicon for gas pain. Review of Systems - Review of Systems ENT: negative: Ear Pain, Ear Discharge, Nose Pain, Nose Discharge, Nose Congestion, Mouth Pain, Mouth Swelling, Throat Pain, Throat Swelling, Other Respiratory: negative: Cough, Dry, Shortness of Breath, Hemoptysis, SOB with Excertion, Pleuritic Pain, Sputum, Wheezing Cardiovascular: negative: chest pain, palpitations, orthopnea, paroxysmal nocturnal dyspnea, edema, light headedness, other Gastrointestinal: negative: Nausea, Vomiting, Abdominal Pain, Diarrhea, Constipation, Melena, Hematochezia, Other Genitourinary: negative: Dysuria, Frequency, Incontinence, Hematuria, Retention , Other Musculoskeletal: negative: Neck Pain, Shoulder Pain, Arm Pain, Back Pain, Hand Pain, Leg Pain, Foot Pain, Other - Medications/Allergies Allergies/Adverse Reactions: Allergies Allergy/AdvReac Type Severity Reaction Status Date / Time No Known Allergies Allergy Verified 04/14/18 15:15 Medications: Current Medications Acetaminophen (Tylenol) 650 mg PO Q4H PRN PRN Reason: Headache/Fever/Mild Pain (1-3) Last Admin: 04/17/18 08:12 Dose: 650 mg Hydrocodone Bitart/Acetaminophen ([place] 5/325) 1 tab PO Q4H PRN PRN Reason: Moderate Pain (4-6) Last Admin: 04/16/18 20:15 Dose: 1 tab Artificial Tears (Tears Naturale) 2 drop EA EYE PRN PRN PRN Reason: Dry Eyes Aspirin (Ecotrin) 81 mg PO DAILY [facility] Last Admin: 04/17/18 08:11 Dose: 81 mg Benzocaine (Orajel 20%) 0 gm TOP DAILYPRN PRN PRN Reason: Mouth Irritation Bisacodyl (Dulcolax) 10 mg [place] DAILYPRN PRN PRN Reason: Constipation Bisacodyl (Dulcolax) 10 mg PO DAILYPRN PRN PRN Reason: Constipation Calcium Carbonate (Tums) 1,000 mg PO Q4H PRN PRN Reason: Heartburn or Indigestion Carvedilol (Coreg) 25 mg PO BID-[facility] Last Admin: 04/17/18 08:11 Dose: 25 mg Clonidine (Catapres) 0.1 mg PO Q4H PRN PRN Reason: SBP Greater Than 180 Cyanocobalamin (Vitamin B-12) 1,000 mcg PO DAILY [facility] Last Admin: 04/17/18 08:12 Dose: 1,000 mcg Dextrose/Water (Dextrose 50%) 25 gm SLOW IVP PRN PRN PRN Reason: Hypoglycemia Ezetimibe (Zetia) 10 mg PO [facility] Last Admin: 04/16/18 20:14 Dose: 10 mg Ferrous Sulfate (Feosol) 325 mg PO DAILY [facility] Last Admin: 04/17/18 08:11 Dose: 325 mg Folic Acid (Folvite) 1 mg PO DAILY [facility] Last Admin: 04/17/18 08:20 Dose: 1 mg Gabapentin (Neurontin) 100 mg PO TID [facility] Last Admin: 04/17/18 08:12 Dose: 100 mg Glucagon (Glucagon) 1 mg IM PRN PRN PRN Reason: Hypoglycemia Guaifenesin (Robitussin Sf) 200 mg PO Q4H PRN PRN Reason: Cough Last Admin: 04/15/18 03:32 Dose: 200 mg Hydralazine HCl (Apresoline) 10 mg SLOW IVP Q4H PRN PRN Reason: SBP > 180 and HR < 70 Hydralazine HCl (Apresoline) 25 mg PO TID [facility] Last Admin: 04/17/18 08:12 Dose: 25 mg Dextrose/Water (D5w) 1,000 mls @ 0 mls/hr IV .Q0M PRN PRN Reason: Hypoglycemia Insulin Human Lispro (Humalog) 0 units SC .MODERATE SLIDING SC PRN PRN Reason: Moderate Correctional Scale Last Admin: 04/17/18 10:37 Dose: 4 unit Insulin Human Lispro (Humalog) 0 units SC .BEDTIME SLIDING SC PRN PRN Reason: Bedtime Correctional Scale Loperamide HCl (Imodium) 2 mg PO PRN PRN PRN Reason: Diarrhea/Loose Stools Loratadine (Claritin) 10 mg PO DAILYPRN PRN PRN Reason: Sinus Symptoms Lorazepam (Ativan) 1 mg SLOW IVP Q15MIN PRN PRN Reason: Seizures Mineral Oil/White Petrolatum (Eucerin Cream) 0 gm TOP BIDPRN PRN PRN Reason: Dry Skin Nitroglycerin (Nitrostat) 0.4 mg SL Q5MIN PRN PRN Reason: Chest Pain Ondansetron HCl (Zofran Odt) 4 mg PO Q6H PRN PRN Reason: Nausea/Vomiting Last Admin: 04/17/18 08:11 Dose: 4 mg Ondansetron HCl (Zofran) 4 mg IVP Q6H PRN PRN Reason: Nausea/Vomiting Pantoprazole Sodium (Protonix) 40 mg PO DAILY [facility] Last Admin: 04/17/18 08:11 Dose: 40 mg Phenytoin Sodium (Dilantin Er) 300 mg PO HS [facility] Last Admin: 04/16/18 20:14 Dose: 300 mg Polyethylene Glycol (Miralax) 17 gm PO DAILY PRN PRN Reason: Constipation Polyethylene Glycol (Miralax) 17 gm PO DAILY [facility] Senna/Docusate Sodium (Senokot S) 2 tab PO BID PRN PRN Reason: Constipation Last Admin: 04/16/18 08:38 Dose: 2 tab Simethicone (Mylicon Chewable) 80 mg PO [facility] PRN PRN Reason: Gas Pain Sodium Chloride ([place] Nasal [place] 0.65%) 0 ml EA NARE QIDPRN PRN PRN Reason: Nasal Congestion Sodium Chloride (Flush - Normal Saline) 10 ml IVF Q12HR [facility] Last Admin: 04/17/18 08:13 Dose: 10 ml Sodium Chloride (Flush - Normal Saline) 10 ml IVF PRN PRN PRN Reason: Saline Flush Zolpidem Tartrate (Ambien) 5 mg PO HSPRN PRN PRN Reason: Insomnia
--- NOTE | 2018-04-17 13:33 | EKG ---
Test Reason : ER INDICATION Blood Pressure : / mmHG Vent. Rate : 062 BPM Atrial Rate : 062 BPM P-R Int : 238 ms QRS Dur : 106 ms QT Int : 504 ms P-R-T Axes : 052 001 134 degrees QTc Int : 511 ms Sinus rhythm with 1st degree A-V block Possible Left atrial enlargement Septal infarct , age undetermined T wave abnormality, consider lateral ischemia Prolonged QT Abnormal ECG Confirmed by [place] SHAY, MAREK ([id number]), news video editor CAILIN BEAR ([id number]) on 04/17/2018 1:32:54 PM Referred By: Confirmed By:MAREK PARIS MD
[2018-04-17] MEDS: Diabetic Tussin 200 MG/10 ML UDCUP PO PRN (14:28)
[2018-04-17] MEDS: cloNIDine 0.1 MG TAB PO PRN (15:11)
[2018-04-17] MEDS: Ezetimibe 10 MG TAB PO SCH (20:56)
[2018-04-18] MEDS: cloNIDine 0.1 MG TAB PO PRN ×2 (01:36→20:58)
[2018-04-18] MEDS: Diabetic Tussin 200 MG/10 ML UDCUP PO PRN ×3 (01:36→20:59)
[2018-04-18] MEDS: hydrALAZINE 20 MG/ML VIAL SLOW IVP PRN (03:02)
[2018-04-18] MEDS: Polyethylene Glycol 3350 17 GM Packet PO SCH (08:41)
[2018-04-18] MEDS: Gabapentin 100 MG CAP PO SCH ×3 (08:42→20:59)
[2018-04-18] MEDS: Aspirin 81 mg Enteric Coated Tablet PO SCH (08:42)
[2018-04-18] MEDS: hydrALAZINE 25 MG TAB PO SCH ×3 (08:42→20:59)
[2018-04-18] MEDS: Carvedilol 25 MG TAB PO SCH ×2 (08:42→16:19)
[2018-04-18] MEDS: Cyanocobalamin (Vitamin B-12) 1,000 MCG TAB PO SCH (08:42)
[2018-04-18] MEDS: Folic Acid 1 MG TAB PO SCH (08:42)
[2018-04-18] MEDS: Ferrous Sulfate 325 MG TAB PO SCH (08:42)
--- NOTE | 2018-04-18 09:31 | PDOC.PN ---
- Subjective Encounter Start Date: 04/18/18 Encounter Start Time: 07:20 Patient seen and examined. No new complaints. No overnight events - Objective Resuscitation Status - Order Detail: 04/14/18 13:03 Resuscitation Status Routine Resuscitation Status: FULL: Full Resuscitation MAR Reviewed: Yes Vital Signs & Weight: Vital Signs (12 hours) Temp Pulse Resp BP BP Pulse Ox 04/18/18 08:42 93 138/61 04/18/18 08:00 98.8 F 93 18 138/61 91 L 04/18/18 04:00 98.4 F 85 18 180/69 H 96 04/18/18 03:02 80 190/81 H 04/18/18 02:53 190/81 H 04/18/18 01:36 197/77 H 04/18/18 00:00 98.5 F 78 20 183/81 H 100 Weight Weight 178 lb I&O: 04/17/18 04/18/18 04/19/18 06:59 06:59 06:59 Intake Total 3160 1790 Balance 3160 1790 Result Diagrams: 04/15/18 04:53 04/16/18 05:05 Additional Labs: Accuchecks 04/18/18 04/17/18 04/17/18 07:56 20:56 16:42 POC Glucose 138 H 224 H 140 H 04/17/18 10:32 POC Glucose 233 H Phys Exam - Physical Examination Constitutional: NAD HEENT: PERRLA, moist MMs, sclera anicteric Neck: no JVD, supple Respiratory: no wheezing, no rales, no rhonchi Cardiovascular: RRR, no rub SM+ at aortic area Gastrointestinal: soft, non-tender, no distention, positive bowel sounds Musculoskeletal: no edema, pulses present Neurological: non-focal, normal sensation Lymphatic: no nodes Psychiatric: normal affect Skin: no rash, normal turgor Dx/Plan (1) Seizure Code(s): R56.9 - UNSPECIFIED CONVULSIONS Status: Acute (2) Anemia of renal disease Code(s): N18.9 - CHRONIC KIDNEY DISEASE, UNSPECIFIED; D63.1 - ANEMIA IN CHRONIC KIDNEY DISEASE Status: Chronic (3) Chronic stage c diastolic heart failure Code(s): I50.32 - CHRONIC DIASTOLIC (CONGESTIVE) HEART FAILURE Status: Chronic (4) DM2 (diabetes mellitus, type 2) Status: Chronic Qualifiers: Comment: (5) Dyslipidemia Code(s): E78.5 - HYPERLIPIDEMIA, UNSPECIFIED Status: Chronic (6) H/O unilateral nephrectomy Code(s): Z90.5 - ACQUIRED ABSENCE OF KIDNEY Status: Chronic (7) Hypertension Code(s): I10 - ESSENTIAL (PRIMARY) HYPERTENSION Status: Chronic Qualifiers: Comment: (8) Moderate aortic stenosis Code(s): I35.0 - NONRHEUMATIC AORTIC (VALVE) STENOSIS Status: Chronic - Plan cont current plan of care, plan discussed w/ family, clinical social work therapist * will start PT in hospital * await insurance authorization for SNU * medication reviewed as below * symptomatic treatment * medically stable * discussed with son. Review of Systems - Review of Systems ENT: negative: Ear Pain, Ear Discharge, Nose Pain, Nose Discharge, Nose Congestion, Mouth Pain, Mouth Swelling, Throat Pain, Throat Swelling, Other Respiratory: negative: Cough, Dry, Shortness of Breath, Hemoptysis, SOB with Excertion, Pleuritic Pain, Sputum, Wheezing Cardiovascular: negative: chest pain, palpitations, orthopnea, paroxysmal nocturnal dyspnea, edema, light headedness, other Gastrointestinal: negative: Nausea, Vomiting, Abdominal Pain, Diarrhea, Constipation, Melena, Hematochezia, Other Genitourinary: negative: Dysuria, Frequency, Incontinence, Hematuria, Retention , Other Musculoskeletal: negative: Neck Pain, Shoulder Pain, Arm Pain, Back Pain, Hand Pain, Leg Pain, Foot Pain, Other Skin: negative: Rash, Lesions, Anselmo, Bruising, Other - Medications/Allergies Allergies/Adverse Reactions: Allergies Allergy/AdvReac Type Severity Reaction Status Date / Time No Known Allergies Allergy Verified 04/14/18 15:15 Medications: Current Medications Acetaminophen (Tylenol) 650 mg PO Q4H PRN PRN Reason: Headache/Fever/Mild Pain (1-3) Last Admin: 04/17/18 14:27 Dose: 650 mg Hydrocodone Bitart/Acetaminophen ([place] 5/325) 1 tab PO Q4H PRN PRN Reason: Moderate Pain (4-6) Last Admin: 04/16/18 20:15 Dose: 1 tab Artificial Tears (Tears Naturale) 2 drop EA EYE PRN PRN PRN Reason: Dry Eyes Aspirin (Ecotrin) 81 mg PO DAILY [facility] Last Admin: 04/18/18 08:42 Dose: 81 mg Benzocaine (Orajel 20%) 0 gm TOP DAILYPRN PRN PRN Reason: Mouth Irritation Bisacodyl (Dulcolax) 10 mg [place] DAILYPRN PRN PRN Reason: Constipation Bisacodyl (Dulcolax) 10 mg PO DAILYPRN PRN PRN Reason: Constipation Calcium Carbonate (Tums) 1,000 mg PO Q4H PRN PRN Reason: Heartburn or Indigestion Carvedilol (Coreg) 25 mg PO BID-[facility] Last Admin: 04/18/18 08:42 Dose: 25 mg Clonidine (Catapres) 0.1 mg PO Q4H PRN PRN Reason: SBP Greater Than 180 Last Admin: 04/18/18 01:36 Dose: 0.1 mg Cyanocobalamin (Vitamin B-12) 1,000 mcg PO DAILY [facility] Last Admin: 04/18/18 08:42 Dose: 1,000 mcg Dextrose/Water (Dextrose 50%) 25 gm SLOW IVP PRN PRN PRN Reason: Hypoglycemia Ezetimibe (Zetia) 10 mg PO HS [facility] Last Admin: 04/17/18 20:56 Dose: 10 mg Ferrous Sulfate (Feosol) 325 mg PO DAILY [facility] Last Admin: 04/18/18 08:42 Dose: 325 mg Folic Acid (Folvite) 1 mg PO DAILY [facility] Last Admin: 04/18/18 08:42 Dose: 1 mg Gabapentin (Neurontin) 100 mg PO TID [facility] Last Admin: 04/18/18 08:42 Dose: 100 mg Glucagon (Glucagon) 1 mg IM PRN PRN PRN Reason: Hypoglycemia Guaifenesin (Robitussin Sf) 200 mg PO Q4H PRN PRN Reason: Cough Last Admin: 04/18/18 08:41 Dose: 200 mg Hydralazine HCl (Apresoline) 10 mg SLOW IVP Q4H PRN PRN Reason: SBP > 180 and HR < 70 Last Admin: 04/18/18 03:02 Dose: 10 mg Hydralazine HCl (Apresoline) 25 mg PO TID [facility] Last Admin: 04/18/18 08:42 Dose: 25 mg Dextrose/Water (D5w) 1,000 mls @ 0 mls/hr IV .Q0M PRN PRN Reason: Hypoglycemia Insulin Human Lispro (Humalog) 0 units SC .MODERATE SLIDING SC PRN PRN Reason: Moderate Correctional Scale Last Admin: 04/17/18 10:37 Dose: 4 unit Insulin Human Lispro (Humalog) 0 units SC .BEDTIME SLIDING SC PRN PRN Reason: Bedtime Correctional Scale Last Admin: 04/17/18 21:23 Dose: 2 unit Loperamide HCl (Imodium) 2 mg PO PRN PRN PRN Reason: Diarrhea/Loose Stools Loratadine (Claritin) 10 mg PO DAILYPRN PRN PRN Reason: Sinus Symptoms Lorazepam (Ativan) 1 mg SLOW IVP Q15MIN PRN PRN Reason: Seizures Mineral Oil/White Petrolatum (Eucerin Cream) 0 gm TOP BIDPRN PRN PRN Reason: Dry Skin Nitroglycerin (Nitrostat) 0.4 mg SL Q5MIN PRN PRN Reason: Chest Pain Ondansetron HCl (Zofran Odt) 4 mg PO Q6H PRN PRN Reason: Nausea/Vomiting Last Admin: 04/17/18 08:11 Dose: 4 mg Ondansetron HCl (Zofran) 4 mg IVP Q6H PRN PRN Reason: Nausea/Vomiting Pantoprazole Sodium (Protonix) 40 mg PO DAILY [facility] Last Admin: 04/18/18 08:42 Dose: 40 mg Phenytoin Sodium (Dilantin Er) 300 mg PO [facility] Last Admin: 04/17/18 20:56 Dose: 300 mg Polyethylene Glycol (Miralax) 17 gm PO DAILY PRN PRN Reason: Constipation Polyethylene Glycol (Miralax) 17 gm PO DAILY [facility] Last Admin: 04/18/18 08:41 Dose: 17 gm Senna/Docusate Sodium (Senokot S) 2 tab PO BID PRN PRN Reason: Constipation Last Admin: 04/16/18 08:38 Dose: 2 tab Simethicone (Mylicon Chewable) 80 mg PO PCHS PRN PRN Reason: Gas Pain Sodium Chloride ([place] Nasal [place] 0.65%) 0 ml EA NARE QIDPRN PRN PRN Reason: Nasal Congestion Sodium Chloride (Flush - Normal Saline) 10 ml IVF Q12HR [facility] Last Admin: 04/18/18 08:42 Dose: 10 ml Sodium Chloride (Flush - Normal Saline) 10 ml IVF PRN PRN PRN Reason: Saline Flush Zolpidem Tartrate (Ambien) 5 mg PO HSPRN PRN PRN Reason: Insomnia
[2018-04-18] MEDS: Acetaminophen 325 MG TAB PO PRN ×2 (16:19→21:15)
[2018-04-18] MEDS: Ezetimibe 10 MG TAB PO SCH (20:59)
[2018-04-18] MEDS: HumaLOG 300 UNITS/3 ML VIAL SC PRN (22:38)
[2018-04-19] MEDS: hydrALAZINE 20 MG/ML VIAL SLOW IVP PRN (03:33)
[2018-04-19] MEDS: cloNIDine 0.1 MG TAB PO PRN ×2 (03:33→20:03)
[2018-04-19] MEDS: Cyanocobalamin (Vitamin B-12) 1,000 MCG TAB PO SCH (09:04)
[2018-04-19] MEDS: Folic Acid 1 MG TAB PO SCH (09:04)
[2018-04-19] MEDS: Gabapentin 100 MG CAP PO SCH ×3 (09:04→20:00)
[2018-04-19] MEDS: Carvedilol 25 MG TAB PO SCH ×2 (09:04→16:10)
[2018-04-19] MEDS: Ferrous Sulfate 325 MG TAB PO SCH (09:05)
[2018-04-19] MEDS: hydrALAZINE 25 MG TAB PO SCH ×3 (09:05→20:00)
[2018-04-19] MEDS: Aspirin 81 mg Enteric Coated Tablet PO SCH (09:05)
[2018-04-19] MEDS: Polyethylene Glycol 3350 17 GM Packet PO SCH (09:05)
--- NOTE | 2018-04-19 11:28 | PDOC.PN ---
- Subjective Encounter Start Date: 04/19/18 Encounter Start Time: 07:45 Patient seen and examined. No new complaints. No overnight events - Objective Resuscitation Status - Order Detail: 04/14/18 13:03 Resuscitation Status Routine Resuscitation Status: FULL: Full Resuscitation MAR Reviewed: Yes Vital Signs & Weight: Vital Signs (12 hours) Temp Pulse Resp BP BP Pulse Ox 04/19/18 09:05 88 04/19/18 08:00 98.4 F 88 18 98 04/19/18 03:33 84 198/86 H 04/19/18 03:14 99.0 F 84 16 198/86 H 96 04/18/18 23:41 98.4 F 86 16 147/67 H 94 L Weight Weight 177 lb 8 oz I&O: 04/18/18 04/19/18 04/20/18 06:59 06:59 06:59 Intake Total 1790 1210 Balance 1790 1210 Result Diagrams: 04/15/18 04:53 04/16/18 05:05 Additional Labs: Accuchecks 04/19/18 04/18/18 04/18/18 10:45 21:09 17:06 POC Glucose 150 H 216 H 154 H 04/18/18 10:45 POC Glucose 150 H Phys Exam - Physical Examination Constitutional: NAD HEENT: PERRLA, moist MMs, sclera anicteric Neck: no JVD, supple Respiratory: no wheezing, no rales, no rhonchi Cardiovascular: RRR, no rub sm+ Gastrointestinal: soft, non-tender, no distention, positive bowel sounds Musculoskeletal: no edema, pulses present Neurological: non-focal, normal sensation, moves all 4 limbs Lymphatic: no nodes Psychiatric: normal affect, A&O x 3 Skin: no rash, normal turgor Dx/Plan (1) Seizure Code(s): R56.9 - UNSPECIFIED CONVULSIONS Status: Acute (2) Anemia of renal disease Code(s): N18.9 - CHRONIC KIDNEY DISEASE, UNSPECIFIED; D63.1 - ANEMIA IN CHRONIC KIDNEY DISEASE Status: Chronic (3) Chronic stage c diastolic heart failure Code(s): I50.32 - CHRONIC DIASTOLIC (CONGESTIVE) HEART FAILURE Status: Chronic (4) DM2 (diabetes mellitus, type 2) Status: Chronic Qualifiers: Comment: (5) Dyslipidemia Code(s): E78.5 - HYPERLIPIDEMIA, UNSPECIFIED Status: Chronic (6) H/O unilateral nephrectomy Code(s): Z90.5 - ACQUIRED ABSENCE OF KIDNEY Status: Chronic (7) Hypertension Code(s): I10 - ESSENTIAL (PRIMARY) HYPERTENSION Status: Chronic Qualifiers: Comment: (8) Moderate aortic stenosis Code(s): I35.0 - NONRHEUMATIC AORTIC (VALVE) STENOSIS Status: Chronic - Plan cont current plan of care, plan discussed w/ family, PT/OT, home health care social worker * i spoke with peer to peer for her approval to snu, they need PT/OT finding * will await response after that * updated to son * medication reviewed as below * symptomatic treatment * overall stable. Review of Systems - Review of Systems Constitutional: weakness. negative: fever, chills, sweats, malaise, other ENT: negative: Ear Pain, Ear Discharge, Nose Pain, Nose Discharge, Nose Congestion, Mouth Pain, Mouth Swelling, Throat Pain, Throat Swelling, Other Respiratory: negative: Cough, Dry, Shortness of Breath, Hemoptysis, SOB with Excertion, Pleuritic Pain, Sputum, Wheezing Cardiovascular: negative: chest pain, palpitations, orthopnea, paroxysmal nocturnal dyspnea, edema, light headedness, other Gastrointestinal: negative: Nausea, Vomiting, Abdominal Pain, Diarrhea, Constipation, Melena, Hematochezia, Other Genitourinary: negative: Dysuria, Frequency, Incontinence, Hematuria, Retention , Other Musculoskeletal: negative: Neck Pain, Shoulder Pain, Arm Pain, Back Pain, Hand Pain, Leg Pain, Foot Pain, Other Skin: negative: Rash, Lesions, Anselmo, Bruising, Other - Medications/Allergies Allergies/Adverse Reactions: Allergies Allergy/AdvReac Type Severity Reaction Status Date / Time No Known Allergies Allergy Verified 04/14/18 15:15 Medications: Current Medications Acetaminophen (Tylenol) 650 mg PO Q4H PRN PRN Reason: Headache/Fever/Mild Pain (1-3) Last Admin: 04/18/18 21:15 Dose: 650 mg Hydrocodone Bitart/Acetaminophen ([place] 5/325) 1 tab PO Q4H PRN PRN Reason: Moderate Pain (4-6) Last Admin: 04/16/18 20:15 Dose: 1 tab Artificial Tears (Tears Naturale) 2 drop EA EYE PRN PRN PRN Reason: Dry Eyes Aspirin (Ecotrin) 81 mg PO DAILY [facility] Last Admin: 04/19/18 09:05 Dose: 81 mg Benzocaine (Orajel 20%) 0 gm TOP DAILYPRN PRN PRN Reason: Mouth Irritation Bisacodyl (Dulcolax) 10 mg [place] DAILYPRN PRN PRN Reason: Constipation Bisacodyl (Dulcolax) 10 mg PO DAILYPRN PRN PRN Reason: Constipation Calcium Carbonate (Tums) 1,000 mg PO Q4H PRN PRN Reason: Heartburn or Indigestion Carvedilol (Coreg) 25 mg PO BID-[facility] Last Admin: 04/19/18 09:04 Dose: 25 mg Clonidine (Catapres) 0.1 mg PO Q4H PRN PRN Reason: SBP Greater Than 180 Last Admin: 04/19/18 03:33 Dose: 0.1 mg Cyanocobalamin (Vitamin B-12) 1,000 mcg PO DAILY [facility] Last Admin: 04/19/18 09:04 Dose: 1,000 mcg Dextrose/Water (Dextrose 50%) 25 gm SLOW IVP PRN PRN PRN Reason: Hypoglycemia Ezetimibe (Zetia) 10 mg PO HS [facility] Last Admin: 04/18/18 20:59 Dose: 10 mg Ferrous Sulfate (Feosol) 325 mg PO DAILY [facility] Last Admin: 04/19/18 09:05 Dose: 325 mg Folic Acid (Folvite) 1 mg PO DAILY [facility] Last Admin: 04/19/18 09:04 Dose: 1 mg Gabapentin (Neurontin) 100 mg PO TID [facility] Last Admin: 04/19/18 09:04 Dose: 100 mg Glucagon (Glucagon) 1 mg IM PRN PRN PRN Reason: Hypoglycemia Guaifenesin (Robitussin Sf) 200 mg PO Q4H PRN PRN Reason: Cough Last Admin: 04/18/18 20:59 Dose: 200 mg Hydralazine HCl (Apresoline) 10 mg SLOW IVP Q4H PRN PRN Reason: SBP > 180 and HR < 70 Last Admin: 04/19/18 03:33 Dose: 10 mg Hydralazine HCl (Apresoline) 25 mg PO TID [facility] Last Admin: 04/19/18 09:05 Dose: 25 mg Dextrose/Water (D5w) 1,000 mls @ 0 mls/hr IV .Q0M PRN PRN Reason: Hypoglycemia Insulin Human Lispro (Humalog) 0 units SC .MODERATE SLIDING SC PRN PRN Reason: Moderate Correctional Scale Last Admin: 04/17/18 10:37 Dose: 4 unit Insulin Human Lispro (Humalog) 0 units SC .BEDTIME SLIDING SC PRN PRN Reason: Bedtime Correctional Scale Last Admin: 04/18/18 22:38 Dose: 2 unit Loperamide HCl (Imodium) 2 mg PO PRN PRN PRN Reason: Diarrhea/Loose Stools Loratadine (Claritin) 10 mg PO DAILYPRN PRN PRN Reason: Sinus Symptoms Lorazepam (Ativan) 1 mg SLOW IVP Q15MIN PRN PRN Reason: Seizures Mineral Oil/White Petrolatum (Eucerin Cream) 0 gm TOP BIDPRN PRN PRN Reason: Dry Skin Nitroglycerin (Nitrostat) 0.4 mg SL Q5MIN PRN PRN Reason: Chest Pain Ondansetron HCl (Zofran Odt) 4 mg PO Q6H PRN PRN Reason: Nausea/Vomiting Last Admin: 04/17/18 08:11 Dose: 4 mg Ondansetron HCl (Zofran) 4 mg IVP Q6H PRN PRN Reason: Nausea/Vomiting Pantoprazole Sodium (Protonix) 40 mg PO DAILY [facility] Last Admin: 04/19/18 09:05 Dose: 40 mg Phenytoin Sodium (Dilantin Er) 300 mg PO HS [facility] Last Admin: 04/18/18 20:59 Dose: 300 mg Polyethylene Glycol (Miralax) 17 gm PO DAILY PRN PRN Reason: Constipation Polyethylene Glycol (Miralax) 17 gm PO DAILY [facility] Last Admin: 04/19/18 09:05 Dose: 17 gm Senna/Docusate Sodium (Senokot S) 2 tab PO BID PRN PRN Reason: Constipation Last Admin: 04/16/18 08:38 Dose: 2 tab Simethicone (Mylicon Chewable) 80 mg PO PCHS PRN PRN Reason: Gas Pain Sodium Chloride ([place] Nasal [place] 0.65%) 0 ml EA NARE QIDPRN PRN PRN Reason: Nasal Congestion Sodium Chloride (Flush - Normal Saline) 10 ml IVF Q12HR [facility] Last Admin: 04/19/18 09:05 Dose: 10 ml Sodium Chloride (Flush - Normal Saline) 10 ml IVF PRN PRN PRN Reason: Saline Flush Zolpidem Tartrate (Ambien) 5 mg PO HSPRN PRN PRN Reason: Insomnia
[2018-04-19] MEDS: Loratadine 10 MG TAB PO PRN ×2 (16:18→21:09)
[2018-04-19] MEDS: HumaLOG 300 UNITS/3 ML VIAL SC PRN (17:09)
[2018-04-19] MEDS: Ezetimibe 10 MG TAB PO SCH (20:00)
[2018-04-19] MEDS: Acetaminophen 325 MG TAB PO PRN (23:34)
[2018-04-20] MEDS: HumaLOG 300 UNITS/3 ML VIAL SC PRN (06:30)
[2018-04-20 08:23] VITALS: BP 174/70; TEMP 99.2
[2018-04-20] MEDS: Ondansetron ODT 4 MG TAB PO PRN (09:58)
[2018-04-20] MEDS: Carvedilol 25 MG TAB PO SCH (09:59)
[2018-04-20] MEDS: Cyanocobalamin (Vitamin B-12) 1,000 MCG TAB PO SCH (10:00)
[2018-04-20] MEDS: Folic Acid 1 MG TAB PO SCH (10:00)
[2018-04-20] MEDS: Ferrous Sulfate 325 MG TAB PO SCH (10:00)
[2018-04-20] MEDS: Gabapentin 100 MG CAP PO SCH (10:01)
[2018-04-20] MEDS: hydrALAZINE 25 MG TAB PO SCH (10:01)
[2018-04-20] MEDS: Aspirin 81 mg Enteric Coated Tablet PO SCH (10:01)
--- NOTE | 2018-04-20 11:08 | PDOC.PN ---
- Subjective Encounter Start Date: 04/20/18 Encounter Start Time: 07:20 Patient seen and examined. No new complaints. No overnight events - Objective Resuscitation Status - Order Detail: 04/14/18 13:03 Resuscitation Status Routine Resuscitation Status: FULL: Full Resuscitation MAR Reviewed: Yes Vital Signs & Weight: Vital Signs (12 hours) Temp Pulse Resp BP Pulse Ox 04/20/18 10:01 90 04/20/18 08:00 99.2 F 90 16 174/70 H 99 04/20/18 04:00 98.2 F 86 16 159/69 H 98 04/20/18 00:00 99.6 F 92 16 173/75 H 99 Weight Weight 180 lb I&O: 04/19/18 04/20/18 04/21/18 06:59 06:59 06:59 Intake Total 1210 1000 Balance 1210 1000 Result Diagrams: 04/15/18 04:53 04/16/18 05:05 Additional Labs: Accuchecks 04/20/18 04/19/18 04/19/18 05:57 21:05 16:55 POC Glucose 156 H 104 192 H 04/19/18 05:24 POC Glucose 104 Phys Exam - Physical Examination Constitutional: NAD HEENT: PERRLA, moist MMs, sclera anicteric Neck: no JVD, supple Respiratory: no wheezing, no rales, no rhonchi Cardiovascular: RRR, no significant murmur, no rub Gastrointestinal: soft, non-tender, no distention, positive bowel sounds Musculoskeletal: no edema, pulses present Neurological: non-focal, normal sensation, moves all 4 limbs Lymphatic: no nodes Psychiatric: normal affect, A&O x 3 Skin: no rash, normal turgor Dx/Plan (1) Seizure Code(s): R56.9 - UNSPECIFIED CONVULSIONS Status: Acute (2) Anemia of renal disease Code(s): N18.9 - CHRONIC KIDNEY DISEASE, UNSPECIFIED; D63.1 - ANEMIA IN CHRONIC KIDNEY DISEASE Status: Chronic (3) Chronic stage c diastolic heart failure Code(s): I50.32 - CHRONIC DIASTOLIC (CONGESTIVE) HEART FAILURE Status: Chronic (4) DM2 (diabetes mellitus, type 2) Status: Chronic Qualifiers: Comment: (5) Dyslipidemia Code(s): E78.5 - HYPERLIPIDEMIA, UNSPECIFIED Status: Chronic (6) H/O unilateral nephrectomy Code(s): Z90.5 - ACQUIRED ABSENCE OF KIDNEY Status: Chronic (7) Hypertension Code(s): I10 - ESSENTIAL (PRIMARY) HYPERTENSION Status: Chronic Qualifiers: Comment: (8) Moderate aortic stenosis Code(s): I35.0 - NONRHEUMATIC AORTIC (VALVE) STENOSIS Status: Chronic - Plan cont current plan of care, plan discussed w/ family, PT/OT, case management social worker * medication reviewed as below * symptomatic treatment * see discharge volodymyr. Review of Systems - Review of Systems Eyes: negative: Pain, Vision Change, Conjunctivae Inflammation, Eyelid Inflammation, Redness, Other ENT: negative: Ear Pain, Ear Discharge, Nose Pain, Nose Discharge, Nose Congestion, Mouth Pain, Mouth Swelling, Throat Pain, Throat Swelling, Other Respiratory: negative: Cough, Dry, Shortness of Breath, Hemoptysis, SOB with Excertion, Pleuritic Pain, Sputum, Wheezing Cardiovascular: negative: chest pain, palpitations, orthopnea, paroxysmal nocturnal dyspnea, edema, light headedness, other Gastrointestinal: negative: Nausea, Vomiting, Abdominal Pain, Diarrhea, Constipation, Melena, Hematochezia, Other Genitourinary: negative: Dysuria, Frequency, Incontinence, Hematuria, Retention , Other Musculoskeletal: negative: Neck Pain, Shoulder Pain, Arm Pain, Back Pain, Hand Pain, Leg Pain, Foot Pain, Other Skin: negative: Rash, Lesions, Anselmo, Bruising, Other - Medications/Allergies Allergies/Adverse Reactions: Allergies Allergy/AdvReac Type Severity Reaction Status Date / Time No Known Allergies Allergy Verified 04/14/18 15:15 Medications: Current Medications Acetaminophen (Tylenol) 650 mg PO Q4H PRN PRN Reason: Headache/Fever/Mild Pain (1-3) Last Admin: 04/19/18 23:34 Dose: 650 mg Hydrocodone Bitart/Acetaminophen ([place] 5/325) 1 tab PO Q4H PRN PRN Reason: Moderate Pain (4-6) Last Admin: 04/16/18 20:15 Dose: 1 tab Artificial Tears (Tears Naturale) 2 drop EA EYE PRN PRN PRN Reason: Dry Eyes Aspirin (Ecotrin) 81 mg PO DAILY [facility] Last Admin: 04/20/18 10:01 Dose: 81 mg Benzocaine (Orajel 20%) 0 gm TOP DAILYPRN PRN PRN Reason: Mouth Irritation Bisacodyl (Dulcolax) 10 mg [place] DAILYPRN PRN PRN Reason: Constipation Bisacodyl (Dulcolax) 10 mg PO DAILYPRN PRN PRN Reason: Constipation Calcium Carbonate (Tums) 1,000 mg PO Q4H PRN PRN Reason: Heartburn or Indigestion Carvedilol (Coreg) 25 mg PO BID-[facility] Last Admin: 04/20/18 09:59 Dose: 25 mg Clonidine (Catapres) 0.1 mg PO Q4H PRN PRN Reason: SBP Greater Than 180 Last Admin: 04/19/18 20:03 Dose: 0.1 mg Cyanocobalamin (Vitamin B-12) 1,000 mcg PO DAILY [facility] Last Admin: 04/20/18 10:00 Dose: 1,000 mcg Dextrose/Water (Dextrose 50%) 25 gm SLOW IVP PRN PRN PRN Reason: Hypoglycemia Ezetimibe (Zetia) 10 mg PO HS [facility] Last Admin: 04/19/18 20:00 Dose: 10 mg Ferrous Sulfate (Feosol) 325 mg PO DAILY [facility] Last Admin: 04/20/18 10:00 Dose: 325 mg Folic Acid (Folvite) 1 mg PO DAILY [facility] Last Admin: 04/20/18 10:00 Dose: 1 mg Gabapentin (Neurontin) 100 mg PO TID [facility] Last Admin: 04/20/18 10:01 Dose: 100 mg Glucagon (Glucagon) 1 mg IM PRN PRN PRN Reason: Hypoglycemia Guaifenesin (Robitussin Sf) 200 mg PO Q4H PRN PRN Reason: Cough Last Admin: 04/18/18 20:59 Dose: 200 mg Hydralazine HCl (Apresoline) 10 mg SLOW IVP Q4H PRN PRN Reason: SBP > 180 and HR < 70 Last Admin: 04/19/18 03:33 Dose: 10 mg Hydralazine HCl (Apresoline) 25 mg PO TID [facility] Last Admin: 04/20/18 10:01 Dose: 25 mg Dextrose/Water (D5w) 1,000 mls @ 0 mls/hr IV .Q0M PRN PRN Reason: Hypoglycemia Insulin Human Lispro (Humalog) 0 units SC .MODERATE SLIDING SC PRN PRN Reason: Moderate Correctional Scale Last Admin: 04/20/18 06:30 Dose: 2 unit Insulin Human Lispro (Humalog) 0 units SC .BEDTIME SLIDING SC PRN PRN Reason: Bedtime Correctional Scale Last Admin: 04/18/18 22:38 Dose: 2 unit Loperamide HCl (Imodium) 2 mg PO PRN PRN PRN Reason: Diarrhea/Loose Stools Loratadine (Claritin) 10 mg PO DAILYPRN PRN PRN Reason: Sinus Symptoms Last Admin: 04/19/18 21:09 Dose: 10 mg Lorazepam (Ativan) 1 mg SLOW IVP Q15MIN PRN PRN Reason: Seizures Mineral Oil/White Petrolatum (Eucerin Cream) 0 gm TOP BIDPRN PRN PRN Reason: Dry Skin Nitroglycerin (Nitrostat) 0.4 mg SL Q5MIN PRN PRN Reason: Chest Pain Ondansetron HCl (Zofran Odt) 4 mg PO Q6H PRN PRN Reason: Nausea/Vomiting Last Admin: 04/20/18 09:58 Dose: 4 mg Ondansetron HCl (Zofran) 4 mg IVP Q6H PRN PRN Reason: Nausea/Vomiting Pantoprazole Sodium (Protonix) 40 mg PO DAILY [facility] Last Admin: 04/20/18 10:00 Dose: 40 mg Phenytoin Sodium (Dilantin Er) 300 mg PO [facility] Last Admin: 04/19/18 20:00 Dose: 300 mg Polyethylene Glycol (Miralax) 17 gm PO DAILY PRN PRN Reason: Constipation Polyethylene Glycol (Miralax) 17 gm PO DAILY [facility] Last Admin: 04/19/18 09:05 Dose: 17 gm Senna/Docusate Sodium (Senokot S) 2 tab PO BID PRN PRN Reason: Constipation Last Admin: 04/16/18 08:38 Dose: 2 tab Simethicone (Mylicon Chewable) 80 mg PO P[facility]S PRN PRN Reason: Gas Pain Last Admin: 04/19/18 12:18 Dose: 80 mg Sodium Chloride ([place] Nasal [place] 0.65%) 0 ml EA NARE QIDPRN PRN PRN Reason: Nasal Congestion Sodium Chloride (Flush - Normal Saline) 10 ml IVF Q12HR [facility] Last Admin: 04/19/18 21:07 Dose: 10 ml Sodium Chloride (Flush - Normal Saline) 10 ml IVF PRN PRN PRN Reason: Saline Flush Zolpidem Tartrate (Ambien) 5 mg PO HSPRN PRN PRN Reason: Insomnia
--- NOTE | 2018-04-20 12:49 | DIS ---
DATE OF ADMISSION: 04/14/2018 DATE OF DISCHARGE: 04/20/2018 ADDENDUM: Please see my discharge summary dictated on April 16, 2018. This patient was initially admitted on April 14 for a new onset seizure and she was in our hospital as observation status. Neurology evaluated this patient and started on a Dilantin therapy. Her MRI was unremarkable. She was planned for discharged on April 16, 2018 after observation period was over. Unfortunately, long-term was requesting another authorization from her insurance because patient came from long-term. The patient did not get any physical therapy because she was in observation status and we did [id number] because insurance requesting to do [id number] for authorization. At that time, they requested PT/OT notes. The patient had PT/OT and this patient needs [facility] home placement based on their recommendation. Today, I spoke with the patient's son, who is also tired with insurance decision and that is why he decided that if insurance does not except her to go to penitentiary home then he will take her mom to home with home health therapy. This patient is seen and examined at bedside today. I spoke with the case management assistant about patient's son's decision as well as I spoke with the patient's son about discharge options and he decided to let her go home if insurance does not accept today because holidays coming and no decision will be made in the next few days. Please see my progress note from today for further details. Job ID: [id number]
[2018-04-20] MEDS: Polyethylene Glycol 3350 17 GM Packet PO SCH (14:38)
== END 2018-04-20 13:42 ==
LOC: ERS 09:46 → ERHOLD 11:57 → 2SE 14:42
PROVIDERS: ADMIT Internal Medicine; ATTEND Internal Medicine
DX: G40.909 Epilepsy, unspecified, not intractable, without status epilepticus (principal); I13.0 Hypertensive heart and chronic kidney disease with heart failure and stage 1 through stage 4 chronic kidney disease, or unspecified chronic kidney disease; E11.22 Type 2 diabetes mellitus with diabetic chronic kidney disease; N18.4 Chronic kidney disease, stage 4 (severe); I50.32 Chronic diastolic (congestive) heart failure; D63.1 Anemia in chronic kidney disease; I35.0 Nonrheumatic aortic (valve) stenosis; I25.10 Atherosclerotic heart disease of native coronary artery without angina pectoris; E11.40 Type 2 diabetes mellitus with diabetic neuropathy, unspecified; E11.649 Type 2 diabetes mellitus with hypoglycemia without coma; E78.5 Hyperlipidemia, unspecified; F41.9 Anxiety disorder, unspecified; G93.49 Other encephalopathy; F32.9 Major depressive disorder, single episode, unspecified; Z85.528 Personal history of other malignant neoplasm of kidney; Z90.49 Acquired absence of other specified parts of digestive tract; Z90.5 Acquired absence of kidney; Z79.82 Long term (current) use of aspirin; Z79.4 Long term (current) use of insulin; Z79.899 Other long term (current) drug therapy
CPT/HCPCS: 51701; 70450; 70551; 71045; 80048; 80053; 80069; 80185 ×2; 82040; 82553; 82962 ×7; 83735; 84146; 84443; 84484 ×2; 85025 ×2; 93005; 95816; 95819; 96365; 96366 ×2; 96375; 96376 ×3; 97116 ×2; 97139 ×4; 97530; 99285; G0378 ×3; G8978; G8979; G8987; G8988; 36415; 36416; 81003; 81015; A4353; J0360; J1953; J7050; Q0162; Q2009

== ENCOUNTER 2018-07-13 10:48 | Inpatient (IN) | payer MEDICARE ==
--- NOTE | 2018-07-13 11:34 | RAD ---
PORTABLE CHEST: HISTORY: The patient has a history of congestive heart failure and kidney disease. The patient is feeling bad . Altered mental status. COMPARISON: 02/12/2018 FINDINGS: Heart size is enlarged. There are atherosclerotic changes of the aorta. The lungs are clear of infi ltrates. No interval change since the prior exam. IMPRESSION: 1. Cardiomegaly. 2. Stable chest. POS: [facility]
[2018-07-13 11:35] LABS: #Eosinphils 0.1 thou/uL (0.0-0.7); #Lymphocytes 0.8 thou/uL (1.20-3.40); #Monocytes 0.5 thou/uL (0.11-0.59); #Neutrophils 7.9 thou/uL (1.40-6.50); %Eosinophils 0.7 % (0.0-10.0); %Lymphocytes 8.7 % (21.0-51.0); %Monocytes 5.8 % (0.0-10.0); %Neutrophils 84.9 % (42.0-75.0); Hemoglobin 10.2 g/dL (12.0-16.0); Mean Corpuscular HGB CONC 30.9 g/dL (32.0-36.0); Mean Corpuscular Hemoglobin 28.5 pg (27.0-31.0); Mean Corpuscular Volume 92.2 fL (78.0-98.0); Mean Platelet Volume 8.4 fL (7.4-10.4); Platelet Count 267 thou/uL (130-400); RBC Distribution Width 12.3 % (11.5-14.5); Red Blood Cell (RBC) Count 3.59 mill/uL (4.20-5.40); White Blood Cell (WBC) Count 9.4 thou/uL (4.8-10.8)
[2018-07-13 12:04] LABS: ALT (SGPT) 9 U/L (8-55); AST (SGOT) 29 U/L (5-34); Albumin 3.8 g/dL (3.4-4.8); Alkaline Phosphatase 68 U/L (40-150); Anion Gap 22 mmol/L (10-20); BUN (Urea Nitrogen) 112 mg/dL (9.8-20.1); Bilirubin, Total 0.4 mg/dL (0.2-1.2); CK (CPK) 167 U/L (29-168); Calc. Creatinine Clearance 0 mL/min (70-130); Calcium 9.7 mg/dL (7.8-10.44); Carbon Dioxide 19 mmol/L (23-31); Chloride 103 mmol/L (98-107); Estimated GFR-MDRD 15; Globulin 3.5 g/dL (2.4-3.5); Glucose 85 mg/dL (83-110); Potassium 4.2 mmol/L (3.5-5.1); Protein, Total 7.3 g/dL (6.0-8.3); Sodium 140 mmol/L (136-145)
[2018-07-13 12:32] LABS: CKMB 8.5 ng/mL (0-6.6)
[2018-07-13 13:04] LABS: Bilirubin Negative (Negative); Blood, Urine Negative (Negative); Clarity CLEAR (Clear); Glucose, Urine (Dipstick) Negative (Negative); Leukocyte Small (Negative); Nitrite Negative (Negative); Protein, Urine (Dipstick) Negative (Neg-Trace); Specific Gravity, Urine 1.008 (1.002-1.036); Urobilinogen 0.2 mg/dL (0.2-1.0)
[2018-07-13 13:06] LABS: Bacteria/HPF None Seen HPF (None Seen); Hyaline Casts/LPF 4-6 HYALINE CAST LPF (0-3 Hyaline); Pathc Cast-AUWi Flag 1.08 (0-2.49); RBC/HPF 0-3 HPF (0-3); Squamous Epithelial 0-3 HPF (0-3); WBC/HPF 0-3 HPF (0-3)
--- NOTE | 2018-07-13 13:08 | CT ---
NONCONTRAST CT HEAD: Date: 07/13/18 HISTORY: Altered mental status. COMPARISON: 04/14/18. FINDINGS: There are areas of diminished attenuation in the periventricular white matter, nonspecific but simila r to the prior study and likely attributable to chronic small vessel ischemic changes. There is no ev idence of an acute cortical infarction, mass effect, or midline shift. Basal ganglia calcifications a re again seen symmetrically and bilaterally. There is mild cerebral and cerebellar volume loss. Ventricular system is normal in size, shape, and p osition for the degree of sulcal atrophy. Again noted is evidence of an empty sella turcica with expansion of the sella turcica. However, this is a stable finding and is also stable when compared to the study on 04/08/14. No other interval oliva ge. IMPRESSION: 1. No acute intracranial abnormalities demonstrated. 2. Mild chronic small vessel ischemic changes and cerebral volume loss. 3. Stable empty sella turcica with expansion of the sella. This is stable dating back to 2013 and is better visualized on MRI exam on 04/15/18. POS: [facility]
[2018-07-13] MEDS ORDERED: Aspirin Chewable 81 MG TAB ONE (13:35)
[2018-07-13 15:20] LABS: Troponin I 0.137 ng/mL (< 0.028)
[2018-07-13 15:46] VITALS: BMI 26.4
[2018-07-13] MEDS: Carvedilol 25 MG TAB PO SCH (17:02)
[2018-07-13] MEDS: Acetaminophen 325 MG TAB PO PRN (17:03)
[2018-07-13 17:15] LABS: Troponin I 0.136 ng/mL (< 0.028)
[2018-07-13] MEDS ORDERED: HumaLOG 300 UNITS/3 ML VIAL SC PRN (19:00)
[2018-07-13] MEDS ORDERED: Dextrose 5% in Water 1,000 ML IV PRN (19:00)
[2018-07-13] MEDS ORDERED: Dextrose 50% Abboject 50 ML SYRINGE SLOW IVP PRN (19:00)
[2018-07-13] MEDS: Acetaminophen 500 MG TAB PO PRN (20:12)
[2018-07-13] MEDS: Gabapentin 100 MG CAP PO SCH (20:12)
[2018-07-13] MEDS: Famotidine 20 MG TAB PO SCH (20:12)
[2018-07-13] MEDS: Heparin 5,000 UNITS/ML VIAL SC SCH (20:12)
[2018-07-13 20:31] LABS: ALT (SGPT) 7 U/L (8-55); AST (SGOT) 26 U/L (5-34); Albumin 3.6 g/dL (3.4-4.8); Alkaline Phosphatase 67 U/L (40-150); Bilirubin, Direct 0.2 mg/dL (0.1-0.3); Bilirubin, Total 0.3 mg/dL (0.2-1.2); Lipase 16 U/L (8-78); Protein, Total 7.3 g/dL (6.0-8.3)
--- NOTE | 2018-07-13 22:32 | HP ---
PRIMARY CARE PHYSICIAN: Dr. Mascorro. CHIEF COMPLAINT: "I feel fair." HISTORY OF PRESENT ILLNESS: The patient is a 77-year-old female with multiple medical comorbidities including advanced dementia; chronic diastolic heart failure; severe aortic stenosis; hypertension; dyslipidemia; chronic kidney disease stage 4; anemia of renal disease, requiring intermittent transfusions; history of seizure disorder; who presented via EMS after her family called reporting the patient was feeling generally unwell. The patient cannot provide me any history, and there is no family at bedside, so HPI largely taken from ER report. Apparently, the patient did have an episode of emesis this morning. Currently, she is resting comfortably, she has no chest pain or shortness of breath. She denies any pain. She is alert and oriented x3, however, cannot provide me any other information as to the details of her arrival. She states "I feel fair," and when I continue to press her, she says "I do not feel good, I feel fair." Given her multiple comorbidities, she is being admitted for observation. Brain CT performed in the ER, no acute intracranial abnormalities. She does have mild chronic small-vessel disease and stable changes dating back to 2013 and MRI on 2018. Her EKG shows sinus rhythm with incomplete left bundle-branch block and some lateral ischemia, which is stable from her previous EKGs. Her serial troponin has been indeterminate at 0.135 and 0.137. Her BNP is mildly elevated at 540. Her UA is negative for urinary tract infection. Her white blood cell count is normal. As mentioned, the patient does have a complicated past medical history. She was admitted in March of 2018 with seizure-like activity; at that time, she had a normal EEG. Her echo at that time showed normal left ventricular systolic function with EF 60% to 65%, 1/3 diastolic dysfunction, severe with JENARO of 0.9 cm2 and mean gradient of 51. REVIEW OF SYSTEMS: A 12-point review of systems is performed and is negative for that stated above in HPI. The patient specifically denies any abdominal pain, any chest pain, shortness of breath, fevers, change in bowel movements, bleeding, or other complaints. ALLERGIES: NO KNOWN DRUG ALLERGIES. PAST MEDICAL HISTORY: 1. As mentioned in the HPI, chronic kidney disease stage 4 with baseline creatinine around 3, hypertension, diabetes type 2. 2. Anemia of chronic disease, requiring periodic blood transfusions. 3. Chronic diastolic congestive heart failure, severe aortic stenosis, history of right-sided renal carcinoma, advanced dementia, history of seizure disorder, currently on Dilantin. PAST SURGICAL HISTORY: Appendectomy, cholecystectomy, and nephrectomy. SOCIAL HISTORY: The patient apparently lives at home with a caregiver and her son visits frequently. She denies any history of tobacco, alcohol, or illicit drug use. FAMILY HISTORY: Noncontributory. HOME MEDICATIONS: As reported by the ER, include: 1. Aspirin 81 mg daily. 2. Bumetanide 2 mg tablet one tablet PO b.i.d. 3. Coreg 25 mg one tablet p.o. b.i.d. 4. Ferrous sulfate 325 mg one tablet once a day. 5. Gabapentin 100 mg tablet one tablet p.o. t.i.d. 6. Hydralazine 100 mg tablet three times a day. 7. Lantus 10 units subcu 2 times a day. 8. Lexapro 10 mg tablet one tablet p.o. daily. 9. Lisinopril 2.5 mg tablet once daily. 10. Pantoprazole 40 mg tablet once daily. PHYSICAL EXAMINATION: VITAL SIGNS: Blood pressure 130/62, pulse 74, the patient is afebrile, and O2 saturation is 98% on room air. GENERAL: This is a well-appearing, elderly female, resting comfortably in the ER bed, in no acute distress. NECK: Trachea is midline. No lymphadenopathy. No obvious JVD. No carotid bruits. CV: S1 and S2. Regular rate and rhythm. Harsh systolic murmur, grade 3/6. No rubs or gallops. LUNGS: Regular respiratory rate and pattern. Clear to auscultation bilaterally. There are no wheezes or audible crackles. ABDOMEN: Positive bowel sounds throughout. Soft and nontender. Mildly obese. EXTREMITIES: +2 DP pulses bilaterally. Trace edema bilaterally. MUSCULOSKELETAL: No obvious joint effusions or swelling. SKIN: Warm and dry. HEENT: Mucous membranes are moist. 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 NEUROLOGIC: Cranial nerves 2 through 12 grossly intact. She is nonfocal. PSYCHIATRIC: The patient is alert and oriented x3; however, can provide no real history or details regarding her medical history. PERTINENT LABORATORY DATA: White blood cell count 9.5, red blood cells 3.59, hemoglobin 10.2. Sodium 140, potassium 4.2, anion gap 22, BUN 112, creatinine is 3.6, which does appear mildly above her baseline. Glucose 85. Troponin 0.135, 0.137, 0.136. BNP 540. UA is negative. ASSESSMENT: 1. General fatigue and malaise, unknown etiology, the patient's blood work at this point is largely unremarkable, as well as her physical exam findings. 2. Acute on chronic kidney disease, stage 4. The patient's creatinine is 3.6, which does appear mildly elevated above her baseline. 3. Advanced dementia. 4. Severe aortic stenosis. 5. Chronic diastolic heart failure. No sign of acute volume overload at this time. 6. Anemia of chronic disease. 7. Seizure disorder. 8. Type 2 diabetes mellitus. 9. Diabetic neuropathy. 10. Hypertension. 11. Indeterminate troponin, likely secondary to renal dysfunction. PLAN: Given the patient's numerous comorbidities, we will admit for observation. We will obtain blood cultures as well as liver function enzymes, given her episode of nausea. I hesitate to give the patient IV fluids given her history of diastolic heart failure and elevated BNP of 540. We will obtain blood cultures. DVT prophylaxis, as well as we will consult PT. We will give p.r.n. Zofran and monitor her abdominal symptoms closely. Job ID: [id number] MTDD
[2018-07-14 05:06] LABS: #Eosinphils 0.1 thou/uL (0.0-0.7); #Lymphocytes 1.2 thou/uL (1.20-3.40); #Monocytes 0.8 thou/uL (0.11-0.59); #Neutrophils 5.4 thou/uL (1.40-6.50); %Eosinophils 1.2 % (0.0-10.0); %Monocytes 10.3 % (0.0-10.0); %Neutrophils 72.6 % (42.0-75.0); Hemoglobin 9.4 g/dL (12.0-16.0); Mean Corpuscular HGB CONC 31.9 g/dL (32.0-36.0); Mean Corpuscular Hemoglobin 29.2 pg (27.0-31.0); Mean Corpuscular Volume 91.4 fL (78.0-98.0); Platelet Count 253 thou/uL (130-400); RBC Distribution Width 12.4 % (11.5-14.5); Red Blood Cell (RBC) Count 3.24 mill/uL (4.20-5.40); White Blood Cell (WBC) Count 7.4 thou/uL (4.8-10.8)
[2018-07-14 05:20] LABS: ALT (SGPT) 7 U/L (8-55); AST (SGOT) 26 U/L (5-34); Albumin 3.6 g/dL (3.4-4.8); Alkaline Phosphatase 66 U/L (40-150); Anion Gap 19 mmol/L (10-20); BUN (Urea Nitrogen) 110 mg/dL (9.8-20.1); Bilirubin, Total 0.4 mg/dL (0.2-1.2); Calc. Creatinine Clearance 15 mL/min (70-130); Calcium 9.7 mg/dL (7.8-10.44); Carbon Dioxide 23 mmol/L (23-31); Chloride 102 mmol/L (98-107); Estimated GFR-MDRD 15; Glucose 124 mg/dL (83-110); Potassium 3.8 mmol/L (3.5-5.1); Protein, Total 7.6 g/dL (6.0-8.3); Sodium 140 mmol/L (136-145)
[2018-07-14] MEDS: Carvedilol 25 MG TAB PO SCH ×2 (08:53→16:37)
[2018-07-14] MEDS: Heparin 5,000 UNITS/ML VIAL SC SCH ×3 (08:53→20:19)
[2018-07-14] MEDS: Gabapentin 100 MG CAP PO SCH ×3 (08:53→20:19)
[2018-07-14] MEDS: Ferrous Sulfate 325 MG TAB PO SCH (08:53)
[2018-07-14] MEDS: Folic Acid 1 MG TAB PO SCH (08:53)
[2018-07-14] MEDS: Famotidine 20 MG TAB PO SCH ×2 (08:53→20:19)
[2018-07-14] MEDS: Sodium Chloride 0.9% 1,000 ML IV SCH ×2 (13:50→22:51)
--- NOTE | 2018-07-14 20:19 | PRG ---
DATE OF SERVICE: 07/14/2018 SUBJECTIVE: The patient is a 77-year-old female with multiple medical comorbidities including advanced dementia, chronic diastolic heart failure, severe aortic stenosis, hypertension, dyslipidemia, chronic kidney disease stage 4, anemia of renal disease including intermittent transfusions, history of seizure disorder, who presented via EMS after her family called reporting that the patient was feeling unwell. There was also a question of altered mental status as well as one episode of emesis. The patient has been admitted with acute on chronic renal insufficiency. Her workup thus far has been largely negative. The patient to me today has no complaints and states that she feels better. She has no chest pain or shortness of breath. Attempts at fluid resuscitation with normal saline in attempt to improve her renal function have been unsuccessful secondary to removing her IV on her own repeatedly. OBJECTIVE: VITAL SIGNS: Blood pressure 160/69, pulse 79, respirations 20, O2 saturation 97% on room air. GENERAL: Well appearing, nontoxic, elderly female, resting comfortably in bed. No acute distress. NECK: Trachea is midline. No lymphadenopathy. No obvious JVD. No carotid bruits. HEENT: Mucous membranes are moist. Atraumatic. CV: S1, S2. Regular rate and rhythm. Harsh systolic murmur grade 3/6. No rubs or gallops. LUNGS: Regular respiratory rate and pattern. Clear to auscultation bilaterally. No wheezes or crackles. ABDOMEN: Positive bowel sounds. Soft and nontender. Mildly obese. EXTREMITIES: +2 DP pulses bilaterally. Trace edema bilaterally. MUSCULOSKELETAL: No obvious joint effusions or swelling. SKIN: Warm and dry. PSYCHIATRIC: The patient is alert and oriented x3; however, cannot provide details to any questions asked about her family. LABORATORY DATA: Hemoglobin 9.4, hematocrit 29.6, white blood cell count 7.4. Sodium 140, potassium 3.8, chloride 102, carbon dioxide 23, anion gap 19, BUN 110, creatinine 3.62, calcium 9.7. Bilirubin 0.4, direct bilirubin 0.2. Urine is negative for overt infection. ASSESSMENT: 1. General fatigue and malaise, unknown etiology, questionably secondary to acute on chronic renal insufficiency. 2. Acute on chronic kidney disease stage 4. The patient's creatinine remains elevated at 3.6, which appears elevated above her baseline of around 2.8. 3. Advanced dementia. 4. Severe aortic stenosis. 5. Chronic diastolic heart failure. 6. Anemia of chronic disease. 7. Seizure disorder. 8. Type 2 diabetes mellitus. 9. Diabetic neuropathy. 10. Hypertension. 11. Indeterminate troponin. No evidence of acute coronary syndrome, likely this is in the setting of renal dysfunction. PLAN: We will continue to attempt IV fluid resuscitation to improve her kidney function; however, we will need to monitor her fluid balance carefully in the setting of chronic diastolic heart failure and mildly elevated BNP. We will consult Dr. Salazar, her measurement supervisor, who knows her well. I had a long conversation with the patient's son today regarding her baseline mental status, and he does believe that this is baseline for her. We will follow Nephrology recommendations, and possibly be able to discharge the patient tomorrow if her kidney function improves. Job ID: [id number]
[2018-07-14] MEDS: hydrALAZINE 20 MG/ML VIAL SLOW IVP PRN (22:50)
[2018-07-15] MEDS: Sodium Chloride 0.9% 1,000 ML IV SCH (03:45)
[2018-07-15 05:56] LABS: Anion Gap 22 mmol/L (10-20); BUN (Urea Nitrogen) 89 mg/dL (9.8-20.1); Calc. Creatinine Clearance 18 mL/min (70-130); Calcium 10.1 mg/dL (7.8-10.44); Carbon Dioxide 20 mmol/L (23-31); Chloride 108 mmol/L (98-107); Estimated GFR-MDRD 19; Glucose 173 mg/dL (83-110); Sodium 146 mmol/L (136-145)
[2018-07-15 06:06] LABS: #Eosinphils 0.1 thou/uL (0.0-0.7); #Neutrophils 10.5 thou/uL (1.40-6.50); %Eosinophils 0.4 % (0.0-10.0); %Lymphocytes 8.2 % (21.0-51.0); %Monocytes 7.6 % (0.0-10.0); %Neutrophils 83.7 % (42.0-75.0); Hemoglobin 10.2 g/dL (12.0-16.0); Mean Corpuscular HGB CONC 32.2 g/dL (32.0-36.0); Mean Corpuscular Hemoglobin 29.2 pg (27.0-31.0); Mean Corpuscular Volume 90.6 fL (78.0-98.0); Mean Platelet Volume 9.5 fL (7.4-10.4); Platelet Count 272 thou/uL (130-400); RBC Distribution Width 12.4 % (11.5-14.5); Red Blood Cell (RBC) Count 3.51 mill/uL (4.20-5.40); White Blood Cell (WBC) Count 12.6 thou/uL (4.8-10.8)
[2018-07-15] MEDS: Ondansetron PF 4 MG/2 ML Vial IVP PRN ×2 (06:15→15:30)
[2018-07-15] MEDS ORDERED: cloNIDine 0.3 MG TAB PO SCH (09:00)
[2018-07-15] MEDS: Ferrous Sulfate 325 MG TAB PO SCH (11:01)
[2018-07-15] MEDS: Gabapentin 100 MG CAP PO SCH ×3 (11:01→21:34)
[2018-07-15] MEDS: Famotidine 20 MG TAB PO SCH ×2 (11:02→21:34)
[2018-07-15] MEDS: Folic Acid 1 MG TAB PO SCH (11:02)
[2018-07-15] MEDS: Carvedilol 25 MG TAB PO SCH ×2 (11:02→23:42)
[2018-07-15] MEDS: Heparin 5,000 UNITS/ML VIAL SC SCH ×3 (11:03→21:36)
[2018-07-15] MEDS: Acetaminophen 325 MG TAB PO PRN (12:24)
[2018-07-15] MEDS: hydrALAZINE 20 MG/ML VIAL SLOW IVP PRN (12:24)
[2018-07-15] MEDS ORDERED: NIFEdipine XL 60 MG TAB PO SCH (12:45)
[2018-07-15] MEDS: Dextrose 5% in Water 1,000 ML IV SCH (14:00)
[2018-07-15] MEDS: cloNIDine 0.3 MG TAB PO SCH ×2 (14:50→23:42)
--- NOTE | 2018-07-15 15:39 | PDOC.EVN ---
Event Note - Event Note Event Note: I have interviewed, discussed pt with Monalisa Garay regarding LUIS/CKD, Cardiomyopathy and deconditioning. Renal failure with mild response to IVF's and volume replacement. Titrate antihypertensives and add Hydralazine 25mg TID. Add PT evaluation for functional assessment. Convert to inpt status given multitude of co-morbid conditions and potential need for supervised medical care. Please see full note as documented by Monalisa Garay for details. Consider Palliative care consult.
--- NOTE | 2018-07-15 15:47 | ULT ---
BILATERAL RENAL ULTRASOUND COMPLETE: Date: 07/15/18 HISTORY: Acute kidney insufficiency. FINDINGS: The patient is status post right nephrectomy. The gallbladder appears to be markedly dilated and dist ended, and contains some sludge, but no definite gallstones or gallbladder wall thickening. No defini tive positive Kirk's sign. The left kidney measures 12.6 x 5.2 x 5.2 cm with a 3.4 x 3.7 cm cyst wh ich appears stable. There is no hydronephrosis. Moderately distended urinary bladder with a pre-void bladder volume of 895 mL and a post-void bladder volume of 320 mL. IMPRESSION: 1. Status post right nephrectomy. 2. No left renal hydronephrosis. 3. Stable left renal cyst. 4. Dilated and distended gallbladder with sludge, but no definite stones or wall thickening or ducta l dilatation. 5. Moderately distended urinary bladder with 320 mL post-void residual. POS: [facility]
[2018-07-15 16:02] LABS: Bilirubin Negative (Negative); Blood, Urine Negative (Negative); Clarity CLEAR (Clear); Glucose, Urine (Dipstick) 100 mg/dL (Negative); Leukocyte Small (Negative); Nitrite Negative (Negative); Protein, Urine (Dipstick) 100 mg/dL (Neg-Trace); Urobilinogen 0.2 mg/dL (0.2-1.0)
[2018-07-15 16:04] LABS: Bacteria/HPF None Seen HPF (None Seen); Hyaline Casts/LPF 0-3 HYALINE CAST LPF (0-3 Hyaline); Pathc Cast-AUWi Flag 0.13 (0-2.49)
[2018-07-15 16:20] LABS: RBC/HPF 0-3 HPF (0-3)
[2018-07-15 16:21] LABS: Squamous Epithelial 0-3 HPF (0-3)
[2018-07-15 16:22] LABS: Urine Culture Reflex Yes Yes
--- NOTE | 2018-07-15 16:37 | CON ---
DATE OF CONSULTATION: REASON FOR CONSULTATION: Elevated creatinine and hypernatremia. HISTORY OF PRESENT ILLNESS: This is a very pleasant 77-year-old female, who was admitted on July 13 for not feeling well. The patient had acute kidney injury. Her creatinine increased to 3.6 from a baseline of 2.8 to 2.4 in March of 2018. With hydration, her creatinine improved, but her sodium has increased to 146. The patient remains hypertensive. The patient can give no further history or details. PAST MEDICAL HISTORY: Significant for dementia, congestive heart failure, severe aortic stenosis, hyperlipidemia, chronic kidney disease, anemia, history of transfusion, history of seizure disorder, diabetes mellitus, appendectomy, cholecystectomy, and nephrectomy. SOCIAL HISTORY: No alcohol or drug use. FAMILY HISTORY: Negative for ESRD. ALLERGIES: REVIEWED. HOME MEDICATION: List reviewed. PHYSICAL EXAMINATION: GENERAL: The patient is awake and alert. VITAL SIGNS: Afebrile, pulse 99, breathing 16, and blood pressure 188/84. GENERAL APPEARANCE AND MENTAL STATUS: Fair. HEAD/NECK: Normocephalic. Atraumatic. EYES: EOMI. No deformity. EARS: Clear. No ulcers. NOSE: Intact. No lesions. MOUTH: Clear. No discharge. THROAT: Clear. No exudate. LUNGS: Clear. No crackles. CARDIAC: S1, S2. No rub. ABDOMEN: Benign. Bowel sounds positive. GENITALIA/RECTUM: Lewis absent. BACK/EXTREMITIES: Edema 0+. NEUROLOGICAL: Alert and motor intact. REVIEW OF SYSTEMS: Unobtainable. The patient is confused. LABORATORY DATA: Labs showed potassium 4 and sodium 146. IMPRESSION: 1. Acute kidney injury with chronic kidney disease, improving. 2. Hypernatremia, changed IV fluids to D5W. 3. Anemia, stable. 4. Medication based on GFR appropriate. 5. No indication for dialysis at this time. Job ID: [id number]
[2018-07-15] MEDS: hydrALAZINE 25 MG TAB PO SCH (23:42)
[2018-07-16 06:01] LABS: #Basophils 0.1 thou/uL (0.0-0.2); #Eosinphils 0.1 thou/uL (0.0-0.7); #Lymphocytes 1.6 thou/uL (1.20-3.40); #Monocytes 1.1 thou/uL (0.11-0.59); %Basophils 0.5 % (0.0-1.0); %Eosinophils 0.6 % (0.0-10.0); %Lymphocytes 16.1 % (21.0-51.0); %Monocytes 11.2 % (0.0-10.0); %Neutrophils 71.6 % (42.0-75.0); Hemoglobin 8.9 g/dL (12.0-16.0); Mean Corpuscular HGB CONC 31.3 g/dL (32.0-36.0); Mean Corpuscular Hemoglobin 29.3 pg (27.0-31.0); Mean Corpuscular Volume 93.7 fL (78.0-98.0); Mean Platelet Volume 9.9 fL (7.4-10.4); Platelet Count 205 thou/uL (130-400); RBC Distribution Width 12.4 % (11.5-14.5); Red Blood Cell (RBC) Count 3.04 mill/uL (4.20-5.40); White Blood Cell (WBC) Count 9.8 thou/uL (4.8-10.8)
[2018-07-16 06:18] LABS: Anion Gap 14 mmol/L (10-20); BUN (Urea Nitrogen) 77 mg/dL (9.8-20.1); Calc. Creatinine Clearance 16 mL/min (70-130); Calcium 9.4 mg/dL (7.8-10.44); Carbon Dioxide 26 mmol/L (23-31); Chloride 107 mmol/L (98-107); Estimated GFR-MDRD 17; Glucose 142 mg/dL (83-110); Potassium 3.8 mmol/L (3.5-5.1); Sodium 143 mmol/L (136-145)
--- NOTE | 2018-07-16 08:03 | PRG ---
DATE OF SERVICE: 07/14/2018 SUBJECTIVE: The patient is a 77-year-old female with multiple medical comorbidities including advanced dementia; chronic diastolic heart failure; severe aortic stenosis; hypertension; dyslipidemia; chronic kidney disease, stage 4; anemia of renal disease requiring intermittent transfusions; and history of seizure disorder, who presented via EMS after her family called reporting that the patient was feeling generally unwell. There has also been a question of altered mental status, which has been hard to differentiate between her baseline. This morning, the patient seems to be resting comfortably in bed. Per nursing staff, she has been moaning intermittently, however, has no complaints to me, and is answering my questions appropriately. She specifically denies chest pain or shortness of breath. Per nursing staff, there have been no episodes of emesis, although her appetite has been poor. She has been compliant with her IV. OBJECTIVE: VITAL SIGNS: Blood pressure this morning was elevated in the 180s, most recent blood pressure 164/60, temperature is 98.9, pulse is 89, respirations are 20, O2 saturation is 98% on room air. GENERAL: The patient is lying in bed and resting comfortably, appears nontoxic , in no acute distress. NECK: Trachea is midline. No lymphadenopathy. No obvious JVD. No carotid bruits. HEENT: Mucous membranes are moist. Atraumatic. CV: S1 and S2. Regular rate and rhythm. Harsh systolic murmur, grade 3/6. No rubs or gallops. LUNGS: Regular respiratory rate and pattern. Clear to auscultation bilaterally. No wheezes or crackles. ABDOMEN: Positive bowel sounds. Soft and nontender. Mildly obese. EXTREMITIES: +2 DP pulses bilaterally. Trace edema bilaterally. MUSCULOSKELETAL: No obvious joint effusions or swelling. SKIN: Warm and dry. PSYCHIATRIC: The patient continues to be alert and oriented to place, time, and person, however, continues to be unable to provide details regarding her circumstances or what led to her hospitalization. ASSESSMENT: 1. General fatigue and malaise and failure to thrive with low appetite. Etiology at this point is uncertain. The patient's workup has largely been negative for infection as she has been afebrile. 2. [id number] kidney disease, stage 4. The patient has been compliant with IV fluids, and her creatinine is improved today. 3. Hypernatremia. 4. Advanced dementia. 5. Severe aortic stenosis. 6. Chronic diastolic heart failure. 7. Anemia of chronic disease. 8. Seizure disorder. 9. Type 2 diabetes mellitus. 10. Diabetic neuropathy. 11. Accelerated hypertension. PLAN: Dr. Salazar, the patient's machine room engineer has been consulted and appreciate recommendations. We will change the patient's IV fluids from NS to half-normal D5. I have repeated a UA. The patient is showing some signs of urinary retention, and we will place Lewis. Renal ultrasound is pending. I have had a long conversation with her son today, and apparently, the patient has continued to decline functionally since she lost one of her sons in 2016. At this time, Dr. Curran and Dr. Salazar agree that Palliative Care consult is warranted. We will get labs in the morning and trend the patient's white count. Further recommendations based on hospital course. The patient has numerous medical comorbidities with high complexity, which meet inpatient status, and we will change accordingly. Care discussed with Dr. Curran who agrees with current management. Job ID: [id number] [facility]
[2018-07-16] MEDS: Famotidine 20 MG TAB PO SCH ×2 (08:19→22:24)
[2018-07-16] MEDS: hydrALAZINE 25 MG TAB PO SCH ×3 (08:20→22:25)
[2018-07-16] MEDS: Carvedilol 25 MG TAB PO SCH ×2 (08:20→22:25)
[2018-07-16] MEDS: Heparin 5,000 UNITS/ML VIAL SC SCH ×3 (08:20→22:26)
[2018-07-16] MEDS: Folic Acid 1 MG TAB PO SCH (08:20)
[2018-07-16] MEDS: Gabapentin 100 MG CAP PO SCH ×3 (08:20→22:24)
[2018-07-16] MEDS: Ferrous Sulfate 325 MG TAB PO SCH (08:20)
[2018-07-16] MEDS: NIFEdipine XL 60 MG TAB PO SCH (08:20)
[2018-07-16] MEDS: cloNIDine 0.3 MG TAB PO SCH ×3 (08:20→22:24)
[2018-07-16] MEDS: Dextrose 5% in Water 1,000 ML IV SCH (10:21)
--- NOTE | 2018-07-16 10:54 | PRG ---
DATE OF SERVICE: 07/16/2018 SUBJECTIVE: The patient is much more awake and alert and interactive today and spoke with her son and family as well. She is vastly improved over yesterday. OBJECTIVE: VITAL SIGNS: Temperature is 99, pulse 80, respirations 18, O2 saturation 98% on room air, BP is 125/60. GENERAL APPEARANCE: Age-appropriate female. She is fully awake and alert, laughing and joking, very conversant. HEART: Regular with 2/6 murmur heard best at the aortic distribution, but heard throughout the precordium. LUNGS: Clear bilaterally with no wheezes or rales. ABDOMEN: Soft, nontender, and nondistended. EXTREMITIES: No edema. LABORATORY DATA: Hemoglobin 8.9, BUN 77, creatinine 3.22, glucose 142, cultures remain negative. IMPRESSION AND PLAN: 1. Uremia. The patient presented with obtundation, poor appetite, and fair failure to thrive. At this point, appears to be largely related to uremia and now that her BUN is down from 112 to 77. She appears to be more awake, alert, and back to her baseline mental health. 2. Acute on chronic kidney disease. The patient is in stage 5 renal disease. She was seen in coordination with Nephrology this morning, Dr. Renae and I both spoke together to the patient and her family. His recommendation is for preparation for dialysis and explained to the patient. She is ultimately amenable. We will go ahead and ask for surgery consult to place a fistula. 3. Hypernatremia, resolved. 4. Dementia. The patient is pleasant and conversant this morning. Of note, she did pull out her peripheral IV this morning, although she is still somewhat affected by the uremia. It is certainly improving. 5. History of severe aortic stenosis with a valve area of 0.9 cm, stable. 6. History of chronic diastolic dysfunction, apparently well compensated presently. 7. Anemia of chronic kidney disease, stable. 8. History of seizure disorder, stable. 9. Diabetes mellitus type 2, blood sugars were well controlled. 10. Diabetic neuropathy. 11. History of accelerated hypertension, improved. Job ID: [id number]
--- NOTE | 2018-07-16 12:08 | PRG ---
DATE OF SERVICE: 07/16/2018 SUBJECTIVE: Patient was seen and examined at bedside and overnight events noted. Patient denies any shortness of breath or chest pain or palpitation. No history of nausea or vomiting or diarrhea or fever or chills or cramps. OBJECTIVE: GENERAL: This is a well-built female, in no apparent distress. VITAL SIGNS: . Pulse 80. Respiratory rate 18. Blood pressure 125/60. HEENT: Atraumatic, normocephalic. Oral mucosa is moist NECK: Supple. CARDIOVASCULAR: S1, S2 heard. Rate and rhythm regular. RESPIRATORY: Clear to auscultation. GASTROINTESTINAL: Abdomen is soft. MUSCULOSKELETAL: No tenderness. No edema. DERMATOLOGIC: No skin rash. NEUROLOGIC: Alert and awake and oriented X3. No focal neurologic deficits. Moving all the extremities. PSYCHIATRIC: Mood and affect normal. LABORATORY DATA: Potassium is 3.8, BUN is 77, and creatinine is 3.2. ASSESSMENT AND PLAN: 1. Acute kidney injury on chronic kidney disease, stage 4, with worsening creatinine and uremic symptoms. I had a long discussion with the family along with Dr. Allen fistula placement during this admission. We will consult Surgery. We will also have vein mapping done. No acute indication for dialysis. 2. Hypernatremia. 3. Anemia. 4. Edema. 5. Hypertension. 6. Solitary kidney. Plan is to have access placed for dialysis in the near future. If dialysis is needed before fistula maturation, might need a tunneled dialysis catheter. Plan is to avoid tunneled dialysis catheter at this point, and the patient was counseled about the options for renal replacement. Job ID: [id number]
[2018-07-16] MEDS: Acetaminophen 500 MG TAB PO PRN (14:40)
--- NOTE | 2018-07-16 17:06 | ULT ---
BILATERAL UPPER EXTREMITY VENOUS ULTRASOUND VEIN MAPPING: Date: 07/16/18 INDICATION: Dialysis access placement. FINDINGS: RIGHT UPPER EXTREMITY BRACHIAL ARTERY: 5.5 mm RADIAL ARTERY: 1.9 mm ULNAR ARTERY: 1.0 mm CEPHALIC VEIN Proximal Humerus: Not visualized Mid Humerus: Not visualized Distal Humerus: Not visualized Antecubital Fossa: 0.9 mm Mid Forearm: 0.7 mm Distal Forearm: 0.6 mm BASILIC VEIN Proximal Humerus: 4.4 mm Mid Humerus: 4.6 mm Distal Humerus: 2.6 mm Antecubital Fossa: 1.5 mm Proximal Forearm: 0.6 mm Mid Forearm: 0.5 mm Distal Forearm: 0.2 mm LEFT UPPER EXTREMITY BRACHIAL ARTERY: 4.2 mm RADIAL ARTERY: 1.7 mm ULNAR ARTERY: 1.1 mm CEPHALIC VEIN Proximal Humerus: 0.8 mm Mid Humerus: 1.1 mm Distal Humerus: 0.4 mm Antecubital Fossa: 0.8 mm Proximal Forearm: 1.0 mm Mid Forearm: 0.8 mm Distal Forearm: 0.7 mm BASILIC VEIN Proximal Humerus: 4.2 mm Mid Humerus: 2.5 mm Distal Humerus: 2.3 mm Antecubital Fossa: 1.9 mm Proximal Forearm: 1.2 mm Mid Forearm: 0.9 mm Distal Forearm: 0.8 mm IMPRESSION: Bilateral upper extremity vein mapping, as above. POS: [facility]
[2018-07-16] MEDS ORDERED: CEFAZOLIN 2 GM in Premix Bag 1 BAG IVPB SCH (19:15)
--- NOTE | 2018-07-17 04:43 | CON ---
DATE OF CONSULTATION: REASON FOR CONSULTATION: Need for dialysis access. HISTORY: Ms. Funes is a 77-year-old woman with chronic renal disease, who is progressing toward need for dialysis. Her electronic intelligence officer believes that she will need dialysis within the next few months. She was admitted to the hospital most recently for malaise and being out of it, and has recovered to her baseline. However, it is felt that her worsening renal function contributed to her recent decline. Most of the history is obtained through chart review and discussion with her son, who is her medical power of document review attorney. The patient has very little memory of her hospital stay and the events leading up to it. PAST MEDICAL HISTORY: Aortic stenosis without history of angina or heart failure, chronic kidney disease, anemia of chronic disease, right-sided kidney cancer, status post nephrectomy, dementia, and seizure disorder. PAST SURGICAL HISTORY: Appendectomy, cholecystectomy, and nephrectomy. SOCIAL HISTORY: Negative for alcohol, tobacco, and drug use. FAMILY HISTORY: Noncontributory. OUTPATIENT MEDICATIONS: 1. Aspirin. 2. Bumetanide. 3. Coreg. 4. Iron. 5. Gabapentin. 6. Hydralazine. 7. Lantus. 8. Lexapro. 9. Lisinopril. 10. Pantoprazole. ALLERGIES: NO KNOWN DRUG ALLERGIES. PHYSICAL EXAMINATION: GENERAL: The patient is pleasant and alert, but oriented only to self and place. She is able to answer simple questions, but unable to give any significant history. For example, she does not know why her kidney was removed, but does note that it was removed. A pleasant elderly woman, in no acute distress. VITAL SIGNS: Afebrile at 98.5, heart rate 77, respirations 20, 100% saturated on room air, and blood pressure 143/69. HEENT: She is not jaundiced or icteric. She is not flushed or toxic in appearance. HEENT: Unremarkable. NECK: Supple without lymphadenopathy or thyroid nodules. HEART: Regular in its rate and rhythm with a harsh systolic murmur. LUNGS: Clear to auscultation. ABDOMEN: Soft, nontender, and nondistended without palpable masses or hernias. EXTREMITIES: Warm and well perfused, but with no palpable forearm veins bilaterally. Normal pulses and slightly radial dominant filling on Bridger testing. NEUROLOGIC: Dysconjugate gaze, which is apparently chronic as well as some mild facial asymmetry. No other focal findings. LABORATORY DATA: White count 9.8, hematocrit 28.5, and platelets 205. Electrolytes are unremarkable. Potassium is normal at 3.8 and bicarb is normal at 26. BUN and creatinine are elevated at 77 and 3.22 which is close to her baseline. Blood sugars have ranged from 142 to 280. DIAGNOSTIC DATA: Imaging: Vein mapping showed a very small cephalic veins bilaterally with good sized upper arm basilic veins bilaterally. ASSESSMENT: Chronic renal failure, progressing toward end-stage renal failure, recent mental status changes may be related to uremia. Her electronic intelligence officer feels that she will require dialysis in the near future and her son would like to proceed with this. The patient is also agreeable, although unable to understand the full details of the situation. I discussed the procedure of AV fistula or graft placement with the patient's son in detail. The procedure and its inherent risks were discussed. These include, but are not limited to, bleeding, infection, risks of anesthesia, need for other procedures, failure of a fistula to mature, and arterial steal which can lead to ischemic damage to the hand. He understands that if the upper arm basilic vein is used which appears likely based on vein mapping that this will be a two-part procedure, requiring transposition of the vein in the future to create a usable access. All of his questions were answered. The patient has been posted for tomorrow for left AV fistula versus graft and antibiotics have been ordered iron molder helper to the operating room. Job ID: [id number]
[2018-07-17] MEDS: Carvedilol 25 MG TAB PO SCH ×2 (06:30→22:12)
[2018-07-17] MEDS ORDERED: Fentanyl 100 MCG/2 ML VIAL ONE (07:55)
[2018-07-17] MEDS ORDERED: Lidocaine 1% PF 5 ML VIAL ONE (08:32)
[2018-07-17] MEDS ORDERED: PHENYLEPHRINE-NS 100 MCG/ML 10 ML SYRINGE ONE (08:32)
[2018-07-17] MEDS ORDERED: PROPOFOL 200 MG/20 ML VIAL ONE (08:32)
[2018-07-17] MEDS ORDERED: Heparin 10,000 UNITS/ 10 ML VIAL ONE (08:32)
[2018-07-17] MEDS ORDERED: Bupivacaine/Epinephrine 0.25% 30 ML VIAL ONE (08:38)
[2018-07-17] MEDS ORDERED: Lidocaine 2% PF 5 ML VIAL ONE ×2 (08:40→08:43)
[2018-07-17] MEDS ORDERED: Protamine Sulfate 250 MG/25 ML VIAL ONE (08:40)
[2018-07-17] MEDS ORDERED: Ioversol 68 % 50 ML VIAL ONE (08:40)
[2018-07-17] MEDS ORDERED: Heparin 5,000 UNITS/ML VIAL ONE (08:44)
[2018-07-17] MEDS ORDERED: Protamine Sulfate 50 MG/5 ML VIAL ONE (08:45)
[2018-07-17] MEDS ORDERED: Bupivacaine HCl 0.5%/Epinephrine 1:200,000/PF 30 ml Vial ONE (09:45)
[2018-07-17] MEDS ORDERED: Ondansetron HCl/PF 4 MG/2 ML Vial IVP PRN (11:34)
[2018-07-17] MEDS ORDERED: Promethazine HCl 25 MG/ML VIAL IM PRN (11:34)
[2018-07-17] MEDS ORDERED: Promethazine HCl 25 MG/ML VIAL SLOW IVP PRN (11:34)
[2018-07-17] MEDS: cloNIDine 0.3 MG TAB PO SCH ×3 (12:45→22:21)
[2018-07-17] MEDS: NIFEdipine XL 60 MG TAB PO SCH ×2 (12:46→14:43)
[2018-07-17] MEDS: hydrALAZINE 25 MG TAB PO SCH ×3 (12:46→22:13)
[2018-07-17] MEDS: Heparin 5,000 UNITS/ML VIAL SC SCH ×3 (12:46→22:15)
[2018-07-17] MEDS: Famotidine 20 MG TAB PO SCH ×2 (13:14→22:17)
[2018-07-17] MEDS: Folic Acid 1 MG TAB PO SCH (13:14)
[2018-07-17] MEDS: Gabapentin 100 MG CAP PO SCH ×3 (13:14→22:12)
[2018-07-17] MEDS: Ferrous Sulfate 325 MG TAB PO SCH (13:15)
--- NOTE | 2018-07-17 16:50 | PDOC.OP ---
Operative Note - Operative Note Operative Note: PROCEDURE: Left brachiobasilic AV fistula SURGEON: Walter Mark M.D. DATE OF PROCEDURE: 07/17/2018 PREOPERATIVE DIAGNOSIS: Renal failure POSTOPERATIVE DIAGNOSIS: Renal failure HISTORY: Patient with chronic renal failure progressing to end-stage renal failure. It is anticipated that she will need dialysis within the next few months. AV fistula formation was recommended. Preoperative vein mapping suggested that the upper arm basilic vein was the only usable vein in the arm. The patient and her son were informed that if this was indeed the case then a 2 part procedure would be necessary to create a working fistula, with creation of the fistula today and transposition at a later date. PROCEDURE IN DETAIL: After informed consent was obtained and appropriate preoperative antibiotics administered, the patient was taken to the operating room and placed in the supine position and monitored anesthesia care was administered. A preoperative block had been performed by Anesthesia and the adequacy of block was confirmed. Careful examination was made of the arm. There were no usable veins in the forearm. The upper arm cephalic was very small. The basilic vein was of good caliber until just above the antecubital fossa when it began to branch into smaller caliber veins. The location of the basilic vein and the brachial artery was marked. The arm was prepped and draped in a standard sterile fashion and an incision made between the basilic vein and brachial artery. Dissection was carried out to the basilic vein, which which traced down to the branching vessels just above the antecubital fossa. It appeared to be of adequate quality and caliber to support a fistula. This was dissected free circumferentially, ligated, and divided distally, and spatulated through the bifurcation with Gracia scissors. This was serially interrogated with cardiac dilators and easily accepted up to a 4 mm cardiac dilator. This was flushed with heparinized saline and clamped with a bulldog clamp. The brachial artery was then dissected free and found to be of adequate quality and caliber to support a fistula. Heparin was administered systemically and allowed to circulate for 3 minutes following which the brachial artery was clamped proximally and distally. An anterior arteriotomy was created with an 11 blade scalpel and extended with Gracia scissors. An end-to-side anastomosis created with a running 6-0 Prolene suture with excellent technical result. Prior to tying down the anastomosis, the inflow was released to flush the anastomosis. Flow was established first through the fistula and then through the distal brachial artery. Hemostasis at the site was confirmed, and an excellent thrill was felt in the basilic vein outflow and an excellent bruit was heard with Doppler as well up to the axilla. Hemostasis at the operative site was again confirmed. The incision was closed with a running 3-0 subcutaneous and running 4-0 subcuticular Monocryl sutures. Dermabond dressings were placed and the patient was taken to the recovery room in good condition. Estimated blood loss was minimal. There were no complications. There were no specimens.
--- NOTE | 2018-07-17 17:16 | PRG ---
DATE OF SERVICE: 07/17/2018 SUBJECTIVE: The patient feels well. She has no complaints. She is just status post left arm fistula placement and feels well. OBJECTIVE: VITAL SIGNS: Temperature 98.5, pulse 80, respirations 20, and blood pressure 118/64. GENERAL APPEARANCE: Age-appropriate female, in no distress. She is awake, alert, oriented, pleasant, and cooperative. HEART: Has 2/6 murmur at the aortic and tricuspid distributions. LUNGS: Clear to auscultation bilaterally. ABDOMEN: Soft, nontender, and nondistended. Positive bowel sounds. No masses. No organomegaly. EXTREMITIES: Warm and dry without edema. Left upper extremity has surgical incisions, which looks good. IMPRESSION AND PLAN: 1. Acute on chronic renal failure: The patient had a fistula created today. If the wound continues to look good and the numbers are okay in the morning, likely discharged for outpatient followup. She will need transposition at a later date. 2. Uremia, resolved. The patient is no longer symptomatic. Her numbers are improved. We will recheck in the morning. 3. Hyponatremia, resolved. 4. Dementia, stable. The patient is pleasant. Her son is a very good surrogate decision maker for her. 5. History of aortic stenosis with a valve area of 0.9 cm, stable. 6. History of chronic diastolic dysfunction, well compensated. 7. History of anemia of chronic disease, stable. 8. History of seizure disorder, stable. 9. Diabetes mellitus, adequately controlled. 10. Diabetic neuropathy. 11. History of accelerated hypertension, improved. 12. Disposition. I anticipate discharge in the morning. Job ID: [id number]
--- NOTE | 2018-07-17 18:45 | PRG ---
DATE OF SERVICE: 07/17/2018 SUBJECTIVE: Patient was seen and examined at bedside and overnight events noted. Patient denies any shortness of breath or chest pain or palpitation. No history of nausea or vomiting or diarrhea or fever or chills or cramps. OBJECTIVE: GENERAL: This is a well-built female, in no apparent distress. VITAL SIGNS: Temperature 98.5. Heart rate 80. Respiratory rate 20. Blood pressure 118/64. HEENT: Atraumatic, normocephalic. Oral mucosa is moist NECK: Supple. CARDIOVASCULAR: S1, S2 heard. Rate and rhythm regular. RESPIRATORY: Clear to auscultation. GASTROINTESTINAL: Abdomen is soft. MUSCULOSKELETAL: No tenderness. No edema. DERMATOLOGIC: No skin rash. NEUROLOGIC: Alert and awake and oriented X3. No focal neurologic deficits. Moving all the extremities. PSYCHIATRIC: Mood and affect normal. LABORATORY DATA: No labs done today. ASSESSMENT AND PLAN: 1. Acute kidney injury on chronic kidney disease, stage 4, we already took the labs in the morning. Fistula placed for possible dialysis in the near future. 2. Hypernatremia. Awaiting labs. 3. Anemia. 4. Edema. 5. Hypertension. 6. Solitary kidney. I appreciate help from Surgery. Job ID: [id number]
[2018-07-18] MEDS: Acetaminophen 500 MG TAB PO PRN ×3 (02:07→17:48)
[2018-07-18 07:41] VITALS: TEMP 98.2
[2018-07-18] MEDS: NIFEdipine XL 60 MG TAB PO SCH (07:56)
[2018-07-18] MEDS: Ferrous Sulfate 325 MG TAB PO SCH (07:56)
[2018-07-18] MEDS: Carvedilol 25 MG TAB PO SCH (07:57)
[2018-07-18] MEDS: Famotidine 20 MG TAB PO SCH (07:57)
[2018-07-18] MEDS: Folic Acid 1 MG TAB PO SCH (07:57)
[2018-07-18] MEDS: hydrALAZINE 25 MG TAB PO SCH ×2 (07:58→14:46)
[2018-07-18] MEDS: Gabapentin 100 MG CAP PO SCH ×2 (07:58→14:46)
[2018-07-18] MEDS: Heparin 5,000 UNITS/ML VIAL SC SCH ×2 (07:58→14:46)
[2018-07-18] MEDS: cloNIDine 0.3 MG TAB PO SCH ×2 (07:59→14:47)
[2018-07-18 08:41] LABS: Anion Gap 13 mmol/L (10-20); BUN (Urea Nitrogen) 58 mg/dL (9.8-20.1); Calc. Creatinine Clearance 22 mL/min (70-130); Calcium 9.6 mg/dL (7.8-10.44); Carbon Dioxide 28 mmol/L (23-31); Chloride 108 mmol/L (98-107); Estimated GFR-MDRD 24; Glucose 161 mg/dL (83-110); Potassium 4.2 mmol/L (3.5-5.1); Sodium 145 mmol/L (136-145)
[2018-07-18 12:03] LABS: Anion Gap 14 mmol/L (10-20); BUN (Urea Nitrogen) 59 mg/dL (9.8-20.1); Calc. Creatinine Clearance 20 mL/min (70-130); Calcium 9.3 mg/dL (7.8-10.44); Carbon Dioxide 26 mmol/L (23-31); Chloride 107 mmol/L (98-107); Estimated GFR-MDRD 22; Glucose 277 mg/dL (83-110); Potassium 4.7 mmol/L (3.5-5.1); Sodium 142 mmol/L (136-145)
[2018-07-18 14:49] VITALS: BP 129/71
--- NOTE | 2018-07-18 16:13 | PDOC.GSPN ---
Surgery Progress Note: Subj - Subjective Narrative: Patient has some minimal bruising and swelling near her incision. Excellent bruit in the fistula. She does have some incisional pain in her left arm is still weak from the block. Her hand is pink and warm. Assessment/plan: Status post left AV fistula doing well. Ready for discharge from a surgical standpoint. She can return to my clinic in 2-3 weeks. Surgery Progress Note: Obj - Vital signs Vital signs: Vital Signs - Most Recent Temp Pulse Resp BP Pulse Ox 98.2 F 80 17 129/71 94 L 07/18/18 07:39 07/18/18 07:58 07/18/18 07:39 07/18/18 14:47 07/18/18 08:00 Surgery Progress Note: Results - Labs Result Diagrams: 07/16/18 04:53 07/18/18 11:15 Lab results: Laboratory Results - last 24 hr 07/18/18 07/18/18 07/18/18 04:10 07:58 11:15 Sodium 145 142 Potassium 4.2 4.7 Chloride 108 H 107 Carbon Dioxide 28 26 Anion Gap 13 14 BUN 58 H 59 H Creatinine 2.35 H 2.60 H Estimated GFR (MDRD) 24 22 Glucose 161 H 277 H POC Glucose 145 H Calcium 9.6 9.3 07/18/18 11:25 Sodium Potassium Chloride Carbon Dioxide Anion Gap BUN Creatinine Estimated GFR (MDRD) Glucose POC Glucose 286 H Calcium
--- NOTE | 2018-07-18 17:33 | PRG ---
DATE OF SERVICE: 07/18/2018 SUBJECTIVE: Patient was seen and examined at bedside and overnight events noted. Patient denies any shortness of breath or chest pain or palpitation. No history of nausea or vomiting or diarrhea or fever or chills or cramps. OBJECTIVE: GENERAL: This is a well-built female, in no apparent distress. VITAL SIGNS: Temperature 98.2. Heart rate 80. Respiratory rate 19. Blood pressure 129/71. HEENT: Atraumatic, normocephalic. Oral mucosa is moist NECK: Supple. CARDIOVASCULAR: S1, S2 heard. Rate and rhythm regular. RESPIRATORY: Clear to auscultation. GASTROINTESTINAL: Abdomen is soft. MUSCULOSKELETAL: No tenderness. No edema. DERMATOLOGIC: No skin rash. NEUROLOGIC: Alert and awake and oriented X3. No focal neurologic deficits. Moving all the extremities. PSYCHIATRIC: Mood and affect normal. LABORATORY DATA: Potassium is 4.7, BUN is 59, creatinine is 2.6. ASSESSMENT AND PLAN: 1. Chronic kidney disease, stage 4, stable. 2. Hypernatremia. 3. Anemia. 4. Edema. 5. Hypertension. 6. History of solitary kidney. Renal function is stable. No acute indication for dialysis. Continue close followup as outpatient. Job ID: [id number]
== END 2018-07-18 18:11 | disposition home or self-care (01) | DRG 674 ==
LOC: ERS 10:48 → 2SW 15:24 → OBSVTOIN 07-15 11:42 → T4-A 07-16 19:16
PROVIDERS: ADMIT Family Medicine; ATTEND Family Medicine
PROC: 03180ZD Bypass Left Brachial Artery to Upper Arm Vein, Open Approach (ICD-10-PCS; principal; 2018-07-17)
DX: N17.9 Acute kidney failure, unspecified (principal); E87.0 Hyperosmolality and hypernatremia; Q60.0 Renal agenesis, unilateral; I50.32 Chronic diastolic (congestive) heart failure; I13.0 Hypertensive heart and chronic kidney disease with heart failure and stage 1 through stage 4 chronic kidney disease, or unspecified chronic kidney disease; N18.4 Chronic kidney disease, stage 4 (severe); F03.90 Unspecified dementia, unspecified severity, without behavioral disturbance, psychotic disturbance, mood disturbance, and anxiety; I35.0 Nonrheumatic aortic (valve) stenosis; E78.5 Hyperlipidemia, unspecified; D63.1 Anemia in chronic kidney disease; E11.22 Type 2 diabetes mellitus with diabetic chronic kidney disease; G40.909 Epilepsy, unspecified, not intractable, without status epilepticus; E11.40 Type 2 diabetes mellitus with diabetic neuropathy, unspecified; Z90.49 Acquired absence of other specified parts of digestive tract; Z90.5 Acquired absence of kidney; Z79.82 Long term (current) use of aspirin; Z79.4 Long term (current) use of insulin
CPT/HCPCS: 36415; 36416; 51701; 70450; 71045; 76770; 80048; 80053; 80185; 81001; 81003; 81015; 82550; 82553; 83690; 83880; 84484; 85025; 87040; 87086; 93005; 93970; A4353; G0365; J0360; J0670; J1642; J1644; J2001; J2405; J2704; J2720; J3010; Q9967

== ENCOUNTER 2018-07-23 22:24 | Emergency (ER) | payer MEDICARE ==
[2018-07-23 23:12] LABS: #Eosinphils 0.1 thou/uL (0.0-0.7); #Lymphocytes 1.3 thou/uL (1.20-3.40); #Monocytes 1.3 thou/uL (0.11-0.59); #Neutrophils 10.6 thou/uL (1.40-6.50); %Basophils 0.1 % (0.0-1.0); %Eosinophils 0.9 % (0.0-10.0); %Monocytes 9.7 % (0.0-10.0); %Neutrophils 79.2 % (42.0-75.0); Hemoglobin 8.8 g/dL (12.0-16.0); Mean Corpuscular HGB CONC 31.8 g/dL (32.0-36.0); Mean Corpuscular Hemoglobin 29.4 pg (27.0-31.0); Mean Corpuscular Volume 92.3 fL (78.0-98.0); Mean Platelet Volume 9.2 fL (7.4-10.4); Platelet Count 220 thou/uL (130-400); RBC Distribution Width 13.7 % (11.5-14.5); Red Blood Cell (RBC) Count 2.98 mill/uL (4.20-5.40); White Blood Cell (WBC) Count 13.4 thou/uL (4.8-10.8)
[2018-07-23 23:32] LABS: ALT (SGPT) 11 U/L (8-55); AST (SGOT) 28 U/L (5-34); Albumin 3.3 g/dL (3.4-4.8); Alkaline Phosphatase 69 U/L (40-150); Anion Gap 14 mmol/L (10-20); BUN (Urea Nitrogen) 73 mg/dL (9.8-20.1); Bilirubin, Total 0.3 mg/dL (0.2-1.2); Calc. Creatinine Clearance 0 mL/min (70-130); Carbon Dioxide 23 mmol/L (23-31); Chloride 102 mmol/L (98-107); Estimated GFR-MDRD 19; Globulin 3.4 g/dL (2.4-3.5); Glucose 153 mg/dL (83-110); Potassium 4.2 mmol/L (3.5-5.1); Protein, Total 6.7 g/dL (6.0-8.3); Sodium 135 mmol/L (136-145)
== END 2018-07-24 00:40 | disposition short-term general hospital (02) ==
LOC: ERS 22:24
DX: E87.6 Hypokalemia (principal); I12.9 Hypertensive chronic kidney disease with stage 1 through stage 4 chronic kidney disease, or unspecified chronic kidney disease; D63.1 Anemia in chronic kidney disease; E11.22 Type 2 diabetes mellitus with diabetic chronic kidney disease; I50.9 Heart failure, unspecified; E78.5 Hyperlipidemia, unspecified; Z79.899 Other long term (current) drug therapy; Z79.01 Long term (current) use of anticoagulants; Z79.82 Long term (current) use of aspirin
CPT/HCPCS: 36415; 80053; 85025; 93005